=== PATIENT | female | born 1950 | race Caucasian/White ===

== ENCOUNTER → 2016-12-06 | Outpatient (CLI) | payer OTHER ==
[~2016-12-06] MED LIST: ACETAMINOPHEN; ASPI-86; CETI10TA17; CETI1TAB2; DIPH25TA82; DIPH50CA; FURO40TA4; GARL400T13; GLUC10002; IBUP-792; MNTL10T; OLME1TAB25; POTA20TA15 PO; RANI-10; RANI75TA57; SIMV40TA2; TYLENOL ARTHRITIS; VITAMIN B12; VNL75CCR; [UNRECOGNIZED DRUG - CODE]
--- OUTSIDE RECORDS SUMMARY | 2016-12-06 08:52 | XMS REPORT | Continuity of Care Document ---
Author Author [facility] Organization [facility] Address Unknown Phone Unavailable Allergies Active Description Code Type Severity Reaction Onset Reported/Identified Relationship to Patient Clinical Status Yes iodine [id number] Drug Allergy Mild N/A 08/25/2009 Yes TAPE TAPE Mild N/A 08/25/2009 Medications Problems Date Dx Coded Attending Type Code Diagnosis Diagnosed By 06/20/2013 EVIE LO, ARÚL Valles Ot 211.3 BENIGN NEOPLASM LG BOWEL 06/20/2013 RAÚL CASE MD Ot V16.0 FAMILY HX-GI MALIGNANCY 06/20/2013 RAÚL CASE MD Ot V76.51 SCREEN MAL NEOP-COLON 11/12/2014 BRET LO, KATIA Hernandes Ot 593.9 11/27/2014 KATIA QUEEN MD Ot 593.9 03/11/2015 RAÚL CASE MD Ot 327.23 03/11/2015 RAÚL CASE MD Ot 401.9 08/05/2015 RAÚL CASE MD Ot R92.0 08/05/2015 RAÚL CASE MD Ot Z12.31 08/13/2015 RAÚL CASE MD Ot R92.0 08/13/2015 RAÚL CASE MD Ot Z12.31 08/24/2015 RAÚL CASE MD Ot R92.8 03/02/2016 Ot 272.4 HYPERLIPIDEMIA NEC/NOS 03/02/2016 Ot 401.9 HYPERTENSION NOS 03/02/2016 Ot V76.12 OTH SCREEN MAMMO-MALIGN NEOPLASM OF EVELYN 03/02/2016 Ot 272.1 PURE HYPERGLYCERIDEMIA 03/02/2016 Ot 401.1 BENIGN HYPERTENSION 03/02/2016 RAÚL CASE MD Ot V72.84 EXAM PRE-OPERATIVE NOS 03/02/2016 BRET LO, KATIA Hernandes Ot 593.9 RENAL URETERAL DIS NOS 03/02/2016 RÚAL CASE MD Ot 327.23 OBSTRUCTIVE SLEEP APNEA (ADULT) (PEDIATR 03/02/2016 RAÚL CASE MD Ot 401.9 HYPERTENSION NOS 03/02/2016 RAÚL CASE MD Ot R92.0 MAMMOGRAPHIC MICROCALCIFICATION FOUND ON 03/02/2016 RAÚL CASE MD Ot Z12.31 ENCNTR SCREEN MAMMOGRAM FOR MALIGNANT NE 03/02/2016 RAÚL CASE MD Ot R92.8 OTH ABN AND INCONCLUSIVE FINDINGS ON DX 03/03/2016 RAÚL CASE MD Ot R92.8 OTH ABN AND INCONCLUSIVE FINDINGS ON DX 03/03/2016 RAÚL CASE MD Ot Z09 ENCNTR FOR F/U EXAM AFT TRTMT FOR COND O 03/30/2016 RAÚL CASE MD Ot R92.8 OTH ABN AND INCONCLUSIVE FINDINGS ON DX 03/30/2016 RAÚL CASE MD Ot Z09 ENCNTR FOR F/U EXAM AFT TRTMT FOR COND O Procedures Code Description Performed By Performed On 81.54 09/08/2009 Results Encounters ACCT No. Visit Date/Time Discharge Status Pt. Type Provider Facility Loc./Unit Complaint [id number] 08/06/2015 07:56:00 2014 23:59:59 CLS Outpatient RAÚL CASE MD [facility] RAD [id number] 07/30/2015 12:50:00 2014 23:59:59 CLS Outpatient RAÚL CASE MD [facility] RAD [id number] 02/12/2015 14:15:00 2014 23:59:59 CLS Outpatient RAÚL CASE MD [facility] SLEEP [id number] 11/09/2014 07:31:00 2014 23:59:59 CLS Outpatient KATIA QUEEN MD [facility] RAD [id number] 06/20/2013 06:52:00 2012 09:58:00 DIS Outpatient RAÚL CASE MD [facility] [id number] 06/18/2013 08:44:00 2012 23:59:59 CLS Outpatient RAÚL CASE MD [facility] PREOP [id number] 03/02/2016 07:29:00 ACT Outpatient RAÚL CASE MD [facility] [id number] 10/10/2012 06:58:00 Document Registration [id number] 10/09/2012 07:46:00 Document Registration [id number] 11/29/2010 06:43:00 Document Registration [id number] 09/08/2009 05:38:00 Document Registration
--- NOTE | 2016-12-07 21:45 | Diagnostic Imaging Report ---
EXAMINATION: Bilateral digital screening mammogram with CAD. The current study was also evaluated with a Computer Aided Detection (CAD) system. INDICATION: Screening At this time there are no current complaints. COMPARISON: This study was compared to the prior exam of 03/02/16, 07/30/15 and 10/10/12. FINDINGS: There are scattered fibroglandular densities in both breasts which could obscure a lesion. The previous exam of 03/02/16 noted dystrophic calcifications about the stereotactic clip in the midportion of the right breast. Those calcifications are again evident on this study and do not seem to have changed significantly. Most likely they are benign. There are other benign-appearing calcifications in both breasts as well. These too seem similar to the prior study. There is no primary or secondary sign of malignancy noted. IMPRESSION: 1. There is no evidence for malignancy. 2. The patient should have her annual bilateral screening mammogram on schedule in November of 2017. ACR BI-RADS Category 1: Negative. Result letter will be mailed to the patient. Note: At least 10% of breast cancer is not imaged by mammography. Dictated by: Dictated on workstation # [id number]
== END ==
LOC: RAD 08:48
PROVIDERS: ATTEND Internal Medicine
DX: Z12.31 Encounter for screening mammogram for malignant neoplasm of breast (principal)
CPT/HCPCS: 77067

== ENCOUNTER → 2018-03-15 | Outpatient (CLI) | payer MEDICARE, OTHER ==
--- NOTE | 2018-03-15 09:42 | Diagnostic Imaging Report ---
Indication: Routine screening. Comparison is made to prior study from 12/06/2016 and 03/02/2016. 2-D and 3-D bilateral screening mammography was performed with CAD. Scattered fibroglandular densities are identified bilaterally. Benign calcifications are scattered throughout both breasts. A biopsy clip in the upper central right breast is again noted. Previously noted calcifications adjacent to the clip appears stable. No new mass or malignant-appearing microcalcifications are seen. Axillae are unremarkable. Impression: BI-RADS category 2. No mammographic features suspicious for malignancy are identified. Dictated by: Dictated on workstation # [id number]
== END ==
LOC: RAD 07:35
PROVIDERS: ATTEND Internal Medicine
DX: Z12.31 Encounter for screening mammogram for malignant neoplasm of breast (principal)
CPT/HCPCS: 77067

== ENCOUNTER 2018-09-30 12:54 | Outpatient (CLI) | payer MEDICARE, OTHER ==
[~2018-09-30] VITALS: Ht 167.6 cm; Wt 127.0 kg
[2018-09-30] MEDS ORDERED: VITA100035 PO (13:56)
[2018-09-30] MEDS ORDERED: ALLO300T2 PO (13:56)
[2018-09-30] MEDS ORDERED: ASPI-999 PO (13:56)
[2018-09-30] MEDS ORDERED: RANI150T46 PO (13:56)
[2018-09-30] MEDS ORDERED: GLUC1CAP14 PO (13:56)
[2018-09-30] MEDS ORDERED: SIMV40TA4 PO (13:56)
[2018-09-30] MEDS ORDERED: VNL75T PO (13:56)
[2018-09-30] MEDS ORDERED: MULT-35 PO (13:56)
[2018-09-30] MEDS ORDERED: ACET-2650 PO (13:56)
[2018-09-30] MEDS ORDERED: CETI10TA17 PO (13:56)
[2018-09-30] MEDS ORDERED: POTA20TA15 PO (13:56)
[2018-09-30] MEDS ORDERED: CETI1TAB61 PO (13:56)
[2018-09-30] MEDS ORDERED: MONT10TA24 PO (13:56)
[2018-09-30] MEDS ORDERED: DIPH25CA6 PO (13:56)
[2018-09-30] MEDS ORDERED: VALS1TAB80 PO (13:56)
[2018-09-30] MEDS ORDERED: DIPH50CA PO (13:56)
== END 2018-09-30 13:58 | disposition home or self-care (01) ==
LOC: PREOP 12:54
PROVIDERS: ATTEND Internal Medicine
DX: Z01.818 Encounter for other preprocedural examination (principal)

== ENCOUNTER 2018-10-04 08:59 | Day surgery (SDC) | payer MEDICARE, OTHER ==
--- NOTE | 2018-09-27 13:28 | HISTORY AND PHYSICAL ---
DATE OF SERVICE: COLONOSCOPY HISTORY AND PHYSICAL HISTORY OF PRESENT ILLNESS: The patient is a 68-year-old white female seen in the office for followup of hypertension and intermittent gout on 09/26/2018. She is being set up for screening colonoscopy. She is deemed to be of higher than average risk as she has a brother who was diagnosed with adenocarcinoma of the rectum at the age of 55. Her last colonoscopy was a little over 5 years ago at which time one hyperplastic polyp was removed. No evidence for adenomatous colonic polyposis was noted. She reports that she has been feeling well, has noted no bowel habit change. Denies abdominal pain, has noted no melena or bright red blood per rectum. In March, she had one attack of acute podagra. As I recall, she was not in town, just had ibuprofen to take and to take about a week to resolve. She has had no subsequent recurrences of inflammatory arthritis. She has had no chest pain, shortness of breath, orthopnea, PND or pedal edema. PHYSICAL EXAMINATION: GENERAL: Reveals a well-appearing white female, in no acute distress. VITAL SIGNS: Weight was up 3 pounds to 285.8. Blood pressure initially 166/86 and at the end of the interview down to 140/80 with a heart rate of 72 and regular. HEENT: Unremarkable. She is a Mallampati class 3 oropharyngeal configuration. NECK: Revealed no JVD, adenopathy or bruits. Ear canals were clear with normal TMs. CHEST: Clear to auscultation. CARDIOVASCULAR: Reveals a regular rate and rhythm without murmur, S3 or S4. ABDOMEN: Soft, supple without mass, organomegaly or tenderness. EXTREMITIES: Reveal no cyanosis, clubbing or edema. ASSESSMENT AND PLAN: 1. Hypertension under reasonable control. 2. Acute intermittent podagra, discussed utilization of prednisone for future attacks. Thiazide diuretic is likely aggravating this, but her attacks were infrequent and she is likely diuretic dependent for hypertension control. 3. History of hyperlipidemia. Blood tests were reviewed with the patient and today basic metabolic panel was unremarkable except for fasting sugar of 101, which is improved from 110 last time. Her uric acid level was 5.3 and BUN was 23 with a creatinine of 1.2. She has prep instructions with Suprep kit were given and questions were answered. She is scheduled for hypertension follow up in 6 months and next year will be due for another lipid panel with repeat basic metabolic panel and uric acid. Job ID: [id number] DocumentID: [id number] Dictated Date: 09/27/2018 12:36:12 Support Manager Date: 09/27/2018 13:27:22 Dictated By: RAÚL CASE MD
[~2018-10-04] VITALS: Ht 167.6 cm; Wt 127.0 kg
[~2018-10-04 08:59] MED LIST changes: +ACET-2650 PO; +ALLO300T2 PO; +ASPI-999 PO; +CETI10TA17 PO; +CETI1TAB61 PO; +DIPH25CA6 PO; +DIPH50CA PO; +GLUC1CAP14 PO; +MONT10TA24 PO; +MULT-35 PO; +RANI150T46 PO; +SIMV40TA4 PO; +VALS1TAB80 PO; +VITA100035 PO; +VNL75T PO
[2018-10-04] MEDS ORDERED: D5 LR IV SOLUTION 1,000 ML IV STA (09:26)
[2018-10-04] MEDS ORDERED: LIDOCAINE JELLY 2% 6 ML SYRINGE MM PRN (09:30)
[2018-10-04] MEDS ORDERED: MIDAZOLAM 2 MG/2 ML (VERSED) VIAL IVP ONE (09:30)
[2018-10-04] MEDS ORDERED: fentaNYL INJECTION 100 MCG/2 ML AMP IVP ONE (09:30)
[2018-10-04] MEDS ORDERED: D5 LR IV SOLUTION 1,000 ML IV ONE (09:30)
[2018-10-04] MEDS ORDERED: LIDOCAINE JELLY 2% 6 ML SYRINGE ONE (09:46)
[2018-10-04] MEDS ORDERED: fentaNYL INJECTION 100 MCG/2 ML AMP ONE (09:46)
[2018-10-04] MEDS ORDERED: MIDAZOLAM 2 MG/2 ML (VERSED) VIAL ONE ×2 (09:46)
[2018-10-04 10:09] VITALS: BP 140/72
[2018-10-04 11:00] VITALS: BP 132/72
[2018-10-04 11:30] VITALS: BP 144/88
[2018-10-04 12:05] VITALS: BP 144/88
--- NOTE | 2018-10-04 22:39 | OPERATIVE REPORT ---
DATE OF SERVICE: COLONOSCOPY SUMMARY PRIMARY CARE PROVIDER: Raúl Case MD INDICATION FOR THE PROCEDURE: Screening colonoscopy, family history of colon cancer in her brother diagnosed in his 50s as well as grandmother and several uncles. DESCRIPTION OF PROCEDURE: The patient was placed in the left lateral decubitus position. Prior to undergoing colonoscopy, digital rectal evaluation was performed. Anal sphincter tone was normal and the perianal reflexes intact. Digital rectal evaluation was compatible with a small anterior rectocele. No other abnormalities are noted on additional inspection of the anal canal or distal rectal vault. The colonoscope was then inserted into the rectum under direct visualization and advanced to the cecum. Cecum was identified by identification of the cecal strap. Photographic documentation was obtained. Careful inspection was made as the colonoscope was withdrawn. The quality of prep was fair. FINDINGS: There is no evidence for internal or external hemorrhoids and the rectum was unremarkable. No evidence for sigmoid diverticular disease was appreciated. Present in the proximal sigmoid colon was a diminutive 1 mm sessile polyp. It was biopsied and ablated and submitted for histopathology. The descending colon, splenic flexure and transverse colon were unremarkable. A diminutive 2 mm sessile polyp was noted at the hepatic flexure. It was photographed and biopsied and ablated with minimal blood loss. The ascending colon was unremarkable except for a 5 mm beefy red nonulcerated sessile polyp noted on the opposite wall of the ileocecal valve from the ileocecal valve and one fold distal in the proximal ascending colon. It was biopsied and ablated in 2 locations and submitted for histopathology. The cecum and the colon was unremarkable. ASSESSMENT: Three polyps were removed via hot forceps as noted above. The most concerning was a 5 mm sessile polyp slightly firm to biopsy forceps resistance opposite the ileocecal valve in the distal ascending colon. Future surveillance colonoscopy likely not exceeding a year will be recommended pending histopathology report. A small anterior rectocele was noted on digital evaluation. No other colonic abnormalities were appreciated on today's study. Job ID: [id number] DocumentID: [id number] Dictated Date: 10/04/2018 10:58:47 Disc Sander Date: 10/04/2018 22:38:04 Dictated By: RAÚL CASE MD [facility]
== END 2018-10-04 12:05 | disposition home or self-care (01) ==
LOC: ENDO 08:59
PROVIDERS: ATTEND Internal Medicine
DX: Z12.11 Encounter for screening for malignant neoplasm of colon (principal); K63.5 Polyp of colon; N81.6 Rectocele; Z80.0 Family history of malignant neoplasm of digestive organs; I10 Essential (primary) hypertension; M10.9 Gout, unspecified; Z79.899 Other long term (current) drug therapy

== ENCOUNTER → 2019-05-14 | Outpatient (CLI) | payer MEDICARE, OTHER ==
[~2019-05-14] MED LIST changes: +RANI-613 PO; -RANI150T46 PO
--- NOTE | 2019-05-14 13:21 | Diagnostic Imaging Report ---
Indication: Routine screening. Comparison is made with prior mammogram 03/15/2018 and 12/06/2016. 2-D and 3-D bilateral screening mammography was performed with CAD. Scattered fibroglandular densities are identified bilaterally. Scattered benign calcifications again noted. Biopsy clip on the right remains in place. No discrete mass or malignant-appearing microcalcifications are seen. The axillae are unremarkable. Impression: BI-RADS category 2 No mammographic features suspicious for malignancy are identified. ACR BI-RADS Category 2: Benign findings. Result letter will be mailed to the patient. Note: At least 10% of breast cancer is not imaged by mammography. Dictated by: Dictated on workstation # [id number]
== END ==
LOC: RAD 11:29
PROVIDERS: ATTEND Internal Medicine
DX: Z12.31 Encounter for screening mammogram for malignant neoplasm of breast (principal)
CPT/HCPCS: 77067

== ENCOUNTER → 2020-05-25 | Outpatient (CLI) | payer MEDICARE, OTHER ==
[~2020-05-25] MED LIST changes: +DIPH25CA48 PO; -DIPH25CA6 PO; -MONT10TA24 PO; +MONT10TA26 PO; +SIMV40TA25 PO; -SIMV40TA4 PO
--- NOTE | 2020-05-25 12:39 | Diagnostic Imaging Report ---
INDICATION: Routine screening. COMPARISON: 05/14/2019 and 03/15/2018. TECHNIQUE: 2D and 3D bilateral screening mammography was performed with CAD. FINDINGS: Scattered fibroglandular densities are identified bilaterally. A biopsy marker clip in the outer right breast at mid depth is again noted. Numerous calcifications are scattered throughout both breasts, similar to prior exam. No dominant mass or malignant appearing microcalcifications are seen. The axillae are unremarkable. IMPRESSION: No mammographic features suspicious for malignancy are identified. ACR BI-RADS Category 2: Benign findings. Result letter will be mailed to the patient. Note: At least 10% of breast cancer is not imaged by mammography. Dictated by: Dictated on workstation # [id number]
== END ==
LOC: RAD 10:15
PROVIDERS: ATTEND Internal Medicine
DX: Z12.31 Encounter for screening mammogram for malignant neoplasm of breast (principal)
CPT/HCPCS: 77063; 77067

== ENCOUNTER → 2021-05-26 | Outpatient (CLI) | payer MEDICARE, OTHER ==
[~2021-05-26] MED LIST changes: -MONT10TA26 PO; +MONT10TA32 PO
--- NOTE | 2021-05-26 09:23 | Diagnostic Imaging Report ---
Indication: Routine screening. Comparison is made prior mammogram from 05/25/2020 and 05/14/2019. 2-D and 3-D bilateral screening mammography was performed with CAD. Scattered fibroglandular densities are identified bilaterally. A biopsy marker clip in the central right breast is again noted. A scattered benign appearing calcifications in both breast are noted. No mass or malignant-appearing microcalcifications are seen. Axillae are unremarkable. IMPRESSION: BI-RADS Category 2 No mammographic features suspicious for malignancy are identified. ACR BI-RADS Category 2: Benign findings. Result letter will be mailed to the patient. Note: At least 10% of breast cancer is not imaged by mammography. Dictated by: Dictated on workstation # [id number]
== END ==
PROVIDERS: ATTEND Internal Medicine
DX: Z12.31 Encounter for screening mammogram for malignant neoplasm of breast (principal)
CPT/HCPCS: 77063; 77067

== ENCOUNTER 2021-10-13 05:35 | Outpatient (CLI) | payer MEDICARE, OTHER ==
[~2021-10-13] VITALS: Ht 165 cm; Wt 58.0 kg
[~2021-10-13 05:35] MED LIST changes: -DIPH50CA PO; +DIPH50CA33 PO; +MONT-40 PO; -MONT10TA32 PO; +POTA-179 PO
[2021-10-14] MEDS ORDERED: CAND32TA21 PO (12:19)
[2021-10-14] MEDS ORDERED: ALLO100T PO (12:19)
== END 2021-10-14 13:47 ==
LOC: PREOP 05:35
PROVIDERS: ATTEND Internal Medicine
DX: Z01.818 Encounter for other preprocedural examination (principal)

== ENCOUNTER 2021-10-21 06:51 | Day surgery (SDC) | payer MEDICARE, OTHER ==
--- NOTE | 2021-10-13 08:39 | HISTORY AND PHYSICAL ---
DATE OF SERVICE: COLONOSCOPY HISTORY AND PHYSICAL HISTORY: The patient is a 71-year-old white female seen in the office for followup of hypertension, insulin resistance and obstructive sleep apnea. She has undergone colonoscopy 3 years ago, at which time she had 2 polyps removed and more concerning adjacent to the ileocecal valve was read out as hyperplastic. There is a strong family history for colon cancer in her brother, grandfather and several uncles. Brother was diagnosed at the age of 50. She denies any abdominal pain, change in bowel habit, melena or bright red blood per rectum. She brought in paperwork indicating compliance with her CPAP, which has been working well. Auto titrating. She has had no chest discomforts and had lost several pounds when compared to the summer months. She voices no complaints and is fully vaccinated for COVID as well as influenza. PHYSICAL EXAMINATION: GENERAL: Reveals a white female appeared to be in no acute distress. VITAL SIGNS: Initial blood pressure 172/90 when she first walked in, repeated at the end of the interview was 136/78. HEENT: Unremarkable. Sclerae nonicteric. CHEST: Clear to auscultation. CARDIOVASCULAR: Revealed a regular rate and rhythm without significant murmur, S3 or S4. ABDOMEN: Soft, supple without mass, organomegaly or tenderness. EXTREMITIES: Reveal no cyanosis, clubbing or edema. ASSESSMENT: 1. Hypertension, likely under reasonable control. Home blood pressures were reviewed. Only occasional blood pressures above 140 systolic, predominantly under 130 No levels above the mid 80 range on diastolic pressure. 2. The patient is set up for surveillance colonoscopy due to past history of colon polyps and strong family history for colon cancer. 3. Obstructive sleep apnea, good compliance with CPAP, reports reviewed. 4. Insulin resistance, stable blood sugars. Discussed the importance of continued weight loss considering BMI greater than 40. We will see her back in six months with a chemistry panel, lipid panel and A1c. Job ID: [id number] DocumentID: [id number] Dictated Date: 10/06/2021 16:03:36 Home Office Claims Examiner Date: 10/06/2021 16:19:05 Dictated By: RAÚL CASE MD
[~2021-10-21] VITALS: Ht 168 cm; Wt 128.0 kg
[~2021-10-21 06:51] MED LIST changes: +ALLO100T PO; +CAND32TA21 PO
[2021-10-21] MEDS ORDERED: LACTATED RINGERS 1,000 ML IV STA ×2 (06:59→08:44)
[2021-10-21 07:16] VITALS: BP 135/61
[2021-10-21] MEDS ORDERED: fentaNYL INJ 100 MCG/2 ML AMP ONE (07:52)
[2021-10-21] MEDS ORDERED: MIDAZOLAM 5 MG/5 ML (VERSED) VIAL ONE (07:52)
--- NOTE | 2021-10-21 08:01 | Pre-Op Note & Conscious Sedat ---
Pre-Operative Progress Note H&P Reviewed The H&P was reviewed, patient examined and no changes noted. Date H&P Reviewed: Oct 21, 2021 Time H&P Reviewed: 07:45 Conscious Sedation Pre-Proced ASA Score 2 For ASA 3 and 4: Consider anesthesia and medical clearance. Also, for patients with a history of failed moderate sedation consider anesthesia. Airway Lungs Heart ASA score ASA 1: a normal healthy patient ASA 2: a patient with a mild systemic disease (mid diabetes, controlled hypertension, obesity ASA 3: a patient with a severe systemic disease that limits activity (angina, COPD, prior Myocardial infarction) ASA 4: a patient with an incapacitating disease that is a constant threat to life (CHF, renal failure) ASA 5: a moribund patient not expected to survive 24 hrs. (ruptured aneurysm) ASA 6: a declared brain- patient whose organs are being harvested. For emergent operations, add the letter E after the classification Mallampati Classification Grade 3 Sedation Plan Analgesia, Amnesia, Plan communicated to team members, Discussed options with patient/fam, Discussed risks with patient/fam The patient is an appropriate candidate to undergo the planned procedure, sedation, and anesthesia. The patient immediately re-assessed prior to indication. RAÚL CASE MD Oct 21, 2021 08:01
[2021-10-21 08:15] VITALS: BP 133/60
[2021-10-21 08:20] VITALS: BP 135/63
[2021-10-21 08:25] VITALS: BP 143/67
[2021-10-21 08:30] VITALS: BP 129/60
[2021-10-21] MEDS ORDERED: LIDOCAINE JELLY 2% 6 ML SYRINGE MM PRN (08:45)
[2021-10-21] MEDS ORDERED: MIDAZOLAM 5 MG/5 ML (VERSED) VIAL IV ONE (08:45)
[2021-10-21] MEDS ORDERED: fentaNYL INJ 100 MCG/2 ML AMP IVP ONE (08:45)
[2021-10-21 09:00] VITALS: BP 152/80
--- NOTE | 2021-10-21 12:46 | OPERATIVE REPORT ---
DATE OF SERVICE: COLONOSCOPY SUMMARY INDICATION FOR THE PROCEDURE: Surveillance colonoscopy, history of colon polyps, family history of colon cancer. DESCRIPTION OF PROCEDURE: The patient was placed in the left lateral decubitus position. Prior to undergoing colonoscopy, digital rectal evaluation was performed. Anal sphincter tone was normal and the perianal reflexes intact. No evidence for internal or external hemorrhoids and no digital abnormalities noted on inspection of the anal canal or distal rectal vault. The colonoscope was then inserted into the rectum and under direct visualization advanced to the cecum. The cecum was identified by identification of the ileocecal valve and cecal strap. Photographic documentation was obtained. Careful inspection was made as the colonoscope was withdrawn. Quality of prep was good. FINDINGS: There was no evidence for internal or external hemorrhoids and the rectum and sigmoid colon were unremarkable. Present in the proximal descending colon was a questionable sessile 4 mm polyp. It was photographed and biopsied and ablated with no blood loss. The splenic flexure, transverse colon, hepatic flexure, and proximal mid ascending colon were unremarkable. Adjacent to the ileocecal valve and the proximal ascending colon was a 5 mm sessile polyp, likely remnant of previous polyp that was cauterized three years ago and read on histopathology as hyperplastic polyp. It was biopsied and ablated with no subsequent blood loss. The cecum of the colon was unremarkable. ASSESSMENT: Questionably two polyps were removed via hot forceps today. One adjacent to the ileocecal valve, likely remnant from a previous polyp, cauterized 3 years ago and read out as hyperplastic polyp. The other from the mid descending colon. This was otherwise normal colonoscopy to the cecum. We will need to await histopathology report, but if there is no evidence for adenomatous polyps on histopathology we will likely increase screening interval to 5 years considering family history of colon cancer. Job ID: [id number] DocumentID: [id number] Dictated Date: 10/21/2021 09:03:24 Meal Miller Date: 10/21/2021 12:44:59 Dictated By: RAÚL CASE MD
== END 2021-10-21 09:10 | disposition home or self-care (01) ==
LOC: ENDO 06:51
PROVIDERS: ATTEND Internal Medicine
DX: Z12.11 Encounter for screening for malignant neoplasm of colon (principal); D12.4 Benign neoplasm of descending colon; K51.40 Inflammatory polyps of colon without complications; I10 Essential (primary) hypertension; G47.33 Obstructive sleep apnea (adult) (pediatric); Z99.89 Dependence on other enabling machines and devices; Z80.0 Family history of malignant neoplasm of digestive organs
CPT/HCPCS: 88305

== ENCOUNTER 2022-05-22 16:20 | Inpatient (IN) | payer MEDICARE, OTHER ==
[~2022-05-22] VITALS: Ht 168 cm; Wt 129.8 kg
[~2022-05-22 16:20] MED LIST changes: -ATOR80TA76 PO; -CETI-511 PO; -GLUC100016 PO; -HYDR12.56 PO; -MULT-1136 PO; -VITA-244 PO
--- NOTE | 2022-05-22 18:02 | Diagnostic Imaging Report ---
EXAMINATION: Abdomen 1 view HISTORY: Kidney stones. COMPARISON: CT dated 05/22/2022. FINDINGS: Calcification projecting over the left lower pelvis may represent the ureteral stone seen on prior exam. No other calcifications are seen. No dilated bowel or free air. IMPRESSION: 1. Small calcification projecting over the left lower pelvis may represent the ureteral stone seen on prior CT. Dictated by: Dictated on workstation # [id number]
[2022-05-22] MEDS: LACTATED RINGERS 1,000 ML IV SCH ×2 (18:20→23:17)
[2022-05-22] MEDS: cefTRIAXone 1 GM PRE-MIX 50 ML IV SCH (18:20)
--- NOTE | 2022-05-22 19:36 | History & Physical-Hospitalist ---
History of Present Illness HPI/Chief Complaint The patient presented to my office reporting onset of seizure very left flank pain of last week. She has a past history of nephrolithiasis. She saw Karicallie ISSA on Sunday who set her up for a stat noncontrast CT scan of the abdomen and obtained blood work revealing a creatinine of 3.6 with known previous normal renal function. Patient did not proceed to get the CAT scan hoping that her symptoms would resolve. She denied chills or fever but felt very weak and noted low blood pressure at home in the 90-100 systolic range. She had resolution of flank pain but reported poor appetite and some mild nausea with increasing fatigue over the weekend. She has history of hypertension and continue to take Diovan HCT. She presented to the office on Sunday morning after she called in earlier and was instructed to get CT scan which she accomplished this morning. It did reveal a 3 mm left distal ureteral stone at the approximate level of the left UVJ junction with reported moderate left hydronephrosis. No other significant abnormalities were reported. Her blood pressure in the office was actually elevated at 170/80 but she was sent to the lab to obtain a CBC and a basic metabolic panel to see if there is any improvement in renal function and help guide urgency of treatment for left ureteral stone. Her BUN was up to 100 and her creatinine was 5.8 with an elevated white count of 15,000 raising concerns for possible stone infection. Her case was discussed with Dr. Tavarez as well as Dr. Alanis. Request for KUB were obtained. Date Seen 05/22/22 Time Seen by a Provider: 10:00 Attending Physician Raúl Barker MD PCP Admitting Physician: Elenita Brown MD Attending Physician: Elenita Brown MD Referring Physician Date of Admission May 22, 2022 at 17:25 Home Medications & Allergies Home Medications Reviewed patient Home Medication Reconciliation performed by pharmacy medication reconciliations mri technician and/or nursing. Patients Allergies have been reviewed. Allergies Allergies Coded Allergies iodine (Verified Allergy, Mild, 05/22/22) Uncoded Allergies TAPE ( Allergy, Mild, 08/25/09) Past Hrnsqbj-Pvllkh-Qbfhsf Hx Patient Social History Tobacco Use?: No Smoking Status: Never a Smoker Use of E-Cig and/or Vaping dev: No Substance use?: No Alcohol Use?: No Pt feels they are or have been: No Immunizations Up To Date Date of Influenza Vaccine: Aug 02, 2020 First/Initial COVID19 Vaccinat: 11/2020 Second COVID19 Vaccination Rick: 12/2020 Seasonal Allergies Seasonal Allergies: Yes Current Status status: No status: No Advance Directives: No Communicates: Verbally Primary Language: Colombian Preferred Spoken Language: Colombian Is interpretation needed?: No Implanted or Applied Medical D: None Past Medical History Surgeries: Hysterectomy, Tonsillectomy Asthma, Sleep Apnea Currently Using CPAP: Yes High Cholesterol, Hypertension Sexually Transmitted Disease: No HIV/AIDS: No Gastroesophageal Reflux, Chronic Diarrhea, Polyps Arthritis Blood Disorders: No Adverse Reaction/Blood Tranf: No (HAS HAD BLOOD WITH NO REACTION) Family Medical History Colon cancer requiring screening colonoscopy Review of Systems Constitutional: see HPI Physical Exam Physical Exam Vital Signs Vital Signs - First Documented 05/22/22 18:30 O2 Delivery Room Air Capillary Refill : Height, Weight, BMI Height: 5'6.00" Weight: 280lbs. 0.0oz. 127.376539wl; 44.67 BMI Method: General Appearance: Mild Distress, Obese HEENT: Pale Conjunctivae (L), Pale Conjunctivae (R) Respiratory: Chest Non Tender, Lungs Clear, Normal Breath Sounds, No Accessory Muscle Use, No Respiratory Distress Cardiovascular: Regular Rate, Rhythm, No Edema, No Gallop, No JVD, No Murmur, Normal Peripheral Pulses Gastrointestinal: Normal Bowel Sounds, No Organomegaly, No Pulsatile Mass, Soft, Other (Mild left lower quadrant tenderness to palpation. No flank pain to palpation.) Extremity: Normal Inspection, Normal Range of Motion, Non Tender, No Calf Tenderness, No Pedal Edema Neurologic/Psychiatric: Alert, Oriented x3 Skin: Pallor Results Results/Procedures Labs Patient resulted labs reviewed. Assessment/Plan Admission Diagnosis 1. Acute kidney injury likely due to a combination of left ureteral obstruction and hypotension from dehydration with continued antihypertensive therapy. We will initiate IV fluid resuscitation hold antihypertensive therapy. With repeat CBC and CMP in the morning. 2. Elevated white count cannot rule out the possibility of urinary tract infection and infected stone UA has been ordered will empirically initiate Rocephin until UA and culture results are available. 3. Urologic consultation see HPI. 4. History of hypertension holding antihypertensive medication as per above. Admission Status: Inpatient Order (span 2 midnights) Reason for Inpatient Admission: See admission diagnosis BARKER,RAÚL D MD May 22, 2022 19:36
[2022-05-22 20:22] LABS: CLARITY,URINE CLEAR; COLOR,URINE YELLOW; GLUCOSE, URINE (UA) NEGATIVE (NEGATIVE); KETONES,URINE TRACE (NEGATIVE); LEUKOCYTE ESTERASE ,URINE 1+ (NEGATIVE); NITRITE,URINE NEGATIVE (NEGATIVE); PROTEIN,URINE TRACE (NEGATIVE)
[2022-05-22] MEDS: PSEUDOEPHEDRINE PO SCH (20:23)
[2022-05-22] MEDS: CETIRIZINE PO SCH (20:23)
[2022-05-22 20:28] LABS: BACTERIA,URINE LARGE /HPF
[2022-05-22 20:30] LABS: BILIRUBIN,URINE 1+ (NEGATIVE)
[2022-05-22 20:45] VITALS: BP 119/55
[2022-05-22 23:19] VITALS: BP 122/60
[2022-05-23] VITALS (11 sets, daily range): BP systolic 79–150; BP diastolic 44–81
[2022-05-23] MEDS: LACTATED RINGERS 1,000 ML IV SCH ×4 (03:28→13:37)
[2022-05-23 05:57] LABS: BASOPHILS # (AUTO) 0.1 10^3/uL (0.0-0.1); BASOPHILS % (AUTO) 1 % (0-10); HEMOGLOBIN 10.3 g/dL (11.5-16.0)
[2022-05-23 05:59] LABS: EOSINOPHILS # (AUTO) 0.2 10^3/uL (0.0-0.3); EOSINOPHILS % (AUTO) 1 % (0-10); HEMATOCRIT 29 % (35-52); LYMPHOCYTES # (AUTO) 2.5 10^3/uL (1.0-4.0); LYMPHOCYTES % (AUTO) 21 % (12-44); MEAN CORPUSCULAR HEMOGLOBIN 30 pg (25-34); MEAN CORPUSCULAR HGB CONC 35 g/dL (32-36); MEAN CORPUSCULAR VOLUME 86 fL (80-99); MEAN PLATELET VOLUME 11.2 fL (9.0-12.2); MONOCYTES # (AUTO) 0.6 10^3/uL (0.0-1.0); MONOCYTES % (AUTO) 5 % (0-12); NEUTROPHILS # (AUTO) 8.1 10^3/uL (1.8-7.8); NEUTROPHILS % (AUTO) 70 % (42-75); PLATELET COUNT 79 10^3/uL (130-400); WHITE BLOOD COUNT 11.5 10^3/uL (4.3-11.0)
[2022-05-23 06:20] LABS: ALBUMIN 2.9 GM/DL (3.2-4.5); BILIRUBIN,TOTAL 0.4 MG/DL (0.1-1.0); CALCIUM 8.5 MG/DL (8.5-10.1); CREATININE SERUM 5.86 MG/DL (0.60-1.30); POTASSIUM 4.1 MMOL/L (3.6-5.0); TOTAL PROTEIN 5.4 GM/DL (6.4-8.2)
[2022-05-23 06:21] LABS: INR 1.1 (0.8-1.4); PROTHROMBIN TIME PATIENT 14.4 SEC (12.2-14.7)
--- NOTE | 2022-05-23 07:22 | Progress Note-Pre Operative ---
Pre-Operative Progress Note Date of Available H&P: May 23, 2022 Date H&P Reviewed: May 23, 2022 Time H&P Reviewed: 07:21 Changes from last HP NONE Pre-Operative Diagnosis: LT URETERAL STONE ALLEN SALAZAR MD May 23, 2022 07:22
[2022-05-23] MEDS: PSEUDOEPHEDRINE PO SCH ×2 (07:59→20:05)
[2022-05-23] MEDS: CETIRIZINE PO SCH ×2 (07:59→20:05)
--- NOTE | 2022-05-23 08:14 | CONSULTATION REPORT ---
DATE OF SERVICE: 05/23/2022 ATTENDING PHYSICIAN: Dr. Barker. SUMMARY: A 72-year-old white lady with history of urolithiasis has been battling a left distal ureteral stone with pain for a week or so. She was admitted by Dr. Barker with elevated BUN and creatinine. She denies any other complaints. ALLERGIES: SHE IS ALLERGIC TO IODINE AND TAPE. SOCIAL HISTORY: No smoking, no alcohol, no drugs. She had some seasonal allergies. PAST MEDICAL HISTORY: Surgery diaz hysterectomy, tonsillectomy. MEDICAL ILLNESSES: Asthma and obstructive sleep apnea. She is on CPAP. She also has high cholesterol, hypertension, GERD, and osteoarthritis. FAMILY HISTORY: Family history of cancer of colon. PHYSICAL EXAMINATION: GENERAL: Well-nourished, well-developed, in no acute distress at the time of my examination. HEAD: Normocephalic. ENT: Unremarkable. NECK: Supple. No bruits. CHEST: Clear, nontender. HEART: Regular rate and rhythm, no murmur. ABDOMEN: Soft. There is a mild left CVA tenderness. EXTREMITIES: Lower extremity, no edema or cyanosis. NEUROLOGIC: Grossly intact. Oriented x3. Labs were reviewed as well as her x-rays. She had a KUB this morning that showed no change in the stone. IMPRESSION: Left distal ureteral stone with hydronephrosis, acute renal injury, some dehydration. PLAN: Left ureteroscopy with stone lithotripsy, possible basket, stent, ESWL or lithotomy. Procedure was fully explained to the patient with expectation alternatives, risks and complications. She fully understands and want the procedure done. CC: Dr. Barker - requested, unable to deliver. Job ID: [id number] DocumentID: [id number] Dictated Date: 05/23/2022 07:21:24 Donor Relations Coordinator Date: 05/23/2022 08:14:23 Dictated By: ALLEN SALAZAR MD
[2022-05-23] MEDS ORDERED: DIPH25CA48 PO ×2 (09:24→09:49)
[2022-05-23] MEDS ORDERED: ALLO300T2 PO (09:24)
[2022-05-23] MEDS ORDERED: ATOR80TA76 PO (09:24)
[2022-05-23] MEDS ORDERED: CETI-511 PO (09:24)
[2022-05-23] MEDS ORDERED: HYDR12.56 PO (09:24)
[2022-05-23] MEDS ORDERED: MULT-1136 PO (09:24)
[2022-05-23] MEDS ORDERED: GLUC100016 PO (09:24)
[2022-05-23] MEDS ORDERED: VITA-244 PO (09:24)
[2022-05-23] MEDS ORDERED: CETI10TA17 PO (09:49)
--- NOTE | 2022-05-23 09:55 | Progress Note - Hospitalist ---
Subjective HPI/CC On Admission Date Seen by Provider: May 23, 2022 The patient presented to my office reporting onset of seizure very left flank pain of last week. She has a past history of nephrolithiasis. She saw Kari ISSA on Sunday who set her up for a stat noncontrast CT scan of the abdomen and obtained blood work revealing a creatinine of 3.6 with known previous normal renal function. Patient did not proceed to get the CAT scan hop ing that her symptoms would resolve. She denied chills or fever but felt very weak and noted low blood pressure at home in the 90-100 systolic range. She had resolution of flank pain but reported poor appetite and some mild nausea with increasing fatigue over the weekend. She has history of hypertension and continue to take Diovan HCT. She presented to the office on Sunday morning after she called in earlier and was instructed to get CT scan which she accomplished this morning. It did reveal a 3 mm left distal ureteral stone at the approximate level of the left UVJ junction with reported moderate left hydronephrosis. No other significant abnormalities were reported. Her blood pressure in the office was actually elevated at 170/80 but she was sent to the lab to obtain a CBC and a basic metabolic panel to see if there is any improvement in renal function and help guide urgency of treatment for left ureteral stone. Her BUN was up to 100 and her creatinine was 5.8 with an elevated white count of 15,000 raising concerns for possible stone infection. Her case was discussed with Dr. Tavarez as well as Dr. Alanis. Request for KUB were obtained. Subjective/Events-last exam Pt reports doing ok but waiting for surgery. Denies any pain. States Dr Tavarez was already in and planning for OR in the afternoon. Objective Exam Vital Signs Vital Signs Date Time Temp Pulse Resp B/P (MAP) Pulse Ox O2 Delivery O2 Flow Rate FiO2 05/23/22 07:44 36.1 89 20 122/74 (90) 99 Room Air Capillary Refill : General Appearance: No Apparent Distress, Obese Respiratory: Lungs Clear, No Respiratory Distress Cardiovascular: Regular Rate, Rhythm, No Murmur Neurologic/Psychiatric: Alert, Oriented x3 Results/Procedures Lab Laboratory Tests 05/23/22 05:49 Patient resulted labs reviewed. Assessment/Plan Assessment and Plan Assess & Plan/Chief Complaint 1. Acute kidney injury on CKD - POA, Creatinine still quite elevated, continue IVF plan for lithotripsy today with Urology, monitor UOP closely, bicarb is 12- may need bicarb gtt or potentially even transfer for Nephrology if no improvement 2. Leukocytosis- trended down 3. HTN- BP well controlled, trend- hold home meds 4. UTI-POA- Continue GOSIA Tinoco MD May 23, 2022 09:55
[2022-05-23] MEDS ORDERED: fentaNYL INJ 100 MCG/2 ML AMP ONE (10:12)
[2022-05-23] MEDS ORDERED: SEVOFLURANE (ULTANE) 15 ML INHAL SOLN ONE (10:12)
[2022-05-23] MEDS ORDERED: proPOfol 200 MG/20 ML (DIPRIVAN) VIAL IV ONE (10:12)
[2022-05-23] MEDS ORDERED: MIDAZOLAM 2 MG/2 ML (VERSED) VIAL ONE (10:12)
[2022-05-23] MEDS ORDERED: ONDANSETRON 4 MG/2 ML (SDV) Z0FRAN ONE (10:12)
[2022-05-23] MEDS ORDERED: LIDOCAINE PF 2% 5 ML (XYLOCAINE) VIAL ONE (10:12)
--- NOTE | 2022-05-23 10:19 | Progress Note-Post Operative ---
Post-Operative Progess Note Surgeon (s)/Sap Senior Developer (s) Surgeon ALLEN SALAZAR MD Sap Senior Developer: NONE Pre-Operative Diagnosis LT DISTAL URETERAL STONE Post-Operative Diagnosis SAME Procedure & Operative Findings Date of Procedure 05/23/22 Procedure Performed/Findings CYSTOSCOPY Anesthesia Type GENERAL Estimated Blood Loss Estimated blood loss (mL): NONE Specimens/Packing Specimens Removed NONE Packing: NONE ALLEN SALAZAR MD May 23, 2022 10:19
[2022-05-23] MEDS ORDERED: ROCURONIUM 50 MG/5 ML (ZEMURON) VIAL IV ONE (10:41)
[2022-05-23] MEDS ORDERED: PHENYLEPHRINE INJ 10 MG/ML (FOR PYXIS KITS ONLY) ONE (10:43)
--- NOTE | 2022-05-23 11:08 | Diagnostic Imaging Report ---
INDICATION: Lithotripsy, renal stones. COMPARISON: 05/22/[address] dated 05/22/2022 TECHNIQUE: 2 radiographs of the abdomen dated 05/23/2022. FINDINGS: A 3 mm calcification is identified overlying the left pelvis on image 1 of 2. This is felt to relate to previously noted left ureterovesicular junction calculus. Additional 3 mm calcification overlying the left mid pelvis is felt related to a vascular calcification. Nonobstructive bowel gas pattern. No free air. Scattered osseous degenerative changes without acute osseous abnormality. IMPRESSION: 3 mm calcification overlying the left pelvis is favored relate to a persistent left ureterovesicular junction calculus. Nonobstructive bowel gas pattern without free air. Dictated by: Dictated on workstation # [id number]
--- NOTE | 2022-05-23 11:09 | Progress Note-Post Operative ---
Post-Operative Progess Note Surgeon (s)/Grain Unloader (s) Surgeon ALLEN SALAZAR MD Grain Unloader: NONE Pre-Operative Diagnosis LT DISTAL URETERAL STONE Post-Operative Diagnosis SAME Procedure & Operative Findings Date of Procedure 05/23/22 Procedure Performed/Findings ATTEMPTED LT URETEROSCOPY AND LT ESWL Anesthesia Type GENERAL Estimated Blood Loss Estimated blood loss (mL): NONE Specimens/Packing Specimens Removed NONE Packing: NONE ALLEN SALAZAR MD May 23, 2022 11:09
[2022-05-23] MEDS ORDERED: HYDROmorphone 2 MG/ML VIAL (DILAUDID) IV ONE (11:45)
[2022-05-23] MEDS ORDERED: morphine INJ 10 MG/ML 1ML (SYR OR VIAL) IVP ONE (11:45)
[2022-05-23] MEDS ORDERED: MEPERIDINE (DEMEROL) INJ 50 MG/ML IVP ONE (11:45)
[2022-05-23] MEDS ORDERED: ONDANSETRON 4 MG/2 ML (SDV) Z0FRAN IVP PRN (11:45)
[2022-05-23] MEDS ORDERED: PROMETHAZINE INJ 25 MG/ML (PHENERGAN) AMP IVP ONE (11:45)
--- NOTE | 2022-05-23 11:47 | Anesthesia-General Post-Op ---
General Patient Condition Mental Status/LOC: Same as Preop Cardiovascular: Satisfactory Nausea/Vomiting: Absent Respiratory: Satisfactory Pain: Controlled Complications: Absent Post Op Complications Complications None Follow Up Care/Instructions Patient Instructions None needed. Anesthesia/Patient Condition Patient Condition Patient is doing well, no complaints, stable vital signs, no apparent adverse anesthesia problems. No complications reported per nursing. ИРИНА BELL CRNA May 23, 2022 11:47
--- NOTE | 2022-05-23 16:46 | OPERATIVE REPORT ---
DATE OF SERVICE: 05/23/2022 PREOPERATIVE DIAGNOSIS: Left distal ureteral stone. POSTOPERATIVE DIAGNOSIS: Left distal ureteral stone. OPERATION PERFORMED: Cystoscopy, attempted left ureteroscopy and left ESWL. SURGEON: Zaid Salazar MD. ANESTHESIA: General. COMPLICATIONS: None. DESCRIPTION OF PROCEDURE: Under satisfactory general anesthesia, the patient in lithotomy position on the cystoscopy table, genitalia were prepped and draped in the usual sterile fashion. Cystoscope was introduced under vision. The bladder was essentially normal except for very sluggish efflux on the left side. Using the foroblique lens, I attempted to dilate the left ureteral orifice, but it was kind of tight and did not want to force anything. I removed the cystoscope, inserted the ureteroscope and again could not go with the ureteroscope, 6.9 Divehi semi-rigid, again did not want to force it, so I discontinued any further attempt and moved the patient on the ESWL table. The stone was localized and shocks were delivered at kV of 6. Total of 2500 shocks completely fragmented the stone that was not visualized anymore. The patient did not receive any IV Lasix or Toradol at the end of the procedure because of her kidney function and dehydration. She tolerated the procedure and anesthesia well and was sent to recovery room in a stable condition. CC: Dr. Elenita Brown - requested, unable to deliver. Job ID: [id number] DocumentID: [id number] Dictated Date: 05/23/2022 11:27:37 Sport Psychologist Date: 05/23/2022 16:45:52 Dictated By: ZAID SALAZAR MD
[2022-05-23] MEDS: cefTRIAXone 1 GM PRE-MIX 50 ML IV SCH (18:02)
--- NOTE | 2022-05-23 18:47 | Diagnostic Imaging Report ---
INDICATION: Nephrolithiasis. EXAMINATION: KUB, 12:38 p.m. FINDINGS: There are two small calcifications in the left side of the pelvis, unchanged from earlier in the day. These could be phleboliths versus calculi. IMPRESSION: Two small calcifications in the left side of the pelvis, each measuring about 3 mm in diameter. Differential considerations would include calculus or phlebolith. Dictated by: Dictated on workstation # [id number]
[2022-05-24 03:51] VITALS: BP 153/80
[2022-05-24] MEDS: LACTATED RINGERS 1,000 ML IV SCH ×2 (05:01→16:59)
[2022-05-24 06:01] LABS: EOSINOPHILS % (AUTO) 0 % (0-10); HEMATOCRIT 31 % (35-52); MEAN CORPUSCULAR VOLUME 85 fL (80-99)
[2022-05-24 06:03] LABS: BASOPHILS % (AUTO) 0 % (0-10); LYMPHOCYTES % (AUTO) 15 % (12-44); MEAN CORPUSCULAR HEMOGLOBIN 30 pg (25-34); MEAN CORPUSCULAR HGB CONC 35 g/dL (32-36); MEAN PLATELET VOLUME 11.4 fL (9.0-12.2); MONOCYTES # (AUTO) 0.2 10^3/uL (0.0-1.0); MONOCYTES % (AUTO) 4 % (0-12); NEUTROPHILS # (AUTO) 5.3 10^3/uL (1.8-7.8); NEUTROPHILS % (AUTO) 80 % (42-75); PLATELET COUNT 57 10^3/uL (130-400); WHITE BLOOD COUNT 6.6 10^3/uL (4.3-11.0)
[2022-05-24 06:22] LABS: POTASSIUM 4.9 MMOL/L (3.6-5.0)
[2022-05-24 06:23] LABS: CALCIUM 8.7 MG/DL (8.5-10.1)
[2022-05-24 06:27] LABS: CREATININE SERUM 4.92 MG/DL (0.60-1.30)
[2022-05-24 07:27] VITALS: BP_SYST 146; BP_SYST 165; BP_DIAS 68; BP_DIAS 71
--- NOTE | 2022-05-24 08:03 | Diagnostic Imaging Report ---
Indication: Left ureteral calculus There is a 2 mm calculus in the distal left ureter in the mid pelvis. Bowel gas pattern is normal. IMPRESSION: Left ureteral lithiasis. This appears similar to previous day's exam. Dictated by: Dictated on workstation # [id number]
[2022-05-24] MEDS: PSEUDOEPHEDRINE PO SCH ×2 (08:22→20:24)
[2022-05-24] MEDS: CETIRIZINE PO SCH ×2 (08:22→20:24)
--- NOTE | 2022-05-24 09:58 | Progress Note - Hospitalist ---
Subjective HPI/CC On Admission Date Seen by Provider: May 24, 2022 The patient presented to my office reporting onset of seizure very left flank pain of last week. She has a past history of nephrolithiasis. She saw Kari ISSA on Sunday who set her up for a stat noncontrast CT scan of the abdomen and obtained blood work revealing a creatinine of 3.6 with known previous normal renal function. Patient did not proceed to get the CAT scan hop ing that her symptoms would resolve. She denied chills or fever but felt very weak and noted low blood pressure at home in the 90-100 systolic range. She had resolution of flank pain but reported poor appetite and some mild nausea with increasing fatigue over the weekend. She has history of hypertension and continue to take Diovan HCT. She presented to the office on Sunday morning after she called in earlier and was instructed to get CT scan which she accomplished this morning. It did reveal a 3 mm left distal ureteral stone at the approximate level of the left UVJ junction with reported moderate left hydronephrosis. No other significant abnormalities were reported. Her blood pressure in the office was actually elevated at 170/80 but she was sent to the lab to obtain a CBC and a basic metabolic panel to see if there is any improvement in renal function and help guide urgency of treatment for left ureteral stone. Her BUN was up to 100 and her creatinine was 5.8 with an elevated white count of 15,000 raising concerns for possible stone infection. Her case was discussed with Dr. Tavarez as well as Dr. Alanis. Request for KUB were obtained. Subjective/Events-last exam Pt reports feeling okay today and about to eat breakfast. She is hopeful for DC home. Discussed lab results and need for creatinine to continue to improve prior to DC home. Objective Exam Vital Signs Vital Signs Date Time Temp Pulse Resp B/P (MAP) Pulse Ox O2 Delivery O2 Flow Rate FiO2 05/24/22 07:32 99 Room Air 05/24/22 07:27 36.4 97 18 146/68 (94) 05/23/22 12:10 3.00 Capillary Refill : General Appearance: No Apparent Distress, Obese Respiratory: Lungs Clear, No Respiratory Distress Cardiovascular: Regular Rate, Rhythm, No Murmur Neurologic/Psychiatric: Alert, Oriented x3 Results/Procedures Lab Laboratory Tests 05/24/22 05:41 Patient resulted labs reviewed. Assessment/Plan Assessment and Plan Assess & Plan/Chief Complaint 1. Acute kidney injury on CKD - POA, Creatinine improving, down to 4.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 s/p lithotripsy today with Urology, monitor UOP, has improved since yesterday 2. Leukocytosis- resolved 3. HTN- BP relatively well controlled, trend- hold home meds 4. UTI-POA- Continue Rocephin, await cultures 5. Depression- Requests resumption of home Effexor,will start GOSIA EID MD May 24, 2022 09:58
[2022-05-24] MEDS ORDERED: PATIENT MAY USE OWN MEDS, ALL MC SCH (10:15)
[2022-05-24] MEDS: [UNRECOGNIZED DRUG - REMARK] PO SCH ×2 (10:57→20:24)
[2022-05-24 11:04] VITALS: BP 145/73
--- NOTE | 2022-05-24 13:26 | Progress Note - Urology ---
Progress Note-Urology Progress Notes/Assess & Plan Progress/Assessment & Plan LOOKING, FEELING AND DOING WELL. NO COMPLAINTS. PASSED FRAGMENTS. LABS IMPROVING. WE WILL RE EVALUATE TOMORROW Final Diagnosis LT DISTAL URETERAL STONE AND ACUTE RENAL FAILURE ALLEN SALAZAR MD May 24, 2022 13:26
[2022-05-24 15:56] VITALS: BP 134/59
[2022-05-24] MEDS: cefTRIAXone 1 GM PRE-MIX 50 ML IV SCH (16:59)
[2022-05-24 19:50] VITALS: BP 131/61
[2022-05-24] MEDS ORDERED: MONTELUKAST 10 MG (SINGULAIR) TAB PO SCH (21:00)
[2022-05-24] MEDS ORDERED: VENlafaxine 75 MG (EFFEXOR) TAB PO SCH (21:00)
[2022-05-24] MEDS ORDERED: diphenhydrAMINE 25 MG TAB (BENADRYL) PO SCH ×2 (21:00)
[2022-05-25 00:41] VITALS: BP 140/67
[2022-05-25] MEDS: LACTATED RINGERS 1,000 ML IV SCH (00:55)
[2022-05-25 04:03] VITALS: BP 136/65
[2022-05-25 06:09] LABS: HEMOGLOBIN 9.6 g/dL (11.5-16.0)
[2022-05-25 06:11] LABS: MEAN PLATELET VOLUME 11.4 fL (9.0-12.2); WHITE BLOOD COUNT 13.3 10^3/uL (4.3-11.0)
[2022-05-25 06:33] LABS: CALCIUM 8.7 MG/DL (8.5-10.1); CREATININE SERUM 3.89 MG/DL (0.60-1.30); POTASSIUM 4.7 MMOL/L (3.6-5.0)
--- NOTE | 2022-05-25 07:34 | Progress Note - Urology ---
Progress Note-Urology Progress Notes/Assess & Plan Progress/Assessment & Plan CONTINUES WELL. NO COMPLAINTS. CREATININE GOING DOWN. OK TO DISCHARGE [place] RECOMMEND CHECK BMP TOMORROW AT LAB OR DR CASE OFFICE AND SEE HIM NEXT WEEK. TO SEE ME PRN Final Diagnosis LT DISTAL URETERAL STONE ALLEN SALAZAR MD May 25, 2022 07:34
[2022-05-25 07:56] VITALS: BP 168/77
[2022-05-25] MEDS ORDERED: VENlafaxine 75 MG (EFFEXOR) TAB PO SCH (09:00)
--- NOTE | 2022-05-25 09:41 | Discharge Summary ---
Diagnosis/Chief Complaint Date of Admission May 22, 2022 at 17:25 Date of Discharge Admission Diagnosis 1. Acute kidney injury likely due to a combination of left ureteral obstruction and hypotension from dehydration with continued antihypertensive therapy. We will initiate IV fluid resuscitation hold antihypertensive therapy. With repeat CBC and CMP in the morning. 2. Elevated white count cannot rule out the possibility of urinary tract infection and infected stone UA has been ordered will empirically initiate Rocephin until UA and culture results are available. 3. Urologic consultation see HPI. 4. History of hypertension holding antihypertensive medication as per above. Primary Care Ian Barker MD Discharge Summary Discharge Physical Exam Allergies: Coded Allergies: iodine (Verified Allergy, Mild, 05/22/22) Uncoded Allergies: TAPE (Allergy, Mild, 08/25/09) Vitals & I&Os Vital Signs Date Time Temp Pulse Resp B/P (MAP) Pulse Ox O2 Delivery O2 Flow Rate FiO2 05/25/22 07:56 36.6 93 18 168/77 (107) 96 Room Air 05/24/22 11:01 0.00 General Appearance: No Apparent Distress, Obese Respiratory: Lungs Clear, No Respiratory Distress Cardiovascular: Regular Rate, Rhythm, No Murmur Neurologic/Psychiatric: Alert, Oriented x3 Hospital Course Patient was admitted to the hospital secondary to acute kidney injury due to ureteral obstruction and hypotension. She underwent lithotripsy with Dr. Tavarez and did well. Her creatinine improved from 5.9-3.8. She had adequate urine output and was not hyperkalemic. Her bicarb improved as well. She was discharged home in stable and improved condition with orders for labs tomorrow. I did discuss this with Dr. Tavarez and Dr. Barker who will follow up these labs as an outpatient. Labs (last 24 hrs) Laboratory Tests 05/25/22 05:40: White Blood Count 13.3H, Red Blood Count 3.22L, Hemoglobin 9.6L, Hematocrit 28L, Mean Corpuscular Volume 86, Mean Corpuscular Hemoglobin 30, Mean Corpuscular Hemoglobin Concent 35, Red Cell Distribution Width 14.4, Platelet Count 58L, Mean Platelet Volume 11.4, Percent Immature Platelet Fraction 4.1, Sodium Level 139, Potassium Level 4.7, Chloride Level 111H, Carbon Dioxide Level 15L, Anion Gap 13, Blood Urea Nitrogen 102*H, Creatinine 3.89#H, Estimat Glomerular Filtration Rate 12, BUN/Creatinine Ratio 26, Glucose Level 136H, Calcium Level 8.7 Microbiology 05/22/22 MRSA Screen - Final, Complete MRSA not isolated 05/22/22 Urine Culture - Final, Complete Growth Consistent Patient resulted labs reviewed. Pending Labs Laboratory Tests 05/25/22 05:40: White Blood Count 13.3, Red Blood Count 3.22, Hemoglobin 9.6, Hematocrit 28, Mean Corpuscular Volume 86, Mean Corpuscular Hemoglobin 30, Mean Corpuscular Hemoglobin Concent 35, Red Cell Distribution Width 14.4, Platelet Count 58, Mean Platelet Volume 11.4, Percent Immature Platelet Fraction 4.1, Sodium Level 139, Potassium Level 4.7, Chloride Level 111, Carbon Dioxide Level 15, Anion Gap 13, Blood Urea Nitrogen 102, Creatinine 3.89, Estimat Glomerular Filtration Rate 12, BUN/Creatinine Ratio 26, Glucose Level 136, Calcium Level 8.7 Discussion & Recommendations Discharge Planning: >30 minutes discharge planning Discharge Home Medications: Active Scripts Active Reported Cetirizine HCl 10 Mg Tablet 10 Mg PO HS Diphenhydramine HCl 25 Mg Capsule 25 Mg PO DAILY Multivitamin 1 Each Tablet 1 Each PO HS Vitamin E (Vitamin E (Dl,Tocopheryl Acet)) 450 Mg (1000 Unit) Capsule 450 Mg PO DAILY Allopurinol 300 Mg Tablet 300 Mg PO HS Atorvastatin Calcium 80 Mg Tablet 80 Mg PO HS Cetirizine-Pse ER 5-120 mg Tab (Cetirizine HCl/Pseudoephedrine) 5 Mg-120 Mg Tab.er.12h 1 Ea PO DAILY Glucosamine (Glucosamine Sulfate 2Kcl) 1,000 Mg Tablet 2,000 Mg PO BID Diphenhydramine HCl 25 Mg Capsule 50 Mg PO HS TAKES 2 (25MG) CAPS Tylenol Arthritis (Acetaminophen) 650 Mg Tablet.er 1,300 Mg PO BID TAKES 2 (650MG) TABS Venlafaxine HCl 75 Mg Tab 75 Mg PO DAILY Montelukast Sodium 10 Mg Tablet 10 Mg PO HS Instructions to patient/family Please see electronic discharge instructions given to patient. GOSIA EID MD May 25, 2022 09:41
--- NOTE | 2022-05-25 09:42 | Discharge Inst-Simple/Standard ---
Discharge Inst-Standard Discharge Medications New, Converted or Re-Newed RX: Transmitted to Pharmacy Patient Instructions/Follow Up Plan of Care/Instructions/FU: Please continue to take your medications as written. Please follow up with your primary care doctor to follow up this hospital stay. Activity as Tolerated: Yes Discharge Diet: No Restrictions Return to The Hospital For: Chest pain, decreased urine output, shortness of breath, fever, weakness, if you feel you are getting worse. GOSIA EID MD May 25, 2022 09:42
[2022-05-25 10:30] VITALS: BP 168/77
== END 2022-05-25 10:30 | disposition home or self-care (01) | DRG 690 ==
LOC: 4TH 17:25
PROVIDERS: ADMIT Family Medicine; ATTEND Family Medicine
PROC: 0TF7XZZ Fragmentation in Left Ureter, External Approach (ICD-10-PCS; principal; 2022-05-23 10:27)
PROC: 0TJB8ZZ Inspection of Bladder, Via Natural or Artificial Opening Endoscopic (ICD-10-PCS; 2022-05-23 10:27)
DX: N13.6 Pyonephrosis (principal); N17.9 Acute kidney failure, unspecified; E86.0 Dehydration; I95.9 Hypotension, unspecified; G47.33 Obstructive sleep apnea (adult) (pediatric); F32.A Depression, unspecified; I10 Essential (primary) hypertension; J45.909 Unspecified asthma, uncomplicated; E78.00 Pure hypercholesterolemia, unspecified; K21.9 Gastro-esophageal reflux disease without esophagitis; M19.91 Primary osteoarthritis, unspecified site
CPT/HCPCS: 36415; 74018; 76000; 80048; 80053; 81000; 85025; 85027; 85610; 87081; 87088

== ENCOUNTER → 2022-05-22 | Outpatient (CLI) | payer MEDICARE, OTHER ==
[~2022-05-22] MED LIST changes: +ATOR80TA76 PO; +CETI-511 PO; +GLUC100016 PO; +HYDR12.56 PO; +MULT-1136 PO; +VITA-244 PO
--- NOTE | 2022-05-22 13:22 | Diagnostic Imaging Report ---
PROCEDURE: CT urinary tract, rule out kidney stone. TECHNIQUE: Multiple contiguous axial images were obtained through the abdomen and pelvis without the use of intravenous contrast. Auto Exposure Controls were utilized during the CT exam to meet ALARA standards for radiation dose reduction. INDICATION: Left flank pain. No prior studies are available for comparison. The lung bases are clear. Liver and gallbladder are unremarkable. There is no biliary ductal dilatation. Pancreas and spleen are unremarkable. No adrenal mass is detected. The right kidney is unremarkable. There is left-sided hydroureteronephrosis. The dilated left ureter is traced into the pelvis where there is an approximately 3 mm calculus in the distal left ureter just above the UVJ. The bladder is decompressed and without calculi. Aorta is nonaneurysmal. The small and large bowel loops appear to be normal caliber. There is no ascites. No inflammatory changes are seen. IMPRESSION: 3 mm distal left ureteric calculus producing moderate hydroureteronephrosis. No other significant abnormality is detected. Dictated by: Dictated on workstation # [id number]
== END ==
LOC: RAD 12:58
PROVIDERS: ATTEND Nurse Practitioner Family
DX: N13.2 Hydronephrosis with renal and ureteral calculous obstruction (principal)
CPT/HCPCS: 74176

== ENCOUNTER → 2022-05-22 | Outpatient (CLI) | payer MEDICARE, OTHER ==
[2022-05-22 14:31] LABS: BASOPHILS # (AUTO) 0.1 10^3/uL (0.0-0.1); BASOPHILS % (AUTO) 1 % (0-10); EOSINOPHILS % (AUTO) 0 % (0-10); HEMATOCRIT 31 % (35-52); HEMOGLOBIN 10.9 g/dL (11.5-16.0); LYMPHOCYTES % (AUTO) 6 % (12-44); MEAN CORPUSCULAR HEMOGLOBIN 30 pg (25-34); MEAN CORPUSCULAR HGB CONC 35 g/dL (32-36); MEAN CORPUSCULAR VOLUME 86 fL (80-99); MONOCYTES # (AUTO) 0.5 10^3/uL (0.0-1.0); MONOCYTES % (AUTO) 3 % (0-12); NEUTROPHILS # (AUTO) 13.9 10^3/uL (1.8-7.8); NEUTROPHILS % (AUTO) 89 % (42-75); PLATELET COUNT 81 10^3/uL (130-400); WHITE BLOOD COUNT 15.7 10^3/uL (4.3-11.0)
[2022-05-22 14:49] LABS: ALBUMIN 3.3 GM/DL (3.2-4.5); CALCIUM 8.8 MG/DL (8.5-10.1); CREATININE SERUM 5.98 MG/DL (0.60-1.30); POTASSIUM 4.8 MMOL/L (3.6-5.0); TOTAL PROTEIN 6.1 GM/DL (6.4-8.2)
[2022-05-22 14:53] LABS: BAND NEUTROPHILS 4 %; BURR CELLS MODERATE; EOSINOPHILS % (MANUAL) 1 %; LYMPHOCYTES % (MANUAL) 10 %; MONOCYTES % (MANUAL) 7 %; NEUTROPHILS % (MANUAL) 78 %; TOXIC GRANULATION/VACUOLAZATIO 1+
== END ==
LOC: LAB 14:06
PROVIDERS: ATTEND Internal Medicine
DX: N17.9 Acute kidney failure, unspecified (principal); I10 Essential (primary) hypertension
CPT/HCPCS: 36415; 80053; 85007; 85027

== ENCOUNTER → 2022-07-27 | Outpatient (CLI) | payer MEDICARE, OTHER ==
[~2022-07-27] MED LIST changes: +ATOR80TA76 PO; +CETI-511 PO; +GLUC100016 PO; +HYDR12.56 PO; +MULT-1136 PO; +VITA-244 PO
--- NOTE | 2022-07-27 12:58 | Diagnostic Imaging Report ---
INDICATION: Routine screening. COMPARISON: 05/26/2021 and 05/25/2020. TECHNIQUE: 2D and 3D bilateral screening mammography was performed with CAD. FINDINGS: Scattered fibroglandular densities are identified bilaterally. A marker clip in the right breast is noted. There are scattered benign calcifications throughout both breasts. No mass or malignant-appearing microcalcifications are seen. The axillae are unremarkable. IMPRESSION: No mammographic features suspicious for malignancy are identified. ACR BI-RADS Category 2: Benign findings. Result letter will be mailed to the patient. Note: At least 10% of breast cancer is not imaged by mammography. Dictated by: Dictated on workstation # [id number]
== END ==
LOC: RAD 11:15
PROVIDERS: ATTEND Internal Medicine
DX: Z12.31 Encounter for screening mammogram for malignant neoplasm of breast (principal)
CPT/HCPCS: 77063; 77067

== ENCOUNTER 2022-12-22 19:41 | Emergency (ER) | payer MEDICARE, OTHER ==
[~2022-12-22] VITALS: Ht 167.7 cm; Wt 118.0 kg
[~2022-12-22 19:41] MED LIST changes: +DIPH-1122 PO; -DIPH25CA48 PO
--- NOTE | 2022-12-22 20:06 | ED Respiratory ---
General Chief Complaint: COVID19 Suspect/Confirmed Stated Complaint: SOA Nursing Triage Note: PT TO RM 9 BY CC WITH C/O COVID + SUNDAY, SOB AND L LEG PAIN FROM ANKLE TO KNEE. PT IS WORRIED SHE MIGHT HAVE A BLOOD CLOT. PT DENIES HX OF BLOOD CLOTS Source: patient Exam Limitations: no limitations (SMITHA NELSON APRN) History of Present Illness Date Seen by Provider: Dec 22, 2022 Time Seen by Provider: 19:55 Initial Comments 72-year-old female presents to the ED via EMS for reports of shortness of air and left lower leg pain. States she took a home COVID test on Sunday that was positive. Reports she started having COVID symptoms on 12/11. States that she started having pain in posterior left leg from ankle to knee on Sunday. Complains of pain with palpation to left calf. She started having shortness of air yesterday. She is tachypneic. She reports a low-grade temperature of 99.4 on Sunday. Reports cough, nausea, diarrhea. Denies chest pain and abdominal pain. (SMITHA NELSON APRN) Allergies and Home Medications Allergies Coded Allergies: iodine (Verified Allergy, Mild, 05/22/22) Uncoded Allergies: TAPE (Allergy, Mild, 08/25/09) Patient Home Medication List Home Medication List Reviewed: Yes (SMITHA NELSON APRN) Acetaminophen (Tylenol Arthritis) 650 Mg Tablet.er, 1,300 MG PO BID, (Reported) Entered as Reported by: EYAL MITCHELL on 09/30/18 1356 Allopurinol (Allopurinol) 300 Mg Tablet, 300 MG PO HS, (Reported) Entered as Reported by: KAILEY MCKENZIE on 05/23/22923 Atorvastatin Calcium (Atorvastatin Calcium) 80 Mg Tablet, 80 MG PO HS, (Repo rted) Entered as Reported by: KAILEY MCKENZIE on 05/23/22923 Cetirizine HCl (Cetirizine HCl) 10 Mg Tablet, 10 MG PO HS, (Reported) Entered as Reported by: KAILEY MCKENZIE on 05/23/22 09 Cetirizine HCl/Pseudoephedrine (Cetirizine-Pse ER 5-120 mg Tab) 5 Mg-120 Mg Tab.er.12h, 1 EA PO DAILY, (Reported) Entered as Reported by: KAILEY MCKENZIE on 05/23/22923 Diphenhydramine HCl (Diphenhydramine HCl) 25 Mg Capsule, 50 MG PO HS, (Reported) Entered as Reported by: KAILEY MCKENZIE on 05/23/22923 Diphenhydramine HCl (Diphenhydramine HCl) 25 Mg Capsule, 25 MG PO DAILY, (Reported) Entered as Reported by: KAILEY MCKENZIE on 05/23/22948 Glucosamine Sulfate 2Kcl (Glucosamine) 1,000 Mg Tablet, 2,000 MG PO BID, (Reported) Entered as Reported by: KAILEY MCKENZIE on 05/23/22923 Montelukast Sodium (Montelukast Sodium) 10 Mg Tablet, 10 MG PO HS, (Reported) Entered as Reported by: EYAL MITCHELL on 09/30/18 135 Multivitamin (Multivitamin) 1 Each Tablet, 1 EACH PO HS, (Reported) Entered as Reported by: KAILEY MCKENZIE on 05/23/22923 Venlafaxine HCl (Venlafaxine HCl) 75 Mg Tab, 75 MG PO DAILY, (Reported) Entered as Reported by: EYAL MITCHELL on 09/30/18 1356 Vitamin E (Dl,Tocopheryl Acet) (Vitamin E) 450 Mg (1000 Unit) Capsule, 450 MG PO DAILY, (Reported) Entered as Reported by: KAILEY MCKENZIE on 05/23/22923 Review of Systems Review of Systems Constitutional: see HPI (SMITHA NELSON APRN) Past Irgiwrc-Fsgzzb-Waztnr Hx Patient Social History Tobacco Use?: No Use of E-Cig and/or Vaping dev: No Substance use?: No Alcohol Use?: No Pt feels they are or have been: No (SMITHA NELSON APRN) Immunizations Up To Date Influenza Vaccine Up-to-Date: Yes; Up-to-Date First/Initial COVID19 Vaccinat: 11/2020 Second COVID19 Vaccination Rick: 12/2020 (SMITHA NELSON APRN) Seasonal Allergies Seasonal Allergies: Yes (SMITHA NELSON APRN) Past Medical History Surgery/Hospitalization HX: HYSTERECTOMY, RAHEL TKR GOUT, HLD, ASTHMA, HTN, GERD Surgeries: Yes (COLONOSCOPY X2, BILAT KNEES SCOPES, CS X2, BILAT TKR) Hysterectomy, Tonsillectomy Respiratory: Yes Asthma, Sleep Apnea Currently Using CPAP: Yes Currently Using BIPAP: No Cardiac: Yes High Cholesterol, Hypertension Neurological: No Reproductive Disorders: No Sexually Transmitted Disease: No HIV/AIDS: No Kidney Stones, Renal Failure Gastrointestinal: Yes Gastroesophageal Reflux, Chronic Diarrhea, Polyps Musculoskeletal: Yes Arthritis Endocrine: No HEENT: Yes (GLASSES) Cancer: No Psychosocial: No Integumentary: No Blood Disorders: No Adverse Reaction/Blood Tranf: No (HAS HAD BLOOD WITH NO REACTION) (SMITHA NELSON APRN) Family Medical History Colon cancer requiring screening colonoscopy Physical Exam Vital Signs - First Documented 12/22/22 19:43 Temp 36.2 Pulse 102 Resp 24 B/P (MAP) 121/58 (79) Pulse Ox 99 O2 Delivery Room Air (FRANKLIN BARNES MD) Capillary Refill : (SMITHA NELSON APRN) Height: 5'6.00" Weight: 280lbs. 0.0oz. 127.359082yw; 41.00 BMI Method: General Appearance: mild distress Neck: supple, normal inspection Respiratory: lungs clear, respiratory distress, decreased breath sounds, other (Tachypneic) Cardiovascular: no edema, no gallop, no JVD, no murmur, tachycardia Extremities: normal range of motion, normal inspection, no pedal edema, calf tenderness; No pedal edema, No swelling Neurologic/Psychiatric: alert Skin: normal color, cool, other (Clammy) (SMITHA NELSON APRN) Focused Exam Lactate Level 12/22/22 20:01: Lactic Acid Level 3.87*H (FRANKLIN BARNES MD) Lactic Acid Level Laboratory Tests Test 12/22/22 20:01 Lactic Acid Level 3.87 MMOL/L (0.50-2.00) *H (FRANKLIN BARNES MD) Progress/Results/Core Measures Suspected Sepsis SIRS Temperature: Pulse: 102 Respiratory Rate: 24 Laboratory Tests 12/22/22 20:01: White Blood Count 14.1H Blood Pressure 121 /58 Mean: 79 12/22/22 20:01: Lactic Acid Level 3.87*H Laboratory Tests 12/22/22 20:01: Creatinine 5.83H, INR Comment 1.2, Platelet Count 329, Total Bilirubin 0.4 (SMITHA NELSON APRN) Results/Orders Lab Results Laboratory Tests Test 12/22/22 20:01 12/22/22 21:18 Range/Units White Blood Count 14.1 H 4.3-11.0 10^3/uL Red Blood Count 3.53 L 3.80-5.11 10^6/uL Hemoglobin 10.6 L 11.5-16.0 g/dL Hematocrit 32 L 35-52 % Mean Corpuscular Volume 91 80-99 fL Mean Corpuscular Hemoglobin 30 25-34 pg Mean Corpuscular Hemoglobin Concent 33 32-36 g/dL Red Cell Distribution Width 14.6 H 10.0-14.5 % Platelet Count 329 130-400 10^3/uL Mean Platelet Volume 10.6 9.0-12.2 fL Immature Granulocyte % (Auto) 0 % Neutrophils (%) (Auto) 89 H 42-75 % Lymphocytes (%) (Auto) 7 L 12-44 % Monocytes (%) (Auto) 3 0-12 % Eosinophils (%) (Auto) 0 0-10 % Basophils (%) (Auto) 1 0-10 % Neutrophils # (Auto) 12.5 H 1.8-7.8 10^3/uL Lymphocytes # (Auto) 1.0 1.0-4.0 10^3/uL Monocytes # (Auto) 0.5 0.0-1.0 10^3/uL Eosinophils # (Auto) 0.1 0.0-0.3 10^3/uL Basophils # (Auto) 0.1 0.0-0.1 10^3/uL Immature Granulocyte # (Auto) 0.0 0.0-0.1 10^3/uL Neutrophils % (Manual) 55 % Lymphocytes % (Manual) 10 % Monocytes % (Manual) 3 % Band Neutrophils 32 % Toxic Granulation 2+ Platelet Estimate NORMAL Clumped Platelets OCCASIONAL Poikilocytosis MODERATE [place] Cells MARKED Prothrombin Time 16.1 H 12.2-14.7 SEC INR Comment 1.2 0.8-1.4 Activated Partial Thromboplast Time 41 H 24-35 SEC D-Dimer 2.89 H 0.00-0.49 UG/ML Sodium Level 132 L 135-145 MMOL/L Potassium Level 4.9 3.6-5.0 MMOL/L Chloride Level 105 98-107 MMOL/L Carbon Dioxide Level 6 *L 21-32 MMOL/L Anion Gap 21 H 5-14 MMOL/L Blood Urea Nitrogen 83 H 7-18 MG/DL Creatinine 5.83 H 0.60-1.30 MG/DL Estimat Glomerular Filtration Rate 7 BUN/Creatinine Ratio 14 Glucose Level 64 L 70-105 MG/DL Lactic Acid Level 3.87 *H 0.50-2.00 MMOL/L Calcium Level 9.7 8.5-10.1 MG/DL Corrected Calcium 10.5 H 8.5-10.1 MG/DL Total Bilirubin 0.4 0.1-1.0 MG/DL Aspartate Amino Transf (AST/SGOT) 67 H 5-34 U/L Alanine Aminotransferase (ALT/SGPT) 63 H 0-55 U/L Alkaline Phosphatase 101 40-136 U/L Total Protein 5.9 L 6.4-8.2 GM/DL Albumin 3.0 L 3.2-4.5 GM/DL Blood Gas Puncture Site R RAD Blood Gas Patient Temperature UNK Arterial Blood pH 7.18 *L 7.37-7.43 Arterial Blood Partial Pressure CO2 22 L 35-45 MMHG Arterial Blood Partial Pressure O2 82 79-93 MMHG Arterial Blood HCO3 8 *L 23-27 MMOL/L Arterial Blood Total CO2 8.6 *L 21.0-31.0 MMOL/L Arterial Blood Oxygen Saturation 97 94-100 % Arterial Blood Base Excess -19.0 L -2.5-2.5 MMOL/L Marcin Test YES-POS Blood Gas Ventilator Setting NO Blood Gas Inspired Oxygen UNK (FRANKLIN BARNES MD) Micro Results Microbiology 12/22/22 Blood Culture - Preliminary, Resulted No growth 12/22/22 Blood Culture - Preliminary, Resulted No growth (FRANKLIN BARNES MD) My Orders Orders - FRANKLIN BARNES MD Arterial Blood Draw - Obtain (12/22/22 ) (FRANKLIN BARNES MD) Vital Signs/I&O 12/22/22 12/23/22 19:43 00:35 Temp 36.2 Pulse 102 99 Resp 24 27 B/P (MAP) 121/58 (79) 125/59 Pulse Ox 99 97 O2 Delivery Room Air (FRANKLIN BARNES MD) Vital Signs/I&O Capillary Refill : (SMITHA NELSON APRN) Blood Pressure Mean: 79 Progress Note : Time: 20:07 Progress Note Patient seen and evaluated, resting in bed, mild distress, tachypneic. Based on symptoms and exam, work-up initiated including CBC, CMP, D-dimer, coags, chest x-ray, sputum culture, lactic acid, blood cultures x2. IV fluids ordered. 2100 labs reviewed. CBC shows elevated WBC 14.1, decreased hemoglobin 10.6, decreased hematocrit 32. CMP shows decreased sodium 132, critically low CO2 6, elevated anion gap 21, BUN elevated 83, creatinine elevated 5.83, GFR 7. Previous kidney function from May 2022 showed creatinine 3.89. Patient denies any decreased urinary output. Glucose 64, lactic acid critical 3.87. Coags show elevated PT 16.1, elevated APTT 41, elevated D-dimer 2.89. Unable to perform CT angio due to creatinine and GFR. Unable to perform venous ultrasound of leg because ultrasound is not available. I called and spoke with Dr. Brown, hospitalist, regarding patient. She will not admit patient with her creatinine greater than 5 due to not having nephrology here. ABG ordered. 2114 chest x-ray shows mild interstitial opacities, which could be atelectasis, edema, or infection. Rocephin and Zithromax ordered. 2139 ABG resulted. ABG shows critically low pH 7.18, low PCO2 22, normal PO2 82, critically low HCO3 8, total CO2 critically low 8.6. O2 saturation 97%. Base excess -19. 2149 I called and spoke with [facility] for potential transfer. Spoke with intensiv ist Dr. Donohue, he states patient can be admitted to hospitalist and not ICU. He recommends placing patient on a bicarb drip. [address] Guevara, hospitalist, at [facility]. He would like patient to go to ICU. He will speak with Dr. Donohue and get that arranged. They will call me back when they have accepting. Second liter IV fluids started due to low blood pressure. 2338 patient had several low blood pressures in a row. Dr. Donohue, neurology teacher accepts patient for transfer due to hypotension. 2357 blood pressure has improved. [facility] provided a bed at this time. Will transfer patient via EMS. (SMITHA NELSON APRN) Diagnostic Imaging Diagonstic Imaging: Xray Plain Films/CT/US/NM/MRI: chest Comments [facility]. [place], [place] NAME: JOEY VERDIN [facility] REC#: [id number] PT STATUS: REG ER : 1950 PHYSICIAN: SMITHA NELSON APRN ADMIT DATE: 12/22/22/ER Signed Date of Exam:12/22/22 CHEST 1 VIEW, AP/PA ONLY EXAMINATION: Chest 1 view. HISTORY: SOA. COMPARISON: None available. FINDINGS: Heart size and pulmonary vasculature are normal. There are mild interstitial opacities within the lung bases. No pleural effusion or pneumothorax. The osseous structures are intact. IMPRESSION: Mild interstitial opacities in the lung bases which could be seen with atelectasis, edema or infection. Dictated by: Dictated on workstation # [id number] Dict: 12/22/222030 Trans: 12/22/222056 [facility] [id number] Interpreted by: REBECA NGUYEN DO Electronically signed by: REBECA NGUYEN DO 12/22/222056 (SMITHA NELSON APRN) Critical Care Note Critical Care Start Time: 19:55 Stop Time: 23:57 Total Time (minutes) Total critical care time, excluding separately billed procedures = 45 minutes. (SMITHA NELSON APRN) Departure Impression Primary Impression: Pneumonia due to COVID-19 virus Additional Impressions: Sepsis Metabolic acidosis Acute on chronic renal failure Elevated d-dimer Disposition: XF SHT-TRM HOSP Condition: Critical Transfer Transfer Reason: Exceeds level of care Time Spoke to Accepting Phy: 23:[address] Donohue, neurology teacher at [facility], accepted patient for transfer. Transfer Time: 00:13 Transfer Facility: [facility] Method of Transfer: EMS (SMITHA NELSON APRN) Departure-Patient Inst. Referrals: RAÚL CASE MD (PCP/Family) Primary Care Physician ATTENDING PHYSICIAN NOTE: I was physically present as attending physician in the emergency department during the care of this patient. I provided consultation to Smitha Nelson NP, regarding review of labs, approach to care, managing bicarb drip, and arranging transfer. I did not personally interview or examine this patient. I was not otherwise directly involved in the decision making or delivery of care for this patient. (FRANKLIN BARNES MD) Copy Copies To 1: RAÚL CASE MD, BRITTANY R APRN Dec 22, 2022 20:05 FRANKLIN BARNES MD Dec 24, 2022 15:43
[2022-12-22] MEDS: NS IV 1000 ML 1,000 ML IV SCH ×2 (20:08→22:39)
[2022-12-22 20:09] LABS: BASOPHILS # (AUTO) 0.1 10^3/uL (0.0-0.1); BASOPHILS % (AUTO) 1 % (0-10); EOSINOPHILS # (AUTO) 0.1 10^3/uL (0.0-0.3); EOSINOPHILS % (AUTO) 0 % (0-10); HEMATOCRIT 32 % (35-52); HEMOGLOBIN 10.6 g/dL (11.5-16.0); LYMPHOCYTES % (AUTO) 7 % (12-44); MEAN CORPUSCULAR HEMOGLOBIN 30 pg (25-34); MEAN CORPUSCULAR HGB CONC 33 g/dL (32-36); MEAN CORPUSCULAR VOLUME 91 fL (80-99); MEAN PLATELET VOLUME 10.6 fL (9.0-12.2); MONOCYTES # (AUTO) 0.5 10^3/uL (0.0-1.0); MONOCYTES % (AUTO) 3 % (0-12); NEUTROPHILS # (AUTO) 12.5 10^3/uL (1.8-7.8); NEUTROPHILS % (AUTO) 89 % (42-75); PLATELET COUNT 329 10^3/uL (130-400); WHITE BLOOD COUNT 14.1 10^3/uL (4.3-11.0)
[2022-12-22 20:25] LABS: FIBRIN DEGRADATION PRODUCTS 2.89 UG/ML (0.00-0.49); INR 1.2 (0.8-1.4); PROTHROMBIN TIME PATIENT 16.1 SEC (12.2-14.7)
[2022-12-22 20:29] LABS: BILIRUBIN,TOTAL 0.4 MG/DL (0.1-1.0); CALCIUM 9.7 MG/DL (8.5-10.1); CREATININE SERUM 5.83 MG/DL (0.60-1.30); POTASSIUM 4.9 MMOL/L (3.6-5.0); TOTAL PROTEIN 5.9 GM/DL (6.4-8.2)
[2022-12-22 20:30] LABS: BAND NEUTROPHILS 32 %; LYMPHOCYTES % (MANUAL) 10 %; MONOCYTES % (MANUAL) 3 %; NEUTROPHILS % (MANUAL) 55 %
[2022-12-22] MEDS ORDERED: RT-ALBUTEROL HFA 8.5 GM INHALER IH ONE (20:30)
[2022-12-22 20:31] LABS: BURR CELLS MARKED; PLATELET CLUMPS OCCASIONAL; PLATELET ESTIMATE NORMAL; POIKILOCYTOSIS MODERATE; TOXIC GRANULATION/VACUOLAZATIO 2+
--- NOTE | 2022-12-22 20:51 | Diagnostic Imaging Report ---
EXAMINATION: Chest 1 view. HISTORY: SOA. COMPARISON: None available. FINDINGS: Heart size and pulmonary vasculature are normal. There are mild interstitial opacities within the lung bases. No pleural effusion or pneumothorax. The osseous structures are intact. IMPRESSION: Mild interstitial opacities in the lung bases which could be seen with atelectasis, edema or infection. Dictated by: Dictated on workstation # [id number]
[2022-12-22] MEDS ORDERED: cefTRIAXone 1 GM PRE-MIX 50 ML IV ONE (21:15)
[2022-12-22] MEDS ORDERED: AZITHROMYCIN INJECTION 500 MG in NS (IVPB) 250 ML IV ONE (21:15)
[2022-12-22 21:24] LABS: ABG OXYGEN SATURATION 97 % (94-100); ABG PCO2 22 MMHG (35-45); ABG PO2 82 MMHG (79-93); ALLENS TEST YES-POS
[2022-12-22 21:25] LABS: VENTILATOR NO
[2022-12-22 21:26] LABS: ABG PH 7.18 (7.37-7.43); ABG TCO2 8.6 MMOL/L (21.0-31.0)
[2022-12-22] MEDS ORDERED: fentaNYL INJ 100 MCG/2 ML AMP IVP ONE (21:45)
[2022-12-22] MEDS ORDERED: SODIUM BICARBONATE 8.4% SYR 150 MEQ in D5W 1000 ML IV SOLUTION 1,000 ML IV SCH (22:15)
[2022-12-22] MEDS ORDERED: NS IV 1000 ML 1,000 ML IV SCH (23:45)
[2022-12-23 00:35] VITALS: BP 125/59
== END 2022-12-23 00:39 | disposition short-term general hospital (02) ==
LOC: EDUNIT# 19:41 → ER 19:42
DX: A41.89 Other specified sepsis (principal); U07.1 COVID-19; J12.82 Pneumonia due to coronavirus disease 2019; E87.20 Acidosis, unspecified; I12.9 Hypertensive chronic kidney disease with stage 1 through stage 4 chronic kidney disease, or unspecified chronic kidney disease; N18.9 Chronic kidney disease, unspecified; E87.6 Hypokalemia; R79.1 Abnormal coagulation profile; R71.0 Precipitous drop in hematocrit; R79.81 Abnormal blood-gas level; Z73.0 Burn-out
CPT/HCPCS: 36415; 36600; 71045; 80053; 82805; 83605; 85007; 85027; 85379; 85610; 85730; 87040

== ENCOUNTER 2022-12-29 11:13 | Inpatient (IN) | payer MEDICARE, OTHER ==
[~2022-12-29] VITALS: Ht 165.1 cm; Wt 121.6 kg
[2022-12-29] MEDS ORDERED: AMLO-250 PO (11:40)
[2022-12-29] MEDS ORDERED: METO-333 PO (11:40)
[2022-12-29] MEDS ORDERED: GLUC1CAP37 PO (11:40)
[2022-12-29] MEDS ORDERED: ESOM20CA37 PO (11:40)
[2022-12-29] MEDS ORDERED: ASPI-1238 PO (11:40)
--- NOTE | 2022-12-29 12:05 | PM&R Post Admission Assessment ---
PM&R HP Date of Visit: Dec 29, 2022 Time of Visit: 13:00 History of Present Illness CC: Debility post Covid Pneumonia & SURAJ on CKD stage 3 HPI: Patient is a 72 year old female with a history of HTN, Hyperlipidemia, CKD stage 3, GERD, arthritis, Depression, and obesity who was recently at [facility] from 12/23-12/29 for covid pneumonia & SURAJ. During her stay there her initial Cr was as high as 6.91 on 12/25. It was 1.4 today prior to transfering here. She was also hypokalemic a K+ of 3.1 today prior to transfer. Uncertain whether this was replaced. She also developed what is believed to be unilateral edema blisters on her left leg due to fluid overload. Patient was seen shortly after arrival and she reports feeling much improved. She does still have fatigue, minor SOB, and cough. She denies LH, CP, palpitations, or unilateral weakness/numbness at this time. Home Meds Active Reported Metoprolol Tartrate 25 Mg Tablet 25 Mg PO Q12H Glucosamine & Chondroitin Cap (Glucosa Hammer 2Kcl/Chondroitin Hammer) 500 Mg-400 Mg Capsule 1 Each PO BID Esomeprazole Magnesium 20 Mg Capsule.dr 20 Mg PO DAILY BEFORE BREAKFAST Aspirin EC (Aspirin) 81 Mg Tablet.dr 81 Mg PO DAILY Amlodipine Besylate 5 Mg Tablet 5 Mg PO DAILY Diphenhydramine HCl 25 Mg Capsule 25 Mg PO Q12H Allopurinol 300 Mg Tablet 300 Mg PO DAILY Atorvastatin Calcium 80 Mg Tablet 80 Mg PO DAILY Tylenol Arthritis (Acetaminophen) 650 Mg Tablet.er 650 Mg PO Q6H PRN Venlafaxine HCl 75 Mg Tab 75 Mg PO DAILY Montelukast Sodium 10 Mg Tablet 10 Mg PO HS All: Tape adhesive, Iodine PMH: HTN, Hyperlipidemia, CKD Stage 3, GERD, arthritis, depression, obesity PSH: 2 C-sections, hysterectomy w/ bilateral salpingoopherectomy, bilateral total knee rx, Tonsillectomy & adenoidectomy. FH: CHF, Renal Failure, DM (Mother & Father), Melanoma (Father) SH: Denies tobacco, alcohol, or illicit drug use ROS: (+) Fatigue, SOB, Cough (-) LH, CP, palpitations, abd pain, N/V/D, weakness/numbness of arms or legs O Temp: 36.3 HR: 98 RR: 16 BP: 128/86 Pulse Ox: 97% RA General: A/O x 3, No acute distress, obese HEENT: PERRLA, EOMI Neck: Supple, no thyromegally Lungs: Slightly diminished breath sounds, no wheezes, rhales, or rhonchi Heart: RRR, No murmurs Abd: Soft, nontender, nondistended. Normoactive bowel sounds. Extremeties: 5+ strength UE, 4+ strength LE Skin: Patients left leg was bandaged in a fresh gauze dressing. Per nursing exam, the patient has extensive edema blistering with clear drainage on majority of left inner thigh. No warmth or spreading erythema present. 1+ pitting edema bilaterally. No blistering or wounds visualized on right leg. Neuro: Normal speech, no confusion Psych/Mental Status: Normal mood A S/P Covid Pneumonia w/ (+) home test 12/19 SURAJ on CKD Stage 3 Obesity Hypokalemia Deconditioning HTN Hyperlipidemia GERD Depression P PT/OT for rehabilitation Continue home medications Monitor labs and replace K+ as appropriate Cr improving per [facility] records review. Will continue to monitor. Per [facility] reports, pt. was fluid overloaded during stay. Will keep left leg clean and wrapped and consider adding compression wrapping. Patient had venous ultrasound while at [facility] with no evidence of Occlusion bilaterally. Diet: as tolerated [facility] DC: Stage 4 chronic kidney disease Morbid obesity with body mass index of 40.0-49.9 Pneumonia due to COVID-19 virus Acute renal failure with acute tubular necrosis superimposed on stage 3 chronic kidney disease Resolved Hospital Problems Diagnosis Date Resolved Severe sepsis with septic shock 12/29/2022 Hospital Course: Liz Yuolivia a 72 y.o.femalewho was admitted to [facility] on 12/23/2022for evaluation and management of shortness of breath, dyspnea on exertion and worsening renal function. She also tested positive for COVID-19 infection incidentally. Initially due to concern for possible pneumonia, she was covered with broad-spectrum IV antibiotics. Due to fluid retention, forced diuresis was achieved with large doses of Lasix.Patient progressed well after being transferred to hospitalist service. She completed IV antibiotic course in the hospital. She was then subsequently discharged to rehab facility on 12/29. Patient is recommended to follow-up with PCP, nephrology and wound care. R epeat CBC and CMP at that time. Past Luimyrd-Tynxat-Bqqttl Hx Past Med/Social Hx: Reviewed Nursing Past Med/Soc Hx, Reviewed and Corrections made Patient Social History Marrital Status: single Employed/Student: retired Alcohol Use: Denies Use Smoking Status: Never a Smoker Recent Hopitalizations: No Immunizations Up To Date Date of Influenza Vaccine: Aug 02, 2020 Seasonal Allergies Seasonal Allergies: Yes Past Medical History Surgeries: Hysterectomy, Tonsillectomy Currently Using CPAP: Yes Currently Using BIPAP: No Cardiac: High Cholesterol, Hypertension Reproductive: No Sexually Transmitted Disease: No HIV/AIDS: No Genitourinary: Kidney Stones, Renal Failure Gastrointestinal: Gastroesophageal Reflux, Chronic Diarrhea, Polyps Musculoskeletal: Arthritis History of Blood Disorders: No Adverse Reaction to Blood [place]shaw: No (HAS HAD BLOOD WITH NO REACTION) Family History Colon cancer requiring screening colonoscopy PM&R Allergy/Meds/Data Review Allergies Coded Allergies: iodine (Verified Allergy, Mild, 05/22/22) Uncoded Allergies: TAPE (Allergy, Mild, 08/25/09) Home Medications Scheduled Allopurinol (Allopurinol), 300 MG PO DAILY, (Reported) Amlodipine Besylate (Amlodipine Besylate), 5 MG PO DAILY, (Reported) Aspirin (Aspirin EC), 81 MG PO DAILY, (Reported) Atorvastatin Calcium (Atorvastatin Calcium), 80 MG PO DAILY, (Reported) Diphenhydramine HCl (Diphenhydramine HCl), 25 MG PO Q12H, (Reported) Esomeprazole Magnesium (Esomeprazole Magnesium), 20 MG PO DAILY BEFORE BREAKFAST, (Reported) Glucosa Hammer 2Kcl/Chondroitin Hammer (Glucosamine & Chondroitin Cap), 1 EACH PO BID, (Reported) Metoprolol Tartrate (Metoprolol Tartrate), 25 MG PO Q12H, (Reported) Montelukast Sodium (Montelukast Sodium), 10 MG PO HS, (Reported) Venlafaxine HCl (Venlafaxine HCl), 75 MG PO DAILY, (Reported) Scheduled PRN Acetaminophen (Tylenol Arthritis), 650 MG PO Q6H PRN for PAIN-MILD (1-4), (Reported) Discontinued Medications Cetirizine HCl (Cetirizine HCl), 10 MG PO HS, (Reported) Discontinued Reason: No Longer Taking Cetirizine HCl/Pseudoephedrine (Cetirizine-Pse ER 5-120 mg Tab), 1 EA PO DAILY, (Reported) Discontinued Reason: No Longer Taking Diphenhydramine HCl (Diphenhydramine HCl), 50 MG PO HS, (Reported) Discontinued Reason: No Longer Taking Glucosamine Sulfate 2Kcl (Glucosamine), 2,000 MG PO BID, (Reported) Discontinued Reason: No Longer Taking Multivitamin (Multivitamin), 1 EACH PO HS, (Reported) Discontinued Reason: No Longer Taking Vitamin E (Dl,Tocopheryl Acet) (Vitamin E), 450 MG PO DAILY, (Reported) Discontinued Reason: No Longer Taking Current Medications Current Medications Reviewed Review of Systems Constitutional: see HPI, malaise, weakness EENTM: no symptoms reported Respiratory: no symptoms reported Cardiovascular: no symptoms reported Gastrointestinal: no symptoms reported Genitourinary: no symptoms reported Musculoskeletal: back pain, joint pain Skin: no symptoms reported Psychiatric/Neurological: Anxiety, Depressed All Other Systems Reviewed Negative Unless Noted: Yes Physical Exam Physical Exam Vital Signs Capillary Refill : Height, Weight, BMI Height: 5'6.00" Weight: 280lbs. 0.0oz. [id number]; 41.00 BMI Method: General Appearance: No Apparent Distress, WD/WN, Chronically ill, Obese Eyes: Bilateral Eye Normal Inspection, Bilateral Eye PERRL HEENT: PERRL/EOMI, Normal ENT Inspection, Pharynx Normal Neck: Full Range of Motion, Normal Inspection, Non Tender, Supple, Carotid Bruit Respiratory: Chest Non Tender, Lungs Clear, No Accessory Muscle Use, No Respiratory Distress, Decreased Breath Sounds Cardiovascular: Regular Rate, Rhythm, No Edema, No Gallop, No JVD, No Murmur, Normal Peripheral Pulses Gastrointestinal: Normal Bowel Sounds, No Organomegaly, No Pulsatile Mass, Non Tender, Soft Back: Normal Inspection, No CVA Tenderness, No Vertebral Tenderness Extremity: Normal Capillary Refill, Normal Inspection, Normal Range of Motion, Non Tender, No Calf Tenderness, No Pedal Edema Neurologic/Psychiatric: Alert, Oriented x3, No Motor/Sensory Deficits, home care chaplain II- XII Norm as Tested, Abnormal Gait, Disoriented (subtle), Motor Weakness (generalized) Skin: Normal Color, Warm/Dry Lymphatic: No Adenopathy PM&R Medical Assessment & Plan REHAB/MEDICAL ASSESSMENT AND PLAN: REHAB IMPAIRMENT GROUP: COVID with hypoxic respiratory failure with encephalopathy with acute on CKD ETIOLOGIC DIAGNOSIS: COVID with hypoxic respiratory failure with encephalopathy with acute on CKD The comorbidities that impact the patients function and/or functional outcome by: severe renal disease, obesity, baseline debility, fall risk, confusion, hypoxia from COVID REHAB PLAN: The patient is being admitted to our comprehensive inpatient rehabilitation facility and can tolerate the intensity of service consisting of at least: 180 minutes of therapy a day, 5 out of 7 days a week Rehab treatment will consist of: PT OT will focus on regaining function with use of AD and close monitoring of oxygen saturation in order to gain stamina The patient/family has a good understanding of our discharge process and will benefit from an interdisciplinary inpatient rehabilitation program. The patient has potential to make improvement and is in need of at least two of the following multidisciplinary therapies including but not limited to physical, occupational, speech, and prosthetics and orthotics. Additionally the patient will need services from respiratory, nutritional services, wound care, psychology, etc. (Customize this to each patient). Given the patients complex condition and risk of further medical complications, rehabilitation services cannot be safely or effectively provided at a lower level of care such as a shelter facility. BARRIERS TO DISCHARGE: Confusion with hypoxia ESTIMATED LOS: 7 days DISPOSITION: Home RELEVANT CHANGES SINCE PREADMISSION SCREENING: I have compared the patients medical and functional status at the time of the preadmission screening and there are: no changes PROGNOSIS: Fair REHABILITATION GOALS: 1. PT OT will focus on regaining function with use of AD and close monitoring of oxygen saturation in order to gain stamina All the above goals were reviewed with the patient and he/she is in agreement. By signing this document, I acknowledge that I have personally performed a full physical examination on this patient within 24 hours of admission to this inpatient rehabilitation facility and have determined the patient to be able to tolerate the above course of treatment at an intensive level for a reasonable pe riod of time. I will be completing a detailed individualized Plan of Care for this patient by day #4 of the patients stay based upon the Preadmission Screen, the Post-Admission Evaluation, and the therapy evaluations. Admission Dx/Comorbidities: (1) Acute on chronic renal failure Status: Acute ICD Codes: N17.9 - Acute kidney failure, unspecified; N18.9 - Chronic kidney disease, unspecified (2) Pneumonia due to COVID-19 virus Status: Acute ICD Codes: U07.1 - COVID-19; J12.82 - Pneumonia due to coronavirus disease 2018 (3) Metabolic acidosis Status: Acute ICD Codes: E87.20 - Acidosis, unspecified; N18.9 - Chronic kidney disease, unspecified (4) SURAJ (acute kidney injury) ICD Codes: N17.9 - Acute kidney failure, unspecified Assessment/Plan Assessment and Plan Assess & Plan/Chief Complaint Assessment: Severe debility from COVID PNA Acute hypoxic respiratory failure Acute on chronic kidney failure initially 6.9 now back to baseline 2.0 Obesity s/p septic shock Anemia Protein malnutrition Hypokalemia HTN GERD Depression Plan: PT OT Monitor O2 [facility] Joseph DO Dec 29, 2022 12:05
[2022-12-29] MEDS ORDERED: MELATONIN 3 MG TABLET PO PRN (12:15)
[2022-12-29] MEDS ORDERED: CALCIUM CARBONATE 500 MG (TUMS) TAB.CHEW PO PRN (12:15)
[2022-12-29] MEDS ORDERED: BISACODYL 10 MG SUPP (DULCOLAX) PR PRN (12:15)
[2022-12-29] MEDS ORDERED: diphenhydrAMINE 25 MG TAB (BENADRYL) PO PRN (12:15)
[2022-12-29] MEDS ORDERED: LOPERAMIDE 2 MG (IMODIUM) TABLET PO PRN (12:15)
[2022-12-29] MEDS ORDERED: ONDANSETRON 4 MG (ZOFRAN) ORAL DISSOLVE TAB PO PRN (12:15)
[2022-12-29] MEDS ORDERED: LACTULOSE SYRUP 10GM/15ML (ENULOSE) 30ML UDC PO PRN (12:15)
[2022-12-29] MEDS ORDERED: ACETAMINOPHEN 325 MG TABLET PO PRN (12:15)
[2022-12-29] MEDS ORDERED: ALPRAZolam 0.25 MG (XANAX) TAB PO PRN (12:15)
[2022-12-29] MEDS ORDERED: FLEET ENEMA ADULT 1 EA BTL PR PRN (12:15)
[2022-12-29] MEDS ORDERED: guaiFENesin/CODEINE (ROBITUSSIN AC) 10ML UDC PO PRN (12:15)
[2022-12-29] MEDS ORDERED: DOCUSATE SODIUM 100 MG (COLACE) CAP PO PRN (12:15)
[2022-12-29 12:30] VITALS: BP 126/86
--- NOTE | 2022-12-29 14:05 | Occupational Therapy Eval ---
OT Evaluation-General/PLF Medical Diagnosis Admission Date Dec 29, 2022 at 12:30 Medical Diagnosis: debility Onset Date: Dec 29, 2022 Therapy Diagnosis Therapy Diagnosis: decr act raymundo. decr self care, weakness, decr funct mob Height/Weight Height (Feet): 5 Height (Inches): 6.00 Weight (Pounds): 280 Weight (Ounces): 0.0 Precautions Precautions/Isolations: Fall Prevention, Standard Precautions Referral Physician: Karly Referral Reason: Strengthening/ROM Medical History Pertinent Medical History: Arthritis, GERD, HTN, Renal Insufficiency Additional Medical History Chronic diarrhea. Hyperlipidemia. Morbid obesity. Bilateral total knees in 2008. Bilat cataract surgery per pt report Current History Admitted to [facility] in [place] on 12/23/22 with acute renal failure on top of chronic kidney disease. State 4 CKD. Pneumonia secondary to covid. Sepsis with shock. L LE pain. Reviewed History: Yes Social History Home: Single Level Current Living Status: Alone Entry Into Home: Stairs With Railing Steps Into Home: 2 (in garage) ADL-Prior Level of Function SCALE: Activities may be completed with or without assistive devices. 9-Jthaxjptod-bpzuszy completes the activity by him/herself with no assistance from a helper. 5-Set-up or Clean-up Assistance-helper sets up or cleans up; patient completes activity. [place] assists only prior to or following the activity. 4-Supervision or Touching Assistance-helper provides verbal cues and/or touching/steadying and/or contact guard assistance as patient completes activity. Assistance may be provided throughout the activity or intermittently. 3-Partial/Moderate Assistance-helper does LESS THAN HALF the effort. [place] lifts, holds or supports trunk or limbs, but provides less than half the effort. 2-Substantial/Maximal Assistance-helper does MORE THAN HALF the effort. [place] lifts or holds trunk or limbs and provides more than half the effort. 1-Zvhkroamp-mbtizu does ALL the effort. Patient does none of the effort to complete the activity. Or, the assistance of 2 or more helpers is required for the patient to complete the activity. If activity was not attempted, code reason: 7-Patient Refused. 9-Not Applicable-not attempted and the patient did not perform the activity before the current illness, exacerbation or injury. 10-Not Attempted due to Environmental Limitations-(lack of equipment, weather restraints, etc.). 88-Not Attempted due to Medical Conditions or Safety Concerns. ADL PLOF Comments Pt was previosly independent with all ADLs and IADLs. 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 Self Care: Independent Functional Cognition: Independent DME/Equipment: Grab Bars, Shower, Tall Toilet OT Current Status Subjective Pt seen in room, up in bed, agreeable to OT. No pain mentioned or rated. Appearance Alert and cooperative. Flat affect, soft and slightly slurred speech. Mental Status/Objective Patient Orientation: Person, Place, Time, Situation Current Glasses/Contacts: Yes (readers) Hearing Aids: No Dentures/Partials: No Hand Dominance: Right Upper Extremity ROM Grossly WFL bilat Upper Extremity Coordination A little impaired due to decreased activity tolerance Upper Extremity Sensation Pt reported that she sometimes has tingling in L UE but also in both UEs (inco nsistent reporting) Upper Extremity Strength Grossly 4/5 bilat ADL-Treatment ADL-Current OT evaluation from 1243 to 1255. PT evaluation from 1255 to 1305, then co-treat until 1344. Co-treat with PT and OT due to requiring skilled needs of two different professionals, significant pt weakness, activity tolerance, and patient safety. Defer to PT eval for bed mobility. O2 sats 92 while supine. After moving to sit EOB, sats decreased to 82% on room air. Pt reported that she was able to feed herself with supervision but did have difficulty getting suction on straw to get a drink. Grooming reported as min assist. Pt required mod assist to take off upper extremity clothing. Attempted to put it back on with it inside out. Mod assist to don and pull down. Pt wanted to put on underwear and pad but became too fatigued to stand to manage clothing. Dependent with slipper socks. Sit to stand min-CGA x one rep but too fatigued to stand again for felton care. Completed sponge bath with help to wash LEs, under arms, abdomen, felton bottom (done in bed). Able to wash felton area in front while supine but not fully clean. Pt was too fatigued to further participate in therapy. Pt left up in bed, rails up, nursing there to help dress woulds on L LE, all needs met. Eating (QC): 4 (supervision) Oral Hygiene (QC): 3 (min assist) Shower/Bathe Self (QC): 2 (max assist) Upper Body Dressing (QC): 3 (mod assist) Lower Body Dressing (QC): 1 (dependent) On/Off Footwear (QC): 1 (dependent) Toileting Hygiene (QC): 1 (dependent) Education OT Patient Education: Modified ADL techniques, Purpose of tx/functional activities, Rehab process, Safety issues, Transfer techniques Teaching Recipient: Patient Teaching Methods: Demonstration, Discussion Response to Teaching: Verbalize Understanding, Return Demonstration, Reinforcement Needed BIMS CAM BIMS Expression of Ideas and Wants: Difficulty Understanding Verbal Content: Understands Brief Interview/Mental Status: Yes IRF MARIANA BIMS: IRF MARIANA BIMS Response (Comments) Value Repitition of Three Words Three 3 Recalls Socks Yes, No Cue Required 2 Recalls Blue Yes, No Cue Required 2 Recalls Bed No, Could Not Recall 0 Year Correct 3 Month Accurate Within 5 Days 2 Day Correct 1 Total 13 Patient Normally Able to Recal: Current Session, Staff Names and faces (recalled therapist from 7 years ago) Should Staff Asses. Mental St.: No Memory/Recall Ability: Current Season, Staff Names and Faces CAM Mental Status Change/Baseline: 1 Inattention: 0 Disorganized thinkin Altered level of consciousness: 0 OT Short Term Goals Short Term Goals Time Frame: Jan 05, 2023 Eatin Oral hygiene: 5 Toileting hygiene: 3 Shower/bathe self: 4 Upper body dressin Lower body dressin Putting on/taking off footwear: 3 OT Tile Machine Operator Goals Snf Goals Time Frame: Jan 19, 2023 Acute change in mental status: 1 Inattention: 0 Disorganized thinkin Altered level of consciousness: 0 Eating (QC): 6 Oral Hygiene (QC): 6 Toileting Hygiene (QC): 6 Shower/Bathe Self (QC): 6 Upper Body Dressing (QC): 6 Lower Body Dressing (QC): 6 On/Off Footwear (QC): 6 Additional Goals: 1-Demonstrate ADL Tasks, 2-Verbalize Understanding, 3- ImproveStrength/Catalina 1=Demonstrate adherence to instructed precautions during ADL tasks. 2=Patient will verbalize/demonstrate understanding of assistive devices/modifications for ADL. 3=Patient will improve strength/tolerance for activity to enable patient to perform ADL's. OT Education/Plan Problem List/Assessment Assessment: Decreased Activ Tolerance, Decreased UE Strength, Dependent Transfers, Impaired Cognition, Impaired Self-Care Skills Pt would benefit from skilled OT to increase her independence in basic self care to allow her to safely return home Discharge Recommendations Plan/Recommendations: Continue POC Treatment Plan/Plan of Care Treatment,Training & Education: Yes Patient would benefit from OT for education, treatment and training to promote independence in ADL's, mobility, safety and/or upper extremity function for A DL's. Plan of Care: ADL Retraining, Functional Mobility, Group Exercise/Act as Ind, UE Funct Exercise/Act, UE Neuromus Re-Ed/Coord, OTHER (energy conservation education) Treatment Duration: Jan 19, 2023 Frequency: Modified Program (IRF) (14/04) Estimated Hrs Per Day: 1.5 hours per day Agreement: Yes Rehab Potential: Fair Time Start Time: 12:43 Stop Time: 13:44 DATE: Dec 29, 2022 Total Time Billed (hr/min): 46 Billed Treatment Time visit, OT evaluation high complexity 12 minutes, ADL 39 minutes co-treat ANGELINE WAGNER OT Dec 29, 2022 14:05
--- NOTE | 2022-12-29 14:38 | Progress Note ---
BRENDA QUILES 12/29/22 1438: Progress Note S CC: Debility post Covid Pneumonia & SURAJ on CKD stage 3 HPI: Patient is a 72 year old female with a history of HTN, Hyperlipidemia, CKD stage 3, GERD, arthritis, Depression, and obesity who was recently at [facility] from 12/23-12/29 for covid pneumonia & SURAJ. During her stay there her initial Cr was as high as 6.91 on 12/25. It was 1.4 today prior to transfering here. She was also hypokalemic a K+ of 3.1 today prior to transfer. Uncertain whether this was replaced. She also developed what is believed to be unilateral edema blisters on her left leg due to fluid overload. Patient was seen shortly after arrival and she reports feeling much improved. She does still have fatigue, minor SOB, and cough. She denies LH, CP, palpitations, or unilateral weakness/numbness at this time. Home Meds Active Reported Metoprolol Tartrate 25 Mg Tablet 25 Mg PO Q12H Glucosamine & Chondroitin Cap (Glucosa Hammer 2Kcl/Chondroitin Hammer) 500 Mg-400 Mg Capsule 1 Each PO BID Esomeprazole Magnesium 20 Mg Capsule.dr 20 Mg PO DAILY BEFORE BREAKFAST Aspirin EC (Aspirin) 81 Mg Tablet.dr 81 Mg PO DAILY Amlodipine Besylate 5 Mg Tablet 5 Mg PO DAILY Diphenhydramine HCl 25 Mg Capsule 25 Mg PO Q12H Allopurinol 300 Mg Tablet 300 Mg PO DAILY Atorvastatin Calcium 80 Mg Tablet 80 Mg PO DAILY Tylenol Arthritis (Acetaminophen) 650 Mg Tablet.er 650 Mg PO Q6H PRN Venlafaxine HCl 75 Mg Tab 75 Mg PO DAILY Montelukast Sodium 10 Mg Tablet 10 Mg PO HS All: Tape adhesive, Iodine PMH: HTN, Hyperlipidemia, CKD Stage 3, GERD, arthritis, depression, obesity PSH: 2 C-sections, hysterectomy w/ bilateral salpingoopherectomy, bilateral total knee rx, Tonsillectomy & adenoidectomy. FH: CHF, Renal Failure, DM (Mother & Father), Melanoma (Father) SH: Denies tobacco, alcohol, or illicit drug use ROS: (+) Fatigue, SOB, Cough (-) LH, CP, palpitations, abd pain, N/V/D, weakness/numbness of arms or legs O Temp: 36.3 HR: 98 RR: 16 BP: 128/86 Pulse Ox: 97% RA General: A/O x 3, No acute distress, obese HEENT: PERRLA, EOMI Neck: Supple, no thyromegally Lungs: Slightly diminished breath sounds, no wheezes, rhales, or rhonchi Heart: RRR, No murmurs Abd: Soft, nontender, nondistended. Normoactive bowel sounds. Extremeties: 5+ strength UE, 4+ strength LE Skin: Patients left leg was bandaged in a fresh gauze dressing. Per nursing exam, the patient has extensive edema blistering with clear drainage on majority of left inner thigh. No warmth or spreading erythema present. 1+ pitting edema bilaterally. No blistering or wounds visualized on right leg. Neuro: Normal speech, no confusion Psych/Mental Status: Normal mood A S/P Covid Pneumonia w/ (+) home test 12/19 SURAJ on CKD Stage 3 Obesity Hypokalemia Deconditioning HTN Hyperlipidemia GERD Depression P PT/OT for rehabilitation Continue home medications Monitor labs and replace K+ as appropriate Cr improving per [facility] records review. Will continue to monitor. Per [facility] reports, pt. was fluid overloaded during stay. Will keep left leg clean and wrapped and consider adding compression wrapping. Patient had venous ultrasound while at [facility] with no evidence of Occlusion bilaterally. Diet: as tolerated ALISIA MARTE DO 12/30/22 0629: Supervisory-Addendum Brief Verification & Attestation Participated in pt care: history, MDM, physical Personally performed: exam, history, MDM, supervision of care Care discussed with: Medical Student Procedures: n/a Results interpretation: Verified all documentation Verification and Attestation of Medical Student E/M Service A medical student performed and documented this service in my presence. I reviewed and verified all information documented by the medical student and made modifications to such information, when appropriate. I personally performed the physical exam and medical decision making. Alisia Marte Dec 30, 2022,06:29 BRENDA QUILES Dec 29, 2022 14:38 ALISIA MARTE DO Dec 30, 2022 06:29
--- NOTE | 2022-12-29 15:00 | Physical Therapy Evaluation ---
PT Evaluation-General Medical Diagnosis Admission Date Dec 29, 2022 at 12:30 Medical Diagnosis: debility Onset Date: Dec 29, 2022 Therapy Diagnosis Therapy Diagnosis: debility, impaired functional mobility, LE weakness Height/Weight Height (Feet): 5 Height (Inches): 6.00 Weight (Pounds): 280 Weight (Ounces): 0.0 Precautions Precautions/Isolations: Fall Prevention, Standard Precautions O2 precautions. Desaturated to 82% in sitting on RA. Weight Bear Status Right Lower Extremity: Right Weight Bearing/Tolerated Left Lower Extremity: Left Weight Bearing/Tolerated Referral Physician: Karly Reason for Referral: Evaluation/Treatment Medical History Pertinent Medical History: Arthritis, GERD, HTN, Renal Insufficiency Additional Medical History SURAJ/CKD stage 3, DMII, morbid obesity, s/p COVID, PNA, acute metabolic encephalopathy, (L) LE blisters/wounds, uses CPAP Current History Admitted to [facility] 12/22/22 - SURAJ. Blisters appeared on (L) LE 12/23/22 Reviewed History: Yes Social History Home: Single Level Current Living Status: Alone Entry Into Home: Stairs With Railing PT Steps Into Home: 2 (in garage) PT Steps Inside Home: 0 Sleeps in bed with 4" risers under head of bed to elevate. Was a FWW available at home (was not using). Has a walk-in shower. Prior Prior Level of Function SCALE: Activities may be completed with or without assistive devices. 7-Svuuaegukc-hcrxmlx completes the activity by him/herself with no assistance from a helper. 5-Set-up or Clean-up Assistance-helper sets up or cleans up; patient completes activity. [place] assists only prior to or following the activity. 4-Supervision or Touching Assistance-helper provides verbal cues and/or touching/steadying and/or contact guard assistance as patient completes activity. Assistance may be provided throughout the activity or intermittently. 3-Partial/Moderate Assistance-helper does LESS THAN HALF the effort. [place] lifts, holds or supports trunk or limbs, but provides less than half the effort. 2-Substantial/Maximal Assistance-helper does MORE THAN HALF the effort. [place] lifts or holds trunk or limbs and provides more than half the effort. 8-Budjcmhjr-hhwxty does ALL the effort. Patient does none of the effort to complete the activity. Or, the assistance of 2 or more helpers is required for the patient to complete the activity. If activity was not attempted, code reason: 7-Patient Refused. 9-Not Applicable-not attempted and the patient did not perform the activity before the current illness, exacerbation or injury. 10-Not Attempted due to Environmental Limitations-(lack of equipment, weather restraints, etc.). 88-Not Attempted due to Medical Conditions or Safety Concerns. 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 PT Evaluation-Current Subjective Patient rates her current pain as 5/10 in the (L) LE (blisters) and GI upset. Pain Section J - Health Conditions 1. Rarely or not at all 2. Occasionally 3. Frequently 4. Almost constantly 8. Unable to answer Pain Effect on Sleep: 1 Pain Interference with Therapy: 2 Pain Interference w/Day-to-Day: 2 Pt/Family Goals to return to her home. Objective Patient Orientation: Person, Place, Situation, Listless Flat affect ROM/Strength ROM Upper Extremities deferred to OT ROM Lower Extremities ~ 10 degree extension lags (B) knees. Decreased hip flexion (B) due to body habitus. Strength Upper Extremities deferred to OT Strength Lower Extremities Tested sitting EOB with MMT: hip flexion 3-/5 (B), hip abd/add 3-/5 (B) knee extension 4-/5, knee flexion 3+/5 (B) ankle DF 4-/5 (B), PF 3+/5 (B) Functional core strength sitting EOB for LE MMT and maintaining upright sitting balance (I) Integumentary/Posture Integumentary extensive blisters/wounds (L) LE Posture Morbid obesity Sensory Vision: Functional Hearing: Functional Hand Dominance: Right Sensation Right Lower Extremit: Intact Sensation Left Lower Extremity: Intact Transfers Roll Left & Right (QC): 5 (cues to use bed rail) Sit to Lying (QC): 1 (max (A) of 1-2) Lying to Sitting/Side of Bed(Q: 3 (mod (A) of 1 with LE assist and truncal assist) Sit to Stand (QC): 3 (min (A) to FWW) Chair/Cnn-dg-Yyube Xfer(QC): 3 (min (A) with FWW w/c>bed upon arrival to unit) Toilet Transfer (QC): 88 Car Transfer (QC): 88 Gait Does the Patient Walk?: Yes Mode of Locomotion: Both Anticipated Mode of Locomotion: Both Walk 10 feet (QC): 88 (too debilitated to attempt safely and desaturation to 82% sitting EOB) Walk 50 ft with 2 Turns(QC): 88 (too debilitated to attempt safely and desaturation to 82% sitting EOB) Walk 150 ft (QC): 88 (too debilitated to attempt safely and desaturation to 82% sitting EOB) Walking 10ft/uneven surface-QC: 88 (too debilitated to attempt safely and desaturation to 82% sitting EOB) Wheelchair Training Does the Pt Use a Wheelchair?: Yes Wheel 50 ft with 2 turns (QC): 88 (too debilitated to attempt safely and desaturation to 82% sitting EOB) Wheel 150 ft (QC): 88 (too debilitated to attempt safely and desaturation to 82% sitting EOB) Type of Wheelchair: Manual Stairs 1 Step (curb) (QC): 88 (too debilitated to attempt safely and desaturation to 82% sitting EOB) 4 Steps (QC): 88 (too debilitated to attempt safely and desaturation to 82% sitting EOB) 12 Steps (QC): 88 (too debilitated to attempt safely and desaturation to 82% sitting EOB) Balance Sitting Static: Good Sitting Dynamic: Poor Standing Static: Fair Picking up an Object (QC): 88 (too debilitated to attempt safely and desaturation to 82% sitting EOB) Assessment/Needs 72 year old female with significant debility s/p SURAJ, Covid, PNA. Very low activity tolerance this date. Patient's O2 sats were 92-93% on room air in supine. Sitting EOB, patient desaturated to 82%. Will require 15/7 modified rehab program at this time due endurance deficits and desaturation with upright activity. Patient would also benefit from co-treatments with her acuity and requiring the assist of 2 skilled therapy disciplines to address multiple mobility/ADL deficits while gradually progressing therapy as activity tolerance allows.. Rehab Potential: Fair Equipment Needs FWW and w/c at time of moiz. PT Grocery Stock Clerk Goals Fpc Goals PT Fpc Goals Time Frame: Jan 26, 2023 Roll Left to Right (QC): 6 Sit to Lying (QC): 5 (possible use of left leg press loader) Lying-Sitting on Side/Bed(QC): 5 (possible use of left leg press loader) Sit to Stand (QC): 6 (with FWW) Chair/Dth-zb-Gbswj Xfer(QC): 6 (with FWW) Toilet/Commode Transfer (QC): 6 (with FWW) Car Transfer (QC): 5 (with FWW) Walk 10 feet (QC): 6 (with FWW and prn O2 assist with sats 90% or greater) Walk 10ft-Uneven Surface(QC): 5 (with FWW and O2 assist prn) Walk 50ft with 2 Turns (QC): 6 (with FWW and prn O2 assist with sats 90% or better) Walk 150 ft (QC): 5 (with FWW and prn O2 assist with sats 90% or greater) Does the Pt use WC or Scooter?: No Wheel 50 feet with 2 turns (QC: 6 Type: Manual Wheel 150 feet: 6 Type: Manual 1 Step (curb) (QC): 5 4 Steps (QC): 4 (with (B) rails) 12 Steps (QC): 88 Picking up an Object (QC): 6 (with floor runner) PT Plan Problem List Problem List: Activity Tolerance, Functional Strength, Safety, Balance, Gait, Transfer, Bed Mobility Treatment/Plan Treatment Plan: Continue Plan of Care Treatment Plan: Bed Mobility, Education, Functional Activity Catalina, Functional Strength, Group Therapy, Gait, Safety, Therapeutic Exercise, Transfers Treatment Duration: Jan 26, 2023 Frequency: At least 5 of 7 days/Wk (IRF) Estimated Hrs Per Day: Other (Graduate) Patient and/or Family Agrees t: Yes 15/7 modified program progressing to full roll inspector as activity tolerance allows. Safety Risks/Education Safety Risk Comments: Desaturation in sitting this p.m. Patient Education: Safety Issues Teaching Recipient: Patient Teaching Methods: Discussion Response to Teaching: Reinforcement Needed Time Time In: 1255 Time Out: 1344 DATE: Dec 29, 2022 Total Billed Treatment Time: 49 Total Billed Treatment 12:55-13:05 - PT evaluation 13:05-13:44 - 39' co -treatment with OT due to patient acuity, endurance deficits and requiring 2 skilled therapists for patient safety Nena Alvarez PT Dec 29, 2022 15:00
[2022-12-29] MEDS: meTOprolol TARTRATE 25 MG (LOPRESSOR) TABLET PO SCH (18:24)
[2022-12-29] MEDS: HYPOCHLOROUS ACID/NaCl (VASHE) 250 ML IR SCH (18:24)
[2022-12-29 20:04] VITALS: BP 133/63
[2022-12-29] MEDS: polyethylene glycoL POWDER 17 GM (MIRALAX) PACK PO SCH (21:17)
[2022-12-29] MEDS: SENNA W/DOCUSATE (SENOKOT S) TABLET PO SCH (21:17)
[2022-12-29] MEDS: DOCUSATE SODIUM 100 MG (COLACE) CAP PO SCH (21:17)
[2022-12-29] MEDS: MONTELUKAST 10 MG (SINGULAIR) TAB PO SCH (21:24)
[2022-12-29] MEDS: diphenhydrAMINE 25 MG TAB (BENADRYL) PO SCH (21:24)
[2022-12-30] MEDS: meTOprolol TARTRATE 25 MG (LOPRESSOR) TABLET PO SCH ×2 (06:06→17:20)
[2022-12-30 06:12] LABS: EOSINOPHILS # (AUTO) 0.2 10^3/uL (0.0-0.3)
[2022-12-30 06:14] LABS: BASOPHILS % (AUTO) 0 % (0-10); EOSINOPHILS % (AUTO) 3 % (0-10); HEMATOCRIT 28 % (35-52); HEMOGLOBIN 9.1 g/dL (11.5-16.0); LYMPHOCYTES # (AUTO) 2.2 10^3/uL (1.0-4.0); LYMPHOCYTES % (AUTO) 32 % (12-44); MEAN CORPUSCULAR HEMOGLOBIN 30 pg (25-34); MEAN CORPUSCULAR HGB CONC 33 g/dL (32-36); MEAN CORPUSCULAR VOLUME 92 fL (80-99); MEAN PLATELET VOLUME 12.4 fL (9.0-12.2); MONOCYTES # (AUTO) 0.4 10^3/uL (0.0-1.0); MONOCYTES % (AUTO) 6 % (0-12); NEUTROPHILS # (AUTO) 3.7 10^3/uL (1.8-7.8); NEUTROPHILS % (AUTO) 54 % (42-75); PLATELET COUNT 131 10^3/uL (130-400); WHITE BLOOD COUNT 6.9 10^3/uL (4.3-11.0)
[2022-12-30 06:24] LABS: SMEAR SCAN COMMENT YES
[2022-12-30 06:32] LABS: ALBUMIN 2.8 GM/DL (3.2-4.5); BILIRUBIN,TOTAL 0.7 MG/DL (0.1-1.0); CALCIUM 8.7 MG/DL (8.5-10.1); CREATININE SERUM 2.03 MG/DL (0.60-1.30); POTASSIUM 2.8 MMOL/L (3.6-5.0); TOTAL PROTEIN 5.8 GM/DL (6.4-8.2)
[2022-12-30] MEDS: KCL 10 MEQ TAB (MICRO K) PO SCH (06:40)
[2022-12-30 07:30] VITALS: BP 128/57
--- NOTE | 2022-12-30 07:31 | Individualized Plan of Care ---
Individualized Plan of Care Rehab Nursing IPOC Order Admission Date Dec 29, 2022 at 12:30 Current Orders Orders Admission Order(Inpt,Obs,Sdc) (12/29/22 12:01) Vital Signs: Per Unit Policy ( 08,16,00 (12/29/22 12:01) [place] 09,21 (12/29/22 12:01) Sequential Compression Device (12/29/22 12:01) Government Guard-Inpt Rehab Con (12/29/22 12:01) Rehab Nursing Orders-Ipoc (12/29/22 12:01) Physical Therapy Rehab Orders (12/29/22 12:01) Occupational Therapy Rehab Ord (12/29/22 12:01) Speech Therapy Rehab Orders (12/29/22 12:01) Cbc With Automated Diff (12/30/22 06:00) Comprehensive Metabolic Panel (12/30/22 06:00) Precautions (Aru) (12/29/22 12:01) Weekly Weight WEEK (12/29/22 12:01) Rehab-Intensity Of Therapy (12/29/22 12:01) Initiate Admission Nursing Pro .admission (12/29/22 12:01) Alprazolam Tablet (Xanax Tablet) (12/29/22 12:15) Calcium Carbonate Chew Tablet (Antacid C (12/29/22 12:15) Diphenhydramine Tablet (Benadryl Tablet) (12/29/22 12:15) Docusate Sodium Capsule (Colace Capsule) (12/29/22 21:00) Docusate Sodium Capsule (Colace Capsule) (12/29/22 12:15) Bisacodyl Suppository (Dulcolax Supposit (12/29/22 12:15) Lactulose Oral Solution (Enulose Oral So (12/29/22 12:15) Na Phos/Na Biphos Enema (Fleet Enema Dar (12/29/22 12:15) Guaifenesin/Codeine Syrup (Robitussin Ac (12/29/22 12:15) Loperamide Tablet (Imodium Tablet) (12/29/22 12:15) Melatonin Tablet (Melatonin Tablet) (12/29/22 12:15) Polyethylene Glycol Powder Pkt (Miralax (3/31/23 21:00) Ondansetron Oral Dissolve Tab (Zofran (12/29/22 12:15) Senna S Tablet (Senokot S Tablet) (12/29/22 21:00) Acetaminophen Tablet/Caplet (Tylenol T (12/29/22 12:15) Venous Access Request Order (12/29/22 12:38) Admission Arrival Bed Request (12/29/22 12:44) General/Regular (12/29/22 Lunch) Hypochlorous Acid/Sod Chloride (Vashe Wo (12/29/22 16:00) Consult Wound Care Physician (12/29/22 16:02) Dressing Order (Intervention) DAILY PRN (12/29/22 16:04) Acetaminophen Arthritis (Tylenol Arthrit (12/29/22 17:45) Amlodipine Tablet (Norvasc Tablet) (12/30/22 09:00) Aspirin Enteric Coated Tablet (Ecotrin T (12/30/22 09:00) Atorvastatin Tablet (Lipitor Tablet) (12/30/22 09:00) Metoprolol Tartrate (Ir) Tab (Lopressor (12/29/22 17:45) Montelukast Tablet (Singulair Tablet) (12/29/22 21:00) Venlafaxine Immediate Release (Effexor T (12/30/22 09:00) Diphenhydramine Tablet (Benadryl Tablet) (12/29/22 21:00) (Nf) Glucosa Hammer 2kcl/Chondroitin Hammer (Glu (12/29/22 21:00) Allopurinol Tablet (Zyloprim Tablet) (12/30/22 09:00) Pantoprazole Tablet (Protonix Tablet) (12/30/22 09:00) Enoxaparin Injection (Lovenox Injection) (12/30/22 09:00) Potassium Chloride (Tablet) (Klor Con Ta (12/30/22 07:00) Iron Test (Fe) (12/30/22 06:35) Vitamin B 12 (12/30/22 06:35) Patient Visit (12/29/22 ) Pt Eval High Complexity (12/29/22 ) Functional Activities, Ea 15 (12/29/22 ) Patient Visit (12/30/22 ) Gait Training, Ea 15 Min (12/30/22 ) Exercise Therap, Ea 15 Min (12/30/22 ) Rehab Nursing Orders: Ongoing Assess. of Function Status, Bladder Management, Bladder Scan, Bladder Training, Bowel Management, Bowel Training, Disease Management & Educaiton, DVT Prophylaxis, Fall Prevention, Fluid/Electrolyte/Nutrition Mgmt, Infection Prevention, Medication Management & Education, Management of Risks & Complications, Management of Skin Intergrity, Nutrition Management, Pain Management, Patient/Family Support, Safety Management, Wound Management Intensity of Therapy to be met Patient to be seen: Min.3h per day/5 of 7d PT IPOC Problem List: Activity Tolerance, Functional Strength, Safety, Balance, Gait, Transfer, Bed Mobility Treatment Plan: Continue Plan of Care Bed Mobility, Education, Functional Activity Catalina, Functional Strength, Group Therapy, Gait, Safety, Therapeutic Exercise, Transfers Treatment Duration: Jan 26, 2023 Frequency: At least 5 of 7 days/Wk (IRF) Estimated Hrs Per Day: Other (Graduate) OT IPOC Problems: Decreased Activ Tolerance, Decreased UE Strength, Dependent Transfers, Impaired Cognition, Impaired Self-Care Skills OT Treatment, Training and Edu: Yes OT Problems Pt would benefit from skilled OT to increase her independence in basic self care to allow her to safely return home Plan of Care: ADL Retraining, Functional Mobility, Group Exercise/Act as Ind, UE Funct Exercise/Act, UE Neuromus Re-Ed/Coord, OTHER (energy conservation education) Treatment Duration: Jan 19, 2023 Frequency: Modified Program (IRF) (14/04) Estimated Hrs Per Day: 1.[address] IPOC Speech Therapy Treatment Plan: Discontinue ST Treatment Duration: Dec 29, 2022 Frequency: Modified Program (IRF) Estimated Hrs Per Day: Other Government Guard/Case Mgmt Government Guard/Case Managemen: Discharge Planning Dietitian/Electric System Operator Dietitian/Electric System Operator to monitor nutritional status and make changes and/or recommendations as needed and work with speech pathology on dietary upgrades as the occur. Physician IPOC Medical Issues being managed closely and that require the 24 hour availability of a physician: Recent COVID with acute hypoxic resp failure and SURAJ on CKD will require close monitoring of labs and oxygen levels due to high risk for decompensation Medical Issues: Bowel/Bladder Function, DVT Prophylaxis, Falls Precautions, Fluid/Electrolyte/Nutrition Balance, Infection Protection, Pain Management, Wound Care Brief Synthesis of Preadmission Screen, Post-Admission Evaluation, and Therapy Evaluations: PT OT will focus on regaining function with use of AD in order to increase ambulation and improve stamina along with encephalopathy clearance in order to return home Medical Prognosis: Good Anticipated Length of Stay: 10 days SKY MARTE DO Dec 30, 2022 07:31
--- NOTE | 2022-12-30 07:31 | PM&R Progress Note ---
Subjective HPI/CC On Admission Date Seen by Provider: Dec 30, 2022 Time Seen by Provider: 12:00 Subjective/Events-last exam 12/30/2022: Much improved Labs reviewed Creat 2.0 and that is her baseline BUN still elevated Monitor closely Review of Systems General: Fatigue, Malaise Objective Exam Vital Signs Vital Signs Date Time Temp Pulse Resp B/P (MAP) Pulse Ox O2 Delivery O2 Flow Rate FiO2 12/30/22 17:21 97 18 143/78 (99) 12/30/22 07:30 36.2 99 Room Air Capillary Refill : General Appearance: No Apparent Distress, WD/WN, Chronically ill, Obese HEENT: PERRL/EOMI, Normal ENT Inspection, Pharynx Normal Neck: Full Range of Motion, Normal Inspection, Non Tender, Supple, Carotid Bruit Respiratory: Chest Non Tender, Lungs Clear, No Accessory Muscle Use, No Respiratory Distress, Decreased Breath Sounds Cardiovascular: Regular Rate, Rhythm, No Edema, No Gallop, No JVD, No Murmur, Normal Peripheral Pulses Gastrointestinal: Normal Bowel Sounds, No Organomegaly, No Pulsatile Mass, Non Tender, Soft Back: Normal Inspection, No CVA Tenderness, No Vertebral Tenderness Extremity: Normal Capillary Refill, Normal Inspection, Normal Range of Motion, Non Tender, No Calf Tenderness, No Pedal Edema Neurologic/Psychiatric: Alert, Oriented x3, No Motor/Sensory Deficits, live truck operator II- XII Norm as Tested, Abnormal Gait, Disoriented (subtle), Motor Weakness (generalized) Skin: Normal Color, Warm/Dry Lymphatic: No Adenopathy Results/Procedures Lab Laboratory Tests 12/30/22 06:04 Patient resulted labs reviewed. FIM Transfers Therapy Code Descriptions/Definitions Functional [place] Measure: 0=Not Assessed/NA 4=Minimal Assistance 1=Total Assistance 5=Supervision or Setup 2=Maximal Assistance 6=Modified [place] 3=Moderate Assistance 7=Complete IndependenceSCALE: Activities may be completed with or without assistive devices. 8-Ctqkxarhxd-jtixelf completes the activity by him/herself with no assistance from a helper. 5-Set-up or Clean-up Assistance-helper sets up or cleans up; patient completes activity. [place] assists only prior to or following the activity. 4-Supervision or Touching Assistance-helper provides verbal cues and/or touching/steadying and/or contact guard assistance as patient completes activity. Assistance may be provided throughout the activity or intermittently. 3-Partial/Moderate Assistance-helper does LESS THAN HALF the effort. [place] lifts, holds or supports trunk or limbs, but provides less than half the effort. 2-Substantial/Maximal Assistance-helper does MORE THAN HALF the effort. [place] lifts or holds trunk or limbs and provides more than half the effort. 7-Hzivdrdlv-mgowsb does ALL the effort. Patient does none of the effort to complete the activity. Or, the assistance of 2 or more helpers is required for the patient to complete the activity. If activity was not attempted, code reason: 7-Patient Refused. 9-Not Applicable-not attempted and the patient did not perform the activity before the current illness, exacerbation or injury. 10-Not Attempted due to Environmental Limitations-(lack of equipment, weather restraints, etc.). 88-Not Attempted due to Medical Conditions or Safety Concerns. Roll Left to Right (QC): 5 (cues to use bed rail) Sit to Lying (QC): 1 (max (A) of 1-2) Sit to Stand (QC): 3 (min (A) to FWW) Chair/Eza-on-Jiqcd Xfer(QC): 3 (min (A) with FWW w/c>bed upon arrival to unit) Car Transfer (QC): 88 Gait Training Does the Patient Walk?: Yes Walk 10 feet (QC): 88 (too debilitated to attempt safely and desaturation to 82% sitting EOB) Walk 50 ft with 2 Turns(QC): 88 (too debilitated to attempt safely and desaturation to 82% sitting EOB) Walk 150 ft (QC): 88 (too debilitated to attempt safely and desaturation to 82% sitting EOB) Walking 10ft/uneven surface-QC: 88 (too debilitated to attempt safely and desaturation to 82% sitting EOB) Wheelchair Training Does the Pt Use a Wheelchair?: Yes Wheel 50 ft with 2 turns (QC): 88 (too debilitated to attempt safely and desaturation to 82% sitting EOB) Wheel 150 ft (QC): 88 (too debilitated to attempt safely and desaturation to 82% sitting EOB) Type of Wheelchair: Manual Stair Training 1 Step (curb) (QC): 88 (too debilitated to attempt safely and desaturation to 82% sitting EOB) 4 Steps (QC): 88 (too debilitated to attempt safely and desaturation to 82% sitting EOB) 12 Steps (QC): 88 (too debilitated to attempt safely and desaturation to 82% sitting EOB) Balance Picking up an Object (QC): 88 (too debilitated to attempt safely and desaturation to 82% sitting EOB) ADL-Treatment Eating (QC): 4 (supervision) Oral Hygiene (QC): 3 (min assist) Shower/Bathe Self (QC): 2 (max assist) Upper Body Dressing (QC): 3 (mod assist) Lower Body Dressing (QC): 1 (dependent) On/Off Footwear (QC): 1 (dependent) Toileting Hygiene (QC): 1 (dependent) Assessment/Plan Assessment and Plan Assess & Plan/Chief Complaint Assessment: Severe debility from COVID PNA Acute hypoxic respiratory failure Acute on chronic kidney failure initially 6.9 now back to baseline 2.0 Obesity s/p septic shock Anemia Protein malnutrition Hypokalemia HTN GERD Depression Plan: PT OT Monitor O2 [facility] creat 12/30/2022: Iron and B12 check Monitor closely (1) Acute on chronic renal failure Status: Acute (2) Pneumonia due to COVID-19 virus Status: Acute (3) Metabolic acidosis Status: Acute (4) SURAJ (acute kidney injury) SKY MARTE DO Dec 30, 2022 07:31
--- NOTE | 2022-12-30 08:51 | Occupational Ther Daily Note ---
OT Current Status-Daily Note Subjective Pt in bed, agreeable to OT Tx. Pt's O2 saturation at 96% supine, then 99% throughout tx with activity (EOB, BSC, dressing, after standing, etc.) Mental Status/Objective Patient Orientation: Normal For Age ADL-Treatment Therapy Code Descriptions/Definitions Functional [place] Measure: 0=Not Assessed/NA 4=Minimal Assistance 1=Total Assistance 5=Supervision or Setup 2=Maximal Assistance 6=Modified [place] 3=Moderate Assistance 7=Complete IndependenceSCALE: Activities may be completed with or without assistive devices. 9-Ebyftuxcgt-kxhipoq completes the activity by him/herself with no assistance from a helper. 5-Set-up or Clean-up Assistance-helper sets up or cleans up; patient completes activity. [place] assists only prior to or following the activity. 4-Supervision or Touching Assistance-helper provides verbal cues and/or touching/steadying and/or contact guard assistance as patient completes activity. Assistance may be provided throughout the activity or intermittently. 3-Partial/Moderate Assistance-helper does LESS THAN HALF the effort. [place] lifts, holds or supports trunk or limbs, but provides less than half the effort. 2-Substantial/Maximal Assistance-helper does MORE THAN HALF the effort. [place] lifts or holds trunk or limbs and provides more than half the effort. 8-Klwfjcjsc-fssxil does ALL the effort. Patient does none of the effort to complete the activity. Or, the assistance of 2 or more helpers is required for the patient to complete the activity. If activity was not attempted, code reason: 7-Patient Refused. 9-Not Applicable-not attempted and the patient did not perform the activity before the current illness, exacerbation or injury. 10-Not Attempted due to Environmental Limitations-(lack of equipment, weather restraints, etc.). 88-Not Attempted due to Medical Conditions or Safety Concerns. Shower/Bathe Self (QC): 3 (Assistance washing buttocks and feet) Upper Body Dressing (QC): 5 Lower Body Dressing (QC): 2 (Pt required assistance with pant hike and threading RLE due to fatigue) Toileting Hygiene (QC): 2 (Pt required moderate assistance with posterior hygiene and max A with pant hike.) Toilet Transfer (QC): 4 (CGA on/off BSC. ) Other Treatment Pt in bed, O2 saturation at 96% supine. Pt transferred supine to sit EOB, min A (LLE). Pt stood from EOB, CGA, transferring to [facility] using FWW, CGA. Pt completed toileting, sponge bath and dressing. Pt reports she fatigued quickly requiring multiple rest breaks. Pt stood from [facility], CGA, then transferred to EOB. Pt required 1 seated rest break in order to completely pull up her pants. Pt transferred supine, Min A (LLE). Throughout sponge bath/dressing, O2 saturation at 99%. OT educated pt on scooting herself up in bed. Post tx, pt in bed, call light in reach and all needs met. O2 saturation 99% Education OT Patient Education: Correct positioning, Energy conservation, Modified ADL techniques, Progress toward Goal/Update tx plan, Purpose of tx/functional activities, Rehab process Teaching Recipient: Patient Teaching Methods: Discussion Response to Teaching: Verbalize Understanding OT Short Term Goals Short Term Goals Time Frame: Jan 05, 2023 Eatin Oral hygiene: 5 Toileting hygiene: 3 Shower/bathe self: 4 Upper body dressin Lower body dressin Putting on/taking off footwear: 3 OT Detention Goals Detention Goals Time Frame: Jan 19, 2023 Acute change in mental status: 1 Inattention: 0 Disorganized thinkin Altered level of consciousness: 0 Eating (QC): 6 Oral Hygiene (QC): 6 Toileting Hygiene (QC): 6 Shower/Bathe Self (QC): 6 Upper Body Dressing (QC): 6 Lower Body Dressing (QC): 6 On/Off Footwear (QC): 6 Additional Goals: 1-Demonstrate ADL Tasks, 2-Verbalize Understanding, 3- ImproveStrength/[place] 1=Demonstrate adherence to instructed precautions during ADL tasks. 2=Patient will verbalize/demonstrate understanding of assistive devices/modifications for ADL. 3=Patient will improve strength/tolerance for activity to enable patient to perform ADL's. OT Education/Plan Problem List/Assessment Assessment: Decreased Activ Tolerance, Decreased UE Strength, Impaired Funct Balance, Impaired I ADL's, Impaired Self-Care Skills Pt would benefit from skilled OT to increase her independence in basic self care to allow her to safely return home Discharge Recommendations Plan/Recommendations: Continue POC Treatment Plan/Plan of Care Patient would benefit from OT for education, treatment and training to promote independence in ADL's, mobility, safety and/or upper extremity function for ADL's. Plan of Care: ADL Retraining, Functional Mobility, Group Exercise/Act as Ind, UE Funct Exercise/Act, UE Neuromus Re-Ed/Coord, OTHER (energy conservation education) Treatment Duration: Jan 19, 2023 Frequency: Modified Program (IRF) (14/04) Estimated Hrs Per Day: 1.5 hours per day Agreement: Yes Rehab Potential: Fair Time Start Time: 07:45 Stop Time: 08:30 DATE: Dec 30, 2022 Total Time Billed (hr/min): 45 Billed Treatment Time 1, ADL 3 KITA DOBSON OT Dec 30, 2022 08:50
[2022-12-30] MEDS: HYPOCHLOROUS ACID/NaCl (VASHE) 250 ML IR SCH (09:35)
[2022-12-30] MEDS: diphenhydrAMINE 25 MG TAB (BENADRYL) PO SCH ×2 (09:35→20:45)
[2022-12-30] MEDS: DOCUSATE SODIUM 100 MG (COLACE) CAP PO SCH ×2 (09:36→19:48)
[2022-12-30] MEDS: amLODIPine 5 MG (NORVASC) TAB PO SCH (09:38)
[2022-12-30] MEDS: ALLOPURINOL 300 MG (ZYLOPRIM) TAB PO SCH (09:38)
[2022-12-30] MEDS: PANTOPRAZOLE 20 MG TABLET (PROTONIX) PO SCH (09:39)
[2022-12-30] MEDS: polyethylene glycoL POWDER 17 GM (MIRALAX) PACK PO SCH ×2 (09:39→19:48)
[2022-12-30] MEDS: ASPIRIN E.C. 81 MG (ECOTRIN) TAB PO SCH (09:39)
[2022-12-30] MEDS: VENlafaxine 75 MG (EFFEXOR) TAB PO SCH (09:39)
[2022-12-30] MEDS: SENNA W/DOCUSATE (SENOKOT S) TABLET PO SCH ×2 (09:40→19:48)
[2022-12-30] MEDS: ENOXAPARIN INJECTION 30 MG/0.3 ML SYR SC SCH (09:41)
--- NOTE | 2022-12-30 11:26 | Physical Therapy Daily Note ---
PT Daily Note-Current Subjective Pt found lying in bed upon entry. States that she is little tired this morning after bathing. Reports that she is not having any pain. O2 saturation monitored throughout visit. Pain Section J - Health Conditions 1. Rarely or not at all 2. Occasionally 3. Frequently 4. Almost constantly 8. Unable to answer Pain Effect on Sleep: 1 Pain Interference with Therapy: 2 Pain Interference w/Day-to-Day: 2 Mental Status Patient Orientation: Person Transfers SCALE: Activities may be completed with or without assistive devices. 6-Zprzrjmckw-dcemjlm completes the activity by him/herself with no assistance from a helper. 5-Set-up or Clean-up Assistance-helper sets up or cleans up; patient completes activity. [place] assists only prior to or following the activity. 4-Supervision or Touching Assistance-helper provides verbal cues and/or touching/steadying and/or contact guard assistance as patient completes activity. Assistance may be provided throughout the activity or intermittently. 3-Partial/Moderate Assistance-helper does LESS THAN HALF the effort. [place] lifts, holds or supports trunk or limbs, but provides less than half the effort. 2-Substantial/Maximal Assistance-helper does MORE THAN HALF the effort. [place] lifts or holds trunk or limbs and provides more than half the effort. 9-Qebmslfsv-fdhlaj does ALL the effort. Patient does none of the effort to complete the activity. Or, the assistance of 2 or more helpers is required for the patient to complete the activity. If activity was not attempted, code reason: 7-Patient Refused. 9-Not Applicable-not attempted and the patient did not perform the activity before the current illness, exacerbation or injury. 10-Not Attempted due to Environmental Limitations-(lack of equipment, weather restraints, etc.). 88-Not Attempted due to Medical Conditions or Safety Concerns. Sit to Lying (QC): 3 Lying to Sitting/Side of Bed(Q: 3 Sit to Stand (QC): 3 Pt MIN assist with all completed transfers. Required lifting assist during sit to stand transfers. LE assist with bed mobility. Weight Bearing Right Lower Extremity: Right Weight Bearing/Tolerated Left Lower Extremity: Left Weight Bearing/Tolerated Gait Training Does the Patient Walk?: Yes Distance: 5, 10, 10 Walk 10 feet (QC): 4 Gait Persons Needed: 1 Gait Assistive Device: FWW Pt displays limited endurance with gait training. Ambulated 25 feet total with use of FWW. Demonstrated slow gait pattern with no loss of balance. O2 sats remained normal with ambulation. Treatments O2 saturation monitoring Pre-treatment lying in bed: 98% Seated on edge of bed: 98% Seated exercise: 98% 5 feet of ambulation: 99% 10 feet of ambulation: 99% Post-treatment lying in bed: 99% Seated exercises: LAQs x 10 Marching x 10 Supine exercises: SLRs x 10 Quad sets x 10 Glute sets x 10 Heel slides x 10 Hip abd/add x 10 Assessment Current Status: Fair Progress Pt demonstrates limited tolerance to exercise and ambulation. Required rest breaks throughout visit. Pt O2 saturations remained normal throughout visit. MIN assist with bed mobility and sit to stand transfers. Displays slow gait pattern with no loss of balance. Continue to progress pt as tolerated per POC to improve endurance, strength, and functional ability. PT [employer] Facer Goals [place] Facer Goals PT [employer] Facer Goals Time Frame: Jan 26, 2023 Roll Left & Right (QC): 6 Sit to Lying (QC): 5 (possible use of left leg tensioning machine operator) Lying-Sitting on Side/Bed(QC): 5 (possible use of left leg tensioning machine operator) Sit to Stand (QC): 6 (with FWW) Chair/Ngb-iw-Dxzxc Xfer(QC): 6 (with FWW) Toilet Transfer (QC): 6 (with FWW) Car Transfer (QC): 5 (with FWW) Does the Patient Walk: Yes Walk 10 feet (QC): 6 (with FWW and prn O2 assist with sats 90% or greater) Walk 50ft with 2 Turns (QC): 6 (with FWW and prn O2 assist with sats 90% or better) Walk 150 ft (QC): 5 (with FWW and prn O2 assist with sats 90% or greater) Walking 10ft on Uneven Surface: 5 (with FWW and O2 assist prn) 1 Step (curb) (QC): 5 4 Steps (QC): 4 (with (B) rails) 12 Steps (QC): 88 Picking up an Object (QC): 6 (with diet technician registered) Does the Pt use WC or Scooter?: No Wheel 50 feet with 2 turns (QC: 6 Type: Manual Wheel 150 feet: 6 Type: Manual PT Plan Treatment/Plan Treatment Plan: Continue Plan of Care Treatment Plan: Bed Mobility, Education, Functional Activity [place], Functional Strength, Group Therapy, Gait, Safety, Therapeutic Exercise, Transfers Treatment Duration: Jan 26, 2023 Frequency: At least 5 of 7 days/Wk (IRF) Estimated Hrs Per Day: Other (Graduate) Patient and/or Family Agrees t: Yes Time Time In: 923 Time Out: 100 DATE: Dec 30, 2022 Total Billed Treatment Time: 40 Total Billed Treatment 1 visit GT x 2 EX x 1 EARLINE ARTHUR MIXER OPERATOR Dec 30, 2022 11:25
[2022-12-30 17:21] VITALS: BP 143/78
[2022-12-30 20:00] VITALS: BP 134/62
[2022-12-30] MEDS: MONTELUKAST 10 MG (SINGULAIR) TAB PO SCH (20:45)
[2022-12-30] MEDS: ACETAMINOPHEN ER 650 MG (TYLENOL ARTHRITIS) PO PRN (20:48)
[2022-12-31] MEDS: KCL 10 MEQ TAB (MICRO K) PO SCH (06:26)
[2022-12-31] MEDS: meTOprolol TARTRATE 25 MG (LOPRESSOR) TABLET PO SCH ×2 (06:26→20:37)
--- NOTE | 2022-12-31 06:34 | PM&R Progress Note ---
Subjective HPI/CC On Admission Date Seen by Provider: Dec 31, 2022 Time Seen by Provider: 12:00 Subjective/Events-last exam 12/31/2022: Much improved Walked a bit Showered today No pain 12/30/2022: Much improved Labs reviewed Creat 2.0 and that is her baseline BUN still elevated Monitor closely Review of Systems General: Fatigue, Malaise Objective Exam Vital Signs Vital Signs Date Time Temp Pulse Resp B/P (MAP) Pulse Ox O2 Delivery O2 Flow Rate FiO2 12/31/22 20:52 36.3 97 20 124/73 (90) 97 Room Air Capillary Refill : General Appearance: No Apparent Distress, WD/WN, Chronically ill, Obese HEENT: PERRL/EOMI, Normal ENT Inspection, Pharynx Normal Neck: Full Range of Motion, Normal Inspection, Non Tender, Supple, Carotid Bruit Respiratory: Chest Non Tender, Lungs Clear, No Accessory Muscle Use, No Respiratory Distress, Decreased Breath Sounds Cardiovascular: Regular Rate, Rhythm, No Edema, No Gallop, No JVD, No Murmur, Normal Peripheral Pulses Gastrointestinal: Normal Bowel Sounds, No Organomegaly, No Pulsatile Mass, Non Tender, Soft Back: Normal Inspection, No CVA Tenderness, No Vertebral Tenderness Extremity: Normal Capillary Refill, Normal Inspection, Normal Range of Motion, Non Tender, No Calf Tenderness, No Pedal Edema Neurologic/Psychiatric: Alert, Oriented x3, No Motor/Sensory Deficits, explosive ordnance disposal specialist II- XII Norm as Tested, Abnormal Gait, Disoriented (subtle), Motor Weakness (generalized) Skin: Normal Color, Warm/Dry Lymphatic: No Adenopathy Results/Procedures Lab Patient resulted labs reviewed. FIM Transfers Therapy Code Descriptions/Definitions Functional [place] Measure: 0=Not Assessed/NA 4=Minimal Assistance 1=Total Assistance 5=Supervision or Setup 2=Maximal Assistance 6=Modified [place] 3=Moderate Assistance 7=Complete IndependenceSCALE: Activities may be completed with or without assistive devices. 7-Neeokballk-wiufins completes the activity by him/herself with no assistance from a helper. 5-Set-up or Clean-up Assistance-helper sets up or cleans up; patient completes activity. [place] assists only prior to or following the activity. 4-Supervision or Touching Assistance-helper provides verbal cues and/or touching/steadying and/or contact guard assistance as patient completes act ivity. Assistance may be provided throughout the activity or intermittently. 3-Partial/Moderate Assistance-helper does LESS THAN HALF the effort. [place] lifts, holds or supports trunk or limbs, but provides less than half the effort. 2-Substantial/Maximal Assistance-helper does MORE THAN HALF the effort. [place] lifts or holds trunk or limbs and provides more than half the effort. 9-Myubcykpt-nyjcvj does ALL the effort. Patient does none of the effort to complete the activity. Or, the assistance of 2 or more helpers is required for the patient to complete the activity. If activity was not attempted, code reason: 7-Patient Refused. 9-Not Applicable-not attempted and the patient did not perform the activity before the current illness, exacerbation or injury. 10-Not Attempted due to Environmental Limitations-(lack of equipment, weather restraints, etc.). 88-Not Attempted due to Medical Conditions or Safety Concerns. Roll Left to Right (QC): 5 (cues to use bed rail) Sit to Lying (QC): 3 Sit to Stand (QC): 3 Chair/Djs-px-Stfve Xfer(QC): 3 (min (A) with FWW w/c>bed upon arrival to unit) Car Transfer (QC): 88 Gait Training Does the Patient Walk?: Yes Distance: 5, 10, 10 Walk 10 feet (QC): 4 Walk 50 ft with 2 Turns(QC): 88 (too debilitated to attempt safely and desaturation to 82% sitting EOB) Walk 150 ft (QC): 88 (too debilitated to attempt safely and desaturation to 82% sitting EOB) Walking 10ft/uneven surface-QC: 88 (too debilitated to attempt safely and desaturation to 82% sitting EOB) Gait Persons Needed: 1 Gait Assistive Device: FWW Wheelchair Training Does the Pt Use a Wheelchair?: Yes Wheel 50 ft with 2 turns (QC): 88 (too debilitated to attempt safely and desaturation to 82% sitting EOB) Wheel 150 ft (QC): 88 (too debilitated to attempt safely and desaturation to 82% sitting EOB) Type of Wheelchair: Manual Stair Training 1 Step (curb) (QC): 88 (too debilitated to attempt safely and desaturation to 82% sitting EOB) 4 Steps (QC): 88 (too debilitated to attempt safely and desaturation to 82% sitting EOB) 12 Steps (QC): 88 (too debilitated to attempt safely and desaturation to 82% sitting EOB) Balance Picking up an Object (QC): 88 (too debilitated to attempt safely and desaturation to 82% sitting EOB) ADL-Treatment Eating (QC): 4 (supervision) Oral Hygiene (QC): 3 (min assist) Shower/Bathe Self (QC): 3 (Assistance washing buttocks and feet) Upper Body Dressing (QC): 5 Lower Body Dressing (QC): 2 (Pt required assistance with pant hike and threading RLE due to fatigue) On/Off Footwear (QC): 1 (dependent) Toileting Hygiene (QC): 2 (Pt required moderate assistance with posterior hygiene and max A with pant hike.) Toilet Transfer (QC): 4 (CGA on/off BSC. ) Assessment/Plan Assessment and Plan Assess & Plan/Chief Complaint Assessment: Severe debility from COVID PNA Acute hypoxic respiratory failure Acute on chronic kidney failure initially 6.9 now back to baseline 2.0 Obesity s/p septic shock Anemia Protein malnutrition Hypokalemia HTN GERD Depression Iron def Plan: PT OT Monitor O2 Montior creat 12/30/2022: Iron and B12 check Monitor closely 12/31/2022: Monitor closely Midline tomorrow Venofer (1) Acute on chronic renal failure Status: Acute (2) Pneumonia due to COVID-19 virus Status: Acute (3) Metabolic acidosis Status: Acute (4) SURAJ (acute kidney injury) SKY MARTE DO Dec 31, 2022 06:34
[2022-12-31 07:36] VITALS: BP 89/55
[2022-12-31] MEDS: PANTOPRAZOLE 20 MG TABLET (PROTONIX) PO SCH (09:45)
[2022-12-31] MEDS: diphenhydrAMINE 25 MG TAB (BENADRYL) PO SCH ×2 (09:45→20:37)
[2022-12-31] MEDS: amLODIPine 5 MG (NORVASC) TAB PO SCH (09:45)
[2022-12-31] MEDS: VENlafaxine 75 MG (EFFEXOR) TAB PO SCH (09:45)
[2022-12-31] MEDS: ASPIRIN E.C. 81 MG (ECOTRIN) TAB PO SCH (09:45)
[2022-12-31] MEDS: ALLOPURINOL 300 MG (ZYLOPRIM) TAB PO SCH (09:45)
[2022-12-31] MEDS: ENOXAPARIN INJECTION 30 MG/0.3 ML SYR SC SCH (09:46)
[2022-12-31] MEDS: polyethylene glycoL POWDER 17 GM (MIRALAX) PACK PO SCH ×2 (09:46→19:53)
[2022-12-31] MEDS: SENNA W/DOCUSATE (SENOKOT S) TABLET PO SCH ×2 (09:46→19:53)
[2022-12-31] MEDS: HYPOCHLOROUS ACID/NaCl (VASHE) 250 ML IR SCH (09:47)
[2022-12-31] MEDS: DOCUSATE SODIUM 100 MG (COLACE) CAP PO SCH ×2 (09:47→19:53)
[2022-12-31 09:49] VITALS: BP 110/55
[2022-12-31] MEDS: LACTOBACILLUS ACIDOPHILUS (PROBIOTIC) CAPSULE PO SCH ×2 (13:36→17:24)
[2022-12-31] MEDS: MONTELUKAST 10 MG (SINGULAIR) TAB PO SCH (20:37)
[2022-12-31 20:52] VITALS: BP 124/73
[2022-12-31] MEDS: ACETAMINOPHEN ER 650 MG (TYLENOL ARTHRITIS) PO PRN (22:34)
[2023-01-01 05:55] LABS: ALBUMIN 2.6 GM/DL (3.2-4.5); POTASSIUM 2.9 MMOL/L (3.6-5.0)
[2023-01-01 05:58] LABS: TOTAL PROTEIN 5.2 GM/DL (6.4-8.2)
[2023-01-01 05:59] LABS: BILIRUBIN,TOTAL 0.6 MG/DL (0.1-1.0)
[2023-01-01 06:01] LABS: CREATININE SERUM 2.36 MG/DL (0.60-1.30)
[2023-01-01 06:04] LABS: MAGNESIUM 1.5 MG/DL (1.6-2.4)
[2023-01-01 06:15] LABS: BASOPHILS % (AUTO) 0 % (0-10); EOSINOPHILS # (AUTO) 0.2 10^3/uL (0.0-0.3); EOSINOPHILS % (AUTO) 2 % (0-10); HEMATOCRIT 25 % (35-52); HEMOGLOBIN 8.2 g/dL (11.5-16.0); LYMPHOCYTES # (AUTO) 1.7 10^3/uL (1.0-4.0); LYMPHOCYTES % (AUTO) 22 % (12-44); MEAN CORPUSCULAR HEMOGLOBIN 30 pg (25-34); MEAN CORPUSCULAR HGB CONC 33 g/dL (32-36); MEAN CORPUSCULAR VOLUME 91 fL (80-99); MEAN PLATELET VOLUME 12.5 fL (9.0-12.2); MONOCYTES # (AUTO) 0.7 10^3/uL (0.0-1.0); MONOCYTES % (AUTO) 10 % (0-12); NEUTROPHILS % (AUTO) 64 % (42-75); PLATELET COUNT 186 10^3/uL (130-400); WHITE BLOOD COUNT 7.7 10^3/uL (4.3-11.0)
--- NOTE | 2023-01-01 06:16 | PM&R Progress Note ---
Subjective HPI/CC On Admission Date Seen by Provider: Jan 01, 2023 Time Seen by Provider: 09:00 Subjective/Events-last exam 01/01/2023: Improved overall Midline will be placed and IV iron infusion ordered Creat stable Monitoring closely Increase potassium 12/31/2022: Much improved Walked a bit Showered today No pain 12/30/2022: Much improved Labs reviewed Creat 2.0 and that is her baseline BUN still elevated Monitor closely Review of Systems General: Fatigue, Malaise Objective Exam Vital Signs Vital Signs Date Time Temp Pulse Resp B/P (MAP) Pulse Ox O2 Delivery O2 Flow Rate FiO2 01/01/23 20:20 36.2 87 20 127/58 (81) 99 Room Air Capillary Refill : General Appearance: No Apparent Distress, WD/WN, Chronically ill, Obese HEENT: PERRL/EOMI, Normal ENT Inspection, Pharynx Normal Neck: Full Range of Motion, Normal Inspection, Non Tender, Supple, Carotid Bruit Respiratory: Chest Non Tender, Lungs Clear, No Accessory Muscle Use, No Respiratory Distress, Decreased Breath Sounds Cardiovascular: Regular Rate, Rhythm, No Edema, No Gallop, No JVD, No Murmur, Normal Peripheral Pulses Gastrointestinal: Normal Bowel Sounds, No Organomegaly, No Pulsatile Mass, Non Tender, Soft Back: Normal Inspection, No CVA Tenderness, No Vertebral Tenderness Extremity: Normal Capillary Refill, Normal Inspection, Normal Range of Motion, Non Tender, No Calf Tenderness, No Pedal Edema Neurologic/Psychiatric: Alert, Oriented x3, No Motor/Sensory Deficits, fiberglasser II- XII Norm as Tested, Abnormal Gait, Disoriented (subtle), Motor Weakness (generalized) Skin: Normal Color, Warm/Dry Lymphatic: No Adenopathy Results/Procedures Lab Laboratory Tests 01/01/23 05:36 01/01/23 06:05 Patient resulted labs reviewed. FIM Transfers Therapy Code Descriptions/Definitions Functional [place] Measure: 0=Not Assessed/NA 4=Minimal Assistance 1=Total Assistance 5=Supervision or Setup 2=Maximal Assistance 6=Modified [place] 3=Moderate Assistance 7=Complete IndependenceSCALE: Activities may be completed with or without assistive devices. 5-Njdqliwiew-xrjkmhy completes the activity by him/herself with no assistance from a helper. 5-Set-up or Clean-up Assistance-helper sets up or cleans up; patient completes activity. [place] assists only prior to or following the activity. 4-Supervision or Touching Assistance-helper provides verbal cues and/or touching/steadying and/or contact guard assistance as patient completes activity. Assistance may be provided throughout the activity or intermittently. 3-Partial/Moderate Assistance-helper does LESS THAN HALF the effort. [place] lifts, holds or supports trunk or limbs, but provides less than half the effort. 2-Substantial/Maximal Assistance-helper does MORE THAN HALF the effort. [place] lifts or holds trunk or limbs and provides more than half the effort. 0-Dajiogjbr-tmtdbm does ALL the effort. Patient does none of the effort to complete the activity. Or, the assistance of 2 or more helpers is required for the patient to complete the activity. If activity was not attempted, code reason: 7-Patient Refused. 9-Not Applicable-not attempted and the patient did not perform the activity before the current illness, exacerbation or injury. 10-Not Attempted due to Environmental Limitations-(lack of equipment, weather restraints, etc.). 88-Not Attempted due to Medical Conditions or Safety Concerns. Roll Left to Right (QC): 5 (cues to use bed rail) Sit to Lying (QC): 3 Sit to Stand (QC): 3 Chair/Wmx-jv-Mugxg Xfer(QC): 3 (min (A) with FWW w/c>bed upon arrival to unit) Car Transfer (QC): 88 Gait Training Does the Patient Walk?: Yes Distance: 5, 10, 10 Walk 10 feet (QC): 4 Walk 50 ft with 2 Turns(QC): 88 (too debilitated to attempt safely and desaturation to 82% sitting EOB) Walk 150 ft (QC): 88 (too debilitated to attempt safely and desaturation to 82% sitting EOB) Walking 10ft/uneven surface-QC: 88 (too debilitated to attempt safely and desaturation to 82% sitting EOB) Gait Persons Needed: 1 Gait Assistive Device: FWW Wheelchair Training Does the Pt Use a Wheelchair?: Yes Wheel 50 ft with 2 turns (QC): 88 (too debilitated to attempt safely and desaturation to 82% sitting EOB) Wheel 150 ft (QC): 88 (too debilitated to attempt safely and desaturation to 82% sitting EOB) Type of Wheelchair: Manual Stair Training 1 Step (curb) (QC): 88 (too debilitated to attempt safely and desaturation to 82% sitting EOB) 4 Steps (QC): 88 (too debilitated to attempt safely and desaturation to 82% sitting EOB) 12 Steps (QC): 88 (too debilitated to attempt safely and desaturation to 82% sitting EOB) Balance Picking up an Object (QC): 88 (too debilitated to attempt safely and desaturation to 82% sitting EOB) ADL-Treatment Eating (QC): 4 (supervision) Oral Hygiene (QC): 3 (min assist) Shower/Bathe Self (QC): 3 (Assistance washing buttocks and feet) Upper Body Dressing (QC): 5 Lower Body Dressing (QC): 2 (Pt required assistance with pant hike and threading RLE due to fatigue) On/Off Footwear (QC): 1 (dependent) Toileting Hygiene (QC): 2 (Pt required moderate assistance with posterior hygiene and max A with pant hike.) Toilet Transfer (QC): 4 (CGA on/off BSC. ) Assessment/Plan Assessment and Plan Assess & Plan/Chief Complaint Assessment: Severe debility from COVID PNA Acute hypoxic respiratory failure Acute on chronic kidney failure initially 6.9 now back to baseline 2.0 Obesity s/p septic shock Anemia Protein malnutrition Hypokalemia HTN GERD Depression Iron def Plan: PT OT Monitor O2 Montior creat 12/30/2022: Iron and B12 check Monitor closely 12/31/2022: Monitor closely Midline tomorrow Venofer 01/01/2023: Midline Iron (1) Acute on chronic renal failure Status: Acute (2) Pneumonia due to COVID-19 virus Status: Acute (3) Metabolic acidosis Status: Acute (4) SURAJ (acute kidney injury) SKY MARTE DO Jan 01, 2023 06:16
[2023-01-01] MEDS: VENlafaxine 75 MG (EFFEXOR) TAB PO SCH (08:43)
[2023-01-01] MEDS: ASPIRIN E.C. 81 MG (ECOTRIN) TAB PO SCH (08:43)
[2023-01-01] MEDS: ALLOPURINOL 300 MG (ZYLOPRIM) TAB PO SCH (08:43)
[2023-01-01] MEDS: PANTOPRAZOLE 20 MG TABLET (PROTONIX) PO SCH (08:43)
[2023-01-01] MEDS: LACTOBACILLUS ACIDOPHILUS (PROBIOTIC) CAPSULE PO SCH ×3 (08:43→17:56)
[2023-01-01] MEDS: KCL 10 MEQ TAB (MICRO K) PO SCH ×2 (08:44→17:56)
[2023-01-01] MEDS: ENOXAPARIN INJECTION 30 MG/0.3 ML SYR SC SCH (08:45)
[2023-01-01] MEDS: diphenhydrAMINE 25 MG TAB (BENADRYL) PO SCH ×2 (08:50→21:44)
[2023-01-01 08:52] VITALS: BP 105/67
--- NOTE | 2023-01-01 09:28 | Wound Care Assessment ---
Wound Care Assessment Date Seen by Provider: Jan 01, 2023 Time Seen by Provider: 08:40 Chief Complaint Left inner thigh wound HPI Liz Henriquez is a pleasant 72 yo female with a past medical hx of HTN, HLD, CKD stage 3, GERD, arthritis, depression, obesity and recent hospitalization fr om 12/23-12/29 at [facility] for COVID and SURAJ. Pt reports she was in the hospital for COVID, but was in a "coma" and does not remember anything. History is limited d/t to this. According to PM&R note, pt was hospitalized for SOA and found to have COVID. Pt had fluid overload with elevated Cr and hypokalemia during hospital stay. She has a wound from groin to medial ankle along the medial side of her left leg. This occured during her hospitalization in response to fluid overload and pressure. Her medical condition improved and she was discharged to rehab unit. Pt denies hx of diabetes, neuropathy or weakness prior to this injury. She had venous studies at [facility] which showed no occlusion bilaterally. Labs show Hgb of 8.2, Iron 31, albumin 2.6. WBC, Vit B12 were WNL and blood culture showed no growth. She has been started on venofer for iron supplementation. Smoking Status: Never a Smoker Alcohol Use: Denies Use Review of Systems General: No Chills, No Fatigue HEENT: No Head Aches, No Visual Changes Cardiovascular: Edema (bilateral lower extremities); No: Chest Pain Gastrointestinal: No: Nausea, Vomiting Genitourinary: No Dysuria, No Frequency Neurological: Weakness (left leg); No: Numbness Exam Vital Signs Date Time Temp Pulse Resp B/P (MAP) Pulse Ox O2 Delivery O2 Flow Rate FiO2 01/01/23 08:52 95 20 105/67 (80) 99 Room Air 12/31/22 20:52 36.3 Capillary Refill : General Appearance: WD/WN, no apparent distress, obese HEENT: PERRL/EOMI Respiratory: no respiratory distress, no accessory muscle use Gastrointestinal: non tender, soft Extremities: swelling (bilateral LE) Neurologic/Psychiatric: alert, normal mood/affect, oriented x 3 Skin: other (62cm stage 2 open wound of left inner thigh, no tunneling or undermining, large amount of serosanguinous drainage without odor, flat margins, small granulation, medium necrotic tissue along medial knee, epitheliazation is small) Skin Problem Location: lower extremities (left) Skin Character: drainage (serosanguinous), erythema (surrounding left LE wound), rash (inguinal fold ) Results Laboratory Tests 01/01/23 05:36: Sodium Level 137, Potassium Level 2.9L, Chloride Level 104, Carbon Dioxide Level 17L, Anion Gap 16H, Blood Urea Nitrogen 93H, Creatinine 2.36H, Estimat Glomerula r Filtration Rate 22, BUN/Creatinine Ratio 39, Glucose Level 96, Calcium Level 8.0L, Corrected Calcium 9.1, Magnesium Level 1.5L, Total Bilirubin 0.6, Aspartate Amino Transf (AST/SGOT) 19, Alanine Aminotransferase (ALT/SGPT) 27, Alkaline Phosphatase 65, Total Protein 5.2L, Albumin 2.6L 01/01/23 06:05: White Blood Count 7.7, Red Blood Count 2.73L, Hemoglobin 8.2L, Hematocrit 25L, Mean Corpuscular Volume 91, Mean Corpuscular Hemoglobin 30, Mean Corpuscular Hemoglobin Concent 33, Red Cell Distribution Width 15.2H, Platelet Count 186, Mean Platelet Volume 12.5H, Immature Granulocyte % (Auto) 2, Neutrophils (%) (Auto) 64, Lymphocytes (%) (Auto) 22, Monocytes (%) (Auto) 10, Eosinophils (%) (Auto) 2, Basophils (%) (Auto) 0, Neutrophils # (Auto) 5.0, Lymphocytes # (Auto) 1.7, Monocytes # (Auto) 0.7, Eosinophils # (Auto) 0.2, Basophils # (Auto) 0.0, Immature Granulocyte # (Auto) 0.1 Assessment/Plan/Dx Assessment: 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 Thick layer barrier ointment to periwound secured with roller gauze and tape. Change daily and prn for saturation. Heel boots when in bed to offload pressure. Elevate legs [facility] venous studies showed no evidence of occlusion Apply Miconazole powder to folds daily. Diflucan 100mg daily for 7 days. Protein shakes with meals, focus on protein rich foods- Albumin 2.6 Venofer started, Hgb 8.2 and Iron 31 Management per primary Supervisory-Addendum Brief Verification & Attestation Participated in pt care: history, MDM, physical Personally performed: exam, history, MDM, supervision of care Care discussed with: Medical Student Procedures: n/a Results interpretation: Verified all documentation TERESO Medeiros MD MED STUDENT Jan 01, 2023 09:28 BUDDY PACHECO MD Jan 01, 2023 14:24
--- NOTE | 2023-01-01 09:33 | Occupational Ther Daily Note ---
OT Current Status-Daily Note Subjective Pt laying in bed, agreeable to therapy tx. Pt reports wound care nurse is supposed to come in and address her legs. Mental Status/Objective Patient Orientation: Person, Place, Time, Situation ADL-Treatment Therapy Code Descriptions/Definitions Functional [place] Measure: 0=Not Assessed/NA 4=Minimal Assistance 1=Total Assistance 5=Supervision or Setup 2=Maximal Assistance 6=Modified [place] 3=Moderate Assistance 7=Complete IndependenceSCALE: Activities may be completed with or without assistive devices. 1-Dzcyhyfuqj-qkgswca completes the activity by him/herself with no assistance from a helper. 5-Set-up or Clean-up Assistance-helper sets up or cleans up; patient completes activity. [place] assists only prior to or following the activity. 4-Supervision or Touching Assistance-helper provides verbal cues and/or touching/steadying and/or contact guard assistance as patient completes activity. Assistance may be provided throughout the activity or intermittently. 3-Partial/Moderate Assistance-helper does LESS THAN HALF the effort. [place] lifts, holds or supports trunk or limbs, but provides less than half the effort. 2-Substantial/Maximal Assistance-helper does MORE THAN HALF the effort. [place] lifts or holds trunk or limbs and provides more than half the effort. 8-Oxirlfmbc-jtfdnk does ALL the effort. Patient does none of the effort to complete the activity. Or, the assistance of 2 or more helpers is required for the patient to complete the activity. If activity was not attempted, code reason: 7-Patient Refused. 9-Not Applicable-not attempted and the patient did not perform the activity before the current illness, exacerbation or injury. 10-Not Attempted due to Environmental Limitations-(lack of equipment, weather restraints, etc.). 88-Not Attempted due to Medical Conditions or Safety Concerns. Eating (QC): 6 (per pt report) Other Treatment OT tx [id number]. In order to increase BUE strength and activity tolerance, pt completed x15 reps each of the following BUE exercises: shoulder flexion, elbow flexion/extension, and front punch. O2 saturation 98-99% supine. cotreat with PT [id number] due to skill of 2 clinicians required which a rehabilitation program coordinator could not perform in order to coordinate UEs/LEs, decrease fall risk, and due to pt's limitations in strength, activity tolerance and mobility. OT focused on ADLs, UE placement, cues for sequencing and safety, PT focused on LE placement, gross overall movement, transfers/mobility. Pt performed bed mobility/functional mobility (rolling, scooting up in bed, etc), in order for wound care to address wounds on LEs, pt able to perform leg lifts throughout tx, rest breaks as needed . Pt had difficulty maintaining positions due to decreased strength and stamina, requiring assistance from OT/PT. Pt utilized UEs in order to scoot up in bed and rolling as needed. Throughout tx, pt completed various UE exercises, requiring frequent rest breaks. Pt also educated on importance of wound care upon discharge and various home safety aspects. After wound care, pt positioned to comfort. Post tx, pt in bed, call light in reach and all needs met. Education OT Patient Education: Correct positioning, Energy conservation, Modified ADL techniques, Progress toward Goal/Update tx plan, Purpose of tx/functional activities, Rehab process Teaching Recipient: Patient Teaching Methods: Discussion Response to Teaching: Verbalize Understanding OT Short Term Goals Short Term Goals Time Frame: Jan 05, 2023 Eatin Oral hygiene: 5 Toileting hygiene: 3 Shower/bathe self: 4 Upper body dressin Lower body dressin Putting on/taking off footwear: 3 OT Insulator Apprentice Goals Insulator Apprentice Goals Time Frame: Jan 19, 2023 Acute change in mental status: 1 Inattention: 0 Disorganized thinkin Altered level of consciousness: 0 Eating (QC): 6 Oral Hygiene (QC): 6 Toileting Hygiene (QC): 6 Shower/Bathe Self (QC): 6 Upper Body Dressing (QC): 6 Lower Body Dressing (QC): 6 On/Off Footwear (QC): 6 Additional Goals: 1-Demonstrate ADL Tasks, 2-Verbalize Understanding, 3- ImproveStrength/[place] 1=Demonstrate adherence to instructed precautions during ADL tasks. 2=Patient will verbalize/demonstrate understanding of assistive devices/modifications for ADL. 3=Patient will improve strength/tolerance for activity to enable patient to perform ADL's. OT Education/Plan Problem List/Assessment Assessment: Decreased Activ Tolerance, Decreased UE Strength, Impaired Funct Balance, Impaired I ADL's, Impaired Self-Care Skills Pt would benefit from skilled OT to increase her independence in basic self care to allow her to safely return home Discharge Recommendations Plan/Recommendations: Continue POC Treatment Plan/Plan of Care Patient would benefit from OT for education, treatment and training to promote independence in ADL's, mobility, safety and/or upper extremity function for ADL's. Plan of Care: ADL Retraining, Functional Mobility, Group Exercise/Act as Ind, UE Funct Exercise/Act, UE Neuromus Re-Ed/Coord, OTHER (energy conservation educa tion) Treatment Duration: Jan 19, 2023 Frequency: Modified Program (IRF) (14/04) Estimated Hrs Per Day: 1.5 hours per day Agreement: Yes Rehab Potential: Fair Time Start Time: 09:15 Stop Time: 10:30 DATE: Jan 01, 2023 Total Time Billed (hr/min): 75 Billed Treatment Time OT tx x15', [place] x60' 1, EX (15'), FA 4 (60') KITA DOBSON OT Jan 01, 2023 09:33
--- NOTE | 2023-01-01 09:47 | ST Dysphagia Evaluation ---
Speech Evaluation-General Medical Diagnosis debility Onset Date: Dec 29, 2022 Medical History Pertinent Medical History: Arthritis, GERD, HTN, Renal Insufficiency Reviewed History: Yes Social History Current Living Status: Alone Speech-Plan Treatment Plan Treatment Duration: Dec 29, 2022 Frequency: Modified Program (IRF) Estimated Hrs Per Day: Other Rehab Potential: EYAL Mead Jan 01, 2023 09:47
--- NOTE | 2023-01-01 09:47 | ST Dysphagia Evaluation ---
Speech Evaluation-General Medical Diagnosis Debility Onset Date: Dec 29, 2022 Therapy Diagnosis Therapy Diagnosis: Intact Oropharyngeal Dysphagia Precautions Precautions: Fall, Pressure Ulcer Precautions/Isolations: Fall Prevention, Standard Precautions, Pressure Ulcer Referral Referring Physician: Dr. Alisia Brandt Reason for Referral: Evaluation/Treatment Medical History Pertinent Medical History: Arthritis, GERD, HTN, Renal Insufficiency Reviewed History: Yes Social History Current Living Status: Alone Speech PLF/Current-Dysphagia Prior Level of Function The patient reported no concerns or difficulties with her oropharyngeal swallowing function. The patient denied s/s of suspected aspiration with P.O. intake and reports consumption of a regular consistency diet with thin liquids. Subjective The patient was seated upright in her bed, awake and alert, upon entrance to her room by the clinician. The patient greeted the clinician appropriately and was agreeable to participation in the clinical bedside swallowing evaluation. The patient is known to the clinician from treating the patient's mother during a prior admission. The patient remained pleasant and participatory throughout the assessment. The rationale for the assessment was shared with the patient: "230...had a tough time drinking with a straw during her PT evaluation (oral motor difficulties- "losing" straw in her mouth and creating a seal for suction)." Per patient, she experienced difficulty with straw intake throughout the PT evaluation due to overall fatigue and exhaustion. "They said it seemed like I had some facial weakness but I didn't feel it." The patient denied current difficulty with labial seal (strength, range of motion, coordination). The patient denied the presence of dysarthria. Cognitive Status Patient Orientation: Person, Place, Time, Situation Oral Motor Skills Dentition: Natural Denture Type: Full- Upper & Lower Current Food Consistancy: Regular Ability to Follow Directions: Excellent Oral Expression Ability: No Impairment Voice Voice Phonatory-Based Quality: Normal Voice Pitch: Normal Voice Loudness: Normal Face Facial Symmetry: Symmetrical Oral-Facial Assessment Oral-Facial Dentition: Normal Labial Seal Description: Normal Smile: Normal Puff Cheeks: Normal Lingual Protrusion: Normal Lingual ROM: Normal Lingual Strength: Normal Volitional Dry Swallow: Yes Dysphagia Evaluation Consistencies Presented: Regular, Thin Liquid, Pureed The patient does not display oral impairments to the swallowing function. The patient does not display pharyngeal impairments to the swallowing function. The patient consumed multiple thin liquid straw drinks, puree, and solid P.O. trials. Overt s/s of suspected aspiration were not displayed. The patient's vocal quality remained clear following each trial. Dietary Recommendations: Regular Liquid Recommendations: Thin Recommendations: - Regular consistency diet with thin liquids, as tolerated. - Fully upright and alert for P.O. intake. - Small bites and sips, only. - Monitor for s/s of suspected aspiration with P.O. intake. If demonstrated, contact speech pathology. The results and recommendations were provided to the patient immediately following completion. Dysphagia Evaluation Summary The patient displayed intact bilateral labial strength, range of motion, and coordination. The patient denied difficulty with labial seal. The patient demonstrated an intact oropharyngeal swallow function and denied the presence of dysarthria. Skilled speech pathology services are not warranted. Speech-Plan Treatment Plan Speech Therapy Treatment Plan: Discontinue ST Treatment Duration: Jan 01, 2023 Frequency: 1 time per week Estimated Hrs Per Day: .5 hour per day Rehab Potential: Fair Pt/Family Agrees to Plan: Yes Safety Risks/Education Teaching Recipient: Patient Teaching Methods: Discussion Response to Teaching: Verbalize Understanding Education Topics Provided: Safe Swallowing Precautions, Results, Recommendations Time Speech Therapy Time In: 10:30 Speech Therapy Time Out: 11:00 DATE: Jan 01, 2023 Total Billed Time: 30 Billed Treatment Time 1, YOKO OSEGUERA ELIZABETH ST Jan 01, 2023 09:47
[2023-01-01] MEDS: HYPOCHLOROUS ACID/NaCl (VASHE) 250 ML IR SCH (10:00)
[2023-01-01] MEDS: DOCUSATE SODIUM 100 MG (COLACE) CAP PO SCH ×2 (10:54→21:44)
[2023-01-01] MEDS: polyethylene glycoL POWDER 17 GM (MIRALAX) PACK PO SCH ×2 (10:54→21:44)
[2023-01-01] MEDS: SENNA W/DOCUSATE (SENOKOT S) TABLET PO SCH ×2 (10:54→21:44)
[2023-01-01] MEDS: meTOprolol TARTRATE 25 MG (LOPRESSOR) TABLET PO SCH ×2 (11:01→21:44)
[2023-01-01] MEDS: amLODIPine 5 MG (NORVASC) TAB PO SCH (11:02)
--- NOTE | 2023-01-01 11:12 | Physical Therapy Daily Note ---
PT Daily Note-Current Subjective Pt laying Supine in bed upon arrival. Pt agrees to PT/OT co-treat. Pt reports wound care nurse is supposed to come in and address her legs. Pain Section J - Health Conditions 1. Rarely or not at all 2. Occasionally 3. Frequently 4. Almost constantly 8. Unable to answer Pain Effect on Sleep: 1 Pain Interference with Therapy: 2 Pain Interference w/Day-to-Day: 2 Mental Status Patient Orientation: Person, Place, Time, Situation Transfers SCALE: Activities may be completed with or without assistive devices. 0-Ebikwbtjxu-mwpwevm completes the activity by him/herself with no assistance from a helper. 5-Set-up or Clean-up Assistance-helper sets up or cleans up; patient completes activity. [place] assists only prior to or following the activity. 4-Supervision or Touching Assistance-helper provides verbal cues and/or touching/steadying and/or contact guard assistance as patient completes activity. Assistance may be provided throughout the activity or intermittently. 3-Partial/Moderate Assistance-helper does LESS THAN HALF the effort. [place] lifts, holds or supports trunk or limbs, but provides less than half the effort. 2-Substantial/Maximal Assistance-helper does MORE THAN HALF the effort. [place] lifts or holds trunk or limbs and provides more than half the effort. 1-Clrwbaqeh-zfesfy does ALL the effort. Patient does none of the effort to complete the activity. Or, the assistance of 2 or more helpers is required for the patient to complete the activity. If activity was not attempted, code reason: 7-Patient Refused. 9-Not Applicable-not attempted and the patient did not perform the activity before the current illness, exacerbation or injury. 10-Not Attempted due to Environmental Limitations-(lack of equipment, weather restraints, etc.). 88-Not Attempted due to Medical Conditions or Safety Concerns. Weight Bearing Right Lower Extremity: Right Weight Bearing/Tolerated Left Lower Extremity: Left Weight Bearing/Tolerated Exercises Supine Ex: Bridging, Rolling, Scooting, Straight leg raise Treatments Co-treat with OT [id number] due to skill of 2 clinicians required which a rehab technician could not perform in order to coordinate UEs/LEs, decrease fall risk, and due to pt's limitations in strength, activity tolerance and mobility. OT focused on ADLs, UE placement, cues for sequencing and safety, PT focused on LE pl acement, gross overall movement, transfers/mobility. BLINDSTITCH MACHINE OPERATOR assisted Wound Care Nurse with bed mobility and leg positioning during dressing change. Pt unable to maintain position and requires assistance due to decrease strength and stamina. Pt is improving with overall strength while completing bed mobility. Assessment Current Status: Fair Progress O2 saturation 98-99% supine throughout tx. PT Guide Visitor Goals Guide Visitor Goals PT Long-Term Goals Time Frame: Jan 26, 2023 Roll Left & Right (QC): 6 Sit to Lying (QC): 5 (possible use of left leg quality process auditor) Lying-Sitting on Side/Bed(QC): 5 (possible use of left leg quality process auditor) Sit to Stand (QC): 6 (with FWW) Chair/Xya-ch-Rxgop Xfer(QC): 6 (with FWW) Toilet Transfer (QC): 6 (with FWW) Car Transfer (QC): 5 (with FWW) Does the Patient Walk: Yes Walk 10 feet (QC): 6 (with FWW and prn O2 assist with sats 90% or greater) Walk 50ft with 2 Turns (QC): 6 (with FWW and prn O2 assist with sats 90% or better) Walk 150 ft (QC): 5 (with FWW and prn O2 assist with sats 90% or greater) Walking 10ft on Uneven Surface: 5 (with FWW and O2 assist prn) 1 Step (curb) (QC): 5 4 Steps (QC): 4 (with (B) rails) 12 Steps (QC): 88 Picking up an Object (QC): 6 (with jewel bearing polisher) Does the Pt use WC or Scooter?: No Wheel 50 feet with 2 turns (QC: 6 Type: Manual Wheel 150 feet: 6 Type: Manual PT Plan Problem List Problem List: Activity Tolerance Treatment/Plan Treatment Plan: Continue Plan of Care Treatment Plan: Bed Mobility, Education, Functional Activity [place], Functional Strength, Group Therapy, Gait, Safety, Therapeutic Exercise, Transfers Treatment Duration: Jan 26, 2023 Frequency: At least 5 of 7 days/Wk (IRF) Estimated Hrs Per Day: Other (Graduate) Patient and/or Family Agrees t: Yes Time Time In: 930 Time Out: 1030 DATE: Jan 01, 2023 Total Billed Treatment Time: 60 Total Billed Treatment 1, FA x4 (60m) Co-treat w/OT for 60m ([id number]) DACIA RAPHAEL BLINDSTITCH MACHINE OPERATOR Jan 01, 2023 11:12
[2023-01-01] MEDS: IRON SUCROSE 200 MG/10 ML (VENOFER) VIAL IV SCH (12:33)
[2023-01-01] MEDS ORDERED: CETI1TAB61 PO (13:08)
[2023-01-01] MEDS ORDERED: MULT-974 PO (13:12)
[2023-01-01] MEDS ORDERED: CYAN-23 PO (13:13)
[2023-01-01] MEDS ORDERED: CHOL-34 PO (13:13)
[2023-01-01] MEDS ORDERED: CETI10TA17 PO (13:14)
[2023-01-01] MEDS ORDERED: CAND32TA21 PO (13:17)
--- NOTE | 2023-01-01 14:44 | Physical Therapy Daily Note ---
PT Daily Note-Current Subjective Pt agrees to PT and asks to use to BR. Pain Location: Medial, Left Location Body Site: Thigh Pain Description: Ache, Burning Comment: Pt reports pain from wounds along inner L thigh. Section J - Health Conditions 1. Rarely or not at all 2. Occasionally 3. Frequently 4. Almost constantly 8. Unable to answer Pain Effect on Sleep: 1 Pain Interference with Therapy: 2 Pain Interference w/Day-to-Day: 2 Mental Status Patient Orientation: Person, Place, Time, Situation Transfers SCALE: Activities may be completed with or without assistive devices. 5-Dhfagsvrsh-darhmsu completes the activity by him/herself with no assistance from a helper. 5-Set-up or Clean-up Assistance-helper sets up or cleans up; patient completes activity. [place] assists only prior to or following the activity. 4-Supervision or Touching Assistance-helper provides verbal cues and/or touching/steadying and/or contact guard assistance as patient completes activity. Assistance may be provided throughout the activity or intermittently. 3-Partial/Moderate Assistance-helper does LESS THAN HALF the effort. [place] lifts, holds or supports trunk or limbs, but provides less than half the effort. 2-Substantial/Maximal Assistance-helper does MORE THAN HALF the effort. [place] lifts or holds trunk or limbs and provides more than half the effort. 2-Cbardqgus-shblxo does ALL the effort. Patient does none of the effort to complete the activity. Or, the assistance of 2 or more helpers is required for the patient to complete the activity. If activity was not attempted, code reason: 7-Patient Refused. 9-Not Applicable-not attempted and the patient did not perform the activity before the current illness, exacerbation or injury. 10-Not Attempted due to Environmental Limitations-(lack of equipment, weather restraints, etc.). 88-Not Attempted due to Medical Conditions or Safety Concerns. Sit to Lying (QC): 4 Lying to Sitting/Side of Bed(Q: 4 Sit to Stand (QC): 4 Toilet Transfer (QC): 4 Weight Bearing Right Lower Extremity: Right Weight Bearing/Tolerated Left Lower Extremity: Left Weight Bearing/Tolerated Gait Training Does the Patient Walk?: Yes Distance: 15' x2 Walk 10 feet (QC): 4 Gait Assistive Device: FWW Treatments TF from Supine in bed to standing. Pt amb to BR then returns to reposition in bed for lunch. All needs met, call light in hand. Assessment Current Status: Good Progress Pt pushes through pain of wound and doesn't let them limit movement. PT Residential Goals Tester Operator Helper Goals PT Tester Operator Helper Goals Time Frame: Jan 26, 2023 Roll Left & Right (QC): 6 Sit to Lying (QC): 5 (possible use of left leg biodiesel engineering manager) Lying-Sitting on Side/Bed(QC): 5 (possible use of left leg biodiesel engineering manager) Sit to Stand (QC): 6 (with FWW) Chair/Rqp-ua-Kpwgm Xfer(QC): 6 (with FWW) Toilet Transfer (QC): 6 (with FWW) Car Transfer (QC): 5 (with FWW) Does the Patient Walk: Yes Walk 10 feet (QC): 6 (with FWW and prn O2 assist with sats 90% or greater) Walk 50ft with 2 Turns (QC): 6 (with FWW and prn O2 assist with sats 90% or better) Walk 150 ft (QC): 5 (with FWW and prn O2 assist with sats 90% or greater) Walking 10ft on Uneven Surface: 5 (with FWW and O2 assist prn) 1 Step (curb) (QC): 5 4 Steps (QC): 4 (with (B) rails) 12 Steps (QC): 88 Picking up an Object (QC): 6 (with char conveyor tender) Does the Pt use WC or Scooter?: No Wheel 50 feet with 2 turns (QC: 6 Type: Manual Wheel 150 feet: 6 Type: Manual PT Plan Problem List Problem List: Activity Tolerance Treatment/Plan Treatment Plan: Continue Plan of Care Treatment Plan: Bed Mobility, Education, Functional Activity [place], Functional Strength, Group Therapy, Gait, Safety, Therapeutic Exercise, Transfers Treatment Duration: Jan 26, 2023 Frequency: At least 5 of 7 days/Wk (IRF) Estimated Hrs Per Day: Other (Graduate) Patient and/or Family Agrees t: Yes Safety Risks/Education Patient Education: Correct Positioning, Disease Process, Safety Issues Teaching Recipient: Patient Teaching Methods: Discussion Response to Teaching: Verbalize Understanding Time Time In: 1145 Time Out: 1200 DATE: Jan 01, 2023 Total Billed Treatment Time: 15 Total Billed Treatment 1, FA (15m) DACIA RAPHAEL SCHOOL JANITOR Jan 01, 2023 14:44
[2023-01-01] MEDS: ACETAMINOPHEN ER 650 MG (TYLENOL ARTHRITIS) PO PRN (14:54)
[2023-01-01 20:20] VITALS: BP 127/58
[2023-01-01] MEDS: MONTELUKAST 10 MG (SINGULAIR) TAB PO SCH (21:44)
[2023-01-01] MEDS: MICONAZOLE 2% POWDER (DESENEX AF) 90 GM TOP SCH (21:44)
--- NOTE | 2023-01-02 06:15 | PM&R Progress Note ---
Subjective HPI/CC On Admission Date Seen by Provider: Jan 02, 2023 Time Seen by Provider: 08:30 Subjective/Events-last exam 01/02/2023: Much improved Overall doing well No pain reported Left leg wound improved 01/01/2023: Improved overall Midline will be placed and IV iron infusion ordered Creat stable Monitoring closely Increase potassium 12/31/2022: Much improved Walked a bit Showered today No pain 12/30/2022: Much improved Labs reviewed Creat 2.0 and that is her baseline BUN still elevated Monitor closely Review of Systems General: Fatigue, Malaise Objective Exam Vital Signs Vital Signs Date Time Temp Pulse Resp B/P (MAP) Pulse Ox O2 Delivery O2 Flow Rate FiO2 01/02/23 09:30 Room Air 01/02/23 07:48 36.0 88 16 122/57 (78) 97 Capillary Refill : General Appearance: No Apparent Distress, WD/WN, Chronically ill, Obese HEENT: PERRL/EOMI, Normal ENT Inspection, Pharynx Normal Neck: Full Range of Motion, Normal Inspection, Non Tender, Supple, Carotid Bruit Respiratory: Chest Non Tender, Lungs Clear, No Accessory Muscle Use, No Respiratory Distress, Decreased Breath Sounds Cardiovascular: Regular Rate, Rhythm, No Edema, No Gallop, No JVD, No Murmur, Normal Peripheral Pulses Gastrointestinal: Normal Bowel Sounds, No Organomegaly, No Pulsatile Mass, Non Tender, Soft Back: Normal Inspection, No CVA Tenderness, No Vertebral Tenderness Extremity: Normal Capillary Refill, Normal Inspection, Normal Range of Motion, Non Tender, No Calf Tenderness, No Pedal Edema Neurologic/Psychiatric: Alert, Oriented x3, No Motor/Sensory Deficits, dental service chief II- XII Norm as Tested, Abnormal Gait, Disoriented (subtle), Motor Weakness (generalized) Skin: Normal Color, Warm/Dry Lymphatic: No Adenopathy Results/Procedures Lab Patient resulted labs reviewed. FIM Transfers Therapy Code Descriptions/Definitions Functional [place] Measure: 0=Not Assessed/NA 4=Minimal Assistance 1=Total Assistance 5=Supervision or Setup 2=Maximal Assistance 6=Modified [place] 3=Moderate Assistance 7=Complete IndependenceSCALE: Activities may be completed with or without assistive devices. 8-Snqmsafiyo-hegaywk completes the activity by him/herself with no assistance from a helper. 5-Set-up or Clean-up Assistance-helper sets up or cleans up; patient completes activity. [place] assists only prior to or following the activity. 4-Supervision or Touching Assistance-helper provides verbal cues and/or touching/steadying and/or contact guard assistance as patient completes activity. Assistance may be provided throughout the activity or intermittently. 3-Partial/Moderate Assistance-helper does LESS THAN HALF the effort. [place] lifts, holds or supports trunk or limbs, but provides less than half the effort. 2-Substantial/Maximal Assistance-helper does MORE THAN HALF the effort. [place] lifts or holds trunk or limbs and provides more than half the effort. 3-Uuvvpfwxw-twwcgx does ALL the effort. Patient does none of the effort to complete the activity. Or, the assistance of 2 or more helpers is required for the patient to complete the activity. If activity was not attempted, code reason: 7-Patient Refused. 9-Not Applicable-not attempted and the patient did not perform the activity before the current illness, exacerbation or injury. 10-Not Attempted due to Environmental Limitations-(lack of equipment, weather restraints, etc.). 88-Not Attempted due to Medical Conditions or Safety Concerns. Roll Left to Right (QC): 5 (cues to use bed rail) Sit to Lying (QC): 4 Sit to Stand (QC): 4 Chair/Hcq-hi-[place] Xfer(QC): 3 (min (A) with FWW w/c>bed upon arrival to unit) Car Transfer (QC): 88 Gait Training Does the Patient Walk?: Yes Distance: 15' x2 Walk 10 feet (QC): 4 Walk 50 ft with 2 Turns(QC): 88 (too debilitated to attempt safely and desaturation to 82% sitting EOB) Walk 150 ft (QC): 88 (too debilitated to attempt safely and desaturation to 82% sitting EOB) Walking 10ft/uneven surface-QC: 88 (too debilitated to attempt safely and desaturation to 82% sitting EOB) Gait Persons Needed: 1 Gait Assistive Device: FWW Wheelchair Training Does the Pt Use a Wheelchair?: Yes Wheel 50 ft with 2 turns (QC): 88 (too debilitated to attempt safely and desaturation to 82% sitting EOB) Wheel 150 ft (QC): 88 (too debilitated to attempt safely and desaturation to 82% sitting EOB) Type of Wheelchair: Manual Stair Training 1 Step (curb) (QC): 88 (too debilitated to attempt safely and desaturation to 82% sitting EOB) 4 Steps (QC): 88 (too debilitated to attempt safely and desaturation to 82% sitting EOB) 12 Steps (QC): 88 (too debilitated to attempt safely and desaturation to 82% sitting EOB) Balance Picking up an Object (QC): 88 (too debilitated to attempt safely and desaturation to 82% sitting EOB) ADL-Treatment Eating (QC): 6 (per pt report) Oral Hygiene (QC): 3 (min assist) Shower/Bathe Self (QC): 3 (Assistance washing buttocks and feet) Upper Body Dressing (QC): 5 Lower Body Dressing (QC): 2 (Pt required assistance with pant hike and threading RLE due to fatigue) On/Off Footwear (QC): 1 (dependent) Toileting Hygiene (QC): 2 (Pt required moderate assistance with posterior hygiene and max A with pant hike.) Toilet Transfer (QC): 4 (CGA on/off BSC. ) Assessment/Plan Assessment and Plan Assess & Plan/Chief Complaint Assessment: Severe debility from COVID PNA Acute hypoxic respiratory failure Acute on chronic kidney failure initially 6.9 now back to baseline 2.0 IVÁN on CPAP Obesity s/p septic shock Anemia Protein malnutrition Hypokalemia HTN GERD Depression Iron def Left leg wound present before admit Plan: PT OT Monitor O2 [place] creat 12/30/2022: Iron and B12 check Monitor closely 12/31/2022: Monitor closely Midline tomorrow Venofer 01/01/2023: Midline Iron 01/02/2023: Monitor closely Potassium (1) Acute on chronic renal failure Status: Acute (2) Pneumonia due to COVID-19 virus Status: Acute (3) Metabolic acidosis Status: Acute (4) SURAJ (acute kidney injury) SKY MARTE DO Jan 02, 2023 06:15
[2023-01-02 07:48] VITALS: BP 122/57
[2023-01-02] MEDS: ALLOPURINOL 300 MG (ZYLOPRIM) TAB PO SCH (08:29)
[2023-01-02] MEDS: ASPIRIN E.C. 81 MG (ECOTRIN) TAB PO SCH (08:29)
[2023-01-02] MEDS: KCL 10 MEQ TAB (MICRO K) PO SCH ×2 (08:29→17:57)
[2023-01-02] MEDS: PANTOPRAZOLE 20 MG TABLET (PROTONIX) PO SCH (08:29)
[2023-01-02] MEDS: LACTOBACILLUS ACIDOPHILUS (PROBIOTIC) CAPSULE PO SCH ×3 (08:29→17:57)
[2023-01-02] MEDS: VENlafaxine 75 MG (EFFEXOR) TAB PO SCH (08:29)
[2023-01-02] MEDS: fluCOnazole (DIFLUCAN) 100 MG TAB PO SCH (08:30)
[2023-01-02] MEDS: meTOprolol TARTRATE 25 MG (LOPRESSOR) TABLET PO SCH ×2 (08:30→21:56)
[2023-01-02] MEDS: diphenhydrAMINE 25 MG TAB (BENADRYL) PO SCH ×2 (08:30→21:56)
[2023-01-02] MEDS: MICONAZOLE 2% POWDER (DESENEX AF) 90 GM TOP SCH ×2 (08:31→21:58)
[2023-01-02] MEDS: polyethylene glycoL POWDER 17 GM (MIRALAX) PACK PO SCH ×2 (08:31→21:57)
[2023-01-02] MEDS: ENOXAPARIN INJECTION 30 MG/0.3 ML SYR SC SCH (08:32)
[2023-01-02] MEDS: amLODIPine 5 MG (NORVASC) TAB PO SCH (08:33)
[2023-01-02] MEDS: SENNA W/DOCUSATE (SENOKOT S) TABLET PO SCH ×2 (08:37→21:58)
[2023-01-02] MEDS: DOCUSATE SODIUM 100 MG (COLACE) CAP PO SCH ×2 (08:37→21:57)
--- NOTE | 2023-01-02 10:27 | Physical Therapy Daily Note ---
PT Daily Note-Current Subjective Pt laying Supine in bed upon arrival. Pt agrees to PT/OT co-treat. Co-treat with OT [id number] due to skill of 2 clinicians required which a rn rehab could not perform in order to coordinate UEs/LEs, decrease fall risk, and due to pt's limitations in strength, activity tolerance and mobility. OT focused on ADLs, UE placement, cues for sequencing and safety, PT focused on LE placement, gross overall movement, transfers/mobility. Pain Location: Medial, Left Location Body Site: Thigh Pain Description: Ache Comment: Reports but doesn't rate, winces in pain at times from wound pain. Section J - Health Conditions 1. Rarely or not at all 2. Occasionally 3. Frequently 4. Almost constantly 8. Unable to answer Pain Effect on Sleep: 1 Pain Interference with Therapy: 2 Pain Interference w/Day-to-Day: 2 Mental Status Patient Orientation: Person, Place, Time, Situation Transfers SCALE: Activities may be completed with or without assistive devices. 2-Pmjymcxvdq-vpwymxs completes the activity by him/herself with no assistance from a helper. 5-Set-up or Clean-up Assistance-helper sets up or cleans up; patient completes activity. [place] assists only prior to or following the activity. 4-Supervision or Touching Assistance-helper provides verbal cues and/or touching/steadying and/or contact guard assistance as patient completes ac tivity. Assistance may be provided throughout the activity or intermittently. 3-Partial/Moderate Assistance-helper does LESS THAN HALF the effort. [place] lifts, holds or supports trunk or limbs, but provides less than half the effort. 2-Substantial/Maximal Assistance-helper does MORE THAN HALF the effort. [place] lifts or holds trunk or limbs and provides more than half the effort. 1-Hfyiwpvek-bkynsm does ALL the effort. Patient does none of the effort to complete the activity. Or, the assistance of 2 or more helpers is required for the patient to complete the activity. If activity was not attempted, code reason: 7-Patient Refused. 9-Not Applicable-not attempted and the patient did not perform the activity before the current illness, exacerbation or injury. 10-Not Attempted due to Environmental Limitations-(lack of equipment, weather restraints, etc.). 88-Not Attempted due to Medical Conditions or Safety Concerns. Sit to Lying (QC): 4 Lying to Sitting/Side of Bed(Q: 4 Sit to Stand (QC): 4 Toilet Transfer (QC): 4 Weight Bearing Right Lower Extremity: Right Weight Bearing/Tolerated Left Lower Extremity: Left Weight Bearing/Tolerated Gait Training Does the Patient Walk?: Yes Distance: 15' Walk 10 feet (QC): 5 Gait Assistive Device: FWW Wheelchair Training Does the Pt Use a Wheelchair?: Yes Type of Wheelchair: Manual Treatments Pt transferred supine to sit EOB, then used FWW to perform functional mobility into bathroom and onto toilet. Pt completed toileting and doffed clothes, then transferred to SC. Pt completed showering and oral care seated. LH sponge provided for washing LEs. Pt stated she is too fatigued to walk back to bed, requesting to go via w/c. Pt transferred to w/c, then taken to side of bed, then transferred to EOB and supine. Pt encouraged to complete LE dressing prior but completed supine instead, requiring max A at bed level. Post tx, pt supine in bed, call light in reach and all needs met. RN aware that pt is ready for LLE wound dressings. Assessment Current Status: Good Progress Pt demonstrates less fatigue than previous tx but showering still drains pt and pt has no energy left to attempt amb. back to bed. PT Teacher Of The Emotionally Disturbed Goals Retirement Goals PT Teacher Of The Emotionally Disturbed Goals Time Frame: Jan 26, 2023 Roll Left & Right (QC): 6 Sit to Lying (QC): 5 (possible use of left leg craft manager) Lying-Sitting on Side/Bed(QC): 5 (possible use of left leg craft manager) Sit to Stand (QC): 6 (with FWW) Chair/Uxo-ok-Rjsxh Xfer(QC): 6 (with FWW) Toilet Transfer (QC): 6 (with FWW) Car Transfer (QC): 5 (with FWW) Does the Patient Walk: Yes Walk 10 feet (QC): 6 (with FWW and prn O2 assist with sats 90% or greater) Walk 50ft with 2 Turns (QC): 6 (with FWW and prn O2 assist with sats 90% or better) Walk 150 ft (QC): 5 (with FWW and prn O2 assist with sats 90% or greater) Walking 10ft on Uneven Surface: 5 (with FWW and O2 assist prn) 1 Step (curb) (QC): 5 4 Steps (QC): 4 (with (B) rails) 12 Steps (QC): 88 Picking up an Object (QC): 6 (with fixed assets accountant) Does the Pt use WC or Scooter?: No Wheel 50 feet with 2 turns (QC: 6 Type: Manual Wheel 150 feet: 6 Type: Manual PT Plan Problem List Problem List: Activity Tolerance, Functional Strength Treatment/Plan Treatment Plan: Continue Plan of Care Treatment Plan: Bed Mobility, Education, Functional Activity [place], Functional Strength, Group Therapy, Gait, Safety, Therapeutic Exercise, Transfers Treatment Duration: Jan 26, 2023 Frequency: At least 5 of 7 days/Wk (IRF) Estimated Hrs Per Day: Other (Graduate) Patient and/or Family Agrees t: Yes Safety Risks/Education Patient Education: Gait Training, Transfer Techniques, Correct Positioning, Safety Issues Teaching Recipient: Patient Teaching Methods: Discussion Response to Teaching: Verbalize Understanding Time Time In: 930 Time Out: 1030 DATE: Jan 02, 2023 Total Billed Treatment Time: 60 Total Billed Treatment 1, GT (10m) & FA x3 (50m) Co-treat w/OT for 60m ARNOLTARAH SHANEAH PLUMBING INSTRUCTOR Jan 02, 2023 10:27
--- NOTE | 2023-01-02 10:32 | Occupational Ther Daily Note ---
OT Current Status-Daily Note Subjective Pt in bed, agreeable to therapy tx with focus on showering. ADL-Treatment Therapy Code Descriptions/Definitions Functional [place] Measure: 0=Not Assessed/NA 4=Minimal Assistance 1=Total Assistance 5=Supervision or Setup 2=Maximal Assistance 6=Modified [place] 3=Moderate Assistance 7=Complete IndependenceSCALE: Activities may be completed with or without assistive devices. 5-Ptytkdpywy-iewnlgl completes the activity by him/herself with no assistance from a helper. 5-Set-up or Clean-up Assistance-helper sets up or cleans up; patient completes activity. [place] assists only prior to or following the activity. 4-Supervision or Touching Assistance-helper provides verbal cues and/or touching/steadying and/or contact guard assistance as patient completes activity. Assistance may be provided throughout the activity or intermittently. 3-Partial/Moderate Assistance-helper does LESS THAN HALF the effort. [place] lifts, holds or supports trunk or limbs, but provides less than half the effort. 2-Substantial/Maximal Assistance-helper does MORE THAN HALF the effort. [place] lifts or holds trunk or limbs and provides more than half the effort. 0-Rgezianqm-aryvfm does ALL the effort. Patient does none of the effort to complete the activity. Or, the assistance of 2 or more helpers is required for the patient to complete the activity. If activity was not attempted, code reason: 7-Patient Refused. 9-Not Applicable-not attempted and the patient did not perform the activity before the current illness, exacerbation or injury. 10-Not Attempted due to Environmental Limitations-(lack of equipment, weather restraints, etc.). 88-Not Attempted due to Medical Conditions or Safety Concerns. Eating (QC): 6 Oral Hygiene (QC): 6 Shower/Bathe Self (QC): 5 (set up, LH sponge provided) Upper Body Dressing (QC): 3 (Min A with managing shirt down back after shower.) Lower Body Dressing (QC): 2 (max A bed level) On/Off Footwear: 2 (Max A donning/doffing gripper socks.) Toileting Hygiene (QC): 3 (Taryn overall.) Other Treatment [place] with PT [id number] due to skill of 2 clinicians required which a rehab manager could not perform in order to coordinate UEs/LEs, decrease fall risk, and due to pt's limitations in strength, activity tolerance and mobility. OT focused on ADLs, UE placement, cues for sequencing and safety, PT focused on LE placement, gross overall movement, transfers/mobility. Pt transferred supine to sit EOB, then used FWW to perform functional mobility into bathroom and onto toilet. Pt completed toileting and doffed clothes, then transferred to SC. Pt completed showering and oral care seated. LH sponge provided for washing LEs. Pt stated she is too fatigued to walk back to bed, requesting to go via w/c. Pt transferred to w/c, then taken to side of bed, then transferred to EOB and supine. Pt encouraged to complete LE dressing prior but completed supine instead, requiring max A at bed level. Post tx, pt supine in bed, call light in reach and all needs met. RN aware that pt is ready for LLE wound dressings. Education OT Patient Education: Correct positioning, Energy conservation, Modified ADL techniques, Progress toward Goal/Update tx plan, Purpose of tx/functional activities, Rehab process Teaching Recipient: Patient Teaching Methods: Discussion Response to Teaching: Verbalize Understanding OT Short Term Goals Short Term Goals Time Frame: Jan 05, 2023 Eatin Oral hygiene: 5 Toileting hygiene: 3 Shower/bathe self: 4 Upper body dressin Lower body dressin Putting on/taking off footwear: 3 OT Halfway Goals Halfway Goals Time Frame: Jan 19, 2023 Acute change in mental status: 1 Inattention: 0 Disorganized thinkin Altered level of consciousness: 0 Eating (QC): 6 Oral Hygiene (QC): 6 Toileting Hygiene (QC): 6 Shower/Bathe Self (QC): 6 Upper Body Dressing (QC): 6 Lower Body Dressing (QC): 6 On/Off Footwear (QC): 6 Additional Goals: 1-Demonstrate ADL Tasks, 2-Verbalize Understanding, 3- ImproveStrength/[place] 1=Demonstrate adherence to instructed precautions during ADL tasks. 2=Patient will verbalize/demonstrate understanding of assistive devices/modifications for ADL. 3=Patient will improve strength/tolerance for activity to enable patient to perform ADL's. OT Education/Plan Problem List/Assessment Assessment: Decreased Activ Tolerance, Decreased UE Strength, Impaired Funct Ba gretchen, Impaired I ADL's, Impaired Self-Care Skills Pt would benefit from skilled OT to increase her independence in basic self care to allow her to safely return home Discharge Recommendations Plan/Recommendations: Continue POC Treatment Plan/Plan of Care Patient would benefit from OT for education, treatment and training to promote independence in ADL's, mobility, safety and/or upper extremity function for ADL's. Plan of Care: ADL Retraining, Functional Mobility, Group Exercise/Act as Ind, UE Funct Exercise/Act, UE Neuromus Re-Ed/Coord, OTHER (energy conservation education) Treatment Duration: Jan 19, 2023 Frequency: Modified Program (IRF) (14/04) Estimated Hrs Per Day: 1.5 hours per day Agreement: Yes Rehab Potential: Fair Time Start Time: 09:30 Stop Time: 10:30 DATE: Jan 02, 2023 Total Time Billed (hr/min): 60 Billed Treatment Time [place] x60' 1, ADL 4 KITA DOBSON OT Jan 02, 2023 10:32
[2023-01-02] MEDS: HYPOCHLOROUS ACID/NaCl (VASHE) 250 ML IR SCH (10:55)
--- NOTE | 2023-01-02 13:39 | Occupational Ther Daily Note ---
OT Current Status-Daily Note Subjective Pt alert, lying in bed. Pt agrees to therapy. No c/o pain at this time. Mental Status/Objective Patient Orientation: Person, Place, Time, Situation ADL-Treatment Therapy Code Descriptions/Definitions Functional [place] Measure: 0=Not Assessed/NA 4=Minimal Assistance 1=Total Assistance 5=Supervision or Setup 2=Maximal Assistance 6=Modified [place] 3=Moderate Assistance 7=Complete IndependenceSCALE: Activities may be completed with or without assistive devices. 1-Bllmlutsfb-zlztyqx completes the activity by him/herself with no assistance from a helper. 5-Set-up or Clean-up Assistance-helper sets up or cleans up; patient completes activity. [place] assists only prior to or following the activity. 4-Supervision or Touching Assistance-helper provides verbal cues and/or touching/steadying and/or contact guard assistance as patient completes activity. Assistance may be provided throughout the activity or intermittently. 3-Partial/Moderate Assistance-helper does LESS THAN HALF the effort. [place] lifts, holds or supports trunk or limbs, but provides less than half the effort. 2-Substantial/Maximal Assistance-helper does MORE THAN HALF the effort. [place] lifts or holds trunk or limbs and provides more than half the effort. 6-Keluwlhls-ihdiaz does ALL the effort. Patient does none of the effort to complete the activity. Or, the assistance of 2 or more helpers is required for the patient to complete the activity. If activity was not attempted, code reason: 7-Patient Refused. 9-Not Applicable-not attempted and the patient did not perform the activity before the current illness, exacerbation or injury. 10-Not Attempted due to Environmental Limitations-(lack of equipment, weather restraints, etc.). 88-Not Attempted due to Medical Conditions or Safety Concerns. Other Treatment Pt ambulated using FWW from room to therapy gym with 2 recovery breaks then used w/c back to room. Pt completed dowel anusha exercises to increase B UE strength and stamina for daily functional tasks. Skilled instruction required for correct technique and modifications when needed. Pt completed 3 exercises 20 reps reach, 1 shldr exercise 10 reps. Pt tolerated well though stated that she did feel it in her shldrs. Pt required assist with B LE to lift into bed after therapy. Call light/phone in reach. All needs met in room. Nrsg in room. OT Short Term Goals Short Term Goals Time Frame: Jan 05, 2023 Eatin Oral hygiene: 5 Toileting hygiene: 3 Shower/bathe self: 4 Upper body dressin Lower body dressin Putting on/taking off footwear: 3 OT Shelter Goals Shelter Goals Time Frame: Jan 19, 2023 Acute change in mental status: 1 Inattention: 0 Disorganized thinkin Altered level of consciousness: 0 Eating (QC): 6 Oral Hygiene (QC): 6 Toileting Hygiene (QC): 6 Shower/Bathe Self (QC): 6 Upper Body Dressing (QC): 6 Lower Body Dressing (QC): 6 On/Off Footwear (QC): 6 Additional Goals: 1-Demonstrate ADL Tasks, 2-Verbalize Understanding, 3- ImproveStrength/[place] 1=Demonstrate adherence to instructed precautions during ADL tasks. 2=Patient will verbalize/demonstrate understanding of assistive devices/modifications for ADL. 3=Patient will improve strength/tolerance for activity to enable patient to perform ADL's. OT Education/Plan Problem List/Assessment Assessment: Decreased Activ Tolerance, Decreased UE Strength, Impaired Bed Mobility Pt would benefit from skilled OT to increase her independence in basic self care to allow her to safely return home Discharge Recommendations Plan/Recommendations: Continue POC Treatment Plan/Plan of Care Patient would benefit from OT for education, treatment and training to promote independence in ADL's, mobility, safety and/or upper extremity function for ADL's. Plan of Care: ADL Retraining, Functional Mobility, Group Exercise/Act as Ind, UE Funct Exercise/Act, UE Neuromus Re-Ed/Coord, OTHER (energy conservation education) Treatment Duration: Jan 19, 2023 Frequency: Modified Program (IRF) (14/04) Estimated Hrs Per Day: 1.5 hours per day Agreement: Yes Rehab Potential: Fair Time Start Time: 13:00 Stop Time: 13:30 DATE: Jan 02, 2023 Total Time Billed (hr/min): 30 Billed Treatment Time 1 visit-FA 1 (15 min) EX 1 (15 min) SARAH MAX Jan 02, 2023 13:39
--- NOTE | 2023-01-02 14:28 | Physical Therapy Daily Note ---
PT Daily Note-Current Subjective Pt laying Supine in bed working w/Nursing to finishing dressing wound on L leg upon arrival. Pain Location: Medial, Left Location Body Site: Thigh Pain Description: Ache Comment: Grimaces but doesn't rate Section J - Health Conditions 1. Rarely or not at all 2. Occasionally 3. Frequently 4. Almost constantly 8. Unable to answer Pain Effect on Sleep: 1 Pain Interference with Therapy: 2 Pain Interference w/Day-to-Day: 2 Mental Status Patient Orientation: Person, Place, Time, Situation Transfers SCALE: Activities may be completed with or without assistive devices. 6-Venkjliess-fjnjlhn completes the activity by him/herself with no assistance from a helper. 5-Set-up or Clean-up Assistance-helper sets up or cleans up; patient completes activity. [place] assists only prior to or following the activity. 4-Supervision or Touching Assistance-helper provides verbal cues and/or touching/steadying and/or contact guard assistance as patient completes a ctivity. Assistance may be provided throughout the activity or intermittently. 3-Partial/Moderate Assistance-helper does LESS THAN HALF the effort. [place] lifts, holds or supports trunk or limbs, but provides less than half the effort. 2-Substantial/Maximal Assistance-helper does MORE THAN HALF the effort. [place] lifts or holds trunk or limbs and provides more than half the effort. 8-Ikyklqooi-qabfpd does ALL the effort. Patient does none of the effort to complete the activity. Or, the assistance of 2 or more helpers is required for the patient to complete the activity. If activity was not attempted, code reason: 7-Patient Refused. 9-Not Applicable-not attempted and the patient did not perform the activity before the current illness, exacerbation or injury. 10-Not Attempted due to Environmental Limitations-(lack of equipment, weather restraints, etc.). 88-Not Attempted due to Medical Conditions or Safety Concerns. Weight Bearing Right Lower Extremity: Right Weight Bearing/Tolerated Left Lower Extremity: Left Weight Bearing/Tolerated Exercises Supine Ex: Ankle pumps, Quad Set, Glut sets, Straight leg raise, Hip abd/add Supine Reps: 10 Treatments Pt completes Supine EX w/RB as needed. Pt & AIRCRAFT COMMUNICATOR discuss pt edu. items including improvement of wound, progress w/TF & mobility. Assessment Current Status: Good Progress Pt is motivated and doesn't let wound limit movement. Pt still fatigues easily amber. after shower. PT Custodial Goals Custodial Goals PT Custodial Goals Time Frame: Jan 26, 2023 Roll Left & Right (QC): 6 Sit to Lying (QC): 5 (possible use of left leg apparel cutter) Lying-Sitting on Side/Bed(QC): 5 (possible use of left leg apparel cutter) Sit to Stand (QC): 6 (with FWW) Chair/Tgt-zq-Lkccd Xfer(QC): 6 (with FWW) Toilet Transfer (QC): 6 (with FWW) Car Transfer (QC): 5 (with FWW) Does the Patient Walk: Yes Walk 10 feet (QC): 6 (with FWW and prn O2 assist with sats 90% or greater) Walk 50ft with 2 Turns (QC): 6 (with FWW and prn O2 assist with sats 90% or better) Walk 150 ft (QC): 5 (with FWW and prn O2 assist with sats 90% or greater) Walking 10ft on Uneven Surface: 5 (with FWW and O2 assist prn) 1 Step (curb) (QC): 5 4 Steps (QC): 4 (with (B) rails) 12 Steps (QC): 88 Picking up an Object (QC): 6 (with environmental systems coordinator) Does the Pt use WC or Scooter?: No Wheel 50 feet with 2 turns (QC: 6 Type: Manual Wheel 150 feet: 6 Type: Manual PT Plan Problem List Problem List: Activity Tolerance Treatment/Plan Treatment Plan: Continue Plan of Care Treatment Plan: Bed Mobility, Education, Functional Activity [place], Functional Strength, Group Therapy, Gait, Safety, Therapeutic Exercise, Transfers Treatment Duration: Jan 26, 2023 Frequency: At least 5 of 7 days/Wk (IRF) Estimated Hrs Per Day: Other (Graduate) Patient and/or Family Agrees t: Yes Safety Risks/Education Patient Education: Correct Positioning, Disease Process, Safety Issues Teaching Recipient: Patient Teaching Methods: Discussion Response to Teaching: Verbalize Understanding Time Time In: 1130 Time Out: 1200 DATE: Jan 02, 2023 Total Billed Treatment Time: 30 Total Billed Treatment 1, EX (20m) & FA (10m) DACIA RAPHAEL AIRCRAFT COMMUNICATOR Jan 02, 2023 14:28
[2023-01-02 21:11] VITALS: BP 116/71
[2023-01-02] MEDS: MONTELUKAST 10 MG (SINGULAIR) TAB PO SCH (21:56)
--- NOTE | 2023-01-03 05:04 | PM&R Progress Note ---
Subjective HPI/CC On Admission Date Seen by Provider: Jan 03, 2023 Time Seen by Provider: 11:30 Subjective/Events-last exam 01/03/2023: Improved status Increasing strength No falls Labs improved No falls 01/02/2023: Much improved Overall doing well No pain reported Left leg wound improved 01/01/2023: Improved overall Midline will be placed and IV iron infusion ordered Creat stable Monitoring closely Increase potassium 12/31/2022: Much improved Walked a bit Showered today No pain 12/30/2022: Much improved Labs reviewed Creat 2.0 and that is her baseline BUN still elevated Monitor closely Review of Systems General: Fatigue, Malaise Objective Exam Vital Signs Vital Signs Date Time Temp Pulse Resp B/P (MAP) Pulse Ox O2 Delivery O2 Flow Rate FiO2 01/03/23 21:20 Room Air 01/03/23 19:41 36.4 89 22 125/62 (83) 100 Capillary Refill : General Appearance: No Apparent Distress, WD/WN, Chronically ill, Obese HEENT: PERRL/EOMI, Normal ENT Inspection, Pharynx Normal Neck: Full Range of Motion, Normal Inspection, Non Tender, Supple, Carotid Bruit Respiratory: Chest Non Tender, Lungs Clear, No Accessory Muscle Use, No Respiratory Distress, Decreased Breath Sounds Cardiovascular: Regular Rate, Rhythm, No Edema, No Gallop, No JVD, No Murmur, Normal Peripheral Pulses Gastrointestinal: Normal Bowel Sounds, No Organomegaly, No Pulsatile Mass, Non Tender, Soft Back: Normal Inspection, No CVA Tenderness, No Vertebral Tenderness Extremity: Normal Capillary Refill, Normal Inspection, Normal Range of Motion, Non Tender, No Calf Tenderness, No Pedal Edema Neurologic/Psychiatric: Alert, Oriented x3, No Motor/Sensory Deficits, field case manager II- XII Norm as Tested, Abnormal Gait, Disoriented (subtle), Motor Weakness (gene ralized) Skin: Normal Color, Warm/Dry Lymphatic: No Adenopathy Results/Procedures Lab Laboratory Tests 01/03/23 09:40 01/03/23 11:08 Patient resulted labs reviewed. FIM Transfers Therapy Code Descriptions/Definitions Functional [place] Measure: 0=Not Assessed/NA 4=Minimal Assistance 1=Total Assistance 5=Supervision or Setup 2=Maximal Assistance 6=Modified [place] 3=Moderate Assistance 7=Complete IndependenceSCALE: Activities may be completed with or without assistive devices. 7-Uyzefaqhyb-zbxpmho completes the activity by him/herself with no assistance from a helper. 5-Set-up or Clean-up Assistance-helper sets up or cleans up; patient completes activity. [place] assists only prior to or following the activity. 4-Supervision or Touching Assistance-helper provides verbal cues and/or touching/steadying and/or contact guard assistance as patient completes activity. Assistance may be provided throughout the activity or intermittently. 3-Partial/Moderate Assistance-helper does LESS THAN HALF the effort. [place] lifts, holds or supports trunk or limbs, but provides less than half the effort. 2-Substantial/Maximal Assistance-helper does MORE THAN HALF the effort. [place] lifts or holds trunk or limbs and provides more than half the effort. 1-Uynvzcepv-dsoamv does ALL the effort. Patient does none of the effort to complete the activity. Or, the assistance of 2 or more helpers is required for the patient to complete the activity. If activity was not attempted, code reason: 7-Patient Refused. 9-Not Applicable-not attempted and the patient did not perform the activity before the current illness, exacerbation or injury. 10-Not Attempted due to Environmental Limitations-(lack of equipment, weather restraints, etc.). 88-Not Attempted due to Medical Conditions or Safety Concerns. Roll Left to Right (QC): 5 (cues to use bed rail) Sit to Lying (QC): 4 Sit to Stand (QC): 4 Chair/Ldm-jd-Kgqzi Xfer(QC): 3 (min (A) with FWW w/c>bed upon arrival to unit) Car Transfer (QC): 88 Gait Training Does the Patient Walk?: Yes Distance: 15' Walk 10 feet (QC): 5 Walk 50 ft with 2 Turns(QC): 88 (too debilitated to attempt safely and desaturation to 82% sitting EOB) Walk 150 ft (QC): 88 (too debilitated to attempt safely and desaturation to 82% sitting EOB) Walking 10ft/uneven surface-QC: 88 (too debilitated to attempt safely and desaturation to 82% sitting EOB) Gait Persons Needed: 1 Gait Assistive Device: FWW Wheelchair Training Does the Pt Use a Wheelchair?: Yes Wheel 50 ft with 2 turns (QC): 88 (too debilitated to attempt safely and desaturation to 82% sitting EOB) Wheel 150 ft (QC): 88 (too debilitated to attempt safely and desaturation to 82% sitting EOB) Type of Wheelchair: Manual Stair Training 1 Step (curb) (QC): 88 (too debilitated to attempt safely and desaturation to 82% sitting EOB) 4 Steps (QC): 88 (too debilitated to attempt safely and desaturation to 82% sitting EOB) 12 Steps (QC): 88 (too debilitated to attempt safely and desaturation to 82% sitting EOB) Balance Picking up an Object (QC): 88 (too debilitated to attempt safely and desaturation to 82% sitting EOB) ADL-Treatment Eating (QC): 6 Oral Hygiene (QC): 6 Shower/Bathe Self (QC): 5 (set up, LH sponge provided) Upper Body Dressing (QC): 3 (Min A with managing shirt down back after shower.) Lower Body Dressing (QC): 2 (max A bed level) On/Off Footwear (QC): 2 (Max A donning/doffing gripper socks.) Toileting Hygiene (QC): 3 (Taryn overall.) Toilet Transfer (QC): 4 (CGA on/off BSC. ) Assessment/Plan Assessment and Plan Assess & Plan/Chief Complaint Assessment: Severe debility from COVID PNA Acute hypoxic respiratory failure Acute on chronic kidney failure initially 6.9 now back to baseline 2.0 IVÁN on CPAP Obesity s/p septic shock Anemia Protein malnutrition Hypokalemia HTN GERD Depression Iron def Left leg wound present before admit Plan: PT OT Monitor O2 Montior creat 12/30/2022: Iron and B12 check Monitor closely 12/31/2022: Monitor closely Midline tomorrow Venofer 01/01/2023: Midline Iron 01/02/2023: Monitor closely Potassium 01/03/2023: Improved kidney function Potassium to increase to TID from BID (1) Acute on chronic renal failure Status: Acute (2) Pneumonia due to COVID-19 virus Status: Acute (3) Metabolic acidosis Status: Acute (4) SURAJ (acute kidney injury) SKY MARTE DO Jan 03, 2023 05:04
[2023-01-03 07:54] VITALS: BP 127/58
--- NOTE | 2023-01-03 07:54 | Occupational Ther Daily Note ---
OT Current Status-Daily Note Subjective Pt agreeable to OT Tx, denies having pain. Mental Status/Objective Patient Orientation: Normal For Age ADL-Treatment Therapy Code Descriptions/Definitions Functional [place] Measure: 0=Not Assessed/NA 4=Minimal Assistance 1=Total Assistance 5=Supervision or Setup 2=Maximal Assistance 6=Modified [place] 3=Moderate Assistance 7=Complete IndependenceSCALE: Activities may be completed with or without assistive devices. 8-Hzkmnvtxcj-uiolhtv completes the activity by him/herself with no assistance from a helper. 5-Set-up or Clean-up Assistance-helper sets up or cleans up; patient completes activity. [place] assists only prior to or following the activity. 4-Supervision or Touching Assistance-helper provides verbal cues and/or touching/steadying and/or contact guard assistance as patient completes activity. Assistance may be provided throughout the activity or intermittently. 3-Partial/Moderate Assistance-helper does LESS THAN HALF the effort. [place] lifts, holds or supports trunk or limbs, but provides less than half the effort. 2-Substantial/Maximal Assistance-helper does MORE THAN HALF the effort. [place] lifts or holds trunk or limbs and provides more than half the effort. 6-Yngvduhpi-egxowr does ALL the effort. Patient does none of the effort to complete the activity. Or, the assistance of 2 or more helpers is required for the patient to complete the activity. If activity was not attempted, code reason: 7-Patient Refused. 9-Not Applicable-not attempted and the patient did not perform the activity before the current illness, exacerbation or injury. 10-Not Attempted due to Environmental Limitations-(lack of equipment, weather restraints, etc.). 88-Not Attempted due to Medical Conditions or Safety Concerns. Eating (QC): 6 Oral Hygiene (QC): 6 Other Treatment Pt in bed, transferred supine to sit EOB, SBA, then SBA sit to stand transfer to w/c. Pt taken into bathroom completing grooming tasks at sink independently. Pt propelled w/c to therapy gym, min A through doorways. OT Tx focused on increasing BUE Strength and activity tolerance. Pt completed UE reaching task, placing/removing x100, 1" pegs from foam pegboard, alternating hands, 1 rest break. Pt then attempted arm bike, able to tolerate x2 mins, minimal resistance, 1 rest break. Pt terminated task due to aching "Arthritis" in hands, and aching in her shoulders. OT educated pt on goal of being able to do more activity as she progresses in therapy, she verbalized understanding. Pt then completed UE reaching task, completing 100 piece jigsaw puzzle. Pt required moderate assistance overall with task due to fatigue. Pt returned to room via w/c, min A with w/c mobility due to fatigue. Pt used FWW to transfer to EOB, CGA, then supine, min A with LLE. Post tx, pt in bed, call light in reach and all needs met. Throughout tx, pt's O2 saturation 98-99% with activities, pt reports fatigue, but not SOB. Education OT Patient Education: Correct positioning, Energy conservation, Modified ADL techniques, Progress toward Goal/Update tx plan, Purpose of tx/functional activities, Rehab process Teaching Recipient: Patient Teaching Methods: Discussion Response to Teaching: Verbalize Understanding OT Short Term Goals Short Term Goals Time Frame: Jan 05, 2023 Eatin Oral hygiene: 5 Toileting hygiene: 3 Shower/bathe self: 4 Upper body dressin Lower body dressin Putting on/taking off footwear: 3 OT Catalog Librarian Goals Catalog Librarian Goals Time Frame: Jan 19, 2023 Acute change in mental status: 1 Inattention: 0 Disorganized thinkin Altered level of consciousness: 0 Eating (QC): 6 Oral Hygiene (QC): 6 Toileting Hygiene (QC): 6 Shower/Bathe Self (QC): 6 Upper Body Dressing (QC): 6 Lower Body Dressing (QC): 6 On/Off Footwear (QC): 6 Additional Goals: 1-Demonstrate ADL Tasks, 2-Verbalize Understanding, 3-ImproveStrength/[place] 1=Demonstrate adherence to instructed precautions during ADL tasks. 2=Patient will verbalize/demonstrate understanding of assistive devices/modifications for ADL. 3=Patient will improve strength/tolerance for activity to enable patient to perform ADL's. OT Education/Plan Problem List/Assessment Assessment: Decreased Activ Tolerance, Decreased UE Strength, Impaired Funct Balance, Impaired I ADL's, Impaired Self-Care Skills Pt would benefit from skilled OT to increase her independence in basic self care to allow her to safely return home Discharge Recommendations Plan/Recommendations: Continue POC Treatment Plan/Plan of Care Patient would benefit from OT for education, treatment and training to promote independence in ADL's, mobility, safety and/or upper extremity function for ADL 's. Plan of Care: ADL Retraining, Functional Mobility, Group Exercise/Act as Ind, UE Funct Exercise/Act, UE Neuromus Re-Ed/Coord, OTHER (energy conservation education) Treatment Duration: Jan 19, 2023 Frequency: Modified Program (IRF) (14/04) Estimated Hrs Per Day: 1.5 hours per day Agreement: Yes Rehab Potential: Fair Time Start Time: 07:30 Stop Time: 09:00 DATE: Jan 03, 2023 Total Time Billed (hr/min): 90 Billed Treatment Time 1, ADL (15'), FA 5 (75') KITA DOBSNO OT Jan 03, 2023 07:54
[2023-01-03] MEDS: DOCUSATE SODIUM 100 MG (COLACE) CAP PO SCH ×2 (08:20→21:00)
[2023-01-03] MEDS: SENNA W/DOCUSATE (SENOKOT S) TABLET PO SCH ×2 (08:21→21:00)
[2023-01-03] MEDS: polyethylene glycoL POWDER 17 GM (MIRALAX) PACK PO SCH ×2 (08:21→21:00)
[2023-01-03] MEDS: ENOXAPARIN INJECTION 30 MG/0.3 ML SYR SC SCH (08:47)
[2023-01-03] MEDS: MICONAZOLE 2% POWDER (DESENEX AF) 90 GM TOP SCH ×2 (08:48→21:52)
[2023-01-03] MEDS: KCL 10 MEQ TAB (MICRO K) PO SCH ×2 (08:49→17:49)
[2023-01-03] MEDS: fluCOnazole (DIFLUCAN) 100 MG TAB PO SCH (08:49)
[2023-01-03] MEDS: IRON SUCROSE 200 MG/10 ML (VENOFER) VIAL IV SCH (08:49)
[2023-01-03] MEDS: amLODIPine 5 MG (NORVASC) TAB PO SCH (08:49)
[2023-01-03] MEDS: diphenhydrAMINE 25 MG TAB (BENADRYL) PO SCH ×2 (08:49→21:52)
[2023-01-03] MEDS: ASPIRIN E.C. 81 MG (ECOTRIN) TAB PO SCH (08:49)
[2023-01-03] MEDS: LACTOBACILLUS ACIDOPHILUS (PROBIOTIC) CAPSULE PO SCH ×3 (08:49→17:49)
[2023-01-03] MEDS: VENlafaxine 75 MG (EFFEXOR) TAB PO SCH (08:49)
[2023-01-03] MEDS: PANTOPRAZOLE 20 MG TABLET (PROTONIX) PO SCH (08:49)
[2023-01-03] MEDS: meTOprolol TARTRATE 25 MG (LOPRESSOR) TABLET PO SCH ×2 (08:51→21:51)
[2023-01-03] MEDS: ALLOPURINOL 300 MG (ZYLOPRIM) TAB PO SCH (08:55)
[2023-01-03 10:02] LABS: ALBUMIN 2.7 GM/DL (3.2-4.5)
[2023-01-03 10:03] LABS: POTASSIUM 3.4 MMOL/L (3.6-5.0)
[2023-01-03 10:04] LABS: CALCIUM 8.3 MG/DL (8.5-10.1)
[2023-01-03 10:05] LABS: TOTAL PROTEIN 5.2 GM/DL (6.4-8.2)
[2023-01-03 10:07] LABS: BILIRUBIN,TOTAL 0.5 MG/DL (0.1-1.0)
[2023-01-03 10:09] LABS: CREATININE SERUM 2.04 MG/DL (0.60-1.30)
--- NOTE | 2023-01-03 10:24 | Physical Therapy Daily Note ---
PT Daily Note-Current Subjective pt in bed laying supine upon entering room this day. pt willing to preform therapy. pt stated she was fatigued from this morning OT visit. Pain Section J - Health Conditions 1. Rarely or not at all 2. Occasionally 3. Frequently 4. Almost constantly 8. Unable to answer Pain Effect on Sleep: 1 Pain Interference with Therapy: 2 Pain Interference w/Day-to-Day: 2 Transfers SCALE: Activities may be completed with or without assistive devices. 3-Qptghghgzi-hltaqcv completes the activity by him/herself with no assistance from a helper. 5-Set-up or Clean-up Assistance-helper sets up or cleans up; patient completes activity. [place] assists only prior to or following the activity. 4-Supervision or Touching Assistance-helper provides verbal cues and/or touching/steadying and/or contact guard assistance as patient completes activit y. Assistance may be provided throughout the activity or intermittently. 3-Partial/Moderate Assistance-helper does LESS THAN HALF the effort. [place] lifts, holds or supports trunk or limbs, but provides less than half the effort. 2-Substantial/Maximal Assistance-helper does MORE THAN HALF the effort. [place] lifts or holds trunk or limbs and provides more than half the effort. 7-Rehmfnwdz-sytvbi does ALL the effort. Patient does none of the effort to complete the activity. Or, the assistance of 2 or more helpers is required for the patient to complete the activity. If activity was not attempted, code reason: 7-Patient Refused. 9-Not Applicable-not attempted and the patient did not perform the activity before the current illness, exacerbation or injury. 10-Not Attempted due to Environmental Limitations-(lack of equipment, weather restraints, etc.). 88-Not Attempted due to Medical Conditions or Safety Concerns. Weight Bearing Right Lower Extremity: Right Weight Bearing/Tolerated Left Lower Extremity: Left Weight Bearing/Tolerated Exercises Supine Ex: Bridging, Quad Set, Glut sets, Heel Slides, Short Arc Quads, Hip abd/add Seated Therapy Exercises: Ankle pumps, Sit to stand, Kicking activity, Hamstring Curls, Glut set Assessment Current Status: Fair Progress pt very fatigued this day and required multiple rest breaks in between each ther-activity to be able to move on to the next task. PT Short Term Goals Short Term Goals Time Frame: Jan 03, 2023 PT Mcc Goals Java Spring Developer Goals PT Java Spring Developer Goals Time Frame: Jan 26, 2023 Roll Left & Right (QC): 6 Sit to Lying (QC): 5 (possible use of left leg information security risk analyst) Lying-Sitting on Side/Bed(QC): 5 (possible use of left leg information security risk analyst) Sit to Stand (QC): 6 (with FWW) Chair/Lgd-nq-Mqabz Xfer(QC): 6 (with FWW) Toilet Transfer (QC): 6 (with FWW) Car Transfer (QC): 5 (with FWW) Does the Patient Walk: Yes Walk 10 feet (QC): 6 (with FWW and prn O2 assist with sats 90% or greater) Walk 50ft with 2 Turns (QC): 6 (with FWW and prn O2 assist with sats 90% or better) Walk 150 ft (QC): 5 (with FWW and prn O2 assist with sats 90% or greater) Walking 10ft on Uneven Surface: 5 (with FWW and O2 assist prn) 1 Step (curb) (QC): 5 4 Steps (QC): 4 (with (B) rails) 12 Steps (QC): 88 Picking up an Object (QC): 6 (with patient safety attendant) Does the Pt use WC or Scooter?: No Wheel 50 feet with 2 turns (QC: 6 Type: Manual Wheel 150 feet: 6 Type: Manual PT Plan Treatment/Plan Treatment Plan: Continue Plan of Care Treatment Plan: Bed Mobility, Education, Functional Activity [place], Functional Strength, Group Therapy, Gait, Safety, Therapeutic Exercise, Transfers Treatment Duration: Jan 26, 2023 Frequency: At least 5 of 7 days/Wk (IRF) Estimated Hrs Per Day: Other (Graduate) Patient and/or Family Agrees t: Yes Time Time In: 929 Time Out: 1030 DATE: Jan 03, 2023 Total Billed Treatment Time: 60 Total Billed Treatment 1, fa x 2, ex x 2 Mackenzie Denson PTA Jan 03, 2023 10:24
[2023-01-03 11:16] LABS: BASOPHILS # (AUTO) 0.1 10^3/uL (0.0-0.1); BASOPHILS % (AUTO) 1 % (0-10); EOSINOPHILS # (AUTO) 0.1 10^3/uL (0.0-0.3); EOSINOPHILS % (AUTO) 1 % (0-10); HEMATOCRIT 25 % (35-52); LYMPHOCYTES # (AUTO) 1.1 10^3/uL (1.0-4.0); LYMPHOCYTES % (AUTO) 15 % (12-44); MEAN CORPUSCULAR HEMOGLOBIN 30 pg (25-34); MEAN CORPUSCULAR HGB CONC 32 g/dL (32-36); MEAN CORPUSCULAR VOLUME 94 fL (80-99); MEAN PLATELET VOLUME 10.9 fL (9.0-12.2); MONOCYTES # (AUTO) 0.7 10^3/uL (0.0-1.0); MONOCYTES % (AUTO) 10 % (0-12); NEUTROPHILS # (AUTO) 5.2 10^3/uL (1.8-7.8); NEUTROPHILS % (AUTO) 72 % (42-75); PLATELET COUNT 355 10^3/uL (130-400); WHITE BLOOD COUNT 7.2 10^3/uL (4.3-11.0)
--- NOTE | 2023-01-03 13:29 | Physical Therapy Daily Note ---
PT Daily Note-Current Subjective pt laying in bed upon arrival. pt willing for therapy. bellman captain noticed weeping left leg bandages and reported to nursing. bellman captain aided in bandage change with nursing as pt could not hold her left leg up for long period of time. Pain Section J - Health Conditions 1. Rarely or not at all 2. Occasionally 3. Frequently 4. Almost constantly 8. Unable to answer Pain Effect on Sleep: 1 Pain Interference with Therapy: 2 Pain Interference w/Day-to-Day: 2 Mental Status Patient Orientation: Person, Place, Time, Situation Transfers SCALE: Activities may be completed with or without assistive devices. 8-Icwnyvlvvj-xlcviol completes the activity by him/herself with no assistance from a helper. 5-Set-up or Clean-up Assistance-helper sets up or cleans up; patient completes activity. [place] assists only prior to or following the activity. 4-Supervision or Touching Assistance-helper provides verbal cues and/or touching/steadying and/or contact guard assistance as patient completes activity. Assistance may be provided throughout the activity or intermittently. 3-Partial/Moderate Assistance-helper does LESS THAN HALF the effort. [place] lifts, holds or supports trunk or limbs, but provides less than half the effort. 2-Substantial/Maximal Assistance-helper does MORE THAN HALF the effort. [place] lifts or holds trunk or limbs and provides more than half the effort. 2-Ydqjykdqv-wtzvta does ALL the effort. Patient does none of the effort to complete the activity. Or, the assistance of 2 or more helpers is required for the patient to complete the activity. If activity was not attempted, code reason: 7-Patient Refused. 9-Not Applicable-not attempted and the patient did not perform the activity before the current illness, exacerbation or injury. 10-Not Attempted due to Environmental Limitations-(lack of equipment, weather restraints, etc.). 88-Not Attempted due to Medical Conditions or Safety Concerns. Weight Bearing Right Lower Extremity: Right Weight Bearing/Tolerated Left Lower Extremity: Left Weight Bearing/Tolerated Exercises Supine Ex: Quad Set, Glut sets, Straight leg raise Treatments bellman captain assisted nursing in left leg bandage change as pt could not hold her leg up independently due to mm weakness. pt was able to preform supine ther-ex 2 sets x 10 reps each with vc of 20% for correct mm movement. Assessment Current Status: Good Progress PT Short Term Goals Short Term Goals Time Frame: Jan 03, 2023 PT Disaster Director Goals Disaster Director Goals PT Disaster Director Goals Time Frame: Jan 26, 2023 Roll Left & Right (QC): 6 Sit to Lying (QC): 5 (possible use of left leg commercial loan coordinator) Lying-Sitting on Side/Bed(QC): 5 (possible use of left leg commercial loan coordinator) Sit to Stand (QC): 6 (with FWW) Chair/Jdk-bz-Qmtjp Xfer(QC): 6 (with FWW) Toilet Transfer (QC): 6 (with FWW) Car Transfer (QC): 5 (with FWW) Does the Patient Walk: Yes Walk 10 feet (QC): 6 (with FWW and prn O2 assist with sats 90% or greater) Walk 50ft with 2 Turns (QC): 6 (with FWW and prn O2 assist with sats 90% or better) Walk 150 ft (QC): 5 (with FWW and prn O2 assist with sats 90% or greater) Walking 10ft on Uneven Surface: 5 (with FWW and O2 assist prn) 1 Step (curb) (QC): 5 4 Steps (QC): 4 (with (B) rails) 12 Steps (QC): 88 Picking up an Object (QC): 6 (with research affiliate) Does the Pt use WC or Scooter?: No Wheel 50 feet with 2 turns (QC: 6 Type: Manual Wheel 150 feet: 6 Type: Manual PT Plan Treatment/Plan Treatment Plan: Continue Plan of Care Treatment Plan: Bed Mobility, Education, Functional Activity [place], Functional Strength, Group Therapy, Gait, Safety, Therapeutic Exercise, Transfers Treatment Duration: Jan 26, 2023 Frequency: At least 5 of 7 days/Wk (IRF) Estimated Hrs Per Day: Other (Graduate) Patient and/or Family Agrees t: Yes Time Time In: 100 Time Out: 130 DATE: Jan 03, 2023 Total Billed Treatment Time: 30 Total Billed Treatment 1 ex x 2 Mackenzie Denson CLINIC CHARGE NURSE Jan 03, 2023 13:29
[2023-01-03] MEDS: HYPOCHLOROUS ACID/NaCl (VASHE) 250 ML IR SCH (14:04)
[2023-01-03 19:41] VITALS: BP 125/62
[2023-01-03] MEDS: MONTELUKAST 10 MG (SINGULAIR) TAB PO SCH (21:52)
--- NOTE | 2023-01-04 06:22 | PM&R Progress Note ---
Subjective HPI/CC On Admission Date Seen by Provider: Jan 04, 2023 Time Seen by Provider: 12:00 Subjective/Events-last exam 01/04/2023: Feels really good Improved dramatically No pain reported Left leg wound improved 01/03/2023: Improved status Increasing strength No falls Labs improved No falls 01/02/2023: Much improved Overall doing well No pain reported Left leg wound improved 01/01/2023: Improved overall Midline will be placed and IV iron infusion ordered Creat stable Monitoring closely Increase potassium 12/31/2022: Much improved Walked a bit Showered today No pain 12/30/2022: Much improved Labs reviewed Creat 2.0 and that is her baseline BUN still elevated Monitor closely Review of Systems General: Fatigue, Malaise Objective Exam Vital Signs Vital Signs Date Time Temp Pulse Resp B/P (MAP) Pulse Ox O2 Delivery O2 Flow Rate FiO2 01/04/23 21:15 Room Air 01/04/23 19:40 36.7 96 18 120/65 (83) 99 Capillary Refill : General Appearance: No Apparent Distress, WD/WN, Chronically ill, Obese HEENT: PERRL/EOMI, Normal ENT Inspection, Pharynx Normal Neck: Full Range of Motion, Normal Inspection, Non Tender, Supple, Carotid Bruit Respiratory: Chest Non Tender, Lungs Clear, No Accessory Muscle Use, No Respiratory Distress, Decreased Breath Sounds Cardiovascular: Regular Rate, Rhythm, No Edema, No Gallop, No JVD, No Murmur, Normal Peripheral Pulses Gastrointestinal: Normal Bowel Sounds, No Organomegaly, No Pulsatile Mass, Non Tender, Soft Back: Normal Inspection, No CVA Tenderness, No Vertebral Tenderness Extremity: Normal Capillary Refill, Normal Inspection, Normal Range of Motion, Non Tender, No Calf Tenderness, No Pedal Edema Neurologic/Psychiatric: Alert, Oriented x3, No Motor/Sensory Deficits, black top roller II- XII Norm as Tested, Abnormal Gait, Disoriented (subtle), Motor Weakness (generalized) Skin: Normal Color, Warm/Dry Lymphatic: No Adenopathy Results/Procedures Lab Patient resulted labs reviewed. FIM Transfers Therapy Code Descriptions/Definitions Functional [place] Measure: 0=Not Assessed/NA 4=Minimal Assistance 1=Total Assistance 5=Supervision or Setup 2=Maximal Assistance 6=Modified [place] 3=Moderate Assistance 7=Complete IndependenceSCALE: Activities may be completed with or without assistive devices. 2-Rzoxkjttnc-gotvtqz completes the activity by him/herself with no assistance from a helper. 5-Set-up or Clean-up Assistance-helper sets up or cleans up; patient completes activity. [place] assists only prior to or following the activity. 4-Supervision or Touching Assistance-helper provides verbal cues and/or touching/steadying and/or contact guard assistance as patient completes activity. Assistance may be provided throughout the activity or intermittently. 3-Partial/Moderate Assistance-helper does LESS THAN HALF the effort. [place] lifts, holds or supports trunk or limbs, but provides less than half the effort. 2-Substantial/Maximal Assistance-helper does MORE THAN HALF the effort. [place] lifts or holds trunk or limbs and provides more than half the effort. 8-Gmbtalcbf-qlyvna does ALL the effort. Patient does none of the effort to complete the activity. Or, the assistance of 2 or more helpers is required for the patient to complete the activity. If activity was not attempted, code reason: 7-Patient Refused. 9-Not Applicable-not attempted and the patient did not perform the activity before the current illness, exacerbation or injury. 10-Not Attempted due to Environmental Limitations-(lack of equipment, weather restraints, etc.). 88-Not Attempted due to Medical Conditions or Safety Concerns. Roll Left to Right (QC): 5 (cues to use bed rail) Sit to Lying (QC): 4 Sit to Stand (QC): 4 Chair/Lil-vt-Edfad Xfer(QC): 3 (min (A) with FWW w/c>bed upon arrival to unit) Car Transfer (QC): 88 Gait Training Does the Patient Walk?: Yes Distance: 15' Walk 10 feet (QC): 5 Walk 50 ft with 2 Turns(QC): 88 (too debilitated to attempt safely and desaturation to 82% sitting EOB) Walk 150 ft (QC): 88 (too debilitated to attempt safely and desaturation to 82% sitting EOB) Walking 10ft/uneven surface-QC: 88 (too debilitated to attempt safely and desaturation to 82% sitting EOB) Gait Persons Needed: 1 Gait Assistive Device: FWW Wheelchair Training Does the Pt Use a Wheelchair?: Yes Wheel 50 ft with 2 turns (QC): 88 (too debilitated to attempt safely and desaturation to 82% sitting EOB) Wheel 150 ft (QC): 88 (too debilitated to attempt safely and desaturation to 82% sitting EOB) Type of Wheelchair: Manual Stair Training 1 Step (curb) (QC): 88 (too debilitated to attempt safely and desaturation to 82% sitting EOB) 4 Steps (QC): 88 (too debilitated to attempt safely and desaturation to 82% sitting EOB) 12 Steps (QC): 88 (too debilitated to attempt safely and desaturation to 82% sitting EOB) Balance Picking up an Object (QC): 88 (too debilitated to attempt safely and desaturation to 82% sitting EOB) ADL-Treatment Eating (QC): 6 Oral Hygiene (QC): 6 Shower/Bathe Self (QC): 5 (set up, LH sponge provided) Upper Body Dressing (QC): 3 (Min A with managing shirt down back after shower.) Lower Body Dressing (QC): 2 (max A bed level) On/Off Footwear (QC): 2 (Max A donning/doffing gripper socks.) Toileting Hygiene (QC): 3 (Taryn overall.) Toilet Transfer (QC): 4 (CGA on/off BSC. ) Assessment/Plan Assessment and Plan Assess & Plan/Chief Complaint Assessment: Severe debility from COVID PNA Acute hypoxic respiratory failure Acute on chronic kidney failure initially 6.9 now back to baseline 2.0 IVÁN on CPAP Obesity s/p septic shock Anemia Protein malnutrition Hypokalemia HTN GERD Depression Iron def Left leg wound present before admit Plan: PT OT Monitor O2 [place] creat 12/30/2022: Iron and B12 check Monitor closely 12/31/2022: Monitor closely Midline tomorrow Venofer 01/01/2023: Midline Iron 01/02/2023: Monitor closely Potassium 01/03/2023: Improved kidney function Potassium to increase to TID from BID 01/04/2023: Improved overall (1) Acute on chronic renal failure Status: Acute (2) Pneumonia due to COVID-19 virus Status: Acute (3) Metabolic acidosis Status: Acute (4) SURAJ (acute kidney injury) SKY MARTE DO Jan 04, 2023 06:22
[2023-01-04 07:26] VITALS: BP 113/55
--- NOTE | 2023-01-04 08:35 | Occupational Ther Daily Note ---
OT Current Status-Daily Note Subjective Pt agreeable to OT Tx and cotreatment with PT. Pt reports she didn't feel as fatigued after her shower today compared to her last shower. Mental Status/Objective Patient Orientation: Person, Place, Time, Situation ADL-Treatment Therapy Code Descriptions/Definitions Functional [place] Measure: 0=Not Assessed/NA 4=Minimal Assistance 1=Total Assistance 5=Supervision or Setup 2=Maximal Assistance 6=Modified [place] 3=Moderate Assistance 7=Complete IndependenceSCALE: Activities may be completed with or without assistive devices. 7-Ewjwseaepd-wfynrsb completes the activity by him/herself with no assistance from a helper. 5-Set-up or Clean-up Assistance-helper sets up or cleans up; patient completes activity. [place] assists only prior to or following the activity. 4-Supervision or Touching Assistance-helper provides verbal cues and/or touching/steadying and/or contact guard assistance as patient completes activ ity. Assistance may be provided throughout the activity or intermittently. 3-Partial/Moderate Assistance-helper does LESS THAN HALF the effort. [place] lifts, holds or supports trunk or limbs, but provides less than half the effort. 2-Substantial/Maximal Assistance-helper does MORE THAN HALF the effort. [place] lifts or holds trunk or limbs and provides more than half the effort. 2-Lrubaymqe-jmwzlo does ALL the effort. Patient does none of the effort to complete the activity. Or, the assistance of 2 or more helpers is required for the patient to complete the activity. If activity was not attempted, code reason: 7-Patient Refused. 9-Not Applicable-not attempted and the patient did not perform the activity before the current illness, exacerbation or injury. 10-Not Attempted due to Environmental Limitations-(lack of equipment, weather restraints, etc.). 88-Not Attempted due to Medical Conditions or Safety Concerns. Shower/Bathe Self (QC): 5 Lower Body Dressing (QC): 2 On/Off Footwear: 3 (Mod A overall. Pt able to doff, total assist to don.) Toileting Hygiene (QC): 3 (min A with pant hike.) Other Treatment Pt in bed, transferred supine to sit EOB, SBA, then used FWW to transfer into bathroom and onto toilet, SBA. Pt completed toileting, transferred to SC. Pt completed shower, then underwear, gripper socks, and hospital gown donned. Normal clothes not donned due to RN planning on changing pt's dressing. [id number] OT/PT cotreat due to skill of 2 clinicians required which a rehab office coordinator could not perform in order to coordinate UE/LEs, decrease fall risk, and due to pt's limitations in strength and activity tolerance. Pt used FWW to transfer to EOB, then supine. Pt completed LE exercsies in preparation for standing tasks, OT cleaned up from ADL session and attempted to wash more barrier cream off of pt's LLE prior to dressing change. Post tx, pt in bed, all needs met, PT present for continued tx. Education OT Patient Education: Correct positioning, Energy conservation, Modified ADL techniques, Progress toward Goal/Update tx plan, Purpose of tx/functional activities, Rehab process Teaching Recipient: Patient Teaching Methods: Discussion Response to Teaching: Verbalize Understanding OT Short Term Goals Short Term Goals Time Frame: Jan 05, 2023 Eatin Oral hygiene: 5 Toileting hygiene: 3 Shower/bathe self: 4 Upper body dressin Lower body dressin Putting on/taking off footwear: 3 OT Senior Care Goals Senior Care Goals Time Frame: Jan 19, 2023 Acute change in mental status: 1 Inattention: 0 Disorganized thinkin Altered level of consciousness: 0 Eating (QC): 6 Oral Hygiene (QC): 6 Toileting Hygiene (QC): 6 Shower/Bathe Self (QC): 6 Upper Body Dressing (QC): 6 Lower Body Dressing (QC): 6 On/Off Footwear (QC): 6 Additional Goals: 1-Demonstrate ADL Tasks, 2-Verbalize Understanding, 3- ImproveStrength/[place] 1=Demonstrate adherence to instructed precautions during ADL tasks. 2=Patient will verbalize/demonstrate understanding of assistive devices/modifications for ADL. 3=Patient will improve strength/tolerance for activity to enable patient to perform ADL's. OT Education/Plan Problem List/Assessment Assessment: Decreased Activ Tolerance, Decreased UE Strength, Impaired Funct Balance, Impaired I ADL's, Impaired Self-Care Skills Pt would benefit from skilled OT to increase her independence in basic self care to allow her to safely return home Discharge Recommendations Plan/Recommendations: Continue POC Treatment Plan/Plan of Care Patient would benefit from OT for education, treatment and training to promote independence in ADL's, mobility, safety and/or upper extremity function for ADL's. Plan of Care: ADL Retraining, Functional Mobility, Group Exercise/Act as Ind, UE Funct Exercise/Act, UE Neuromus Re-Ed/Coord, OTHER (energy conservation education) Treatment Duration: Jan 19, 2023 Frequency: Modified Program (IRF) (14/04) Estimated Hrs Per Day: 1.5 hours per day Agreement: Yes Rehab Potential: Fair Time Start Time: 07:30 Stop Time: 08:30 DATE: Jan 04, 2023 Total Time Billed (hr/min): 60 Billed Treatment Time 1, ADL 4 KITA DOBSON OT Jan 04, 2023 08:35
[2023-01-04] MEDS: VENlafaxine 75 MG (EFFEXOR) TAB PO SCH (08:57)
[2023-01-04] MEDS: amLODIPine 5 MG (NORVASC) TAB PO SCH (08:57)
[2023-01-04] MEDS: LACTOBACILLUS ACIDOPHILUS (PROBIOTIC) CAPSULE PO SCH ×3 (08:57→17:06)
[2023-01-04] MEDS: ASPIRIN E.C. 81 MG (ECOTRIN) TAB PO SCH (08:57)
[2023-01-04] MEDS: PANTOPRAZOLE 20 MG TABLET (PROTONIX) PO SCH (08:57)
[2023-01-04] MEDS: ALLOPURINOL 300 MG (ZYLOPRIM) TAB PO SCH (08:57)
[2023-01-04] MEDS: meTOprolol TARTRATE 25 MG (LOPRESSOR) TABLET PO SCH ×2 (08:57→20:57)
[2023-01-04] MEDS: KCL 10 MEQ TAB (MICRO K) PO SCH ×3 (08:57→17:07)
[2023-01-04] MEDS: diphenhydrAMINE 25 MG TAB (BENADRYL) PO SCH ×2 (08:57→20:57)
[2023-01-04] MEDS: fluCOnazole (DIFLUCAN) 100 MG TAB PO SCH (08:57)
[2023-01-04] MEDS: ENOXAPARIN 40 MG/0.4 ML (LOVENOX) SYR SC SCH ×2 (08:57→20:56)
[2023-01-04] MEDS: MICONAZOLE 2% POWDER (DESENEX AF) 90 GM TOP SCH ×2 (08:58→20:56)
[2023-01-04] MEDS: SENNA W/DOCUSATE (SENOKOT S) TABLET PO SCH ×2 (08:59→21:00)
[2023-01-04] MEDS: polyethylene glycoL POWDER 17 GM (MIRALAX) PACK PO SCH ×2 (09:00→21:00)
[2023-01-04] MEDS: HYPOCHLOROUS ACID/NaCl (VASHE) 250 ML IR SCH (09:00)
[2023-01-04] MEDS: DOCUSATE SODIUM 100 MG (COLACE) CAP PO SCH ×2 (09:00→21:00)
--- NOTE | 2023-01-04 10:04 | Physical Therapy Daily Note ---
PT Daily Note-Current Subjective Pt reports she is moving better today. She feels like she is getting stronger. Pain Section J - Health Conditions 1. Rarely or not at all 2. Occasionally 3. Frequently 4. Almost constantly 8. Unable to answer Pain Effect on Sleep: 1 Pain Interference with Therapy: 2 Pain Interference w/Day-to-Day: 2 Transfers SCALE: Activities may be completed with or without assistive devices. 1-Tqggrkqlge-pxtybyv completes the activity by him/herself with no assistance from a helper. 5-Set-up or Clean-up Assistance-helper sets up or cleans up; patient completes activity. [place] assists only prior to or following the activity. 4-Supervision or Touching Assistance-helper provides verbal cues and/or touching /steadying and/or contact guard assistance as patient completes activity. Assistance may be provided throughout the activity or intermittently. 3-Partial/Moderate Assistance-helper does LESS THAN HALF the effort. [place] lifts, holds or supports trunk or limbs, but provides less than half the effort. 2-Substantial/Maximal Assistance-helper does MORE THAN HALF the effort. [place] lifts or holds trunk or limbs and provides more than half the effort. 6-Xmpeznubj-bqqtxw does ALL the effort. Patient does none of the effort to complete the activity. Or, the assistance of 2 or more helpers is required for the patient to complete the activity. If activity was not attempted, code reason: 7-Patient Refused. 9-Not Applicable-not attempted and the patient did not perform the activity before the current illness, exacerbation or injury. 10-Not Attempted due to Environmental Limitations-(lack of equipment, weather restraints, etc.). 88-Not Attempted due to Medical Conditions or Safety Concerns. Roll Left & Right (QC): 4 Sit to Lying (QC): 4 Lying to Sitting/Side of Bed(Q: 4 Sit to Stand (QC): 6 Chair/Frn-xr-Kfpsu Xfer(QC): 6 Needs Min A for the right leg during transfers in and out of bed and bed mobility.Worked with OT co treat for bed mobility training and transfer ed ucation. Weight Bearing Right Lower Extremity: Right Weight Bearing/Tolerated Left Lower Extremity: Left Weight Bearing/Tolerated Gait Training Walk 50 ft with 2 Turns(QC): 4 Gait Persons Needed: 1 Gait Assistive Device: FWW Ambulate distances of: 25ft, 40ft, 20ft, 30ft, 15ft All ambulation was with a FWW and CGA. Pt required seated rest due to generalized fatigue after walking the above distances. Exercises Supine Ex: Knee to chest, Resisted flex/ext, Straight leg raise, Hip abd/add Supine Reps: 10 Seated Therapy Exercises: Ankle pumps, Long arc quads Seated Reps: 10 Standing: Hip Abduction, 3 way Ex=Flex, Abd, Ext, Marching, Weight shifts Standing Reps: 10 All standing exercises repeated 3 sets. Oxygen sats dropped 98 to 92% during active exercise. Performed standing gastroc stretch in parallel bars x 30 seconds Assessment Current Status: Good Progress Progressed ambulation tolerance, distance, and stability. Utilized co treatment with OT to allow for simultaneous education while performin physical assist for motor planning and performance. Pt will benefit from continued therapy to restore function. PT Short Term Goals Short Term Goals Time Frame: Jan 03, 2023 PT Senior Living Goals Senior Living Goals PT Senior Living Goals Time Frame: Jan 26, 2023 Roll Left & Right (QC): 6 Sit to Lying (QC): 5 (possible use of left leg grader green meat) Lying-Sitting on Side/Bed(QC): 5 (possible use of left leg grader green meat) Sit to Stand (QC): 6 (with FWW) Chair/Jgy-ib-Eevcy Xfer(QC): 6 (with FWW) Toilet Transfer (QC): 6 (with FWW) Car Transfer (QC): 5 (with FWW) Does the Patient Walk: Yes Walk 10 feet (QC): 6 (with FWW and prn O2 assist with sats 90% or greater) Walk 50ft with 2 Turns (QC): 6 (with FWW and prn O2 assist with sats 90% or better) Walk 150 ft (QC): 5 (with FWW and prn O2 assist with sats 90% or greater) Walking 10ft on Uneven Surface: 5 (with FWW and O2 assist prn) 1 Step (curb) (QC): 5 4 Steps (QC): 4 (with (B) rails) 12 Steps (QC): 88 Picking up an Object (QC): 6 (with video game repair technician) Does the Pt use WC or Scooter?: No Wheel 50 feet with 2 turns (QC: 6 Type: Manual Wheel 150 feet: 6 Type: Manual PT Plan Treatment/Plan Treatment Plan: Continue Plan of Care Treatment Plan: Bed Mobility, Education, Functional Activity [place], Functional Strength, Group Therapy, Gait, Safety, Therapeutic Exercise, Transfers Treatment Duration: Jan 26, 2023 Frequency: At least 5 of 7 days/Wk (IRF) Estimated Hrs Per Day: Other (Graduate) Patient and/or Family Agrees t: Yes Time Time In: 0800 Time Out: 0900 DATE: Jan 04, 2023 Total Billed Treatment Time: 60 Total Billed Treatment visit, Exercise 30 minutes, Gait 15 min, FA 15 min ROMY TROY PT Jan 04, 2023 10:04
--- NOTE | 2023-01-04 14:27 | Occupational Ther Daily Note ---
OT Current Status-Daily Note Subjective Pt alert, finishing up with PT. Pt agrees to therapy. No c/o pain. Mental Status/Objective Patient Orientation: Person, Place, Time, Situation ADL-Treatment Therapy Code Descriptions/Definitions Functional [place] Measure: 0=Not Assessed/NA 4=Minimal Assistance 1=Total Assistance 5=Supervision or Setup 2=Maximal Assistance 6=Modified [place] 3=Moderate Assistance 7=Complete IndependenceSCALE: Activities may be completed with or without assistive devices. 6-Ymrhoblzkj-qiygchj completes the activity by him/herself with no assistance from a helper. 5-Set-up or Clean-up Assistance-helper sets up or cleans up; patient completes activity. [place] assists only prior to or following the activity. 4-Supervision or Touching Assistance-helper provides verbal cues and/or touching/steadying and/or contact guard assistance as patient completes activity. Assistance may be provided throughout the activity or intermittently. 3-Partial/Moderate Assistance-helper does LESS THAN HALF the effort. [place] lifts, holds or supports trunk or limbs, but provides less than half the effort. 2-Substantial/Maximal Assistance-helper does MORE THAN HALF the effort. [place] lifts or holds trunk or limbs and provides more than half the effort. 6-Eavdwgfay-coumeo does ALL the effort. Patient does none of the effort to complete the activity. Or, the assistance of 2 or more helpers is required for the patient to complete the activity. If activity was not attempted, code reason: 7-Patient Refused. 9-Not Applicable-not attempted and the patient did not perform the activity before the current illness, exacerbation or injury. 10-Not Attempted due to Environmental Limitations-(lack of equipment, weather restraints, etc.). 88-Not Attempted due to Medical Conditions or Safety Concerns. Other Treatment Pt completes arm bike for 10 min at 20 ambrosio resistance with multiple recovery breaks, trivia game completed during arm bike for cognitive component. Pt then given HEP using light resistance theraband for home and room use when not in therapy. Pt demonstrated understanding of HEP, will need continued skilled therapy for independence of exercises. Skilled instructions required for correct technique and modifications when needed. After therapy, pt lying in bed with call light/phone in reach. All needs met in room. OT Short Term Goals Short Term Goals Time Frame: Jan 05, 2023 Eatin Oral hygiene: 5 Toileting hygiene: 3 Shower/bathe self: 4 Upper body dressin Lower body dressin Putting on/taking off footwear: 3 OT Ncr Operator Goals [place] Goals Time Frame: Jan 19, 2023 Acute change in mental status: 1 Inattention: 0 Disorganized thinkin Altered level of consciousness: 0 Eating (QC): 6 Oral Hygiene (QC): 6 Toileting Hygiene (QC): 6 Shower/Bathe Self (QC): 6 Upper Body Dressing (QC): 6 Lower Body Dressing (QC): 6 On/Off Footwear (QC): 6 Additional Goals: 1-Demonstrate ADL Tasks, 2-Verbalize Understanding, 3-Impro veStrength/[place] 1=Demonstrate adherence to instructed precautions during ADL tasks. 2=Patient will verbalize/demonstrate understanding of assistive devices/modifications for ADL. 3=Patient will improve strength/tolerance for activity to enable patient to perform ADL's. OT Education/Plan Problem List/Assessment Assessment: Decreased Activ Tolerance, Decreased UE Strength Pt would benefit from skilled OT to increase her independence in basic self care to allow her to safely return home Discharge Recommendations Plan/Recommendations: Continue POC Treatment Plan/Plan of Care Patient would benefit from OT for education, treatment and training to promote independence in ADL's, mobility, safety and/or upper extremity function for ADL's. Plan of Care: ADL Retraining, Functional Mobility, Group Exercise/Act as Ind, UE Funct Exercise/Act, UE Neuromus Re-Ed/Coord, OTHER (energy conservation education) Treatment Duration: Jan 19, 2023 Frequency: Modified Program (IRF) (14/04) Estimated Hrs Per Day: 1.5 hours per day Agreement: Yes Rehab Potential: Fair Time Start Time: 13:30 Stop Time: 14:00 DATE: Jan 04, 2023 Total Time Billed (hr/min): 30 Billed Treatment Time 1 visit-EX 2 (30 min) SARAH MAX Jan 04, 2023 14:27
--- NOTE | 2023-01-04 14:31 | Physical Therapy Daily Note ---
PT Daily Note-Current Subjective Patient lying supine in bed upon PT arrival, agreeable to treatment. Patient rates pain at 0/10 currently. Pain Section J - Health Conditions 1. Rarely or not at all 2. Occasionally 3. Frequently 4. Almost constantly 8. Unable to answer Pain Effect on Sleep: 1 Pain Interference with Therapy: 2 Pain Interference w/Day-to-Day: 2 Mental Status Patient Orientation: Person, Place, Time, Situation Transfers SCALE: Activities may be completed with or without assistive devices. 8-Ogappsplxo-uxppcrm completes the activity by him/herself with no assistance from a helper. 5-Set-up or Clean-up Assistance-helper sets up or cleans up; patient completes activity. [place] assists only prior to or following the activity. 4-Supervision or Touching Assistance-helper provides verbal cues and/or touching/steadying and/or contact guard assistance as patient completes activity. Assistance may be provided throughout the activity or intermittently. 3-Partial/Moderate Assistance-helper does LESS THAN HALF the effort. [place] lifts, holds or supports trunk or limbs, but provides less than half the effort. 2-Substantial/Maximal Assistance-helper does MORE THAN HALF the effort. [place] lifts or holds trunk or limbs and provides more than half the effort. 0-Edtemindi-bsycse does ALL the effort. Patient does none of the effort to complete the activity. Or, the assistance of 2 or more helpers is required for the patient to complete the activity. If activity was not attempted, code reason: 7-Patient Refused. 9-Not Applicable-not attempted and the patient did not perform the activity before the current illness, exacerbation or injury. 10-Not Attempted due to Environmental Limitations-(lack of equipment, weather restraints, etc.). 88-Not Attempted due to Medical Conditions or Safety Concerns. Roll Left & Right (QC): 4 Sit to Lying (QC): 4 Lying to Sitting/Side of Bed(Q: 4 Sit to Stand (QC): 4 Chair/Pex-oc-Jefrl Xfer(QC): 4 Weight Bearing Right Lower Extremity: Right Weight Bearing/Tolerated Left Lower Extremity: Left Weight Bearing/Tolerated Gait Training Does the Patient Walk?: Yes Distance: 60, 80 feet Walk 10 feet (QC): 4 Walk 50 ft with 2 Turns(QC): 4 Gait Assistive Device: FWW Exercises Supine Ex: Ankle pumps, Quad Set, Glut sets, Heel Slides, Short Arc Quads, Straight leg raise, Hip abd/add Supine Reps: 20 Assessment Current Status: Fair Progress Patient tolerated treatment well. Patient performs LE therapeutic exercise as listed above. Demonstrates improved overall increase in gait distance. Patient performs all bed mobility and transfers with SBA. Patient ambulates 60 feet, 80 feet with FWW with SBA and verbal cues for safety, progression, posture and conservation or energy. Patient in w/c post treatment with all needs met, nursing notified, daughter in the room and CONSERVATION TECHNICIAN on her way to the room for treatment. PT Short Term Goals Short Term Goals Time Frame: Jan 03, 2023 PT Group Home Goals Group Home Goals PT Circus Laborer Goals Time Frame: Jan 26, 2023 Roll Left & Right (QC): 6 Sit to Lying (QC): 5 (possible use of left leg charge master analyst) Lying-Sitting on Side/Bed(QC): 5 (possible use of left leg charge master analyst) Sit to Stand (QC): 6 (with FWW) Chair/Aqa-hy-Nrxqe Xfer(QC): 6 (with FWW) Toilet Transfer (QC): 6 (with FWW) Car Transfer (QC): 5 (with FWW) Does the Patient Walk: Yes Walk 10 feet (QC): 6 (with FWW and prn O2 assist with sats 90% or greater) Walk 50ft with 2 Turns (QC): 6 (with FWW and prn O2 assist with sats 90% or better) Walk 150 ft (QC): 5 (with FWW and prn O2 assist with sats 90% or greater) Walking 10ft on Uneven Surface: 5 (with FWW and O2 assist prn) 1 Step (curb) (QC): 5 4 Steps (QC): 4 (with (B) rails) 12 Steps (QC): 88 Picking up an Object (QC): 6 (with minor league baseball player) Does the Pt use WC or Scooter?: No Wheel 50 feet with 2 turns (QC: 6 Type: Manual Wheel 150 feet: 6 Type: Manual PT Plan Treatment/Plan Treatment Plan: Continue Plan of Care Treatment Plan: Bed Mobility, Education, Functional Activity [place], Functional Strength, Group Therapy, Gait, Safety, Therapeutic Exercise, Transfers Treatment Duration: Jan 26, 2023 Frequency: At least 5 of 7 days/Wk (IRF) Estimated Hrs Per Day: Other (Graduate) Patient and/or Family Agrees t: Yes Safety Risks/Education Patient Education: Gait Training, Transfer Techniques Teaching Recipient: Patient Teaching Methods: Demonstration, Discussion Response to Teaching: Verbalize Understanding, Return Demonstration Time Time In: 1300 Time Out: 1330 DATE: Jan 04, 2023 Total Billed Treatment Time: 30 Total Billed Treatment Visit, JOSÉ Hodgson JOHN A PT Jan 04, 2023 14:31
[2023-01-04] MEDS ORDERED: CATHETER FLUSH 10 ML SYR IVP PRN (17:15)
[2023-01-04 19:40] VITALS: BP 120/65
[2023-01-04] MEDS: MONTELUKAST 10 MG (SINGULAIR) TAB PO SCH (20:57)
--- NOTE | 2023-01-05 05:43 | PM&R Progress Note ---
Subjective HPI/CC On Admission Date Seen by Provider: Jan 05, 2023 Time Seen by Provider: 12:00 Subjective/Events-last exam 01/05/2023: Patient doing well Doing well Monitor closely Dr Orr consult for left leg biopsy 01/04/2023: Feels really good Improved dramatically No pain reported Left leg wound improved 01/03/2023: Improved status Increasing strength No falls Labs improved No falls 01/02/2023: Much improved Overall doing well No pain reported Left leg wound improved 01/01/2023: Improved overall Midline will be placed and IV iron infusion ordered Creat stable Monitoring closely Increase potassium 12/31/2022: Much improved Walked a bit Showered today No pain 12/30/2022: Much improved Labs reviewed Creat 2.0 and that is her baseline BUN still elevated Monitor closely Review of Systems General: Fatigue, Malaise Objective Exam Vital Signs Vital Signs Date Time Temp Pulse Resp B/P (MAP) Pulse Ox O2 Delivery O2 Flow Rate FiO2 01/05/23 21:15 96 Room Air 01/05/23 20:50 36.8 98 16 132/60 (84) Capillary Refill : General Appearance: No Apparent Distress, WD/WN, Chronically ill, Obese HEENT: PERRL/EOMI, Normal ENT Inspection, Pharynx Normal Neck: Full Range of Motion, Normal Inspection, Non Tender, Supple, Carotid Bruit Respiratory: Chest Non Tender, Lungs Clear, No Accessory Muscle Use, No Respiratory Distress, Decreased Breath Sounds Cardiovascular: Regular Rate, Rhythm, No Edema, No Gallop, No JVD, No Murmur, Normal Peripheral Pulses Gastrointestinal: Normal Bowel Sounds, No Organomegaly, No Pulsatile Mass, Non Tender, Soft Back: Normal Inspection, No CVA Tenderness, No Vertebral Tenderness Extremity: Normal Capillary Refill, Normal Inspection, Normal Range of Motion, Non Tender, No Calf Tenderness, No Pedal Edema Neurologic/Psychiatric: Alert, Oriented x3, No Motor/Sensory Deficits, mineral wool insulation supervisor II- XII Norm as Tested, Abnormal Gait, Disoriented (subtle), Motor Weakness (generalized) Skin: Normal Color, Warm/Dry Lymphatic: No Adenopathy Results/Procedures Lab Patient resulted labs reviewed. FIM Transfers Therapy Code Descriptions/Definitions Functional [place] Measure: 0=Not Assessed/NA 4=Minimal Assistance 1=Total Assistance 5=Supervision or Setup 2=Maximal Assistance 6=Modified [place] 3=Moderate Assistance 7=Complete IndependenceSCALE: Activities may be completed with or without assistive devices. 4-Birvmljarg-fmbmhlg completes the activity by him/herself with no assistance from a helper. 5-Set-up or Clean-up Assistance-helper sets up or cleans up; patient completes activity. [place] assists only prior to or following the activity. 4-Supervision or Touching Assistance-helper provides verbal cues and/or touching/steadying and/or contact guard assistance as patient completes acti vity. Assistance may be provided throughout the activity or intermittently. 3-Partial/Moderate Assistance-helper does LESS THAN HALF the effort. [place] lifts, holds or supports trunk or limbs, but provides less than half the effort. 2-Substantial/Maximal Assistance-helper does MORE THAN HALF the effort. [place] lifts or holds trunk or limbs and provides more than half the effort. 5-Psfhaqbyn-qsgert does ALL the effort. Patient does none of the effort to complete the activity. Or, the assistance of 2 or more helpers is required for the patient to complete the activity. If activity was not attempted, code reason: 7-Patient Refused. 9-Not Applicable-not attempted and the patient did not perform the activity before the current illness, exacerbation or injury. 10-Not Attempted due to Environmental Limitations-(lack of equipment, weather restraints, etc.). 88-Not Attempted due to Medical Conditions or Safety Concerns. Roll Left to Right (QC): 4 Sit to Lying (QC): 4 Sit to Stand (QC): 4 Chair/Zaa-at-Mfjcl Xfer(QC): 4 Car Transfer (QC): 88 Gait Training Does the Patient Walk?: Yes Distance: 60, 80 feet Walk 10 feet (QC): 4 Walk 50 ft with 2 Turns(QC): 4 Walk 150 ft (QC): 88 (too debilitated to attempt safely and desaturation to 82% sitting EOB) Walking 10ft/uneven surface-QC: 88 (too debilitated to attempt safely and desaturation to 82% sitting EOB) Gait Persons Needed: 1 Gait Assistive Device: FWW Wheelchair Training Does the Pt Use a Wheelchair?: Yes Wheel 50 ft with 2 turns (QC): 88 (too debilitated to attempt safely and desaturation to 82% sitting EOB) Wheel 150 ft (QC): 88 (too debilitated to attempt safely and desaturation to 82% sitting EOB) Type of Wheelchair: Manual Stair Training 1 Step (curb) (QC): 88 (too debilitated to attempt safely and desaturation to 82% sitting EOB) 4 Steps (QC): 88 (too debilitated to attempt safely and desaturation to 82% sitting EOB) 12 Steps (QC): 88 (too debilitated to attempt safely and desaturation to 82% sitting EOB) Balance Picking up an Object (QC): 88 (too debilitated to attempt safely and desaturation to 82% sitting EOB) ADL-Treatment Eating (QC): 6 Oral Hygiene (QC): 6 Shower/Bathe Self (QC): 5 Upper Body Dressing (QC): 3 (Min A with managing shirt down back after shower.) Lower Body Dressing (QC): 2 On/Off Footwear (QC): 3 (Mod A overall. Pt able to doff, total assist to don.) Toileting Hygiene (QC): 3 (min A with pant hike.) Toilet Transfer (QC): 4 (CGA on/off BSC. ) Assessment/Plan Assessment and Plan Assess & Plan/Chief Complaint Assessment: Severe debility from COVID PNA Acute hypoxic respiratory failure Acute on chronic kidney failure initially 6.9 now back to baseline 2.0 IVÁN on CPAP Obesity s/p septic shock Anemia Protein malnutrition Hypokalemia HTN GERD Depression Iron def Left leg wound present before admit Plan: PT OT Monitor O2 [place] creat 12/30/2022: Iron and B12 check Monitor closely 12/31/2022: Monitor closely Midline tomorrow Venofer 01/01/2023: Midline Iron 01/02/2023: Monitor closely Potassium 01/03/2023: Improved kidney function Potassium to increase to TID from BID 01/04/2023: Improved overall 01/05/2023: Monitor closely (1) Acute on chronic renal failure Status: Acute (2) Pneumonia due to COVID-19 virus Status: Acute (3) Metabolic acidosis Status: Acute (4) SURAJ (acute kidney injury) SKY MARTE DO Jan 05, 2023 05:43
[2023-01-05 08:00] VITALS: BP 120/58
--- NOTE | 2023-01-05 08:15 | Occupational Ther Daily Note ---
OT Current Status-Daily Note Subjective Pt agreeable to OT Tx. Mental Status/Objective Patient Orientation: Normal For Age ADL-Treatment Therapy Code Descriptions/Definitions Functional [place] Measure: 0=Not Assessed/NA 4=Minimal Assistance 1=Total Assistance 5=Supervision or Setup 2=Maximal Assistance 6=Modified [place] 3=Moderate Assistance 7=Complete IndependenceSCALE: Activities may be completed with or without assistive devices. 8-Awawswqrra-zqorfpg completes the activity by him/herself with no assistance from a helper. 5-Set-up or Clean-up Assistance-helper sets up or cleans up; patient completes activity. [place] assists only prior to or following the activity. 4-Supervision or Touching Assistance-helper provides verbal cues and/or touching/steadying and/or contact guard assistance as patient completes activity . Assistance may be provided throughout the activity or intermittently. 3-Partial/Moderate Assistance-helper does LESS THAN HALF the effort. [place] lifts, holds or supports trunk or limbs, but provides less than half the effort. 2-Substantial/Maximal Assistance-helper does MORE THAN HALF the effort. [place] lifts or holds trunk or limbs and provides more than half the effort. 5-Wvtarxmwn-vargdi does ALL the effort. Patient does none of the effort to complete the activity. Or, the assistance of 2 or more helpers is required for the patient to complete the activity. If activity was not attempted, code reason: 7-Patient Refused. 9-Not Applicable-not attempted and the patient did not perform the activity before the current illness, exacerbation or injury. 10-Not Attempted due to Environmental Limitations-(lack of equipment, weather restraints, etc.). 88-Not Attempted due to Medical Conditions or Safety Concerns. Eating (QC): 6 Oral Hygiene (QC): 6 Toileting Hygiene (QC): 4 (SBA) Toilet Transfer (QC): 4 (SBA) Other Treatment Pt in bed, transferred supine to sit EOB, min A (LLE). Pt used FWW to transfer into bathroom and onto toilet, SBA. Pt completed toileting, then sat at sink for grooming tasks. Noted dressing on LLE starting to come undone, RN notified and dressing secured. Pt propelled w/c to therapy gym, SBA. OT tx focused on increasing BUE Strength and activity tolerance. Pt completed x3:15mins on arm bike, minimal resistance, 2 rest breaks. Pt then completed UE reaching task, placing/removing 1" pegs from foam pegboard, alternating hands. Pt propelled w/c back to her room, min A due to fatigue. SBA transfer from w/c to EOB using FWW, then min A sit to supine (assist LLE). Post tx, pt in bed, call light in reach and all need met. Education OT Patient Education: Correct positioning, Energy conservation, Modified ADL techniques, Progress toward Goal/Update tx plan, Purpose of tx/functional activities, Rehab process Teaching Recipient: Patient Teaching Methods: Discussion Response to Teaching: Verbalize Understanding OT Short Term Goals Short Term Goals Time Frame: Jan 05, 2023 Eatin Oral hygiene: 5 Toileting hygiene: 3 Shower/bathe self: 4 Upper body dressin Lower body dressin Putting on/taking off footwear: 3 OT [facility] Goals Telecasting Technician Goals Time Frame: Jan 19, 2023 Acute change in mental status: 1 Inattention: 0 Disorganized thinkin Altered level of consciousness: 0 Eating (QC): 6 Oral Hygiene (QC): 6 Toileting Hygiene (QC): 6 Shower/Bathe Self (QC): 6 Upper Body Dressing (QC): 6 Lower Body Dressing (QC): 6 On/Off Footwear (QC): 6 Additional Goals: 1-Demonstrate ADL Tasks, 2-Verbalize Understanding, 3- ImproveStrength/[place] 1=Demonstrate adherence to instructed precautions during ADL tasks. 2=Patient will verbalize/demonstrate understanding of assistive devices/modifications for ADL. 3=Patient will improve strength/tolerance for activity to enable patient to perform ADL's. OT Education/Plan Problem List/Assessment Assessment: Decreased Activ Tolerance, Decreased UE Strength, Impaired Funct Balance, Impaired I ADL's, Impaired Self-Care Skills Pt would benefit from skilled OT to increase her independence in basic self care to allow her to safely return home Discharge Recommendations Plan/Recommendations: Continue POC Treatment Plan/Plan of Care Patient would benefit from OT for education, treatment and training to promote independence in ADL's, mobility, safety and/or upper extremity function for ADL's. Plan of Care: ADL Retraining, Functional Mobility, Group Exercise/Act as Ind, UE Funct Exercise/Act, UE Neuromus Re-Ed/Coord, OTHER (energy conservation education) Treatment Duration: Jan 19, 2023 Frequency: Modified Program (IRF) (14/04) Estimated Hrs Per Day: 1.5 hours per day Agreement: Yes Rehab Potential: Fair Time Start Time: 07:30 Stop Time: 08:30 DATE: Jan 05, 2023 Total Time Billed (hr/min): 60 Billed Treatment Time 1, ADL 2 (30'), FA 2 (30') KITA DOBSON OT Jan 05, 2023 08:15
[2023-01-05] MEDS: IRON SUCROSE 200 MG/10 ML (VENOFER) VIAL IV SCH (08:50)
[2023-01-05] MEDS: ENOXAPARIN 40 MG/0.4 ML (LOVENOX) SYR SC SCH ×2 (08:54→21:13)
[2023-01-05] MEDS: meTOprolol TARTRATE 25 MG (LOPRESSOR) TABLET PO SCH ×2 (08:54→21:12)
[2023-01-05] MEDS: LACTOBACILLUS ACIDOPHILUS (PROBIOTIC) CAPSULE PO SCH ×3 (08:54→18:15)
[2023-01-05] MEDS: ALLOPURINOL 300 MG (ZYLOPRIM) TAB PO SCH (08:54)
[2023-01-05] MEDS: PANTOPRAZOLE 20 MG TABLET (PROTONIX) PO SCH (08:55)
[2023-01-05] MEDS: ASPIRIN E.C. 81 MG (ECOTRIN) TAB PO SCH (08:55)
[2023-01-05] MEDS: diphenhydrAMINE 25 MG TAB (BENADRYL) PO SCH ×2 (08:55→21:12)
[2023-01-05] MEDS: MICONAZOLE 2% POWDER (DESENEX AF) 90 GM TOP SCH ×2 (08:55→21:15)
[2023-01-05] MEDS: fluCOnazole (DIFLUCAN) 100 MG TAB PO SCH (08:55)
[2023-01-05] MEDS: VENlafaxine 75 MG (EFFEXOR) TAB PO SCH (08:55)
[2023-01-05] MEDS: KCL 10 MEQ TAB (MICRO K) PO SCH ×3 (08:55→18:15)
[2023-01-05] MEDS: amLODIPine 5 MG (NORVASC) TAB PO SCH (08:55)
[2023-01-05] MEDS: DOCUSATE SODIUM 100 MG (COLACE) CAP PO SCH ×2 (09:50→21:47)
[2023-01-05] MEDS: SENNA W/DOCUSATE (SENOKOT S) TABLET PO SCH ×2 (09:50→21:48)
[2023-01-05] MEDS: polyethylene glycoL POWDER 17 GM (MIRALAX) PACK PO SCH ×2 (09:50→21:48)
--- NOTE | 2023-01-05 10:51 | Physical Therapy Daily Note ---
PT Daily Note-Current Subjective Pt willing to participate in exercise. Notes that her leg is draining heavily this morning. Pain Section J - Health Conditions 1. Rarely or not at all 2. Occasionally 3. Frequently 4. Almost constantly 8. Unable to answer Pain Effect on Sleep: 1 Pain Interference with Therapy: 2 Pain Interference w/Day-to-Day: 2 Transfers SCALE: Activities may be completed with or without assistive devices. 2-Exjldkaljx-ekmezzw completes the activity by him/herself with no assistance from a helper. 5-Set-up or Clean-up Assistance-helper sets up or cleans up; patient completes activity. [place] assists only prior to or following the activity. 4-Supervision or Touching Assistance-helper provides verbal cues and/or touching/steadying and/or contact guard assistance as patient completes activity. Assistance may be provided throughout the activity or intermittently. 3-Partial/Moderate Assistance-helper does LESS THAN HALF the effort. [place] lifts, holds or supports trunk or limbs, but provides less than half the effort. 2-Substantial/Maximal Assistance-helper does MORE THAN HALF the effort. [place] lifts or holds trunk or limbs and provides more than half the effort. 9-Nnqjnpmai-esdzwi does ALL the effort. Patient does none of the effort to complete the activity. Or, the assistance of 2 or more helpers is required for the patient to complete the activity. If activity was not attempted, code reason: 7-Patient Refused. 9-Not Applicable-not attempted and the patient did not perform the activity before the current illness, exacerbation or injury. 10-Not Attempted due to Environmental Limitations-(lack of equipment, weather restraints, etc.). 88-Not Attempted due to Medical Conditions or Safety Concerns. Roll Left & Right (QC): 6 Sit to Lying (QC): 4 Lying to Sitting/Side of Bed(Q: 4 Sit to Stand (QC): 6 Chair/Pgq-hn-Camri Xfer(QC): 4 Pt able to come to standing without assist. She was able to transfer bed to w/c and back without assistive device but did have CGA for safety. Weight Bearing Right Lower Extremity: Right Weight Bearing/Tolerated Left Lower Extremity: Left Weight Bearing/Tolerated Gait Training Walk 50 ft with 2 Turns(QC): 4 Gait Assistive Device: FWW Ambulated 50ft x 5 trials all with seated rests between. Utilized FWW and CGA. Pt has pain in the left calf during wt bearing due to muscle contracture. Exercises Seated Therapy Exercises: Ankle pumps, Sit to stand, Long arc quads, Hip abd/add Seated Reps: 10 Standing: Heel/toe raises, 3 way Ex=Flex, Abd, Ext Standing Reps: 10 Seated rests between exercise due to fatigue and nausea. Assessment Current Status: Fair Progress Ambulation distance and stability is improving. Pt limited this session due to nausea. After each bout of walking and standing exercise, patient became nautious to the point of needing to vomit. PT Short Term Goals Short Term Goals Time Frame: Jan 03, 2023 PT [facility] Goals Hand Bender Goals PT Hand Bender Goals Time Frame: Jan 26, 2023 Roll Left & Right (QC): 6 Sit to Lying (QC): 5 (possible use of left leg dehairer) Lying-Sitting on Side/Bed(QC): 5 (possible use of left leg dehairer) Sit to Stand (QC): 6 (with FWW) Chair/Vxx-nu-Wminw Xfer(QC): 6 (with FWW) Toilet Transfer (QC): 6 (with FWW) Car Transfer (QC): 5 (with FWW) Does the Patient Walk: Yes Walk 10 feet (QC): 6 (with FWW and prn O2 assist with sats 90% or greater) Walk 50ft with 2 Turns (QC): 6 (with FWW and prn O2 assist with sats 90% or better) Walk 150 ft (QC): 5 (with FWW and prn O2 assist with sats 90% or greater) Walking 10ft on Uneven Surface: 5 (with FWW and O2 assist prn) 1 Step (curb) (QC): 5 4 Steps (QC): 4 (with (B) rails) 12 Steps (QC): 88 Picking up an Object (QC): 6 (with field marketing representative) Does the Pt use WC or Scooter?: No Wheel 50 feet with 2 turns (QC: 6 Type: Manual Wheel 150 feet: 6 Type: Manual PT Plan Treatment/Plan Treatment Plan: Continue Plan of Care, Discontinue PT, goals met, Discontinue PT, Modify Plan, see comments Treatment Plan: Bed Mobility, Education, Functional Activity [place], Functional Strength, Group Therapy, Gait, Safety, Therapeutic Exercise, Transfers Treatment Duration: Jan 26, 2023 Frequency: At least 5 of 7 days/Wk (IRF) Estimated Hrs Per Day: Other (Graduate) Patient and/or Family Agrees t: Yes Time Time In: 1000 Time Out: 1045 DATE: Jan 05, 2023 Total Billed Treatment Time: 45 Total Billed Treatment visit, gait 15 min, exercise 30 min ROMY TROY PT Jan 05, 2023 10:51
--- NOTE | 2023-01-05 15:02 | Therapy Group Daily Note ---
Therapy Daily Group Note Patient Education Topic Home Safety Exercises LE Seated Exercise, UE Exercise Session Ratio (pt:therapist): 3:1 Goal of Session: Home Safety Strategies, UE/LE Strengthing Goal Met for this Session: Yes Pt Benefit of Group: Contributions to Others, F/U Use of Strategies @Home, Increased Functional Safety, Increased Functional Strength, Improved Cognition, Recognition of Peers, Socialization Other/Notes Pt transported to w/c in therapy gym for OT/PT group. Group consisted on introductions (name, place living, home fall history), socialization, B UE/LE seated exercises and education on home safety. Pt introduced self appropriately and actively listened to peers. Pt able to complete B UE/LE seated exercises, tolerated well. Pt acknowledged understanding of educational topic by answering questions on subject through [employer] game. After session, pt lying in bed with call light/phone in reach. All needs met in room. Start Time: 13:00 Stop Time: 14:15 Total Billed Treatment Time: 75 Total Billed Treatment 1-SARAH CARNEY Jan 05, 2023 15:02
[2023-01-05] MEDS: HYPOCHLOROUS ACID/NaCl (VASHE) 250 ML IR SCH (15:32)
[2023-01-05 20:50] VITALS: BP 132/60
[2023-01-05] MEDS: MONTELUKAST 10 MG (SINGULAIR) TAB PO SCH (21:12)
[2023-01-05] MEDS: COLLAGENASE 30 GM (SANTYL) TUBE TP SCH (21:15)
--- NOTE | 2023-01-06 07:27 | PM&R Progress Note ---
Subjective HPI/CC On Admission Date Seen by Provider: Jan 06, 2023 Time Seen by Provider: 12:00 Subjective/Events-last exam 01/06/2023: Much improved status Prednisone tolerated No pain reported 01/05/2023: Patient doing well Doing well Monitor closely Dr Orr consult for left leg biopsy 01/04/2023: Feels really good Improved dramatically No pain reported Left leg wound improved 01/03/2023: Improved status Increasing strength No falls Labs improved No falls 01/02/2023: Much improved Overall doing well No pain reported Left leg wound improved 01/01/2023: Improved overall Midline will be placed and IV iron infusion ordered Creat stable Monitoring closely Increase potassium 12/31/2022: Much improved Walked a bit Showered today No pain 12/30/2022: Much improved Labs reviewed Creat 2.0 and that is her baseline BUN still elevated Monitor closely Review of Systems General: Fatigue, Malaise Objective Exam Vital Signs Vital Signs Date Time Temp Pulse Resp B/P (MAP) Pulse Ox O2 Delivery O2 Flow Rate FiO2 01/06/23 20:03 36.1 85 16 110/63 (79) 99 Room Air Capillary Refill : General Appearance: No Apparent Distress, WD/WN, Chronically ill, Obese HEENT: PERRL/EOMI, Normal ENT Inspection, Pharynx Normal Neck: Full Range of Motion, Normal Inspection, Non Tender, Supple, Carotid Bruit Respiratory: Chest Non Tender, Lungs Clear, No Accessory Muscle Use, No Respiratory Distress, Decreased Breath Sounds Cardiovascular: Regular Rate, Rhythm, No Edema, No Gallop, No JVD, No Murmur, Normal Peripheral Pulses Gastrointestinal: Normal Bowel Sounds, No Organomegaly, No Pulsatile Mass, Non Tender, Soft Back: Normal Inspection, No CVA Tenderness, No Vertebral Tenderness Extremity: Normal Capillary Refill, Normal Inspection, Normal Range of Motion, Non Tender, No Calf Tenderness, No Pedal Edema Neurologic/Psychiatric: Alert, Oriented x3, No Motor/Sensory Deficits, cleat feeder II- XII Norm as Tested, Abnormal Gait, Disoriented (subtle), Motor Weakness (generalized) Skin: Normal Color, Warm/Dry Lymphatic: No Adenopathy Results/Procedures Lab Patient resulted labs reviewed. FIM Transfers Therapy Code Descriptions/Definitions Functional [place] Measure: 0=Not Assessed/NA 4=Minimal Assistance 1=Total Assistance 5=Supervision or Setup 2=Maximal Assistance 6=Modified [place] 3=Moderate Assistance 7=Complete IndependenceSCALE: Activities may be completed with or without assistive devices. 2-Jfrupaxbwf-fklvjby completes the activity by him/herself with no assistance from a helper. 5-Set-up or Clean-up Assistance-helper sets up or cleans up; patient completes activity. [place] assists only prior to or following the activity. 4-Supervision or Touching Assistance-helper provides verbal cues and/or touching/steadying and/or contact guard assistance as patient completes activity. Assistance may be provided throughout the activity or intermittently. 3-Partial/Moderate Assistance-helper does LESS THAN HALF the effort. [place] lifts, holds or supports trunk or limbs, but provides less than half the effort. 2-Substantial/Maximal Assistance-helper does MORE THAN HALF the effort. [place] lifts or holds trunk or limbs and provides more than half the effort. 2-Rjxgzpwls-olyqnc does ALL the effort. Patient does none of the effort to complete the activity. Or, the assistance of 2 or more helpers is required for the patient to complete the activity. If activity was not attempted, code reason: 7-Patient Refused. 9-Not Applicable-not attempted and the patient did not perform the activity before the current illness, exacerbation or injury. 10-Not Attempted due to Environmental Limitations-(lack of equipment, weather restraints, etc.). 88-Not Attempted due to Medical Conditions or Safety Concerns. Roll Left to Right (QC): 6 Sit to Lying (QC): 4 Sit to Stand (QC): 6 Chair/Uda-px-Stlfg Xfer(QC): 4 Car Transfer (QC): 88 Gait Training Does the Patient Walk?: Yes Distance: 60, 80 feet Walk 10 feet (QC): 4 Walk 50 ft with 2 Turns(QC): 4 Walk 150 ft (QC): 88 (too debilitated to attempt safely and desaturation to 82% sitting EOB) Walking 10ft/uneven surface-QC: 88 (too debilitated to attempt safely and desaturation to 82% sitting EOB) Gait Persons Needed: 1 Gait Assistive Device: FWW Wheelchair Training Does the Pt Use a Wheelchair?: Yes Wheel 50 ft with 2 turns (QC): 88 (too debilitated to attempt safely and desaturation to 82% sitting EOB) Wheel 150 ft (QC): 88 (too debilitated to attempt safely and desaturation to 82% sitting EOB) Type of Wheelchair: Manual Stair Training 1 Step (curb) (QC): 88 (too debilitated to attempt safely and desaturation to 82% sitting EOB) 4 Steps (QC): 88 (too debilitated to attempt safely and desaturation to 82% sitting EOB) 12 Steps (QC): 88 (too debilitated to attempt safely and desaturation to 82% sitting EOB) Balance Picking up an Object (QC): 88 (too debilitated to attempt safely and desaturation to 82% sitting EOB) ADL-Treatment Eating (QC): 6 Oral Hygiene (QC): 6 Shower/Bathe Self (QC): 5 Upper Body Dressing (QC): 3 (Min A with managing shirt down back after shower.) Lower Body Dressing (QC): 2 On/Off Footwear (QC): 3 (Mod A overall. Pt able to doff, total assist to don.) Toileting Hygiene (QC): 4 (SBA) Toilet Transfer (QC): 4 (SBA) Assessment/Plan Assessment and Plan Assess & Plan/Chief Complaint Assessment: Severe debility from COVID PNA Acute hypoxic respiratory failure Acute on chronic kidney failure initially 6.9 now back to baseline 2.0 IVÁN on CPAP Obesity s/p septic shock Anemia Protein malnutrition Hypokalemia HTN GERD Depression Iron def Left leg wound present before admit Plan: PT OT Monitor O2 Montior creat 12/30/2022: Iron and B12 check Monitor closely 12/31/2022: Monitor closely Midline tomorrow Venofer 01/01/2023: Midline Iron 01/02/2023: Monitor closely Potassium 01/03/2023: Improved kidney function Potassium to increase to TID from BID 01/04/2023: Improved overall 01/05/2023: Monitor closely 01/06/2023: Monitor closely Prednisone (1) Acute on chronic renal failure Status: Acute (2) Pneumonia due to COVID-19 virus Status: Acute (3) Metabolic acidosis Status: Acute (4) SURAJ (acute kidney injury) SKY MARTE DO Jan 06, 2023 07:27
[2023-01-06 07:45] VITALS: BP 109/66
[2023-01-06] MEDS: fluCOnazole (DIFLUCAN) 100 MG TAB PO SCH (08:57)
[2023-01-06] MEDS: meTOprolol TARTRATE 25 MG (LOPRESSOR) TABLET PO SCH ×2 (08:57→20:45)
[2023-01-06] MEDS: amLODIPine 5 MG (NORVASC) TAB PO SCH (08:58)
[2023-01-06] MEDS: diphenhydrAMINE 25 MG TAB (BENADRYL) PO SCH ×2 (08:58→20:45)
[2023-01-06] MEDS: ALLOPURINOL 300 MG (ZYLOPRIM) TAB PO SCH (08:58)
[2023-01-06] MEDS: KCL 10 MEQ TAB (MICRO K) PO SCH ×3 (08:58→18:42)
[2023-01-06] MEDS: PANTOPRAZOLE 20 MG TABLET (PROTONIX) PO SCH (08:58)
[2023-01-06] MEDS: predniSONE 20 MG TAB PO SCH ×2 (08:58→20:45)
[2023-01-06] MEDS: ASPIRIN E.C. 81 MG (ECOTRIN) TAB PO SCH (08:58)
[2023-01-06] MEDS: LACTOBACILLUS ACIDOPHILUS (PROBIOTIC) CAPSULE PO SCH ×3 (08:58→18:42)
[2023-01-06] MEDS: VENlafaxine 75 MG (EFFEXOR) TAB PO SCH (08:58)
[2023-01-06] MEDS: DOCUSATE SODIUM 100 MG (COLACE) CAP PO SCH ×2 (09:02→20:48)
[2023-01-06] MEDS: polyethylene glycoL POWDER 17 GM (MIRALAX) PACK PO SCH ×2 (09:02→20:48)
[2023-01-06] MEDS: SENNA W/DOCUSATE (SENOKOT S) TABLET PO SCH ×2 (09:02→20:48)
[2023-01-06] MEDS: ENOXAPARIN 40 MG/0.4 ML (LOVENOX) SYR SC SCH ×2 (09:02→20:45)
[2023-01-06] MEDS: COLLAGENASE 30 GM (SANTYL) TUBE TP SCH ×2 (09:02→20:49)
[2023-01-06] MEDS: MICONAZOLE 2% POWDER (DESENEX AF) 90 GM TOP SCH ×2 (09:03→20:49)
[2023-01-06] MEDS: HYPOCHLOROUS ACID/NaCl (VASHE) 250 ML IR SCH (09:04)
[2023-01-06] MEDS: TRIAMCINOLONE 0.5% CR (KENALOG) 15 GM TUBE TOP SCH ×2 (11:29→20:50)
[2023-01-06 20:03] VITALS: BP 110/63
[2023-01-06] MEDS: MONTELUKAST 10 MG (SINGULAIR) TAB PO SCH (20:45)
--- NOTE | 2023-01-07 06:10 | PM&R Progress Note ---
Subjective HPI/CC On Admission Date Seen by Provider: Jan 07, 2023 Time Seen by Provider: 09:00 Subjective/Events-last exam 01/07/2023: Much improved left leg movement Prednisone is really helping her Skin biopsy pending 01/06/2023: Much improved status Prednisone tolerated No pain reported 01/05/2023: Patient doing well Doing well Monitor closely Dr Orr consult for left leg biopsy 01/04/2023: Feels really good Improved dramatically No pain reported Left leg wound improved 01/03/2023: Improved status Increasing strength No falls Labs improved No falls 01/02/2023: Much improved Overall doing well No pain reported Left leg wound improved 01/01/2023: Improved overall Midline will be placed and IV iron infusion ordered Creat stable Monitoring closely Increase potassium 12/31/2022: Much improved Walked a bit Showered today No pain 12/30/2022: Much improved Labs reviewed Creat 2.0 and that is her baseline BUN still elevated Monitor closely Review of Systems General: Fatigue, Malaise Objective Exam Vital Signs Vital Signs Date Time Temp Pulse Resp B/P (MAP) Pulse Ox O2 Delivery O2 Flow Rate FiO2 01/07/23 09:00 Room Air 01/07/23 08:00 36.2 85 18 118/58 (78) 99 Capillary Refill : General Appearance: No Apparent Distress, WD/WN, Chronically ill, Obese HEENT: PERRL/EOMI, Normal ENT Inspection, Pharynx Normal Neck: Full Range of Motion, Normal Inspection, Non Tender, Supple, Carotid Bruit Respiratory: Chest Non Tender, Lungs Clear, No Accessory Muscle Use, No Respiratory Distress, Decreased Breath Sounds Cardiovascular: Regular Rate, Rhythm, No Edema, No Gallop, No JVD, No Murmur, Normal Peripheral Pulses Gastrointestinal: Normal Bowel Sounds, No Organomegaly, No Pulsatile Mass, Non Tender, Soft Back: Normal Inspection, No CVA Tenderness, No Vertebral Tenderness Extremity: Normal Capillary Refill, Normal Inspection, Normal Range of Motion, Non Tender, No Calf Tenderness, No Pedal Edema Neurologic/Psychiatric: Alert, Oriented x3, No Motor/Sensory Deficits, accredited pharmacy technician II- XII Norm as Tested, Abnormal Gait, Disoriented (subtle), Motor Weakness (generalized) Skin: Normal Color, Warm/Dry Lymphatic: No Adenopathy Results/Procedures Lab Patient resulted labs reviewed. FIM Transfers Therapy Code Descriptions/Definitions Functional [place] Measure: 0=Not Assessed/NA 4=Minimal Assistance 1=Total Assistance 5=Supervision or Setup 2=Maximal Assistance 6=Modified [place] 3=Moderate Assistance 7=Complete IndependenceSCALE: Activities may be completed with or without assistive devices. 8-Enseqmrtln-rubxcuf completes the activity by him/herself with no assistance from a helper. 5-Set-up or Clean-up Assistance-helper sets up or cleans up; patient completes activity. [place] assists only prior to or following the activity. 4-Supervision or Touching Assistance-helper provides verbal cues and/or touching/steadying and/or contact guard assistance as patient completes activity. Assistance may be provided throughout the activity or intermittently. 3-Partial/Moderate Assistance-helper does LESS THAN HALF the effort. [place] lifts, holds or supports trunk or limbs, but provides less than half the effort. 2-Substantial/Maximal Assistance-helper does MORE THAN HALF the effort. [place] lifts or holds trunk or limbs and provides more than half the effort. 6-Ljbdkmrge-dihfrd does ALL the effort. Patient does none of the effort to complete the activity. Or, the assistance of 2 or more helpers is required for the patient to complete the activity. If activity was not attempted, code reason: 7-Patient Refused. 9-Not Applicable-not attempted and the patient did not perform the activity be fore the current illness, exacerbation or injury. 10-Not Attempted due to Environmental Limitations-(lack of equipment, weather restraints, etc.). 88-Not Attempted due to Medical Conditions or Safety Concerns. Roll Left to Right (QC): 6 Sit to Lying (QC): 4 Sit to Stand (QC): 6 Chair/Xdn-xg-Nfrzo Xfer(QC): 4 Car Transfer (QC): 88 Gait Training Does the Patient Walk?: Yes Distance: 60, 80 feet Walk 10 feet (QC): 4 Walk 50 ft with 2 Turns(QC): 4 Walk 150 ft (QC): 88 (too debilitated to attempt safely and desaturation to 82% sitting EOB) Walking 10ft/uneven surface-QC: 88 (too debilitated to attempt safely and desaturation to 82% sitting EOB) Gait Persons Needed: 1 Gait Assistive Device: FWW Wheelchair Training Does the Pt Use a Wheelchair?: Yes Wheel 50 ft with 2 turns (QC): 88 (too debilitated to attempt safely and desaturation to 82% sitting EOB) Wheel 150 ft (QC): 88 (too debilitated to attempt safely and desaturation to 82% sitting EOB) Type of Wheelchair: Manual Stair Training 1 Step (curb) (QC): 88 (too debilitated to attempt safely and desaturation to 82% sitting EOB) 4 Steps (QC): 88 (too debilitated to attempt safely and desaturation to 82% sitting EOB) 12 Steps (QC): 88 (too debilitated to attempt safely and desaturation to 82% sitting EOB) Balance Picking up an Object (QC): 88 (too debilitated to attempt safely and desaturation to 82% sitting EOB) ADL-Treatment Eating (QC): 6 Oral Hygiene (QC): 6 Shower/Bathe Self (QC): 5 Upper Body Dressing (QC): 3 (Min A with managing shirt down back after shower.) Lower Body Dressing (QC): 2 On/Off Footwear (QC): 3 (Mod A overall. 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 Plan: PT OT Monitor O2 Montior creat 12/30/2022: Iron and B12 check Monitor closely 12/31/2022: Monitor closely Midline tomorrow Venofer 01/01/2023: Midline Iron 01/02/2023: Monitor closely Potassium 01/03/2023: Improved kidney function Potassium to increase to TID from BID 01/04/2023: Improved overall 01/05/2023: Monitor closely 01/06/2023: Monitor closely Prednisone 01/07/2023: Improved status Continue steroids and steroid cream (1) Acute on chronic renal failure Status: Acute (2) Pneumonia due to COVID-19 virus Status: Acute (3) Metabolic acidosis Status: Acute (4) SURAJ (acute kidney injury) SKY MARTE DO Jan 07, 2023 06:10
[2023-01-07 08:00] VITALS: BP 118/58
[2023-01-07] MEDS: ENOXAPARIN 40 MG/0.4 ML (LOVENOX) SYR SC SCH ×2 (08:33→21:42)
[2023-01-07] MEDS: IRON SUCROSE 200 MG/10 ML (VENOFER) VIAL IV SCH (08:35)
[2023-01-07] MEDS: fluCOnazole (DIFLUCAN) 100 MG TAB PO SCH (08:39)
[2023-01-07] MEDS: LACTOBACILLUS ACIDOPHILUS (PROBIOTIC) CAPSULE PO SCH ×3 (08:39→17:04)
[2023-01-07] MEDS: PANTOPRAZOLE 20 MG TABLET (PROTONIX) PO SCH (08:39)
[2023-01-07] MEDS: meTOprolol TARTRATE 25 MG (LOPRESSOR) TABLET PO SCH ×2 (08:39→21:42)
[2023-01-07] MEDS: VENlafaxine 75 MG (EFFEXOR) TAB PO SCH (08:39)
[2023-01-07] MEDS: amLODIPine 5 MG (NORVASC) TAB PO SCH (08:39)
[2023-01-07] MEDS: KCL 10 MEQ TAB (MICRO K) PO SCH ×3 (08:40→17:04)
[2023-01-07] MEDS: ALLOPURINOL 300 MG (ZYLOPRIM) TAB PO SCH (08:40)
[2023-01-07] MEDS: ASPIRIN E.C. 81 MG (ECOTRIN) TAB PO SCH (08:40)
[2023-01-07] MEDS: diphenhydrAMINE 25 MG TAB (BENADRYL) PO SCH ×2 (08:40→21:42)
[2023-01-07] MEDS: polyethylene glycoL POWDER 17 GM (MIRALAX) PACK PO SCH ×2 (08:42→21:30)
[2023-01-07] MEDS: DOCUSATE SODIUM 100 MG (COLACE) CAP PO SCH ×2 (08:42→21:30)
[2023-01-07] MEDS: SENNA W/DOCUSATE (SENOKOT S) TABLET PO SCH ×2 (08:42→21:30)
[2023-01-07] MEDS: predniSONE 20 MG TAB PO SCH ×2 (08:45→21:42)
[2023-01-07] MEDS: MICONAZOLE 2% POWDER (DESENEX AF) 90 GM TOP SCH ×2 (09:00→21:45)
[2023-01-07] MEDS: COLLAGENASE 30 GM (SANTYL) TUBE TP SCH ×2 (09:52→21:45)
[2023-01-07] MEDS: TRIAMCINOLONE 0.5% CR (KENALOG) 15 GM TUBE TOP SCH ×2 (11:47→21:45)
[2023-01-07] MEDS: HYPOCHLOROUS ACID/NaCl (VASHE) 250 ML IR SCH (11:47)
[2023-01-07 20:15] VITALS: BP 114/55
[2023-01-07] MEDS: MONTELUKAST 10 MG (SINGULAIR) TAB PO SCH (21:42)
--- NOTE | 2023-01-08 05:24 | PM&R Progress Note ---
Subjective HPI/CC On Admission Date Seen by Provider: Jan 08, 2023 Time Seen by Provider: 09:00 Subjective/Events-last exam 01/08/2023: Improved overall Hgb 7.2 so will give 1 unit of blood Left leg improved 01/07/2023: Much improved left leg movement Prednisone is really helping her Skin biopsy pending 01/06/2023: Much improved status Prednisone tolerated No pain reported 01/05/2023: Patient doing well Doing well Monitor closely Dr Orr consult for left leg biopsy 01/04/2023: Feels really good Improved dramatically No pain reported Left leg wound improved 01/03/2023: Improved status Increasing strength No falls Labs improved No falls 01/02/2023: Much improved Overall doing well No pain reported Left leg wound improved 01/01/2023: Improved overall Midline will be placed and IV iron infusion ordered Creat stable Monitoring closely Increase potassium 12/31/2022: Much improved Walked a bit Showered today No pain 12/30/2022: Much improved Labs reviewed Creat 2.0 and that is her baseline BUN still elevated Monitor closely Review of Systems General: Fatigue, Malaise Musculoskeletal: leg pain Objective Exam Vital Signs Vital Signs Date Time Temp Pulse Resp B/P (MAP) Pulse Ox O2 Delivery O2 Flow Rate FiO2 01/08/23 21:34 Room Air 01/08/23 20:30 36.1 81 20 134/61 (85) 99 Capillary Refill : General Appearance: No Apparent Distress, WD/WN, Chronically ill, Obese HEENT: PERRL/EOMI, Normal ENT Inspection, Pharynx Normal Neck: Full Range of Motion, Normal Inspection, Non Tender, Supple, Carotid Bruit Respiratory: Chest Non Tender, Lungs Clear, No Accessory Muscle Use, No Respira tory Distress, Decreased Breath Sounds Cardiovascular: Regular Rate, Rhythm, No Edema, No Gallop, No JVD, No Murmur, Normal Peripheral Pulses Gastrointestinal: Normal Bowel Sounds, No Organomegaly, No Pulsatile Mass, Non Tender, Soft Back: Normal Inspection, No CVA Tenderness, No Vertebral Tenderness Extremity: Normal Capillary Refill, Normal Inspection, Normal Range of Motion, Non Tender, No Calf Tenderness, No Pedal Edema Neurologic/Psychiatric: Alert, Oriented x3, No Motor/Sensory Deficits, motion picture narrator II- XII Norm as Tested, Abnormal Gait, Disoriented (subtle), Motor Weakness (generalized) Skin: Normal Color, Warm/Dry Lymphatic: No Adenopathy Results/Procedures Lab Laboratory Tests 01/08/23 06:05 Patient resulted labs reviewed. FIM Transfers Therapy Code Descriptions/Definitions Functional [place] Measure: 0=Not Assessed/NA 4=Minimal Assistance 1=Total Assistance 5=Supervision or Setup 2=Maximal Assistance 6=Modified [place] 3=Moderate Assistance 7=Complete IndependenceSCALE: Activities may be completed with or without assistive devices. 7-Vukqttitnv-mkdohyq completes the activity by him/herself with no assistance from a helper. 5-Set-up or Clean-up Assistance-helper sets up or cleans up; patient completes activity. [place] assists only prior to or following the activity. 4-Supervision or Touching Assistance-helper provides verbal cues and/or t ouching/steadying and/or contact guard assistance as patient completes activity. Assistance may be provided throughout the activity or intermittently. 3-Partial/Moderate Assistance-helper does LESS THAN HALF the effort. [place] lifts, holds or supports trunk or limbs, but provides less than half the effort. 2-Substantial/Maximal Assistance-helper does MORE THAN HALF the effort. [place] lifts or holds trunk or limbs and provides more than half the effort. 4-Uwtitsfnm-wfbogc does ALL the effort. Patient does none of the effort to complete the activity. Or, the assistance of 2 or more helpers is required for the patient to complete the activity. If activity was not attempted, code reason: 7-Patient Refused. 9-Not Applicable-not attempted and the patient did not perform the activity before the current illness, exacerbation or injury. 10-Not Attempted due to Environmental Limitations-(lack of equipment, weather restraints, etc.). 88-Not Attempted due to Medical Conditions or Safety Concerns. Roll Left to Right (QC): 6 Sit to Lying (QC): 4 Sit to Stand (QC): 6 Chair/Wto-ha-Tpfur Xfer(QC): 4 Car Transfer (QC): 88 Gait Training Does the Patient Walk?: Yes Distance: 60, 80 feet Walk 10 feet (QC): 4 Walk 50 ft with 2 Turns(QC): 4 Walk 150 ft (QC): 88 (too debilitated to attempt safely and desaturation to 82% sitting EOB) Walking 10ft/uneven surface-QC: 88 (too debilitated to attempt safely and desaturation to 82% sitting EOB) Gait Persons Needed: 1 Gait Assistive Device: FWW Wheelchair Training Does the Pt Use a Wheelchair?: Yes Wheel 50 ft with 2 turns (QC): 88 (too debilitated to attempt safely and desaturation to 82% sitting EOB) Wheel 150 ft (QC): 88 (too debilitated to attempt safely and desaturation to 82% sitting EOB) Type of Wheelchair: Manual Stair Training 1 Step (curb) (QC): 88 (too debilitated to attempt safely and desaturation to 82% sitting EOB) 4 Steps (QC): 88 (too debilitated to attempt safely and desaturation to 82% sitting EOB) 12 Steps (QC): 88 (too debilitated to attempt safely and desaturation to 82% sitting EOB) Balance Picking up an Object (QC): 88 (too debilitated to attempt safely and desaturation to 82% sitting EOB) ADL-Treatment Eating (QC): 6 Oral Hygiene (QC): 6 Shower/Bathe Self (QC): 5 Upper Body Dressing (QC): 3 (Min A with managing shirt down back after shower.) Lower Body Dressing (QC): 2 On/Off Footwear (QC): 3 (Mod A overall. 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 Plan: PT OT Monitor O2 Mont[place] creat 12/30/2022: Iron and B12 check Monitor closely 12/31/2022: Monitor closely Midline tomorrow Venofer 01/01/2023: Midline Iron 01/02/2023: Monitor closely Potassium 01/03/2023: Improved kidney function Potassium to increase to TID from BID 01/04/2023: Improved overall 01/05/2023: Monitor closely 01/06/2023: Monitor closely Prednisone 01/07/2023: Improved status Continue steroids and steroid cream 01/08/2023: Transfuse 1 unit (1) Acute on chronic renal failure Status: Acute (2) Pneumonia due to COVID-19 virus Status: Acute (3) Metabolic acidosis Status: Acute (4) SURAJ (acute kidney injury) SKY MARTE DO Jan 08, 2023 05:24
[2023-01-08 06:40] LABS: BASOPHILS % (AUTO) 0 % (0-10); EOSINOPHILS % (AUTO) 0 % (0-10); HEMATOCRIT 23 % (35-52); HEMOGLOBIN 7.2 g/dL (11.5-16.0); LYMPHOCYTES # (AUTO) 1.6 10^3/uL (1.0-4.0); LYMPHOCYTES % (AUTO) 21 % (12-44); MEAN CORPUSCULAR HEMOGLOBIN 30 pg (25-34); MEAN CORPUSCULAR HGB CONC 32 g/dL (32-36); MEAN CORPUSCULAR VOLUME 93 fL (80-99); MEAN PLATELET VOLUME 10.3 fL (9.0-12.2); MONOCYTES # (AUTO) 0.5 10^3/uL (0.0-1.0); MONOCYTES % (AUTO) 7 % (0-12); NEUTROPHILS # (AUTO) 5.2 10^3/uL (1.8-7.8); NEUTROPHILS % (AUTO) 68 % (42-75); PLATELET COUNT 449 10^3/uL (130-400); WHITE BLOOD COUNT 7.6 10^3/uL (4.3-11.0)
[2023-01-08 06:47] LABS: ALBUMIN 2.5 GM/DL (3.2-4.5)
[2023-01-08 06:48] LABS: POTASSIUM 3.9 MMOL/L (3.6-5.0)
[2023-01-08 06:49] LABS: CALCIUM 8.5 MG/DL (8.5-10.1)
[2023-01-08 06:50] LABS: TOTAL PROTEIN 5.2 GM/DL (6.4-8.2)
[2023-01-08 06:52] LABS: BILIRUBIN,TOTAL 0.2 MG/DL (0.1-1.0)
[2023-01-08 06:54] LABS: CREATININE SERUM 2.29 MG/DL (0.60-1.30)
[2023-01-08 07:53] VITALS: BP 100/50
--- NOTE | 2023-01-08 08:34 | Occupational Ther Daily Note ---
OT Current Status-Daily Note Subjective Pt in bed, agreeable to OT Tx Mental Status/Objective Patient Orientation: Normal For Age ADL-Treatment Therapy Code Descriptions/Definitions Functional [place] Measure: 0=Not Assessed/NA 4=Minimal Assistance 1=Total Assistance 5=Supervision or Setup 2=Maximal Assistance 6=Modified [place] 3=Moderate Assistance 7=Complete IndependenceSCALE: Activities may be completed with or without assistive devices. 7-Iwbgjnvhwe-rfronvb completes the activity by him/herself with no assistance from a helper. 5-Set-up or Clean-up Assistance-helper sets up or cleans up; patient completes activity. [place] assists only prior to or following the activity. 4-Supervision or Touching Assistance-helper provides verbal cues and/or touching/steadying and/or contact guard assistance as patient completes a ctivity. Assistance may be provided throughout the activity or intermittently. 3-Partial/Moderate Assistance-helper does LESS THAN HALF the effort. [place] lifts, holds or supports trunk or limbs, but provides less than half the effort. 2-Substantial/Maximal Assistance-helper does MORE THAN HALF the effort. [place] lifts or holds trunk or limbs and provides more than half the effort. 1-Ayadpxrey-awtjps does ALL the effort. Patient does none of the effort to complete the activity. Or, the assistance of 2 or more helpers is required for the patient to complete the activity. If activity was not attempted, code reason: 7-Patient Refused. 9-Not Applicable-not attempted and the patient did not perform the activity before the current illness, exacerbation or injury. 10-Not Attempted due to Environmental Limitations-(lack of equipment, weather restraints, etc.). 88-Not Attempted due to Medical Conditions or Safety Concerns. Shower/Bathe Self (QC): 5 Lower Body Dressing (QC): 5 Toileting Hygiene (QC): 6 Toilet Transfer (QC): 6 Other Treatment Pt in bed, transferred supine to sit EOB, min A. Pt used FWW to transfer into bathroom, completing toileting, showering and dressing as outlined above. After shower, pt transferred to EOB, then supine (min A with LLE). Pt's RN present to change LLE dressing, OT assisted with pt positioning as needed and cleaned up bathroom from ADL session. Pt able to doff b/l gripper socks without assistance prior to shower, but pt was not given opportunity to don due to time constraint at end of tx, thus no QC score given at this time. Pt states she feels ready to discharge on , states no concerns with her ability to complete ADLs at this time. Pt plans to wear slip on shoes and night gowns/dresses when she returns home, in order to keep pants off of LLE wounds. Post tx, pt in bed, call light in reach and all needs met. Education OT Patient Education: Correct positioning, Energy conservation, Modified ADL techniques, Progress toward Goal/Update tx plan, Purpose of tx/functional activities, Rehab process Teaching Recipient: Patient Teaching Methods: Discussion Response to Teaching: Verbalize Understanding OT Short Term Goals Short Term Goals Time Frame: Jan 05, 2023 Eatin Oral hygiene: 5 Toileting hygiene: 3 Shower/bathe self: 4 Upper body dressin Lower body dressin Putting on/taking off footwear: 3 OT Halfway Goals Halfway Goals Time Frame: Jan 19, 2023 Acute change in mental status: 1 Inattention: 0 Disorganized thinkin Altered level of consciousness: 0 Eating (QC): 6 Oral Hygiene (QC): 6 Toileting Hygiene (QC): 6 Shower/Bathe Self (QC): 6 Upper Body Dressing (QC): 6 Lower Body Dressing (QC): 6 On/Off Footwear (QC): 6 Additional Goals: 1-Demonstrate ADL Tasks, 2-Verbalize Understanding, 3- ImproveStrength/[place] 1=Demonstrate adherence to instructed precautions during ADL tasks. 2=Patient will verbalize/demonstrate understanding of assistive devices/modifications for ADL. 3=Patient will improve strength/tolerance for activity to enable patient to perform ADL's. OT Education/Plan Problem List/Assessment Assessment: Decreased Activ Tolerance, Decreased UE Strength, Impaired Funct Balance, Impaired I ADL's, Impaired Self-Care Skills Pt would benefit from skilled OT to increase her independence in basic self care to allow her to safely return home Discharge Recommendations Plan/Recommendations: Continue POC Treatment Plan/Plan of Care Patient would benefit from OT for education, treatment and training to promote independence in ADL's, mobility, safety and/or upper extremity function for ADL's. Plan of Care: ADL Retraining, Functional Mobility, Group Exercise/Act as Ind, UE Funct Exercise/Act, UE Neuromus Re-Ed/Coord, OTHER (energy conservation educ ation) Treatment Duration: Jan 19, 2023 Frequency: Modified Program (IRF) (14/04) Estimated Hrs Per Day: 1.5 hours per day Agreement: Yes Rehab Potential: Fair Time Start Time: 07:45 Stop Time: 09:00 DATE: Jan 08, 2023 Total Time Billed (hr/min): 75 Billed Treatment Time 1, ADL 5 KITA DOBSON OT Jan 08, 2023 08:34
[2023-01-08] MEDS: LACTOBACILLUS ACIDOPHILUS (PROBIOTIC) CAPSULE PO SCH ×3 (09:00→18:06)
[2023-01-08] MEDS: fluCOnazole (DIFLUCAN) 100 MG TAB PO SCH (09:00)
[2023-01-08] MEDS: amLODIPine 5 MG (NORVASC) TAB PO SCH (09:00)
[2023-01-08] MEDS: diphenhydrAMINE 25 MG TAB (BENADRYL) PO SCH ×2 (09:00→21:00)
[2023-01-08] MEDS: ALLOPURINOL 300 MG (ZYLOPRIM) TAB PO SCH (09:00)
[2023-01-08] MEDS: predniSONE 20 MG TAB PO SCH ×2 (09:00→21:00)
[2023-01-08] MEDS: PANTOPRAZOLE 20 MG TABLET (PROTONIX) PO SCH (09:00)
[2023-01-08] MEDS: VENlafaxine 75 MG (EFFEXOR) TAB PO SCH (09:00)
[2023-01-08] MEDS: ASPIRIN E.C. 81 MG (ECOTRIN) TAB PO SCH (09:00)
[2023-01-08] MEDS: polyethylene glycoL POWDER 17 GM (MIRALAX) PACK PO SCH ×2 (09:01→19:30)
[2023-01-08] MEDS: DOCUSATE SODIUM 100 MG (COLACE) CAP PO SCH ×2 (09:01→19:30)
[2023-01-08] MEDS: meTOprolol TARTRATE 25 MG (LOPRESSOR) TABLET PO SCH ×2 (09:01→21:00)
[2023-01-08] MEDS: KCL 10 MEQ TAB (MICRO K) PO SCH ×3 (09:01→18:06)
[2023-01-08] MEDS: TRIAMCINOLONE 0.5% CR (KENALOG) 15 GM TUBE TOP SCH ×2 (09:03→21:02)
[2023-01-08] MEDS: HYPOCHLOROUS ACID/NaCl (VASHE) 250 ML IR SCH (09:03)
[2023-01-08] MEDS: COLLAGENASE 30 GM (SANTYL) TUBE TP SCH ×2 (09:04→21:02)
[2023-01-08] MEDS: SENNA W/DOCUSATE (SENOKOT S) TABLET PO SCH ×2 (09:04→19:31)
[2023-01-08] MEDS: MICONAZOLE 2% POWDER (DESENEX AF) 90 GM TOP SCH ×2 (09:04→21:02)
[2023-01-08] MEDS ORDERED: FUROSEMIDE 40 MG/4 ML INJ (LASIX) IVP NR (09:45)
[2023-01-08] MEDS ORDERED: FUROSEMIDE 40 MG/4 ML INJ (LASIX) IVP ONE (09:45)
[2023-01-08] MEDS ORDERED: NS IV 500 ML 500 ML IV SCH (09:45)
--- NOTE | 2023-01-08 10:28 | Physical Therapy Daily Note ---
PT Daily Note-Current Subjective Patient states she had a good weekend and was able to walk more with her walker. zIs not having any c/o pain this a.m. Pain Section J - Health Conditions 1. Rarely or not at all 2. Occasionally 3. Frequently 4. Almost constantly 8. Unable to answer Pain Effect on Sleep: 1 Pain Interference with Therapy: 1 Pain Interference w/Day-to-Day: 1 Appearance Laying in bed with bandage retainer over (L) LE dressings. Transfers SCALE: Activities may be completed with or without assistive devices. 2-Xeygoawnfi-tycxsde completes the activity by him/herself with no assistance from a helper. 5-Set-up or Clean-up Assistance-helper sets up or cleans up; patient completes activity. [place] assists only prior to or following the activity. 4-Supervision or Touching Assistance-helper provides verbal cues and/or touchin g/steadying and/or contact guard assistance as patient completes activity. Assistance may be provided throughout the activity or intermittently. 3-Partial/Moderate Assistance-helper does LESS THAN HALF the effort. [place] lifts, holds or supports trunk or limbs, but provides less than half the effort. 2-Substantial/Maximal Assistance-helper does MORE THAN HALF the effort. [place] lifts or holds trunk or limbs and provides more than half the effort. 0-Sakvsnowc-mocpiw does ALL the effort. Patient does none of the effort to complete the activity. Or, the assistance of 2 or more helpers is required for the patient to complete the activity. If activity was not attempted, code reason: 7-Patient Refused. 9-Not Applicable-not attempted and the patient did not perform the activity before the current illness, exacerbation or injury. 10-Not Attempted due to Environmental Limitations-(lack of equipment, weather restraints, etc.). 88-Not Attempted due to Medical Conditions or Safety Concerns. Sit to Lying (QC): 4 Lying to Sitting/Side of Bed(Q: 6 (with use of bedrail) Sit to Stand (QC): 6 (from w/c to FWW, multiple times throughout treatment session) Chair/Ydq-sv-Vccgk Xfer(QC): 6 (with FWW bed<>w/c) Weight Bearing Right Lower Extremity: Right Weight Bearing/Tolerated Left Lower Extremity: Left Weight Bearing/Tolerated Gait Training Distance: 200', 150' with FWW SBA-(I). w/c f/u Walk 150 ft (QC): 5 Gait Assistive Device: FWW O2 saturations 99-100% with gait activity. Stair Training 1 Step (curb) (QC): 4 ((B) rails x 3 in // bars CGA) 4 Steps (QC): 3 (CGA-min (A) with (B) rails up two 6" steps, 180* turn then down two 6" steps (using curb off last step). Seated rest.Min (A) using both hands on (R) rail stepping up 2 steps min (A). Min (A) using both hands on (L) rail to step down 1 step, then walker to descend to floor. Discussed using FWW as "railing" on (L) since her steps are too far apart to use (B) rails at home. ) Exercises Supine ex: -ankle pumps x 15 -ankle circles x 10 CW/CCW with foot elevated by PT -quad sets x 10 x :05 -SAQ (R)/(L) over PT's knee x 10 (B) -SLR (L) with min (A) x 10 (L) hip abd/add with PT elevating foot only x 10 -bridges x 6 with PT bracing (L) foot on bed Standing ex in // bars: -Standing tap ups to 4" curb step x 10 (B) with (B) CLOTHING TRADES WORKERS -Seated rest break x 1 minute -step up forward/down backward off 4" curb x 2 --seated rest break x 1 minutes -curb step up/over, turn 180 and up/over 2nd time CGA with (B) CLOTHING TRADES WORKERS -Heel/toe raises x 15 (B) -Hi-knee march in place x 10 (B) --sitting rest break x 1 minute -Alternating hip abduction x 10 (B) --sitting rest break with water x 1 minute -Ham curls x 5 (L) x 5 (R) x 2 sets. Treatments Gait/stair ambulation, therapeutic ex in supine and standing. Assessment Current Status: Good Progress Patient has progressed steadily since admission and is essentially SBA-mod (I) for basic sit<>stand, transfers and gait with a FWW. Requires occasional assist to lift (L) leg into bed, but this can also be accomplished with a leg clinical review nurse/gait belt. Performed curbs/steps with (B) railing well with CGA, no LOB. Has only 1 railing at home, so will benefit from training on using FWW as 2nd "railing". PT Short Term Goals Short Term Goals Time Frame: Jan 03, 2023 PT Clinical Professor Goals Clinical Professor Goals PT Clinical Professor Goals Time Frame: Jan 26, 2023 Roll Left & Right (QC): 6 Sit to Lying (QC): 5 (possible use of left leg clinical review nurse) Lying-Sitting on Side/Bed(QC): 5 (possible use of left leg clinical review nurse) Sit to Stand (QC): 6 (with FWW) Chair/Jyl-jp-Otggz Xfer(QC): 6 (with FWW) Toilet Transfer (QC): 6 (with FWW) Car Transfer (QC): 5 (with FWW) Does the Patient Walk: Yes Walk 10 feet (QC): 6 (with FWW and prn O2 assist with sats 90% or greater) Walk 50ft with 2 Turns (QC): 6 (with FWW and prn O2 assist with sats 90% or better) Walk 150 ft (QC): 5 (with FWW and prn O2 assist with sats 90% or greater) Walking 10ft on Uneven Surface: 5 (with FWW and O2 assist prn) 1 Step (curb) (QC): 5 4 Steps (QC): 4 (with (B) rails) 12 Steps (QC): 88 Picking up an Object (QC): 6 (with primary teaching assistant) Does the Pt use WC or Scooter?: No Wheel 50 feet with 2 turns (QC: 6 Type: Manual Wheel 150 feet: 6 Type: Manual PT Plan Problem List Problem List: Activity Tolerance, Functional Strength, Balance, Gait, Transfer, Bed Mobility, ROM, Other (Stair ambulation) Treatment/Plan Treatment Plan: Continue Plan of Care Treatment Plan: Bed Mobility, Education, Functional Activity [place], Functional Strength, Group Therapy, Gait, Safety, Therapeutic Exercise, Transfers, Other (Stair training) Treatment Duration: Jan 26, 2023 Frequency: At least 5 of 7 days/Wk (IRF) Estimated Hrs Per Day: Other (Graduate) Patient and/or Family Agrees t: Yes Safety Risks/Education Teaching Recipient: Patient Teaching Methods: Demonstration, Discussion Response to Teaching: Verbalize Understanding, Reinforcement Needed Needs continued stair ambulation for home, using walker as second railing, as stairs are too wide at home to use both railings. Patient will also have assist of a family member to enter home. Discharge Recommendations Plan Patient will continue to required FWW for gait in the home at D/C as an energy conservation tool until her activity tolerance improves to point of using a cane. Recommend Home Health PT after D/C, as well as Home Health nursing for wounds. Time Time In: 900 Time Out: 1000 DATE: Jan 08, 2023 Total Billed Treatment Time: 60 Total Billed Treatment 60' = 25' GT, 35' EX Nena Alvarez PT Jan 08, 2023 10:28
--- NOTE | 2023-01-08 11:10 | Occupational Ther Daily Note ---
OT Current Status-Daily Note Subjective Pt agreeable to OT Tx, requests to wrap birthday gift for granddaughter ADL-Treatment Therapy Code Descriptions/Definitions Functional [place] Measure: 0=Not Assessed/NA 4=Minimal Assistance 1=Total Assistance 5=Supervision or Setup 2=Maximal Assistance 6=Modified [place] 3=Moderate Assistance 7=Complete IndependenceSCALE: Activities may be completed with or without assistive devices. 5-Ektucesbmw-owvvrds completes the activity by him/herself with no assistance from a helper. 5-Set-up or Clean-up Assistance-helper sets up or cleans up; patient completes activity. [place] assists only prior to or following the activity. 4-Supervision or Touching Assistance-helper provides verbal cues and/or touching/steadying and/or contact guard assistance as patient completes activity. Assistance may be provided throughout the activity or intermittently. 3-Partial/Moderate Assistance-helper does LESS THAN HALF the effort. [place] lifts, holds or supports trunk or limbs, but provides less than half the effort. 2-Substantial/Maximal Assistance-helper does MORE THAN HALF the effort. [place] lifts or holds trunk or limbs and provides more than half the effort. 2-Tujfsdvpp-wbzefp does ALL the effort. Patient does none of the effort to complete the activity. Or, the assistance of 2 or more helpers is required for the patient to complete the activity. If activity was not attempted, code reason: 7-Patient Refused. 9-Not Applicable-not attempted and the patient did not perform the activity before the current illness, exacerbation or injury. 10-Not Attempted due to Environmental Limitations-(lack of equipment, weather restraints, etc.). 88-Not Attempted due to Medical Conditions or Safety Concerns. Other Treatment Pt transferred supine to sit EOB, IND, then used FWW to perform functional mobility to table in ARU common area, transferring to chair without arms. Pt wrapped birthday gift, manipulating scissors and taping package as needed. Pt returned to her room, transferring to EOB, then supine (min A LLE). OT educated pt on using gait belt as leg event attendant, pt reports she has a rope at home that is fashioned up to be a leg event attendant. Pt states she has no concerns with her ability to transfer into bed upon returning home. Post tx, pt supine in bed, call light in reach and all needs met. OT Short Term Goals Short Term Goals Time Frame: Jan 05, 2023 Eatin Oral hygiene: 5 Toileting hygiene: 3 Shower/bathe self: 4 Upper body dressin Lower body dressin Putting on/taking off footwear: 3 OT Writing Tutor Goals Correction Goals Time Frame: Jan 19, 2023 Acute change in mental status: 1 Inattention: 0 Disorganized thinkin Altered level of consciousness: 0 Eating (QC): 6 Oral Hygiene (QC): 6 Toileting Hygiene (QC): 6 Shower/Bathe Self (QC): 6 Upper Body Dressing (QC): 6 Lower Body Dressing (QC): 6 On/Off Footwear (QC): 6 Additional Goals: 1-Demonstrate ADL Tasks, 2-Verbalize Understanding, 3- ImproveStrength/[place] 1=Demonstrate adherence to instructed precautions during ADL tasks. 2=Patient will verbalize/demonstrate understanding of assistive devices/modifications for ADL. 3=Patient will improve strength/tolerance for activity to enable patient to perform ADL's. OT Education/Plan Problem List/Assessment Assessment: Decreased Activ Tolerance, Decreased UE Strength, Impaired I ADL's Pt would benefit from skilled OT to increase her independence in basic self care to allow her to safely return home Discharge Recommendations Plan/Recommendations: Continue POC Treatment Plan/Plan of Care Patient would benefit from OT for education, treatment and training to promote independence in ADL's, mobility, safety and/or upper extremity function for ADL's. Plan of Care: ADL Retraining, Functional Mobility, Group Exercise/Act as Ind, UE Funct Exercise/Act, UE Neuromus Re-Ed/Coord, OTHER (energy conservation education) Treatment Duration: Jan 19, 2023 Frequency: Modified Program (IRF) (14/04) Estimated Hrs Per Day: 1.5 hours per day Agreement: Yes Rehab Potential: Fair Time Start Time: 10:30 Stop Time: 10:50 DATE: Jan 08, 2023 Total Time Billed (hr/min): 20 Billed Treatment Time 1SEMAJ ADDISON OT Jan 08, 2023 11:10
[2023-01-08 14:20] VITALS: BP 110/57
--- NOTE | 2023-01-08 14:22 | Physical Therapy Daily Note ---
PT Daily Note-Current Subjective No c/o this pm. Enjoyed a good lunch. Pain Section J - Health Conditions 1. Rarely or not at all 2. Occasionally 3. Frequently 4. Almost constantly 8. Unable to answer Pain Effect on Sleep: 1 Pain Interference with Therapy: 1 Pain Interference w/Day-to-Day: 1 Transfers SCALE: Activities may be completed with or without assistive devices. 0-Dmsxpnckuh-giqriso completes the activity by him/herself with no assistance from a helper. 5-Set-up or Clean-up Assistance-helper sets up or cleans up; patient completes activity. [place] assists only prior to or following the activity. 4-Supervision or Touching Assistance-helper provides verbal cues and/or touching/steadying and/or contact guard assistance as patient completes activity. Assistance may be provided throughout the activity or intermittently. 3-Partial/Moderate Assistance-helper does LESS THAN HALF the effort. [place] lifts, holds or supports trunk or limbs, but provides less than half the effort. 2-Substantial/Maximal Assistance-helper does MORE THAN HALF the effort. [place] lifts or holds trunk or limbs and provides more than half the effort. 5-Gsstgdrxz-fschqk does ALL the effort. Patient does none of the effort to complete the activity. Or, the assistance of 2 or more helpers is required for the patient to complete the activity. If activity was not attempted, code reason: 7-Patient Refused. 9-Not Applicable-not attempted and the patient did not perform the activity before the current illness, exacerbation or injury. 10-Not Attempted due to Environmental Limitations-(lack of equipment, weather restraints, etc.). 88-Not Attempted due to Medical Conditions or Safety Concerns. Sit to Lying (QC): 5 (using gait belt as leg rubber mill operator) Lying to Sitting/Side of Bed(Q: 6 (using bed rail) Sit to Stand (QC): 6 (to FWW from bed/wc/toilet) Chair/Pap-hi-Mtdet Xfer(QC): 6 (with FWW) Toilet Transfer (QC): 6 (with grab bar and FWW. Patient managed own toilet hygiene and clothing management.) discussed leg rubber mill operator or gait belt to help (L) leg into bed at home. States she has a rope that she used for a hip surgery that will work well. Looped gait-b elt placed around patient's foot, then patient able to lift the (L) leg into bed independently. Weight Bearing Right Lower Extremity: Right Weight Bearing/Tolerated Left Lower Extremity: Left Weight Bearing/Tolerated Gait Training Does the Patient Walk?: Yes Distance: Pt amb 130', 200', 100' with FWW SBA-(I). No standing rest breaks during recorded gait distances. O2 sats 99-100% during gait activities. Treatments Gait training, toileting/toilet transfers, and leg-rubber mill operator for sit>supine Assessment Current Status: Excellent Progress Excellent gains in gait endurance noted today. PT Short Term Goals Short Term Goals Time Frame: Jan 03, 2023 PT Jail Goals Jail Goals PT Jail Goals Time Frame: Jan 26, 2023 Roll Left & Right (QC): 6 Sit to Lying (QC): 5 (possible use of left leg rubber mill operator) Lying-Sitting on Side/Bed(QC): 5 (possible use of left leg rubber mill operator) Sit to Stand (QC): 6 (with FWW) Chair/Xkq-np-Oicnf Xfer(QC): 6 (with FWW) Toilet Transfer (QC): 6 (with FWW) Car Transfer (QC): 5 (with FWW) Does the Patient Walk: Yes Walk 10 feet (QC): 6 (with FWW and prn O2 assist with sats 90% or greater) Walk 50ft with 2 Turns (QC): 6 (with FWW and prn O2 assist with sats 90% or better) Walk 150 ft (QC): 5 (with FWW and prn O2 assist with sats 90% or greater) Walking 10ft on Uneven Surface: 5 (with FWW and O2 assist prn) 1 Step (curb) (QC): 5 4 Steps (QC): 4 (with (B) rails) 12 Steps (QC): 88 Picking up an Object (QC): 6 (with nickel operator) Does the Pt use WC or Scooter?: No Wheel 50 feet with 2 turns (QC: 6 Type: Manual Wheel 150 feet: 6 Type: Manual PT Plan Treatment/Plan Treatment Plan: Continue Plan of Care Treatment Plan: Bed Mobility, Education, Functional Activity [place], Functional Strength, Group Therapy, Gait, Safety, Therapeutic Exercise, Transfers, Other (Stair training) Treatment Duration: Jan 26, 2023 Frequency: At least 5 of 7 days/Wk (IRF) Estimated Hrs Per Day: Other (Graduate) Patient and/or Family Agrees t: Yes Discharge Recommendations Therapy Discharge Recommendati: Other, See Comments (Has rope at home that she has used in the past as leg rubber mill operator.) Time Time In: 1330 Time Out: 1400 DATE: Jan 08, 2023 Total Billed Treatment Time: 30 Total Billed Treatment 30' -- gait 20, functional activity 10 Nena Alvarez PT Jan 08, 2023 14:22
[2023-01-08 14:45] VITALS: BP 119/58
[2023-01-08 16:49] VITALS: BP 116/72
[2023-01-08 20:30] VITALS: BP 134/61
[2023-01-08] MEDS: MONTELUKAST 10 MG (SINGULAIR) TAB PO SCH (21:00)
[2023-01-08] MEDS: ENOXAPARIN INJECTION 30 MG/0.3 ML SYR SC SCH (21:01)
--- NOTE | 2023-01-09 04:44 | PM&R Progress Note ---
Subjective HPI/CC On Admission Date Seen by Provider: Jan 09, 2023 Time Seen by Provider: 08:30 Subjective/Events-last exam 01/09/2023: Much improved Left leg healing nicely Prednisone still 40mg PO BID 01/08/2023: Improved overall Hgb 7.2 so will give 1 unit of blood Left leg improved 01/07/2023: Much improved left leg movement Prednisone is really helping her Skin biopsy pending 01/06/2023: Much improved status Prednisone tolerated No pain reported 01/05/2023: Patient doing well Doing well Monitor closely Dr Orr consult for left leg biopsy 01/04/2023: Feels really good Improved dramatically No pain reported Left leg wound improved 01/03/2023: Improved status Increasing strength No falls Labs improved No falls 01/02/2023: Much improved Overall doing well No pain reported Left leg wound improved 01/01/2023: Improved overall Midline will be placed and IV iron infusion ordered Creat stable Monitoring closely Increase potassium 12/31/2022: Much improved Walked a bit Showered today No pain 12/30/2022: Much improved Labs reviewed Creat 2.0 and that is her baseline BUN still elevated Monitor closely Review of Systems General: Fatigue, Malaise Musculoskeletal: leg pain Objective Exam Vital Signs Vital Signs Date Time Temp Pulse Resp B/P (MAP) Pulse Ox O2 Delivery O2 Flow Rate FiO2 01/09/23 21:45 98 Room Air 01/09/23 20:30 36.7 80 18 120/75 (90) Capillary Refill : General Appearance: No Apparent Distress, WD/WN, Chronically ill, Obese HEENT: PERRL/EOMI, Normal ENT Inspection, Pharynx Normal Neck: Full Range of Motion, Normal Inspection, Non Tender, Supple, Carotid Bruit Respiratory: Chest Non Tender, Lungs Clear, No Accessory Muscle Use, No Respiratory Distress, Decreased Breath Sounds Cardiovascular: Regular Rate, Rhythm, No Edema, No Gallop, No JVD, No Murmur, Normal Peripheral Pulses Gastrointestinal: Normal Bowel Sounds, No Organomegaly, No Pulsatile Mass, Non Tender, Soft Back: Normal Inspection, No CVA Tenderness, No Vertebral Tenderness Extremity: Normal Capillary Refill, Normal Inspection, Normal Range of Motion, Non Tender, No Calf Tenderness, No Pedal Edema Neurologic/Psychiatric: Alert, Oriented x3, No Motor/Sensory Deficits, respiratory care technician II- XII Norm as Tested, Abnormal Gait, Disoriented (subtle), Motor Weakness (generalized) Skin: Normal Color, Warm/Dry Lymphatic: No Adenopathy Results/Procedures Lab Laboratory Tests 01/09/23 05:36 Patient resulted labs reviewed. FIM Transfers Therapy Code Descriptions/Definitions Functional [place] Measure: 0=Not Assessed/NA 4=Minimal Assistance 1=Total Assistance 5=Supervision or Setup 2=Maximal Assistance 6=Modified [place] 3=Moderate Assistance 7=Complete IndependenceSCALE: Activities may be completed with or without assistive devices. 1-Odhukbwnkc-amftvuz completes the activity by him/herself with no assistance from a helper. 5-Set-up or Clean-up Assistance-helper sets up or cleans up; patient completes activity. [place] assists only prior to or following the activity. 4-Supervision or Touching Assistance-helper provides verbal cues and/or touching/steadying and/or contact guard assistance as patient completes activity. Assistance may be provided throughout the activity or intermittently. 3-Partial/Moderate Assistance-helper does LESS THAN HALF the effort. [place] lifts, holds or supports trunk or limbs, but provides less than half the effort. 2-Substantial/Maximal Assistance-helper does MORE THAN HALF the effort. [place] lifts or holds trunk or limbs and provides more than half the effort. 2-Zkysbuwnq-nmrkgj does ALL the effort. Patient does none of the effort to complete the activity. Or, the assistance of 2 or more helpers is required for the patient to complete the activity. If activity was not attempted, code reason: 7-Patient Refused. 9-Not Applicable-not attempted and the patient did not perform the activity before the current illness, exacerbation or injury. 10-Not Attempted due to Environmental Limitations-(lack of equipment, weather restraints, etc.). 88-Not Attempted due to Medical Conditions or Safety Concerns. Roll Left to Right (QC): 6 Sit to Lying (QC): 5 (using gait belt as leg aircraft design engineer) Sit to Stand (QC): 6 (to FWW from bed/wc/toilet) Chair/Zsw-ra-Gqtne Xfer(QC): 6 (with FWW) Car Transfer (QC): 88 Gait Training Does the Patient Walk?: Yes Distance: Pt amb 130', 200', 100' with FWW SBA-(I). Walk 10 feet (QC): 4 Walk 50 ft with 2 Turns(QC): 4 Walk 150 ft (QC): 5 Walking 10ft/uneven surface-QC: 88 (too debilitated to attempt safely and desaturation to 82% sitting EOB) Gait Persons Needed: 1 Gait Assistive Device: FWW Wheelchair Training Does the Pt Use a Wheelchair?: Yes Wheel 50 ft with 2 turns (QC): 88 (too debilitated to attempt safely and desaturation to 82% sitting EOB) Wheel 150 ft (QC): 88 (too debilitated to attempt safely and desaturation to 82% sitting EOB) Type of Wheelchair: Manual Stair Training 1 Step (curb) (QC): 4 ((B) rails x 3 in // bars CGA) 4 Steps (QC): 3 (CGA-min (A) with (B) rails up two 6" steps, 180* turn then down two 6" steps (using curb off last step). Seated rest.Min (A) using both hands on (R) rail stepping up 2 steps min (A). Min (A) using both hands on (L) rail to step down 1 step, then walker to descend to floor. Discussed using FWW as "railing" on (L) since her steps are too far apart to use (B) rails at home. ) 12 Steps (QC): 88 (too debilitated to attempt safely and desaturation to 82% sitting EOB) Balance Picking up an Object (QC): 88 (too debilitated to attempt safely and desaturation to 82% sitting EOB) ADL-Treatment Eating (QC): 6 Oral Hygiene (QC): 6 Shower/Bathe Self (QC): 5 Upper Body Dressing (QC): 3 (Min A with managing shirt down back after shower.) Lower Body Dressing (QC): 5 On/Off Footwear (QC): 3 (Mod A overall. 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 Plan: PT OT Monitor O2 Montior creat 12/30/2022: Iron and B12 check Monitor closely 12/31/2022: Monitor closely Midline tomorrow Venofer 01/01/2023: Midline Iron 01/02/2023: Monitor closely Potassium 01/03/2023: Improved kidney function Potassium to increase to TID from BID 01/04/2023: Improved overall 01/05/2023: Monitor closely 01/06/2023: Monitor closely Prednisone 01/07/2023: Improved status Continue steroids and steroid cream 01/08/2023: Transfuse 1 unit 01/09/2023: Decrease Prednisone to 30mg daily start tomorrow (1) Acute on chronic renal failure Status: Acute (2) Pneumonia due to COVID-19 virus Status: Acute (3) Metabolic acidosis Status: Acute (4) SURAJ (acute kidney injury) SKY MARTE DO Jan 09, 2023 04:44
[2023-01-09 05:57] LABS: BASOPHILS % (AUTO) 1 % (0-10); EOSINOPHILS % (AUTO) 0 % (0-10); HEMATOCRIT 26 % (35-52); HEMOGLOBIN 8.1 g/dL (11.5-16.0); LYMPHOCYTES # (AUTO) 1.8 10^3/uL (1.0-4.0); LYMPHOCYTES % (AUTO) 20 % (12-44); MEAN CORPUSCULAR HEMOGLOBIN 29 pg (25-34); MEAN CORPUSCULAR HGB CONC 31 g/dL (32-36); MEAN CORPUSCULAR VOLUME 95 fL (80-99); MEAN PLATELET VOLUME 10.6 fL (9.0-12.2); MONOCYTES # (AUTO) 0.5 10^3/uL (0.0-1.0); MONOCYTES % (AUTO) 6 % (0-12); NEUTROPHILS # (AUTO) 5.8 10^3/uL (1.8-7.8); NEUTROPHILS % (AUTO) 65 % (42-75); PLATELET COUNT 384 10^3/uL (130-400); WHITE BLOOD COUNT 8.9 10^3/uL (4.3-11.0)
[2023-01-09 06:04] LABS: SMEAR SCAN COMMENT YES
[2023-01-09 06:15] LABS: ALBUMIN 2.5 GM/DL (3.2-4.5); BILIRUBIN,TOTAL 0.2 MG/DL (0.1-1.0); CALCIUM 8.6 MG/DL (8.5-10.1); CREATININE SERUM 2.41 MG/DL (0.60-1.30); POTASSIUM 4.2 MMOL/L (3.6-5.0); TOTAL PROTEIN 5.3 GM/DL (6.4-8.2)
--- NOTE | 2023-01-09 07:48 | Occupational Ther Daily Note ---
OT Current Status-Daily Note Subjective Pt up in recliner, agreeable to OT Tx. Pt states wound care is planning on coming in to look at her wounds this AM around 9 Mental Status/Objective Patient Orientation: Normal For Age ADL-Treatment Therapy Code Descriptions/Definitions Functional [place] Measure: 0=Not Assessed/NA 4=Minimal Assistance 1=Total Assistance 5=Supervision or Setup 2=Maximal Assistance 6=Modified [place] 3=Moderate Assistance 7=Complete IndependenceSCALE: Activities may be completed with or without assistive devices. 8-Roudouduen-kbuwetj completes the activity by him/herself with no assistance from a helper. 5-Set-up or Clean-up Assistance-helper sets up or cleans up; patient completes activity. [place] assists only prior to or following the activity. 4-Supervision or Touching Assistance-helper provides verbal cues and/or touching/steadying and/or contact guard assistance as patient completes activity. Assistance may be provided throughout the activity or intermittently. 3-Partial/Moderate Assistance-helper does LESS THAN HALF the effort. [place] lifts, holds or supports trunk or limbs, but provides less than half the effort. 2-Substantial/Maximal Assistance-helper does MORE THAN HALF the effort. [place] lifts or holds trunk or limbs and provides more than half the effort. 6-Lowssfunq-ywssrt does ALL the effort. Patient does none of the effort to complete the activity. Or, the assistance of 2 or more helpers is required for the patient to complete the activity. If activity was not attempted, code reason: 7-Patient Refused. 9-Not Applicable-not attempted and the patient did not perform the activity before the current illness, exacerbation or injury. 10-Not Attempted due to Environmental Limitations-(lack of equipment, weather restraints, etc.). 88-Not Attempted due to Medical Conditions or Safety Concerns. Oral Hygiene (QC): 6 Other Treatment Pt in recliner, used FWW to transfer into bathroom, stood at sink for grooming tasks, IND, then used FWW to perform functional mobility to therapy gym, IND. OT tx focused on increasing BUE Strength and activity tolerance. Pt completed UE reaching task, completing pipe tree, x5 patterns, 1lb wrist weights BUEs. Pt then completed UE reaching task, of dominos, completing x5 rounds, 1lb wrist weight BUEs. Pt completed arm bike, x10 mins, 15-20 Watt resistance, 1 rest break. Pt then completed peg sarah reaching task, placing/removing small clothe spins from board, completing 2 rounds of task. Pt returned to her room using FWW, IND. Pt transferred sit to supine using gait belt as leg crusher loader equipment operator IND. Post tx, pt in bed, call light in reach and all needs met. Education OT Patient Education: Correct positioning, Energy conservation, Modified ADL techniques, Progress toward Goal/Update tx plan, Purpose of tx/functional activities, Rehab process Teaching Recipient: Patient Teaching Methods: Discussion Response to Teaching: Verbalize Understanding OT Short Term Goals Short Term Goals Time Frame: Jan 05, 2023 Eatin Oral hygiene: 5 Toileting hygiene: 3 Shower/bathe self: 4 Upper body dressin Lower body dressin Putting on/taking off footwear: 3 OT [facility] Goals Airport Tower Controller Goals Time Frame: Jan 19, 2023 Acute change in mental status: 1 Inattention: 0 Disorganized thinkin Altered level of consciousness: 0 Eating (QC): 6 Oral Hygiene (QC): 6 Toileting Hygiene (QC): 6 Shower/Bathe Self (QC): 6 Upper Body Dressing (QC): 6 Lower Body Dressing (QC): 6 On/Off Footwear (QC): 6 Additional Goals: 1-Demonstrate ADL Tasks, 2-Verbalize Understanding, 3- ImproveStrength/[place] 1=Demonstrate adherence to instructed precautions during ADL tasks. 2=Patient will verbalize/demonstrate understanding of assistive devices/modifications for ADL. 3=Patient will improve strength/tolerance for activity to enable patient to perform ADL's. OT Education/Plan Problem List/Assessment Assessment: Decreased Activ Tolerance, Decreased UE Strength, Impaired I ADL's Pt would benefit from skilled OT to increase her independence in basic self care to allow her to safely return home Discharge Recommendations Plan/Recommendations: Continue POC Treatment Plan/Plan of Care Patient would benefit from OT for education, treatment and training to promote independence in ADL's, mobility, safety and/or upper extremity function for ADL's. Plan of Care: ADL Retraining, Functional Mobility, Group Exercise/Act as Ind, UE Funct Exercise/Act, UE Neuromus Re-Ed/Coord, OTHER (energy conservation education) Treatment Duration: Jan 19, 2023 Frequency: Modified Program (IRF) (14/04) Estimated Hrs Per Day: 1.5 hours per day Agreement: Yes Rehab Potential: Fair Time Start Time: 07:30 Stop Time: 09:00 DATE: Jan 09, 2023 Total Time Billed (hr/min): 90 Billed Treatment Time 1, ADL (15'), EX (15'), FA 4 (60') KITA DOBSON OT Jan 09, 2023 07:48
[2023-01-09 07:53] VITALS: BP 136/63
[2023-01-09] MEDS: polyethylene glycoL POWDER 17 GM (MIRALAX) PACK PO SCH ×2 (08:40→20:05)
[2023-01-09] MEDS: SENNA W/DOCUSATE (SENOKOT S) TABLET PO SCH ×2 (08:40→20:05)
[2023-01-09] MEDS: DOCUSATE SODIUM 100 MG (COLACE) CAP PO SCH ×2 (08:40→20:04)
[2023-01-09] MEDS: fluCOnazole (DIFLUCAN) 100 MG TAB PO SCH (08:43)
[2023-01-09] MEDS: predniSONE 20 MG TAB PO SCH ×2 (08:43→21:44)
[2023-01-09] MEDS: IRON SUCROSE 200 MG/10 ML (VENOFER) VIAL IV SCH (08:43)
[2023-01-09] MEDS: meTOprolol TARTRATE 25 MG (LOPRESSOR) TABLET PO SCH ×2 (08:43→21:44)
[2023-01-09] MEDS: amLODIPine 5 MG (NORVASC) TAB PO SCH (08:43)
[2023-01-09] MEDS: ASPIRIN E.C. 81 MG (ECOTRIN) TAB PO SCH (08:43)
[2023-01-09] MEDS: ALLOPURINOL 300 MG (ZYLOPRIM) TAB PO SCH (08:43)
[2023-01-09] MEDS: KCL 10 MEQ TAB (MICRO K) PO SCH ×3 (08:43→17:44)
[2023-01-09] MEDS: LACTOBACILLUS ACIDOPHILUS (PROBIOTIC) CAPSULE PO SCH ×3 (08:43→17:44)
[2023-01-09] MEDS: PANTOPRAZOLE 20 MG TABLET (PROTONIX) PO SCH (08:43)
[2023-01-09] MEDS: VENlafaxine 75 MG (EFFEXOR) TAB PO SCH (08:43)
[2023-01-09] MEDS: diphenhydrAMINE 25 MG TAB (BENADRYL) PO SCH ×2 (08:43→21:43)
[2023-01-09] MEDS: HYPOCHLOROUS ACID/NaCl (VASHE) 250 ML IR SCH (08:45)
[2023-01-09] MEDS: COLLAGENASE 30 GM (SANTYL) TUBE TP SCH (08:45)
[2023-01-09] MEDS: TRIAMCINOLONE 0.5% CR (KENALOG) 15 GM TUBE TOP SCH ×2 (08:45→21:44)
[2023-01-09] MEDS: MICONAZOLE 2% POWDER (DESENEX AF) 90 GM TOP SCH ×2 (08:46→21:44)
--- NOTE | 2023-01-09 12:32 | Physical Therapy Daily Note ---
PT Daily Note-Current Subjective No new complaints - is ready to try stair training with walker like we discussed yesterday. Pain Section J - Health Conditions 1. Rarely or not at all 2. Occasionally 3. Frequently 4. Almost constantly 8. Unable to answer Pain Effect on Sleep: 1 Pain Interference with Therapy: 1 Pain Interference w/Day-to-Day: 1 Transfers SCALE: Activities may be completed with or without assistive devices. 8-Nhjuqmuzxw-lougjka completes the activity by him/herself with no assistance from a helper. 5-Set-up or Clean-up Assistance-helper sets up or cleans up; patient completes activity. [place] assists only prior to or following the activity. 4-Supervision or Touching Assistance-helper provides verbal cues and/or touching/steadying and/or contact guard assistance as patient completes activity. Assistance may be provided throughout the activity or intermittently. 3-Partial/Moderate Assistance-helper does LESS THAN HALF the effort. [place] lifts, holds or supports trunk or limbs, but provides less than half the effort. 2-Substantial/Maximal Assistance-helper does MORE THAN HALF the effort. [place] lifts or holds trunk or limbs and provides more than half the effort. 0-Aeusiuwkj-oiqnor does ALL the effort. Patient does none of the effort to complete the activity. Or, the assistance of 2 or more helpers is required for the patient to complete the activity. If activity was not attempted, code reason: 7-Patient Refused. 9-Not Applicable-not attempted and the patient did not perform the activity before the current illness, exacerbation or injury. 10-Not Attempted due to Environmental Limitations-(lack of equipment, weather restraints, etc.). 88-Not Attempted due to Medical Conditions or Safety Concerns. Sit to Lying (QC): 5 (with set-up assist of leg business solutions architect) Lying to Sitting/Side of Bed(Q: 6 Sit to Stand (QC): 6 Chair/Yvy-ql-Wyfsk Xfer(QC): 6 Weight Bearing Right Lower Extremity: Right Weight Bearing/Tolerated Left Lower Extremity: Left Weight Bearing/Tolerated Gait Training Does the Patient Walk?: Yes Distance: 250' without rest break Walk 10 feet (QC): 6 (with FWW) Walk 50 ft with 2 Turns(QC): 5 (SBA-(I) with FWW) Walk 150 ft (QC): 5 (SBA-(I) with FWW) Patient also ambulated 3' with SPC per her request to w/c CGA-SBA - patient states this is something she will work on more at home with HH PT Stair Training Stair Training: Handrails/: 1 handrail, uses walker #of Steps: 4 1 Step (curb) (QC): 4 (CGA with FWW) 4 Steps (QC): 3 (min-CGA using 1 rail and walker turned sideways. min -CGA with 1 rail and cane - patient felt more comfortable using cane as she was doing this at [facility]. ) Stairs: Pattern: Step to Assessment Current Status: Excellent Progress Much improved activity tolerance. Patient felt confident in her ability to go up/down steps at her home following this session. PT Short Term Goals Short Term Goals Time Frame: Jan 03, 2023 PT [facility] Goals Diesel Locomotive Firer Goals PT [facility] Goals Time Frame: Jan 26, 2023 Roll Left & Right (QC): 6 Sit to Lying (QC): 5 (possible use of left leg business solutions architect) Lying-Sitting on Side/Bed(QC): 5 (possible use of left leg business solutions architect) Sit to Stand (QC): 6 (with FWW) Chair/Ont-zr-Gjqje Xfer(QC): 6 (with FWW) Toilet Transfer (QC): 6 (with FWW) Car Transfer (QC): 5 (with FWW) Does the Patient Walk: Yes Walk 10 feet (QC): 6 (with FWW and prn O2 assist with sats 90% or greater) Walk 50ft with 2 Turns (QC): 6 (with FWW and prn O2 assist with sats 90% or better) Walk 150 ft (QC): 5 (with FWW and prn O2 assist with sats 90% or greater) Walking 10ft on Uneven Surface: 5 (with FWW and O2 assist prn) 1 Step (curb) (QC): 5 4 Steps (QC): 4 (with (B) rails) 12 Steps (QC): 88 Picking up an Object (QC): 6 (with interactive marketing strategist) Does the Pt use WC or Scooter?: No Wheel 50 feet with 2 turns (QC: 6 Type: Manual Wheel 150 feet: 6 Type: Manual PT Plan Problem List Problem List: Activity Tolerance, Functional Strength, Safety, Balance, Gait, Transfer, Bed Mobility, Other (Stair training) Treatment/Plan Treatment Plan: Continue Plan of Care Treatment Plan: Bed Mobility, Education, Functional Activity [place]ina, Functional Strength, Group Therapy, Gait, Safety, Therapeutic Exercise, Transfers, Other (Stair training) Treatment Duration: Jan 26, 2023 Frequency: At least 5 of 7 days/Wk (IRF) Estimated Hrs Per Day: Other (Graduate) Patient and/or Family Agrees t: Yes Safety Risks/Education Patient Education: Gait Training, Steps, Issued Written HEP Teaching Recipient: Patient Teaching Methods: Demonstration, Handout, Discussion Response to Teaching: Verbalize Understanding, Return Demonstration, Reinf orcement Needed Discharge Recommendations Plan Given LE written HEP this p.m. Time Time In: 1030 Time Out: 1100 DATE: Jan 09, 2023 Total Billed Treatment Time: 30 Total Billed Treatment 30' gait Nena Alvarez PT Jan 09, 2023 12:32
--- NOTE | 2023-01-09 14:13 | Physical Therapy Daily Note ---
PT Daily Note-Current Subjective No new c/o this pm. Laying in bed following lunch. Pain Section J - Health Conditions 1. Rarely or not at all 2. Occasionally 3. Frequently 4. Almost constantly 8. Unable to answer Pain Effect on Sleep: 1 Pain Interference with Therapy: 1 Pain Interference w/Day-to-Day: 1 Transfers SCALE: Activities may be completed with or without assistive devices. 2-Cuiakwagdj-jztmjgt completes the activity by him/herself with no assistance from a helper. 5-Set-up or Clean-up Assistance-helper sets up or cleans up; patient completes activity. [place] assists only prior to or following the activity. 4-Supervision or Touching Assistance-helper provides verbal cues and/or touching/steadying and/or contact guard assistance as patient completes activity. Assistance may be provided throughout the activity or intermittently. 3-Partial/Moderate Assistance-helper does LESS THAN HALF the effort. [place] lifts, holds or supports trunk or limbs, but provides less than half the effort. 2-Substantial/Maximal Assistance-helper does MORE THAN HALF the effort. [place] lifts or holds trunk or limbs and provides more than half the effort. 8-Jtfbdjxfk-lfjfsq does ALL the effort. Patient does none of the effort to complete the activity. Or, the assistance of 2 or more helpers is required for the patient to complete the activity. If activity was not attempted, code reason: 7-Patient Refused. 9-Not Applicable-not attempted and the patient did not perform the activity befo re the current illness, exacerbation or injury. 10-Not Attempted due to Environmental Limitations-(lack of equipment, weather re straints, etc.). 88-Not Attempted due to Medical Conditions or Safety Concerns. Sit to Lying (QC): 6 (put leg program director scouting on (L) foot (I) and was able to lay down (I) and kick leg program director scouting off with (R) toes) Lying to Sitting/Side of Bed(Q: 6 Sit to Stand (QC): 6 Chair/Gfs-cx-Lzjsy Xfer(QC): 6 Weight Bearing Right Lower Extremity: Right Weight Bearing/Tolerated Left Lower Extremity: Left Weight Bearing/Tolerated Gait Training Distance: 300' without rest Walk 10 feet (QC): 6 Walk 50 ft with 2 Turns(QC): 6 Walk 150 ft (QC): 6 (with FWW without rest break.) Gait Assistive Device: FWW Exercises HEP created for seated and standing exercises and provided to patient: Completed 15 reps of the following in supine (from previous HEP): ankle pumps (B), ankle circles (B), hip ER/IR with legs extended (B), quad sets (B), SAQ over PT's knee (B). 1 x 10 reps of (R) heel slides and (L) knee to chest with assist on (L) to avoid rubbing (L) heel on bed 1 x 10 SLR (B) Seated ex: LAQ 15(B), hip flexion x 10 (B), isometric hip adduction/pillow squeeze x 10, quad set/hamstring stretch 5 x :10 (B). Standing ex: (at sink in room). Heel toe raises x 15, march in place x 10 (B) Assessment Much improved activity tolerance noted with gait distance and standing exercise tolerance. HEP issued for standing ex. PT Short Term Goals Short Term Goals Time Frame: Jan 03, 2023 PT Medical Laboratory Technical Officer Goals Alf Goals PT Medical Laboratory Technical Officer Goals Time Frame: Jan 26, 2023 Roll Left & Right (QC): 6 Sit to Lying (QC): 5 (possible use of left leg program director scouting) Lying-Sitting on Side/Bed(QC): 5 (possible use of left leg program director scouting) Sit to Stand (QC): 6 (with FWW) Chair/Xjx-jr-Vsuuk Xfer(QC): 6 (with FWW) Toilet Transfer (QC): 6 (with FWW) Car Transfer (QC): 5 (with FWW) Does the Patient Walk: Yes Walk 10 feet (QC): 6 (with FWW and prn O2 assist with sats 90% or greater) Walk 50ft with 2 Turns (QC): 6 (with FWW and prn O2 assist with sats 90% or better) Walk 150 ft (QC): 5 (with FWW and prn O2 assist with sats 90% or greater) Walking 10ft on Uneven Surface: 5 (with FWW and O2 assist prn) 1 Step (curb) (QC): 5 4 Steps (QC): 4 (with (B) rails) 12 Steps (QC): 88 Picking up an Object (QC): 6 (with automotive parts person) Does the Pt use WC or Scooter?: No Wheel 50 feet with 2 turns (QC: 6 Type: Manual Wheel 150 feet: 6 Type: Manual PT Plan Treatment/Plan Treatment Plan: Continue Plan of Care Treatment Plan: Bed Mobility, Education, Functional Activity [place]ina, Functional Strength, Group Therapy, Gait, Safety, Therapeutic Exercise, Transfers, Other (Stair training) Treatment Duration: Jan 26, 2023 Frequency: At least 5 of 7 days/Wk (IRF) Estimated Hrs Per Day: Other (Graduate) Patient and/or Family Agrees t: Yes Time Time In: 1300 Time Out: 1400 DATE: Jan 09, 2023 Total Billed Treatment Time: 60 Total Billed Treatment Ex 40', Gait 20' = 60' Nena Alvarez PT Jan 09, 2023 14:13
[2023-01-09 20:30] VITALS: BP 120/75
[2023-01-09] MEDS: ENOXAPARIN INJECTION 30 MG/0.3 ML SYR SC SCH (21:43)
[2023-01-09] MEDS: MONTELUKAST 10 MG (SINGULAIR) TAB PO SCH (21:44)
--- NOTE | 2023-01-10 05:15 | PM&R Progress Note ---
Subjective HPI/CC On Admission Date Seen by Provider: Jan 10, 2023 Time Seen by Provider: 11:00 Subjective/Events-last exam 01/10/2023: Much improved status No pain Left leg improved DC 01/09/2023: Much improved Left leg healing nicely Prednisone still 40mg PO BID 01/08/2023: Improved overall Hgb 7.2 so will give 1 unit of blood Left leg improved 01/07/2023: Much improved left leg movement Prednisone is really helping her Skin biopsy pending 01/06/2023: Much improved status Prednisone tolerated No pain reported 01/05/2023: Patient doing well Doing well Monitor closely Dr Orr consult for left leg biopsy 01/04/2023: Feels really good Improved dramatically No pain reported Left leg wound improved 01/03/2023: Improved status Increasing strength No falls Labs improved No falls 01/02/2023: Much improved Overall doing well No pain reported Left leg wound improved 01/01/2023: Improved overall Midline will be placed and IV iron infusion ordered Creat stable Monitoring closely Increase potassium 12/31/2022: Much improved Walked a bit Showered today No pain 12/30/2022: Much improved Labs reviewed Creat 2.0 and that is her baseline BUN still elevated Monitor closely Review of Systems General: Fatigue, Malaise Objective Exam Vital Signs Vital Signs Date Time Temp Pulse Resp B/P (MAP) Pulse Ox O2 Delivery O2 Flow Rate FiO2 01/10/23 21:15 100 Room Air 01/10/23 20:50 36.2 77 20 131/62 (85) Capillary Refill : General Appearance: No Apparent Distress, WD/WN, Chronically ill, Obese HEENT: PERRL/EOMI, Normal ENT Inspection, Pharynx Normal Neck: Full Range of Motion, Normal Inspection, Non Tender, Supple, Carotid Bruit Respiratory: Chest Non Tender, Lungs Clear, No Accessory Muscle Use, No Respiratory Distress, Decreased Breath Sounds Cardiovascular: Regular Rate, Rhythm, No Edema, No Gallop, No JVD, No Murmur, Normal Peripheral Pulses Gastrointestinal: Normal Bowel Sounds, No Organomegaly, No Pulsatile Mass, Non Tender, Soft Back: Normal Inspection, No CVA Tenderness, No Vertebral Tenderness Extremity: Normal Capillary Refill, Normal Inspection, Normal Range of Motion, Non Tender, No Calf Tenderness, No Pedal Edema Neurologic/Psychiatric: Alert, Oriented x3, No Motor/Sensory Deficits, plater barrel II- XII Norm as Tested, Abnormal Gait, Disoriented (subtle), Motor Weakness (generalized) Skin: Normal Color, Warm/Dry Lymphatic: No Adenopathy Results/Procedures Lab Patient resulted labs reviewed. FIM Transfers Therapy Code Descriptions/Definitions Functional [place] Measure: 0=Not Assessed/NA 4=Minimal Assistance 1=Total Assistance 5=Supervision or Setup 2=Maximal Assistance 6=Modified [place] 3=Moderate Assistance 7=Complete IndependenceSCALE: Activities may be completed with or without assistive devices. 9-Hqleaflfdf-eexdpab completes the activity by him/herself with no assistance from a helper. 5-Set-up or Clean-up Assistance-helper sets up or cleans up; patient completes activity. [place] assists only prior to or following the activity. 4-Supervision or Touching Assistance-helper provides verbal cues and/or touching/steadying and/or contact guard assistance as patient completes activity. Assistance may be provided throughout the activity or intermittently. 3-Partial/Moderate Assistance-helper does LESS THAN HALF the effort. [place] lifts, holds or supports trunk or limbs, but provides less than half the effort. 2-Substantial/Maximal Assistance-helper does MORE THAN HALF the effort. [place] lifts or holds trunk or limbs and provides more than half the effort. 3-Dyvfolpkm-uhayku does ALL the effort. Patient does none of the effort to complete the activity. Or, the assistance of 2 or more helpers is required for the patient to complete the activity. If activity was not attempted, code reason: 7-Patient Refused. 9-Not Applicable-not attempted and the patient did not perform the activity before the current illness, exacerbation or injury. 10-Not Attempted due to Environmental Limitations-(lack of equipment, weather restraints, etc.). 88-Not Attempted due to Medical Conditions or Safety Concerns. Roll Left to Right (QC): 6 Sit to Lying (QC): 5 (with set-up assist of leg helper driver) Sit to Stand (QC): 6 Chair/Kmz-pg-Wdoyu Xfer(QC): 6 Car Transfer (QC): 88 Gait Training Does the Patient Walk?: Yes Distance: 250' without rest break Walk 10 feet (QC): 6 (with FWW) Walk 50 ft with 2 Turns(QC): 5 (SBA-(I) with FWW) Walk 150 ft (QC): 5 (SBA-(I) with FWW) Walking 10ft/uneven surface-QC: 88 (too debilitated to attempt safely and desaturation to 82% sitting EOB) Gait Persons Needed: 1 Gait Assistive Device: FWW Wheelchair Training Does the Pt Use a Wheelchair?: Yes Wheel 50 ft with 2 turns (QC): 88 (too debilitated to attempt safely and desaturation to 82% sitting EOB) Wheel 150 ft (QC): 88 (too debilitated to attempt safely and desaturation to 82% sitting EOB) Type of Wheelchair: Manual Stair Training Stair Training: Handrails/: 1 handrail, uses walker #of Steps: 4 1 Step (curb) (QC): 4 (CGA with FWW) 4 Steps (QC): 3 (min-CGA using 1 rail and walker turned sideways. min -CGA with 1 rail and cane - patient felt more comfortable using cane as she was doing this at [facility]. ) 12 Steps (QC): 88 (too debilitated to attempt safely and desaturation to 82% sitting EOB) Stairs: Pattern: Step to Balance Picking up an Object (QC): 88 (too debilitated to attempt safely and balbina aturation to 82% sitting EOB) ADL-Treatment Eating (QC): 6 Oral Hygiene (QC): 6 Shower/Bathe Self (QC): 5 Upper Body Dressing (QC): 3 (Min A with managing shirt down back after shower.) Lower Body Dressing (QC): 5 On/Off Footwear (QC): 3 (Mod A overall. 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 Plan: PT OT Monitor O2 Montior creat 12/30/2022: Iron and B12 check Monitor closely 12/31/2022: Monitor closely Midline tomorrow Venofer 01/01/2023: Midline Iron 01/02/2023: Monitor closely Potassium 01/03/2023: Improved kidney function Potassium to increase to TID from BID 01/04/2023: Improved overall 01/05/2023: Monitor closely 01/06/2023: Monitor closely Prednisone 01/07/2023: Improved status Continue steroids and steroid cream 01/08/2023: Transfuse 1 unit 01/09/2023: Decrease Prednisone to 30mg daily start tomorrow 01/10/2023: DC home tomorrow (1) Acute on chronic renal failure Status: Acute (2) Pneumonia due to COVID-19 virus Status: Acute (3) Metabolic acidosis Status: Acute (4) SURAJ (acute kidney injury) SKY MARTE DO Jan 10, 2023 05:15
--- NOTE | 2023-01-10 07:54 | Occupational Ther Daily Note ---
OT Current Status-Daily Note Subjective Pt in bed, agreeable to OT Tx. Pt states she feels ready to discharge home tomorrow. Mental Status/Objective Patient Orientation: Normal For Age ADL-Treatment Therapy Code Descriptions/Definitions Functional [place] Measure: 0=Not Assessed/NA 4=Minimal Assistance 1=Total Assistance 5=Supervision or Setup 2=Maximal Assistance 6=Modified [place] 3=Moderate Assistance 7=Complete IndependenceSCALE: Activities may be completed with or without assistive devices. 5-Tpehqmuool-nrmrmlu completes the activity by him/herself with no assistance from a helper. 5-Set-up or Clean-up Assistance-helper sets up or cleans up; patient completes activity. [place] assists only prior to or following the activity. 4-Supervision or Touching Assistance-helper provides verbal cues and/or touching/steadying and/or contact guard assistance as patient completes activity. Assistance may be provided throughout the activity or intermittently. 3-Partial/Moderate Assistance-helper does LESS THAN HALF the effort. [place] lifts, holds or supports trunk or limbs, but provides less than half the effort. 2-Substantial/Maximal Assistance-helper does MORE THAN HALF the effort. [place] lifts or holds trunk or limbs and provides more than half the effort. 5-Dvyphdquw-qhxbcz does ALL the effort. Patient does none of the effort to complete the activity. Or, the assistance of 2 or more helpers is required for the patient to complete the activity. If activity was not attempted, code reason: 7-Patient Refused. 9-Not Applicable-not attempted and the patient did not perform the activity before the current illness, exacerbation or injury. 10-Not Attempted due to Environmental Limitations-(lack of equipment, weather restraints, etc.). 88-Not Attempted due to Medical Conditions or Safety Concerns. Eating (QC): 6 Oral Hygiene (QC): 6 Shower/Bathe Self (QC): 6 Upper Body Dressing (QC): 6 Lower Body Dressing (QC): 6 Toileting Hygiene (QC): 6 Toilet Transfer (QC): 6 Other Treatment Pt in bed, transferred supine to sit EOB, independently, then used FWW to transfer into bathroom. Pt completed toileting, showering, dressing and grooming tasks. Pt returned to bed, transferring supine. Pt's RN present for dressing change. Footwear not attempted this session due to time constraint, but plan to attempt next tx. Pt transferred supine to sit EOB, IND, then to recliner. Post tx, pt in recliner, call light in reach and all needs met, RN present. Education OT Patient Education: Correct positioning, Energy conservation, Modified ADL techniques, Progress toward Goal/Update tx plan, Purpose of tx/functional activities, Rehab process Teaching Recipient: Patient Teaching Methods: Discussion Response to Teaching: Verbalize Understanding BIMS CAM BIMS Expression of Ideas and Wants: Without Difficulty Understanding Verbal Content: Understands Brief Interview/Mental Status: Yes IRF MARIANA BIMS: IRF MARIANA BIMS Response (Comments) Value Repitition of Three Words Three 3 Recalls Socks Yes, No Cue Required 2 Recalls Blue Yes, No Cue Required 2 Recalls Bed Yes, No Cue Required 2 Year Correct 3 Month Accurate Within 5 Days 2 Day Correct 1 Total 15 Should Staff Asses. Mental St[address] No CAM Mental Status Change/Baseline: 0 Inattention: 0 Disorganized thinkin Altered level of consciousness: 0 OT Short Term Goals Short Term Goals Time Frame: Jan 05, 2023 Eatin Oral hygiene: 5 Toileting hygiene: 3 Shower/bathe self: 4 Upper body dressin Lower body dressin Putting on/taking off footwear: 3 OT Hydro Plant Operator Goals Skilled Nursing Goals Time Frame: Jan 19, 2023 Acute change in mental status: 0 Inattention: 0 Disorganized thinkin Altered level of consciousness: 0 Eating (QC): 6 (met) Oral Hygiene (QC): 6 (met) Toileting Hygiene (QC): 6 (met) Shower/Bathe Self (QC): 6 (met) Upper Body Dressing (QC): 6 (met) Lower Body Dressing (QC): 6 (met) On/Off Footwear (QC): 6 Additional Goals: 1-Demonstrate ADL Tasks, 2-Verbalize Understanding, 3- ImproveStrength/[place] 1=Demonstrate adherence to instructed precautions during ADL tasks. 2=Patient will verbalize/demonstrate understanding of assistive devices/modifications for ADL. 3=Patient will improve strength/tolerance for activity to enable patient to perform ADL's. OT Education/Plan Problem List/Assessment Assessment: Decreased Activ Tolerance, Decreased UE Strength, Impaired I ADL's Pt would benefit from skilled OT to increase her independence in basic self care to allow her to safely return home Discharge Recommendations Plan/Recommendations: Continue POC Treatment Plan/Plan of Care Patient would benefit from OT for education, treatment and training to promote independence in ADL's, mobility, safety and/or upper extremity function for ADL's. Plan of Care: ADL Retraining, Functional Mobility, Group Exercise/Act as Ind, UE Funct Exercise/Act, UE Neuromus Re-Ed/Coord, OTHER (energy conservation education) Treatment Duration: Jan 19, 2023 Frequency: Modified Program (IRF) (14/04) Estimated Hrs Per Day: 1.5 hours per day Agreement: Yes Rehab Potential: Fair Time Start Time: 07:30 Stop Time: 08:45 DATE: Jan 10, 2023 Total Time Billed (hr/min): 75 Billed Treatment Time 1, ADL 5 KITA DOBSON OT Jan 10, 2023 07:54
[2023-01-10 08:20] VITALS: BP 141/75
[2023-01-10] MEDS: diphenhydrAMINE 25 MG TAB (BENADRYL) PO SCH ×2 (08:24→21:23)
[2023-01-10] MEDS: ASPIRIN E.C. 81 MG (ECOTRIN) TAB PO SCH (08:24)
[2023-01-10] MEDS: PANTOPRAZOLE 20 MG TABLET (PROTONIX) PO SCH (08:25)
[2023-01-10] MEDS: meTOprolol TARTRATE 25 MG (LOPRESSOR) TABLET PO SCH ×2 (08:25→21:23)
[2023-01-10] MEDS: ALLOPURINOL 300 MG (ZYLOPRIM) TAB PO SCH (08:25)
[2023-01-10] MEDS: amLODIPine 5 MG (NORVASC) TAB PO SCH (08:25)
[2023-01-10] MEDS: VENlafaxine 75 MG (EFFEXOR) TAB PO SCH (08:25)
[2023-01-10] MEDS: TRIAMCINOLONE 0.5% CR (KENALOG) 15 GM TUBE TOP SCH ×2 (08:41→21:26)
[2023-01-10] MEDS: predniSONE 20 MG TAB PO SCH (08:42)
[2023-01-10] MEDS: LACTOBACILLUS ACIDOPHILUS (PROBIOTIC) CAPSULE PO SCH ×3 (08:45→18:03)
[2023-01-10] MEDS: KCL 10 MEQ TAB (MICRO K) PO SCH ×3 (08:45→18:03)
[2023-01-10] MEDS: HYPOCHLOROUS ACID/NaCl (VASHE) 250 ML IR SCH (08:53)
[2023-01-10] MEDS: DOCUSATE SODIUM 100 MG (COLACE) CAP PO SCH ×2 (08:54→21:25)
[2023-01-10] MEDS: polyethylene glycoL POWDER 17 GM (MIRALAX) PACK PO SCH ×2 (08:54→21:25)
[2023-01-10] MEDS: MICONAZOLE 2% POWDER (DESENEX AF) 90 GM TOP SCH ×2 (08:55→21:26)
[2023-01-10] MEDS: SENNA W/DOCUSATE (SENOKOT S) TABLET PO SCH ×2 (08:55→21:25)
[2023-01-10 09:02] VITALS: BP 141/75
--- NOTE | 2023-01-10 09:49 | Physical Therapy Daily Note ---
PT Daily Note-Current Subjective pt in recliner upon arrival and willing to preform therapy. pt stated her swelling has gone down today. pt left in recliner after therapy session with all needs met. Pain Section J - Health Conditions 1. Rarely or not at all 2. Occasionally 3. Frequently 4. Almost constantly 8. Unable to answer Pain Effect on Sleep: 1 Pain Interference with Therapy: 1 Pain Interference w/Day-to-Day: 1 Mental Status Patient Orientation: Person, Place, Time, Situation Transfers SCALE: Activities may be completed with or without assistive devices. 7-Uzpublxmwf-zxmrsat completes the activity by him/herself with no assistance from a helper. 5-Set-up or Clean-up Assistance-helper sets up or cleans up; patient completes activity. [place] assists only prior to or following the activity. 4-Supervision or Touching Assistance-helper provides verbal cues and/or touching/steadying and/or contact guard assistance as patient completes activit y. Assistance may be provided throughout the activity or intermittently. 3-Partial/Moderate Assistance-helper does LESS THAN HALF the effort. [place] lifts, holds or supports trunk or limbs, but provides less than half the effort. 2-Substantial/Maximal Assistance-helper does MORE THAN HALF the effort. [place] lifts or holds trunk or limbs and provides more than half the effort. 2-Gnbkfuyme-ixoarc does ALL the effort. Patient does none of the effort to complete the activity. Or, the assistance of 2 or more helpers is required for the patient to complete the activity. If activity was not attempted, code reason: 7-Patient Refused. 9-Not Applicable-not attempted and the patient did not perform the activity before the current illness, exacerbation or injury. 10-Not Attempted due to Environmental Limitations-(lack of equipment, weather restraints, etc.). 88-Not Attempted due to Medical Conditions or Safety Concerns. Roll Left & Right (QC): 6 Sit to Lying (QC): 6 Lying to Sitting/Side of Bed(Q: 6 Sit to Stand (QC): 6 Chair/Sgl-vz-Wpniu Xfer(QC): 6 Toilet Transfer (QC): 6 Car Transfer (QC): 6 Weight Bearing Right Lower Extremity: Right Weight Bearing/Tolerated Left Lower Extremity: Left Weight Bearing/Tolerated Gait Training Walk 10 feet (QC): 6 Walk 50 ft with 2 Turns(QC): 6 Walk 150 ft (QC): 6 Walking 10ft/uneven surface-QC: 6 Gait Persons Needed: 1 Gait Assistive Device: FWW Stair Training 1 Step (curb) (QC): 6 4 Steps (QC): 6 12 Steps (QC): 09 Stairs: Pattern: Step to Exercises Seated Therapy Exercises: Ankle pumps, Long arc quads, Hip flexion, Kicking activity, Glut set Treatments pt preformed ambulation with independence and no LOB this day. pt preformed FA as toileting and ADL to simulate activity at home to ensure safety with balance and endurance. pt preformed BLE strength exercises in sitting in all planes of motion for 3 sets of 15 reps with 60-90 sec rest in between showing increased endurance and mm stamina. Assessment Current Status: Good Progress PT Short Term Goals Short Term Goals Time Frame: Jan 03, 2023 PT Skilled Nursing Goals Web Ui Software Engineer Goals PT Web Ui Software Engineer Goals Time Frame: Jan 26, 2023 Roll Left & Right (QC): 6 Sit to Lying (QC): 5 (possible use of left leg phys therapist) Lying-Sitting on Side/Bed(QC): 5 (possible use of left leg phys therapist) Sit to Stand (QC): 6 (with FWW) Chair/Imi-st-Gievb Xfer(QC): 6 (with FWW) Toilet Transfer (QC): 6 (with FWW) Car Transfer (QC): 5 (with FWW) Does the Patient Walk: Yes Walk 10 feet (QC): 6 (with FWW and prn O2 assist with sats 90% or greater) Walk 50ft with 2 Turns (QC): 6 (with FWW and prn O2 assist with sats 90% or better) Walk 150 ft (QC): 5 (with FWW and prn O2 assist with sats 90% or greater) Walking 10ft on Uneven Surface: 5 (with FWW and O2 assist prn) 1 Step (curb) (QC): 5 4 Steps (QC): 4 (with (B) rails) 12 Steps (QC): 88 Picking up an Object (QC): 6 (with demurrage man) Does the Pt use WC or Scooter?: No Wheel 50 feet with 2 turns (QC: 6 Type: Manual Wheel 150 feet: 6 Type: Manual PT Plan Treatment/Plan Treatment Plan: Continue Plan of Care Treatment Plan: Bed Mobility, Education, Functional Activity [place], Functional Strength, Group Therapy, Gait, Safety, Therapeutic Exercise, Transfers, Other (Stair training) Treatment Duration: Jan 26, 2023 Frequency: At least 5 of 7 days/Wk (IRF) Estimated Hrs Per Day: Other (Graduate) Patient and/or Family Agrees t: Yes Time Time In: 0900 Time Out: 1000 DATE: Jan 10, 2023 Total Billed Treatment Time: 60 Total Billed Treatment 1 FA x 2, GT, ADL Mackenzie Denson EQUAL OPPORTUNITY ASSISTANT Jan 10, 2023 09:49
--- NOTE | 2023-01-10 11:14 | Physical Therapy Daily Note ---
PT Daily Note-Current Subjective pt in room upon arrival. pt willing for therapy. pt stated her left leg could tell she did EX this morning secondary to her wounds. Pain Section J - Health Conditions 1. Rarely or not at all 2. Occasionally 3. Frequently 4. Almost constantly 8. Unable to answer Pain Effect on Sleep: 1 Pain Interference with Therapy: 1 Pain Interference w/Day-to-Day: 1 Mental Status Patient Orientation: Person, Place, Time, Situation Transfers SCALE: Activities may be completed with or without assistive devices. 1-Twbzvjvbax-lnvzvjj completes the activity by him/herself with no assistance from a helper. 5-Set-up or Clean-up Assistance-helper sets up or cleans up; patient completes activity. [place] assists only prior to or following the activity. 4-Supervision or Touching Assistance-helper provides verbal cues and/or touching/steadying and/or contact guard assistance as patient completes activity. Assistance may be provided throughout the activity or intermittently. 3-Partial/Moderate Assistance-helper does LESS THAN HALF the effort. [place] lifts, holds or supports trunk or limbs, but provides less than half the effort. 2-Substantial/Maximal Assistance-helper does MORE THAN HALF the effort. [place] lifts or holds trunk or limbs and provides more than half the effort. 5-Nnuwzzgay-ufgnfx does ALL the effort. Patient does none of the effort to complete the activity. Or, the assistance of 2 or more helpers is required for the patient to complete the activity. If activity was not attempted, code reason: 7-Patient Refused. 9-Not Applicable-not attempted and the patient did not perform the activity before the current illness, exacerbation or injury. 10-Not Attempted due to Environmental Limitations-(lack of equipment, weather restraints, etc.). 88-Not Attempted due to Medical Conditions or Safety Concerns. Weight Bearing Right Lower Extremity: Right Weight Bearing/Tolerated Left Lower Extremity: Left Weight Bearing/Tolerated Exercises Seated Therapy Exercises: Ankle pumps, Sit to stand, Long arc quads, Hip flexion, Kicking activity, Hamstring Curls, Hip abd/add, Glut set Standing: Floor clock, Marching, Step-ups Treatments pt was able to ambulate and preform dynamic ambulation activity simulating daily ADL. pt has no LOB this day. pt preformed ther-ex sitting and standing 2 sets x 20 reps this day with rest after for fatigue. Assessment Current Status: Good Progress PT Short Term Goals Short Term Goals Time Frame: Jan 03, 2023 PT Assisted Goals Cinetechnician Goals PT Cinetechnician Goals Time Frame: Jan 26, 2023 Roll Left & Right (QC): 6 Sit to Lying (QC): 5 (possible use of left leg child care attendant) Lying-Sitting on Side/Bed(QC): 5 (possible use of left leg child care attendant) Sit to Stand (QC): 6 (with FWW) Chair/Pfd-rp-Uqeul Xfer(QC): 6 (with FWW) Toilet Transfer (QC): 6 (with FWW) Car Transfer (QC): 5 (with FWW) Does the Patient Walk: Yes Walk 10 feet (QC): 6 (with FWW and prn O2 assist with sats 90% or greater) Walk 50ft with 2 Turns (QC): 6 (with FWW and prn O2 assist with sats 90% or be tter) Walk 150 ft (QC): 5 (with FWW and prn O2 assist with sats 90% or greater) Walking 10ft on Uneven Surface: 5 (with FWW and O2 assist prn) 1 Step (curb) (QC): 5 4 Steps (QC): 4 (with (B) rails) 12 Steps (QC): 88 Picking up an Object (QC): 6 (with nut sorter) Does the Pt use WC or Scooter?: No Wheel 50 feet with 2 turns (QC: 6 Type: Manual Wheel 150 feet: 6 Type: Manual PT Plan Treatment/Plan Treatment Plan: Continue Plan of Care Treatment Plan: Bed Mobility, Education, Functional Activity [place], Functional Strength, Group Therapy, Gait, Safety, Therapeutic Exercise, Transfers, Other (Stair training) Treatment Duration: Jan 26, 2023 Frequency: At least 5 of 7 days/Wk (IRF) Estimated Hrs Per Day: Other (Graduate) Patient and/or Family Agrees t: Yes Time Time In: 1045 Time Out: 1115 DATE: Jan 10, 2023 Total Billed Treatment Time: 30 Total Billed Treatment 1, GT, Mackenzie Melgar BURGLAR ALARM INSPECTOR Jan 10, 2023 11:14
--- NOTE | 2023-01-10 13:48 | Occupational Ther Daily Note ---
OT Current Status-Daily Note Subjective Pt in recliner, agreeable to OT Tx. ADL-Treatment Therapy Code Descriptions/Definitions Functional [place] Measure: 0=Not Assessed/NA 4=Minimal Assistance 1=Total Assistance 5=Supervision or Setup 2=Maximal Assistance 6=Modified [place] 3=Moderate Assistance 7=Complete IndependenceSCALE: Activities may be completed with or without assistive devices. 8-Dmuosrcikr-wexzcdy completes the activity by him/herself with no assistance from a helper. 5-Set-up or Clean-up Assistance-helper sets up or cleans up; patient completes activity. [place] assists only prior to or following the activity. 4-Supervision or Touching Assistance-helper provides verbal cues and/or touching/steadying and/or contact guard assistance as patient completes activity. Assistance may be provided throughout the activity or intermittently. 3-Partial/Moderate Assistance-helper does LESS THAN HALF the effort. [place] lifts, holds or supports trunk or limbs, but provides less than half the effort. 2-Substantial/Maximal Assistance-helper does MORE THAN HALF the effort. [place] lifts or holds trunk or limbs and provides more than half the effort. 0-Lqygnbknb-jothhi does ALL the effort. Patient does none of the effort to compl ete the activity. Or, the assistance of 2 or more helpers is required for the patient to complete the activity. If activity was not attempted, code reason: 7-Patient Refused. 9-Not Applicable-not attempted and the patient did not perform the activity before the current illness, exacerbation or injury. 10-Not Attempted due to Environmental Limitations-(lack of equipment, weather restraints, etc.). 88-Not Attempted due to Medical Conditions or Safety Concerns. On/Off Footwear: 6 Other Treatment Pt seated in recliner, agreeable to OT Tx. Pt demonstrated ability to doff gripper socks, don/doff slip on shoes, and don gripper socks, IND with all. Pt states she feels good about discharging home and has no concerns with ADLS. Post tx, pt in recliner, call light in reach and all needs met. OT Short Term Goals Short Term Goals Time Frame: Jan 05, 2023 Eatin Oral hygiene: 5 Toileting hygiene: 3 Shower/bathe self: 4 Upper body dressin Lower body dressin Putting on/taking off footwear: 3 OT Branding Machine Operator Goals Branding Machine Operator Goals Time Frame: Jan 19, 2023 Acute change in mental status: 0 Inattention: 0 Disorganized thinkin Altered level of consciousness: 0 Eating (QC): 6 (met) Oral Hygiene (QC): 6 (met) Toileting Hygiene (QC): 6 (met) Shower/Bathe Self (QC): 6 (met) Upper Body Dressing (QC): 6 (met) Lower Body Dressing (QC): 6 (met) On/Off Footwear (QC): 6 (met) Additional Goals: 1-Demonstrate ADL Tasks, 2-Verbalize Understanding, 3- ImproveStrength/[place] 1=Demonstrate adherence to instructed precautions during ADL tasks. 2=Patient will verbalize/demonstrate understanding of assistive devices/shakira fications for ADL. 3=Patient will improve strength/tolerance for activity to enable patient to perform ADL's. OT Education/Plan Problem List/Assessment Assessment: Decreased Activ Tolerance, Decreased UE Strength, Impaired I ADL's Pt would benefit from skilled OT to increase her independence in basic self care to allow her to safely return home Discharge Recommendations Plan/Recommendations: Continue POC Treatment Plan/Plan of Care Patient would benefit from OT for education, treatment and training to promote independence in ADL's, mobility, safety and/or upper extremity function for ADL's. Plan of Care: ADL Retraining, Functional Mobility, Group Exercise/Act as Ind, UE Funct Exercise/Act, UE Neuromus Re-Ed/Coord, OTHER (energy conservation education) Treatment Duration: Jan 19, 2023 Frequency: Modified Program (IRF) (14/04) Estimated Hrs Per Day: 1.5 hours per day Agreement: Yes Rehab Potential: Fair Time Start Time: 11:45 Stop Time: 12:00 DATE: Jan 10, 2023 Total Time Billed (hr/min): 15 Billed Treatment Time 1, ADL KITA DOBSON OT Jan 10, 2023 13:48
[2023-01-10 20:50] VITALS: BP 131/62
[2023-01-10] MEDS: ENOXAPARIN INJECTION 30 MG/0.3 ML SYR SC SCH (21:23)
[2023-01-10] MEDS: ACETAMINOPHEN ER 650 MG (TYLENOL ARTHRITIS) PO PRN (21:23)
[2023-01-10] MEDS: MONTELUKAST 10 MG (SINGULAIR) TAB PO SCH (21:23)
[2023-01-11] MEDS ORDERED: AMLO-250 PO (05:27)
[2023-01-11] MEDS ORDERED: METO-333 PO (05:27)
[2023-01-11] MEDS ORDERED: TRIA15CR TOP (05:27)
[2023-01-11] MEDS ORDERED: MICO90PO TOP (05:27)
[2023-01-11] MEDS ORDERED: PRD10T PO (05:27)
--- NOTE | 2023-01-11 05:28 | D/C HH Face to Face Order ---
D/C Face to Face Orders Reconcile Patient Problems Problems Reviewed?: Yes Instructions for Patient Via [employer], Patient Instructions/FollowUp: pcp 1 week Physician to follow Patient: Lucero Discharge Diet for Home: No Restrictions Patient Problems: Post COVID Left leg vasculitis SURAJ Patient Data-Allergies,Ht & Wt Patient Allergies: Coded Allergies: iodine (Verified Allergy, Mild, 05/22/22) Uncoded Allergies: TAPE (Allergy, Mild, 08/25/09) Height (Feet): 5 Height (Inches): 6.00 Weight (Pounds): 280 Weight (Ounces): 0.0 Home Health Need/Face to Face Date of Face to Face: Jan 11, 2023 Clinical Findings: Generalized weakness and fatigue I have seen Pt [id number]-hw-[id number]: Yes Discharged To: Home Diagnosis/Conditions: Post COVID Left leg vasculitis SURAJ Patient is Homebound due to: Muscle weakness Homebound Status Due to the above stated illness, injury or surgical procedure (medical condition or diagnosis) and associated clinical findings, the patient is homebound because of his/her inability to leave home except with aid of a supportive device and/or person AND leaving the home requires a considerable and taxing effort or is medically contraindicated. Pt req the following assistanc: [facility] Nursing Orders Home Health Services Order: Nursing Services, [place] Worker-Evaluate & Treat, Physical Therapy-Evaluate & Treat, Wound Care-Eval/Treat Home Health Infusion Therapy Line Start Date: Jan 01, 2023 Certify Stmt I certify that this patient is under my care and that I, a nurse practitioner or a physician; a assistant grocery working with me, had a face to face encounter that - meets the physician face to face encounter requirements with this patient as dated. SKY MARTE DO Jan 11, 2023 05:28
--- NOTE | 2023-01-11 05:29 | Discharge Summary ---
Diagnosis/Chief Complaint Date of Admission Dec 29, 2022 at 12:30 Date of Discharge Discharge Date: Jan 11, 2023 Discharge Diagnosis Assessment: Severe debility from COVID PNA Acute hypoxic respiratory failure Acute on chronic kidney failure initially 6.9 now back to baseline 2.0 IVÁN on CPAP Obesity s/p septic shock Anemia requiring 1 unit of blood for hgb 7.2 on 01/08/23 Protein malnutrition Hypokalemia HTN GERD Depression Iron def Left leg wound present before admit s/p biopsy by Dr Orr 01/05/23 then started on steroids for vasculitis Plan: PT OT Monitor O2 Montior creat 12/30/2022: Iron and B12 check Monitor closely 12/31/2022: Monitor closely Midline tomorrow Venofer 01/01/2023: Midline Iron 01/02/2023: Monitor closely Potassium 01/03/2023: Improved kidney function Potassium to increase to TID from BID 01/04/2023: Improved overall 01/05/2023: Monitor closely 01/06/2023: Monitor closely Prednisone 01/07/2023: Improved status Continue steroids and steroid cream 01/08/2023: Transfuse 1 unit 01/09/2023: Decrease Prednisone to 30mg daily start tomorrow 01/10/2023: DC home tomorrow (1) Acute on chronic renal failure Status: Acute (2) Pneumonia due to COVID-19 virus Status: Acute (3) Metabolic acidosis Status: Acute (4) SURAJ (acute kidney injury) Discharge Summary Discharge Physical Examination Allergies: Coded Allergies: iodine (Verified Allergy, Mild, 05/22/22) Uncoded Allergies: TAPE (Allergy, Mild, 08/25/09) Vitals & I&Os Vital Signs Date Time Temp Pulse Resp B/P (MAP) Pulse Ox O2 Delivery O2 Flow Rate FiO2 01/11/23 11:45 36.1 74 20 131/61 99 Room Air Hospital Course Was the Problem List Reviewed?: Yes Rehab Course This patient is a 72 year old female who was admitted at [facility] from 12/29/22 - 01/11/23 for debility following an acute on chronic renal failure and COVID Pneumonia. On arrival pt. was significantly fluid overloaded with fluid blisters along left leg. As these healed she developed a left leg wound that was treated with combination of prednisone for vasculitis and wound care. She had a skin biopsy of wound by Dr. Orr 01/05/23 with results pending. Overall it appears to be healing as expected. She was anemic suring the majority of her stay and did have 1 unit pRBC given on 01/08 for Hgb 7.2. It improved as expected to 8.1 by 01/08. During her stay she had significant improvement working with PT/OT and by time of discharge was independent in all ADL's, all aspects of transfers, stair training, and gait training using FWW. She should follow the instructions set in place by Dr. Marte and therapy team upon discharge. BRENDA QUILES Labs (last 24 hrs) Laboratory Tests 12/30/22 06:04: White Blood Count 6.9, Red Blood Count 3.02L, Hemoglobin 9.1L, Hematocrit 28L, Mean Corpuscular Volume 92, Mean Corpuscular Hemoglobin 30, Mean Corpuscular Hemoglobin Concent 33, Red Cell Distribution Width 15.1H, Platelet Count 131, Mean Platelet Volume 12.4H, Immature Granulocyte % (Auto) 5, Neutrophils (%) (Auto) 54, Lymphocytes (%) (Auto) 32, Monocytes (%) (Auto) 6, Eosinophils (%) (Auto) 3, Basophils (%) (Auto) 0, Neutrophils # (Auto) 3.7, Lymphocytes # (Auto) 2.2, Monocytes # (Auto) 0.4, Eosinophils # (Auto) 0.2, Basophils # (Auto) 0.0, Immature Granulocyte # (Auto) 0.4H, Percent Immature Platelet Fraction 7.2, Sodium Level 137, Potassium Level 2.8L, Chloride Level 101, Carbon Dioxide Level 19L, Anion Gap 17H, Blood Urea Nitrogen 91H, Creatinine 2.03H, Estimat Glomerular Filtration Rate 26, BUN/Creatinine Ratio 45, Glucose Level 101, Calcium Level 8.7, Corrected Calcium 9.7, Total Bilirubin 0.7, Aspartate Amino Transf (AST/SGOT) 18, Alanine Aminotransferase (ALT/SGPT) 31, Alkaline Phosphatase 71, Total Protein 5.8L, Albumin 2.8L, Smear Scan YES 12/30/22 11:05: Iron Level 31L, Vitamin B12 Level >2000H 01/01/23 05:36: Sodium Level 137, Potassium Level 2.9L, Chloride Level 104, Carbon Dioxide Level 17L, Anion Gap 16H, Blood Urea Nitrogen 93H, Creatinine 2.36H, Estimat Glomerular Filtration Rate 22, BUN/Creatinine Ratio 39, Glucose Level 96, Calcium Level 8.0L, Corrected Calcium 9.1, Total Bilirubin 0.6, Aspartate Amino Transf (AST/SGOT) 19, Alanine Aminotransferase (ALT/SGPT) 27, Alkaline Phosphatase 65, Total Protein 5.2L, Albumin 2.6L, Magnesium Level 1.5L 01/01/23 06:05: White Blood Count 7.7, Red Blood Count 2.73L, Hemoglobin 8.2L, Hematocrit 25L, Mean Corpuscular Volume 91, Mean Corpuscular Hemoglobin 30, Mean Corpuscular Hemoglobin Concent 33, Red Cell Distribution Width 15.2H, Platelet Count 186, Mean Platelet Volume 12.5H, Immature Granulocyte % (Auto) 2, Neutrophils (%) (Auto) 64, Lymphocytes (%) (Auto) 22, Monocytes (%) (Auto) 10, Eosinophils (%) (Auto) 2, Basophils (%) (Auto) 0, Neutrophils # (Auto) 5.0, Lymphocytes # (Auto) 1.7, Monocytes # (Auto) 0.7, Eosinophils # (Auto) 0.2, Basophils # (Auto) 0.0, Immature Granulocyte # (Auto) 0.1 01/03/23 09:40: Sodium Level 138, Potassium Level 3.4L, Chloride Level 107, Carbon Dioxide Level 19L, Anion Gap 12, Blood Urea Nitrogen 61H, Creatinine 2.04H, Estimat Glomerular Filtration Rate 26, BUN/Creatinine Ratio 30, Glucose Level 130H, Calcium Level 8.3L, Corrected Calcium 9.3, Total Bilirubin 0.5, Aspartate Amino Transf (AST/SGOT) 20, Alanine Aminotransferase (ALT/SGPT) 24, Alkaline Phosphatase 73, Total Protein 5.2L, Albumin 2.7L 01/03/23 11:08: White Blood Count 7.2, Red Blood Count 2.68L, Hemoglobin 8.0L, Hematocrit 25L, Mean Corpuscular Volume 94, Mean Corpuscular Hemoglobin 30, Mean Corpuscular Hemoglobin Concent 32, Red Cell Distribution Width 15.0H, Platelet Count 355, Mean Platelet Volume 10.9, Immature Granulocyte % (Auto) 1, Neutrophils (%) (Aut o) 72, Lymphocytes (%) (Auto) 15, Monocytes (%) (Auto) 10, Eosinophils (%) (Auto) 1, Basophils (%) (Auto) 1, Neutrophils # (Auto) 5.2, Lymphocytes # (Auto) 1.1, Monocytes # (Auto) 0.7, Eosinophils # (Auto) 0.1, Basophils # (Auto) 0.1, Immature Granulocyte # (Auto) 0.1 01/08/23 06:05: Sodium Level 138, Potassium Level 3.9, Chloride Level 110H, Carbon Dioxide Level 18L, Anion Gap 10, Blood Urea Nitrogen 54H, Creatinine 2.29H, Estimat Glomerular Filtration Rate 22, BUN/Creatinine Ratio 24, Glucose Level 139H, Calcium Level 8.5, Corrected Calcium 9.7, Total Bilirubin 0.2, Aspartate Amino Transf (AST/SGOT) 49H, Alanine Aminotransferase (ALT/SGPT) 57H, Alkaline Phosphatase 77, Total Protein 5.2L, Albumin 2.5L, White Blood Count 7.6, Red Blood Count 2.43L, Hemoglobin 7.2L, Hematocrit 23L, Mean Corpuscular Volume 93, Mean Corpuscular Hemoglobin 30, Mean Corpuscular Hemoglobin Concent 32, Red Cell Distribution Width 14.9H, Platelet Count 449H, Mean Platelet Volume 10.3, Immature Granulocyte % (Auto) 4, Neutrophils (%) (Auto) 68, Lymphocytes (%) (Auto) 21, Monocytes (%) (Auto) 7, Eosinophils (%) (Auto) 0, Basophils (%) (Auto) 0, Neutrophils # (Auto) 5.2, Lymphocytes # (Auto) 1.6, Monocytes # (Auto) 0.5, Eosinophils # (Auto) 0.0, Basophils # (Auto) 0.0, Immature Granulocyte # (Auto) 0.3H 01/09/23 05:36: Sodium Level 137, Potassium Level 4.2, Chloride Level 110H, Carbon Dioxide Level 15L, Anion Gap 12, Blood Urea Nitrogen 59H, Creatinine 2.41H, Estimat Glomerular Filtration Rate 21, BUN/Creatinine Ratio 24, Glucose Level 169H, Calcium Level 8.6, Corrected Calcium 9.8, Total Bilirubin 0.2, Aspartate Amino Transf (AST/SGOT) 54H, Alanine Aminotransferase (ALT/SGPT) 72H, Alkaline Phosphatase 75, Total Protein 5.3L, Albumin 2.5L, White Blood Count 8.9, Red Blood Count 2.76L, Hemoglobin 8.1L, Hematocrit 26L, Mean Corpuscular Volume 95, Mean Corpuscular Hemoglobin 29, Mean Corpuscular Hemoglobin Concent 31L, Red Cell Distribution Width 15.4H, Platelet Count 384, Mean Platelet Volume 10.6, Immature Granulocyte % (Auto) 8, Neutrophils (%) (Auto) 65, Lymphocytes (%) (Auto) 20, Monocytes (%) (Auto) 6, Eosinophils (%) (Auto) 0, Basophils (%) (Auto) 1, Neutrophils # (Auto) 5.8, Lymphocytes # (Auto) 1.8, Monocytes # (Auto) 0.5, Eosinophils # (Auto) 0.0, Basophils # (Auto) 0.0, Immature Granulocyte # (Auto) 0.7H, Smear Scan YES Microbiology 01/02/23 C. difficile GDH Antigen & Toxins - Final, Complete Pending Labs Microbiology Date/Time Source Procedure Growth Status 01/02/23 10:10 Stool C. difficile GDH Antigen & Toxins - Final Complete Laboratory Tests 12/30/22 06:04: White Blood Count 6.9, Red Blood Count 3.02, Hemoglobin 9.1, Hematocrit 28, Mean Corpuscular Volume 92, Mean Corpuscular Hemoglobin 30, Mean Corpuscular Hemoglobin Concent 33, Red Cell Distribution Width 15.1, Platelet Count 131, Mean Platelet Volume 12.4, Immature Granulocyte % (Auto) 5, Neutrophils (%) (Auto) 54, Lymphocytes (%) (Auto) 32, Monocytes (%) (Auto) 6, Eosinophils (%) (Auto) 3, Basophils (%) (Auto) 0, Neutrophils # (Auto) 3.7, Lymphocytes # (Auto) 2.2, Monocytes # (Auto) 0.4, Eosinophils # (Auto) 0.2, Basophils # (Auto) 0.0, Immature Granulocyte # (Auto) 0.4, Percent Immature Platelet Fraction 7.2, Sodium Level 137, Potassium Level 2.8, Chloride Level 101, Carbon Dioxide Level 19, Anion Gap 17, Blood Urea Nitrogen 91, Creatinine 2.03, Estimat Glomerular Filtration Rate 26, BUN/Creatinine Ratio 45, Glucose Level 101, Calcium Level 8.7, Corrected Calcium 9.7, Total Bilirubin 0.7, Aspartate Amino Transf (AST/SGOT) 18, Alanine Aminotransferase (ALT/SGPT) 31, Alkaline Phosphatase 71, Total Protein 5.8, Albumin 2.8, Smear Scan YES 12/30/22 11:05: Iron Level 31, Vitamin B12 Level >2000 01/01/23 05:36: Sodium Level 137, Potassium Level 2.9, Chloride Level 104, Carbon Dioxide Level 17, Anion Gap 16, Blood Urea Nitrogen 93, Creatinine 2.36, Estimat Glomerular Filtration Rate 22, BUN/Creatinine Ratio 39, Glucose Level 96, Calcium Level 8.0, Corrected Calcium 9.1, Total Bilirubin 0.6, Aspartate Amino Transf (AST/SGOT) 19, Alanine Aminotransferase (ALT/SGPT) 27, Alkaline Phosphatase 65, Total Protein 5.2, Albumin 2.6, Magnesium Level 1.5 01/01/23 06:05: White Blood Count 7.7, Red Blood Count 2.73, Hemoglobin 8.2, Hematocrit 25, Mean Corpuscular Volume 91, Mean Corpuscular Hemoglobin 30, Mean Corpuscular Hemoglobin Concent 33, Red Cell Distribution Width 15.2, Platelet Count 186, Mean Platelet Volume 12.5, Immature Granulocyte % (Auto) 2, Neutrophils (%) (Auto) 64, Lymphocytes (%) (Auto) 22, Monocytes (%) (Auto) 10, Eosinophils (%) (Auto) 2, Basophils (%) (Auto) 0, Neutrophils # (Auto) 5.0, Lymphocytes # (Auto) 1.7, Monocytes # (Auto) 0.7, Eosinophils # (Auto) 0.2, Basophils # (Auto) 0.0, Immature Granulocyte # (Auto) 0.1 01/03/23 09:40: Sodium Level 138, Potassium Level 3.4, Chloride Level 107, Carbon Dioxide Level 19, Anion Gap 12, Blood Urea Nitrogen 61, Creatinine 2.04, Estimat Glomerular Filtration Rate 26, BUN/Creatinine Ratio 30, Glucose Level 130, Calcium Level 8.3, Corrected Calcium 9.3, Total Bilirubin 0.5, Aspartate Amino Transf (AST/SGOT) 20, Alanine Aminotransferase (ALT/SGPT) 24, Alkaline Phosphatase 73, Total Protein 5.2, Albumin 2.7 01/03/23 11:08: White Blood Count 7.2, Red Blood Count 2.68, Hemoglobin 8.0, Hematocrit 25, Mean Corpuscular Volume 94, Mean Corpuscular Hemoglobin 30, Mean Corpuscular Hemoglobin Concent 32, Red Cell Distribution Width 15.0, Platelet Count 355, Mean Platelet Volume 10.9, Immature Granulocyte % (Auto) 1, Neutrophils (%) (Auto) 72, Lymphocytes (%) (Auto) 15, Monocytes (%) (Auto) 10, Eosinophils (%) (Auto) 1, Basophils (%) (Auto) 1, Neutrophils # (Auto) 5.2, Lymphocytes # (Auto) 1.1, Monocytes # (Auto) 0.7, Eosinophils # (Auto) 0.1, Basophils # (Auto) 0.1, Immature Granulocyte # (Auto) 0.1 01/08/23 06:05: Sodium Level 138, Potassium Level 3.9, Chloride Level 110, Carbon Dioxide Level 18, Anion Gap 10, Blood Urea Nitrogen 54, Creatinine 2.29, Estimat Glomerular Filtration Rate 22, BUN/Creatinine Ratio 24, Glucose Level 139, Calcium Level 8.5, Corrected Calcium 9.7, Total Bilirubin 0.2, Aspartate Amino Transf (AST/SGOT) 49, Alanine Aminotransferase (ALT/SGPT) 57, Alkaline Phosphatase 77, Total Protein 5.2, Albumin 2.5, White Blood Count 7.6, Red Blood Count 2.43, Hemoglobin 7.2, Hematocrit 23, Mean Corpuscular Volume 93, Mean Corpuscular Hemoglobin 30, Mean Corpuscular Hemoglobin Concent 32, Red Cell Distribution Width 14.9, Platelet Count 449, Mean Platelet Volume 10.3, Immature Granulocyte % (Auto) 4, Neutrophils (%) (Auto) 68, Lymphocytes (%) (Auto) 21, Monocytes (%) (Auto) 7, Eosinophils (%) (Auto) 0, Basophils (%) (Auto) 0, Neutrophils # (Auto) 5.2, Lymphocytes # (Auto) 1.6, Monocytes # (Auto) 0.5, Eosinophils # (Auto) 0.0, Basophils # (Auto) 0.0, Immature Granulocyte # (Auto) 0.3 01/09/23 05:36: Sodium Level 137, Potassium Level 4.2, Chloride Level 110, Carbon Dioxide Level 15, Anion Gap 12, Blood Urea Nitrogen 59, Creatinine 2.41, Estimat Glomerular Filtration Rate 21, BUN/Creatinine Ratio 24, Glucose Level 169, Calcium Level 8.6, Corrected Calcium 9.8, Total Bilirubin 0.2, Aspartate Amino Transf (AST/SGOT) 54, Alanine Aminotransferase (ALT/SGPT) 72, Alkaline Phosphatase 75, Total Protein 5.3, Albumin 2.5, White Blood Count 8.9, Red Blood Count 2.76, Hemoglobin 8.1, Hematocrit 26, Mean Corpuscular Volume 95, Mean Corpuscular Hemoglobin 29, Mean Corpuscular Hemoglobin Concent 31, Red Cell Distribution W idth 15.4, Platelet Count 384, Mean Platelet Volume 10.6, Immature Granulocyte % (Auto) 8, Neutrophils (%) (Auto) 65, Lymphocytes (%) (Auto) 20, Monocytes (%) (Auto) 6, Eosinophils (%) (Auto) 0, Basophils (%) (Auto) 1, Neutrophils # (Auto) 5.8, Lymphocytes # (Auto) 1.8, Monocytes # (Auto) 0.5, Eosinophils # (Auto) 0.0, Basophils # (Auto) 0.0, Immature Granulocyte # (Auto) 0.7, Smear Scan YES Discharge Home Medications: Active Scripts Active Bactrim 400-80 mg Tablet (Sulfamethoxazole/Trimethoprim) 400 Mg-80 Mg Tablet 1 Each PO BID 14 Days Prednisone 10 Mg Tab 10 Mg PO DAILY 3 pills once daily for 3 days then 2 pills once daily for 5 days then 1 daily for until stopped by your doctor Triamcinolone Acetonide 0.5% Cream (Triamcinolone Acetonide) 0.5 % Cream..g. 0 Gm TOP BID twice daily Lotrimin AF (Miconazole Nitrate) 2 % Powder 0 Gm TOP BID twice daily Amlodipine Besylate 5 Mg Tablet 5 Mg PO DAILY Metoprolol Tartrate 25 Mg Tablet 25 Mg PO BID Reported Cetirizine HCl 10 Mg Tablet 10 Mg PO HS Vitamin B-12 (Cyanocobalamin (Vitamin B-12)) 1,000 Mcg Capsule 1,000 Mcg PO DAILY Vitamin D3 (Cholecalciferol (Vitamin D3)) 25 Mcg (1000 Unit) Tablet 25 Mcg PO DAILY Multi-Vitamin Daily (Multivitamin) 1 Each Tablet 1 Each PO DAILY Zyrtec-D Tablet (Cetirizine HCl/Pseudoephedrine) 5 Mg-120 Mg Tab.er.12h 1 Each PO DAILY PRN Glucosamine & Chondroitin Cap (Glucosa Hammer 2Kcl/Chondroitin Hammer) 500 Mg-400 Mg Capsule 1 Each PO BID Esomeprazole Magnesium 20 Mg Capsule.dr 20 Mg PO DAILY BEFORE BREAKFAST Aspirin EC (Aspirin) 81 Mg Tablet.dr 81 Mg PO DAILY Diphenhydramine HCl 25 Mg Capsule 25 Mg PO Q12H Allopurinol 300 Mg Tablet 300 Mg PO HS Atorvastatin Calcium 80 Mg Tablet 80 Mg PO HS Tylenol Arthritis (Acetaminophen) 650 Mg Tablet.er 1,300 Mg PO BID PRN TAKES 2 (650MG) TABS Venlafaxine HCl 75 Mg Tab 75 Mg PO HS Montelukast Sodium 10 Mg Tablet 10 Mg PO HS Instructions to patient/family Please see electronic discharge instructions given to patient. Diagnosis/Problems Diagnosis/Problems (1) Acute on chronic renal failure Status: Acute (2) Pneumonia due to COVID-19 virus Status: Acute (3) Metabolic acidosis Status: Acute (4) SURAJ (acute kidney injury) SKY MARTE DO Jan 11, 2023 05:28
[2023-01-11 07:55] VITALS: BP 131/61
[2023-01-11] MEDS: VENlafaxine 75 MG (EFFEXOR) TAB PO SCH (08:19)
[2023-01-11] MEDS: amLODIPine 5 MG (NORVASC) TAB PO SCH (08:19)
[2023-01-11] MEDS: diphenhydrAMINE 25 MG TAB (BENADRYL) PO SCH (08:19)
[2023-01-11] MEDS: LACTOBACILLUS ACIDOPHILUS (PROBIOTIC) CAPSULE PO SCH (08:19)
[2023-01-11] MEDS: PANTOPRAZOLE 20 MG TABLET (PROTONIX) PO SCH (08:19)
[2023-01-11] MEDS: KCL 10 MEQ TAB (MICRO K) PO SCH (08:19)
[2023-01-11] MEDS: meTOprolol TARTRATE 25 MG (LOPRESSOR) TABLET PO SCH (08:19)
[2023-01-11] MEDS: ALLOPURINOL 300 MG (ZYLOPRIM) TAB PO SCH (08:19)
[2023-01-11] MEDS: ASPIRIN E.C. 81 MG (ECOTRIN) TAB PO SCH (08:19)
[2023-01-11] MEDS: predniSONE 20 MG TAB PO SCH (08:20)
[2023-01-11] MEDS: SENNA W/DOCUSATE (SENOKOT S) TABLET PO SCH (08:21)
[2023-01-11] MEDS: TRIAMCINOLONE 0.5% CR (KENALOG) 15 GM TUBE TOP SCH (08:21)
[2023-01-11] MEDS: HYPOCHLOROUS ACID/NaCl (VASHE) 250 ML IR SCH (08:21)
[2023-01-11] MEDS: DOCUSATE SODIUM 100 MG (COLACE) CAP PO SCH (08:22)
[2023-01-11] MEDS: polyethylene glycoL POWDER 17 GM (MIRALAX) PACK PO SCH (08:22)
[2023-01-11] MEDS: IRON SUCROSE 200 MG/10 ML (VENOFER) VIAL IV SCH (08:56)
[2023-01-11] MEDS ORDERED: SULF1TAB34 PO (10:08)
--- NOTE | 2023-01-11 10:08 | Therapy Team Discharge Summary ---
Therapy Discharge Summary Discharge Recommendations Date of Discharge Physical Therapy Roll Left to Right (QC): 6 Sit to Lying (QC): 6 Lying to Sitting/Side of Bed(Q: 6 Sit to Stand (QC): 6 Chair/Cyl-qe-Bjeiq Xfer(QC): 6 Toilet Transfer (QC): 5 Car Transfer (QC): 6 Does the Patient Walk: Yes Mode of Locomotion: Both Anticipated Mode of Locomotion: Both Walk 10 feet (QC): 6 Walk 50 ft with 2 Turns(QC): 6 Walk 150 ft (QC): 6 Walking 10ft on uneven surface: 6 Gait Assistive Device: FWW Does the Pt Use a Wheelchair: Yes Wheel 50 ft with 2 turns (QC): 88 (too debilitated to attempt safely and desaturation to 82% sitting EOB) Wheel 150 ft (QC): 88 (too debilitated to attempt safely and desaturation to 82% sitting EOB) Type of Wheelchair: Manual #of Steps: 4 1 Step (curb) (QC): 6 4 Steps (QC): 6 12 Steps (QC): 09 Balance Sitting Static: Good Balance Sitting Dynamic: Poor Balance-Standing Static: Fair Picking up an Object (QC): 88 (too debilitated to attempt safely and desaturation to 82% sitting EOB) Occupational Therapy Pt admitted to ARU with acute on chronic renal failure. At [facility], pt was IND with I/ADLs and functional mobility. Upon initial evaluation, pt required supervision with eating, min A oral care,max A showering, mod A UE dressing and total assist with LE dressing, footwear and toileting. OT tx focused on increasing BUE Strength and activity tolerance, and increasing independence with ADLs and functional mobility. Pt made good progress towards goals, attaining IND level with all ADLs. Pt discharging home today, d/c from OT. Decreased Activ Tolerance, Decreased UE Strength, Impaired I ADL's Eating (QC): 6 Oral Hygiene (QC): 6 Shower/Bathe Self (QC): 6 Upper Body Dressing (QC): 6 Lower Body Dressing (QC): 6 On/Off Footwear (QC): 6 Toileting Hygiene (QC): 6 PT Jail Goals Computer Scientist Goals PT Computer Scientist Goals Time Frame: Jan 26, 2023 Roll Left to Right (QC): 6 Sit to Lying (QC): 5 (possible use of left leg professional nurse) Lying-Sitting on Side/Bed(QC): 5 (possible use of left leg professional nurse) Sit to Stand (QC): 6 (with FWW) Chair/Rxn-as-Idwvy Xfer(QC): 6 (with FWW) Toilet/Commode Transfer (QC): 6 (with FWW) Car Transfer (QC): 5 (with FWW) Does the Patient Walk: Yes Walk 10 feet (QC): 6 (with FWW and prn O2 assist with sats 90% or greater) Walk 10ft-Uneven Surface(QC): 5 (with FWW and O2 assist prn) Walk 50ft with 2 Turns (QC): 6 (with FWW and prn O2 assist with sats 90% or better) Walk 150 ft (QC): 5 (with FWW and prn O2 assist with sats 90% or greater) Does the Pt use WC or Scooter?: No Wheel 50 feet with 2 turns (QC: 6 Type: Manual Wheel 150 feet: 6 Type: Manual 1 Step (curb) (QC): 5 4 Steps (QC): 4 (with (B) rails) 12 Steps (QC): 88 Picking up an Object (QC): 6 (with acquisition advisor) OT Jail Goals Jail Goals Time Frame: Jan 19, 2023 Acute change in mental status: 0 Inattention: 0 Disorganized thinkin Altered level of consciousness: 0 Eating (QC): 6 (met) Oral Hygiene (QC): 6 (met) Toileting Hygiene (QC): 6 (met) Shower/Bathe Self (QC): 6 (met) Upper Body Dressing (QC): 6 (met) Lower Body Dressing (QC): 6 (met) On/Off Footwear (QC): 6 (met) Additional Goals: 1-Demonstrate ADL Tasks, 2-Verbalize Understanding, 3- ImproveStrength/Catalina 1=Demonstrate adherence to instructed precautions during ADL tasks. 2=Patient will verbalize/demonstrate understanding of assistive devices/modifications for ADL. 3=Patient will improve strength/tolerance for activity to enable patient to perform ADL's. KITA DOBSON OT Jan 11, 2023 10:08
--- NOTE | 2023-01-11 10:25 | Progress Note ---
BRENDA QUILES 01/11/23 1025: Progress Note Rehab Course This patient is a 72 year old female who was admitted at [facility] from 12/29/22 - 01/11/23 for debility following an acute on chronic renal failure and COVID Pneumonia. On arrival pt. was significantly fluid overloaded with fluid blisters along left leg. As these healed she developed a left leg wound that was treated with combination of prednisone for vasculitis and wound care. She had a skin biopsy of wound by Dr. Orr 01/05/23 with results pending. Overall it appears to be healing as expected. She was anemic suring the majority of her stay and did have 1 unit pRBC given on 01/08 for Hgb 7.2. It improved as expected to 8.1 by 01/08. During her stay she had significant improvement working with PT/OT and by time of discharge was independent in all ADL's, all aspects of transfers, stair training, and gait training using FWW. She should follow the instructions set in place by Dr. Brandt and therapy team upon discharge. ALISIA BRANDT DO 01/12/23 0454: Supervisory-Addendum Brief Verification & Attestation Participated in pt care: history, MDM, physical Personally performed: exam, history, MDM, supervision of care Care discussed with: Medical Student Procedures: n/a Results interpretation: Verified all documentation Verification and Attestation of Medical Student E/M Service A medical student performed and documented this service in my presence. I reviewed and verified all information documented by the medical student and made modifications to such information, when appropriate. I personally performed the physical exam and medical decision making. Alisia Brandt Jan 12, 2023,04:54 BRENDA QUILES Jan 11, 2023 10:25 ALISIA BRANDT DO Jan 12, 2023 04:54
[2023-01-11] MEDS: MICONAZOLE 2% POWDER (DESENEX AF) 90 GM TOP SCH (11:33)
[2023-01-11 11:45] VITALS: BP 131/61
--- NOTE | 2023-01-11 15:38 | Therapy Team Discharge Summary ---
Therapy Discharge Summary Discharge Recommendations Date of Discharge Jan 11, 2023 at 11:58 Physical Therapy Patient see on ARU for hepatic encephalopathy. She made excellent gains with mobility and was (I) with bed mobility, transfers and gait using a FWW up to 300' and was able to ascend/descend a curb (I) with FWW and 4 step (I) with railings. Roll Left to Right (QC): 6 Sit to Lying (QC): 6 Lying to Sitting/Side of Bed(Q: 6 Sit to Stand (QC): 6 Chair/Qbc-nt-Sqicu Xfer(QC): 6 Toilet Transfer (QC): 6 Car Transfer (QC): 6 Does the Patient Walk: Yes Mode of Locomotion: Both Anticipated Mode of Locomotion: Both Walk 10 feet (QC): 6 Walk 50 ft with 2 Turns(QC): 6 Walk 150 ft (QC): 6 Walking 10ft on uneven surface: 6 Gait Assistive Device: FWW Does the Pt Use a Wheelchair: Yes Wheel 50 ft with 2 turns (QC): 6 ((I), but able to amb 300' (I) at D/C with FWW.) Wheel 150 ft (QC): 6 ((I), but able to amb 300' (I) at D/C with FWW.) Type of Wheelchair: Manual #of Steps: 4 1 Step (curb) (QC): 6 4 Steps (QC): 6 12 Steps (QC): 09 Balance Sitting Static: Good Balance Sitting Dynamic: Poor Balance-Standing Static: Fair Picking up an Object (QC): 6 (with or without jack frame tender) Occupational Therapy Decreased Activ Tolerance, Decreased UE Strength, Impaired I ADL's Eating (QC): 6 Oral Hygiene (QC): 6 Shower/Bathe Self (QC): 6 Upper Body Dressing (QC): 6 Lower Body Dressing (QC): 6 On/Off Footwear (QC): 6 Toileting Hygiene (QC): 6 PT Prison Goals Prison Goals PT Senior Hr Business Partner Goals Time Frame: Jan 26, 2023 Roll Left to Right (QC): 6 Sit to Lying (QC): 5 (possible use of left leg holistic pulser) Lying-Sitting on Side/Bed(QC): 5 (possible use of left leg holistic pulser) Sit to Stand (QC): 6 (with FWW) Chair/Ilw-or-Gnnfk Xfer(QC): 6 (with FWW) Toilet/Commode Transfer (QC): 6 (with FWW) Car Transfer (QC): 5 (with FWW) Does the Patient Walk: Yes Walk 10 feet (QC): 6 (with FWW and prn O2 assist with sats 90% or greater) Walk 10ft-Uneven Surface(QC): 5 (with FWW and O2 assist prn) Walk 50ft with 2 Turns (QC): 6 (with FWW and prn O2 assist with sats 90% or better) Walk 150 ft (QC): 5 (with FWW and prn O2 assist with sats 90% or greater) Does the Pt use WC or Scooter?: No Wheel 50 feet with 2 turns (QC: 6 Type: Manual Wheel 150 feet: 6 Type: Manual 1 Step (curb) (QC): 5 4 Steps (QC): 4 (with (B) rails) 12 Steps (QC): 88 Picking up an Object (QC): 6 (with jack frame tender) OT Senior Hr Business Partner Goals Senior Hr Business Partner Goals Time Frame: Jan 19, 2023 Acute change in mental status: 0 Inattention: 0 Disorganized thinkin Altered level of consciousness: 0 Eating (QC): 6 (met) Oral Hygiene (QC): 6 (met) Toileting Hygiene (QC): 6 (met) Shower/Bathe Self (QC): 6 (met) Upper Body Dressing (QC): 6 (met) Lower Body Dressing (QC): 6 (met) On/Off Footwear (QC): 6 (met) Additional Goals: 1-Demonstrate ADL Tasks, 2-Verbalize Understanding, 3-ImproveStrength/Catalina 1=Demonstrate adherence to instructed precautions during ADL tasks. 2=Patient will verbalize/demonstrate understanding of assistive devices/modifications for ADL. 3=Patient will improve strength/tolerance for activity to enable patient to perform ADL's. Nena Alvarez PT Jan 11, 2023 15:38
== END 2023-01-11 11:58 | disposition home health service (06) | DRG 947 ==
PROVIDERS: ADMIT Internal Medicine; ATTEND Internal Medicine
DX: R53.81 Other malaise (principal); J96.01 Acute respiratory failure with hypoxia; N17.9 Acute kidney failure, unspecified; G93.40 Encephalopathy, unspecified; E46 Unspecified protein-calorie malnutrition; Z68.41 Body mass index [BMI] 40.0-44.9, adult; E87.20 Acidosis, unspecified; Z86.16 Personal history of COVID-19; I12.9 Hypertensive chronic kidney disease with stage 1 through stage 4 chronic kidney disease, or unspecified chronic kidney disease; N18.30 Chronic kidney disease, stage 3 unspecified; I77.6 Arteritis, unspecified; D64.9 Anemia, unspecified; E87.70 Fluid overload, unspecified; E87.6 Hypokalemia; E78.00 Pure hypercholesterolemia, unspecified; E61.1 Iron deficiency; G47.33 Obstructive sleep apnea (adult) (pediatric); K21.9 Gastro-esophageal reflux disease without esophagitis; E66.9 Obesity, unspecified; F32.A Depression, unspecified; M19.90 Unspecified osteoarthritis, unspecified site; Z79.82 Long term (current) use of aspirin; Z79.899 Other long term (current) drug therapy; Z88.8 Allergy status to other drugs, medicaments and biological substances
CPT/HCPCS: 36410; 36415; 76937; 80053; 82607; 83540; 83735; 85025; 86850; 86900; 86901; 86920; 87324; 87449; 94664

== ENCOUNTER → 2023-01-31 | Outpatient (CLI) | payer MEDICARE, OTHER ==
[~2023-01-31] MED LIST changes: +AMLO-250 PO; +ASPI-1238 PO; +CHOL-34 PO; +CYAN-23 PO; +ESOM20CA37 PO; +GLUC1CAP37 PO; +METO-333 PO; +MICO90PO TOP; +MULT-974 PO; +PRD10T PO; +SULF1TAB34 PO; +TRIA15CR TOP
== END ==
LOC: WOUNDCARE 13:00
PROVIDERS: ATTEND Family Medicine
DX: L95.8 Other vasculitis limited to the skin (principal); U09.9 Post COVID-19 condition, unspecified; N18.4 Chronic kidney disease, stage 4 (severe); D46.4 Refractory anemia, unspecified; D51.9 Vitamin B12 deficiency anemia, unspecified; D50.9 Iron deficiency anemia, unspecified; A49.9 Bacterial infection, unspecified; M62.81 Muscle weakness (generalized); I89.0 Lymphedema, not elsewhere classified; E66.01 Morbid (severe) obesity due to excess calories; Z68.41 Body mass index [BMI] 40.0-44.9, adult; E44.0 Moderate protein-calorie malnutrition
CPT/HCPCS: 87070; 87077; 87205; G0463; 87186; 99215

== ENCOUNTER 2023-02-07 15:30 | Outpatient (CLI) | payer MEDICARE, OTHER ==
[~2023-02-07] VITALS: Ht 167.6 cm; Wt 115.3 kg
[2023-02-07] MEDS ORDERED: DOXY100T2 PO (16:16)
[2023-02-07] MEDS ORDERED: LEVO750T PO (16:16)
[2023-02-07] MEDS ORDERED: CLOB15CR3 TP (16:16)
[2023-02-07] MEDS ORDERED: PRD20T PO (16:16)
[2023-02-07] MEDS ORDERED: ceFAZolin INJECTION 2,000 MG in NS (IVPB) 50 ML IV ONE (16:30)
[2023-02-08] MEDS ORDERED: ACHD5005 PO (11:43)
== END 2023-02-07 16:31 | disposition home or self-care (01) ==
LOC: PREOP 15:30
PROVIDERS: ATTEND Surgery
DX: Z01.818 Encounter for other preprocedural examination (principal)

== ENCOUNTER 2023-02-08 08:26 | Day surgery (SDC) | payer MEDICARE, OTHER ==
[2023-02-08] VITALS (11 sets, daily range): BP systolic 124–176; BP diastolic 74–94
[~2023-02-08] VITALS: Ht 167.6 cm; Wt 115.3 kg
[~2023-02-08 08:26] MED LIST changes: +CLOB15CR3 TP; +DOXY100T2 PO; +LEVO750T PO; +PRD20T PO
[2023-02-08] MEDS ORDERED: ceFAZolin INJECTION 2,000 MG in NS (IVPB) 50 ML IV ONE (08:45)
[2023-02-08] MEDS ORDERED: LACTATED RINGERS 1,000 ML IV PRN (08:45)
[2023-02-08] MEDS ORDERED: NS IV 1000 ML 1,000 ML ONE (09:02)
[2023-02-08] MEDS ORDERED: NS IV 1000 ML 1,000 ML IV SCH (09:15)
[2023-02-08] MEDS ORDERED: proPOfol 200 MG/20 ML (DIPRIVAN) VIAL IV ONE (09:39)
[2023-02-08] MEDS ORDERED: ONDANSETRON 4 MG/2 ML (SDV) Z0FRAN ONE (09:39)
[2023-02-08] MEDS ORDERED: fentaNYL INJ 100 MCG/2 ML AMP ONE (09:39)
[2023-02-08] MEDS ORDERED: LIDOCAINE PF 2% 5 ML (XYLOCAINE) VIAL ONE (09:39)
[2023-02-08] MEDS ORDERED: MIDAZOLAM 2 MG/2 ML (VERSED) VIAL ONE (09:39)
[2023-02-08] MEDS ORDERED: DAKIN'S 1/4 STRENGTH (0.125%) 237 ML BTL TOP PRN ×2 (10:45→11:15)
[2023-02-08] MEDS ORDERED: ACHD5005 PO (11:43)
--- NOTE | 2023-02-08 11:46 | Discharge Inst-Simple/Standard ---
Discharge Inst-Standard Discharge Medications New, Converted or Re-Newed RX: Transmitted to Pharmacy Patient Instructions/Follow Up Plan of Care/Instructions/FU: Reed tomorrow for wound change, bring 1/4 percent dakins solution with you. Activity as Tolerated: No Discharge Diet: Regular Diet Other Inst to Patient Follow up Appt: Make appointment for tomorrow with Dr. Mcbride for wound care change. Instructions: No strenuous activity. May shower in 24 hours, no tub bath or soaking. Use incentive spirometer at home as directed. No Smoking Skin/Wound Care: Irrigate and pack wound daily with 1/4% Dakins solution. Reed office tomorrow. Symptoms to Report: Appetite Changes, Extremity Discoloration, Numbness/Tingling, Swelling Increased, Bleeding Excessive, Eyesight Changes, Pain Increased, Urine Color Change, Constipation(Persistent), Fever over 101 degree F, Pain/Pressure in chest, Urinating Difficulty, Cough Up/Vomit Blood, Heart Beat Irreg/Pounding, Pain/Pressure in jaw, Vaginal Bleeding Increase, Cramps in feet or legs, Lightheadedness, Pain/Pressure in shoulder, Diarrhea(Persistent), Memory Changes Suddenly, Questions/Concerns, Weight gain consecutive days, Dizziness/Fainting, Nausea/Vomiting, Shortness of Breath, Weight gain over 2 pounds If questions or concerns contact your physician Or seek help at emergency department. JOE MCBRIDE DO February 08, 2023 11:46
--- NOTE | 2023-02-08 11:49 | Progress Note-Post Operative ---
Post-Operative Progess Note Surgeon (s)/Manager Statistical (s) Surgeon JOE OSULLIVAN DO Manager Statistical: na Pre-Operative Diagnosis LEFT LEG WOUND, VASCULITIS Post-Operative Diagnosis necrotic wound left leg Procedure & Operative Findings Date of Procedure 02/08/23 Procedure Performed/Findings sharp and cautery debridement of skin and subcutaneous tissue, muscle and fascia Anesthesia Type general Estimated Blood Loss Estimated blood loss (mL): minimal Specimens/Packing Specimens Removed necrotic tissue, culture Packin/4% dakins and kerlex JOE OSULLIVAN DO February 08, 2023 11:48
--- NOTE | 2023-02-08 11:50 | Progress Note-Pre Operative ---
Pre-Operative Progress Note Date H&P Reviewed: February 08, 2023 Time H&P Reviewed: 10:11 History & Physical: H&P Reviewed, Patient Examed, No changes noted Pre-Operative Diagnosis: necrotic left lower extremity wound, vasculitis JOE OSULLIVAN DO February 08, 2023 11:50
[2023-02-08] MEDS ORDERED: HYDROmorphone 2 MG/ML VIAL (DILAUDID) IV ONE (12:00)
[2023-02-08] MEDS ORDERED: PROMETHAZINE INJ 25 MG/ML (PHENERGAN) AMP IVP ONE (12:00)
[2023-02-08] MEDS ORDERED: ONDANSETRON 4 MG/2 ML (SDV) Z0FRAN IVP PRN (12:00)
[2023-02-08] MEDS ORDERED: morphine INJ 10 MG/ML 1ML (SYR OR VIAL) IVP ONE (12:00)
--- NOTE | 2023-02-08 12:46 | Anesthesia-General Post-Op ---
General Patient Condition Mental Status/LOC: Same as Preop Cardiovascular: Satisfactory Nausea/Vomiting: Absent Respiratory: Satisfactory Pain: Controlled Complications: Absent Post Op Complications Complications None Follow Up Care/Instructions Patient Instructions None needed. Anesthesia/Patient Condition Patient Condition Patient is doing well, no complaints, stable vital signs, no apparent adverse anesthesia problems. No complications reported per nursing. TAYLOR LOBO CRNA February 08, 2023 12:46
--- NOTE | 2023-02-08 23:52 | OPERATIVE REPORT ---
DATE OF SERVICE: 02/08/2023 PREOPERATIVE DIAGNOSIS: Left leg wound vasculitis. POSTOPERATIVE DIAGNOSIS: Necrotic wound, left leg. PROCEDURE: Sharp and cautery debridement of skin and subcutaneous tissue, muscle and fascia, with left thigh measuring 13 x 11 x 1 cm, medial knee 8 x 5.5 x 1 cm and lower leg 15 x 33 x 3.5 cm. SURGEON: Joe Mcbride DO ANESTHESIA: General. ESTIMATED BLOOD LOSS: Minimal. COMPLICATIONS: None. INDICATIONS: The patient is a 72-year-old female who had COVID and developed vasculitis and a left leg wound. The patient discussed risks and benefits of procedure and wished to proceed. Consent was signed in chart. DESCRIPTION OF PROCEDURE: The patient was taken to the operating suite. She was prepped and draped in sterile fashion. Timeout was performed. The patient had a chronic wound present, which both sharp and cautery dissection was performed removing the necrotic tissue. Skin, subcutaneous tissues, muscle and fascia had to be excised. The necrotic-appearing tissues were all removed and down to healthy appearing tissue. The overall dimensions of the wounds after debridement, the left thigh was 13 x 11 x 1 cm, the medial knee was 8 x 5.5 x 1 cm, the lower leg, which was the medial aspect, measurement was 15 x 33 x 3.5 cm. Once the debridement was done, the wounds were then irrigated with 6 liters of irrigation. Again, hemostasis had been achieved. The wounds were then packed with 0.25% Dakin solution and Kerlix and sterile bandages were applied. The patient tolerated the procedure well without any complications, taken to recovery room in stable condition. RECOMMENDATIONS: The patient will return to the office tomorrow for wound dressing change. She will continue with wound care and continue daily dressing changes. Job ID: [id number] DocumentID: [id number] Dictated Date: 02/08/2023 15:57:20 Medical Reception Date: 02/08/2023 23:50:00 Dictated By: JOE MCBRIDE DO [facility]ILITY[facility]ai
== END 2023-02-08 13:50 | disposition home or self-care (01) ==
LOC: SDC 08:26
PROVIDERS: ATTEND Surgery
DX: L95.9 Vasculitis limited to the skin, unspecified (principal); S81.802A Unspecified open wound, left lower leg, initial encounter; U09.9 Post COVID-19 condition, unspecified; G47.33 Obstructive sleep apnea (adult) (pediatric); Z99.81 Dependence on supplemental oxygen
CPT/HCPCS: 87070; 87075; 87077; 87081; 87185; 87186; 87205

== ENCOUNTER 2023-02-09 10:38 | Outpatient (CLI) | payer MEDICARE, OTHER ==
[~2023-02-09] VITALS: Ht 167.6 cm; Wt 115.3 kg
[~2023-02-09 10:38] MED LIST changes: +ACHD5005 PO
== END 2023-02-09 12:04 | disposition home or self-care (01) ==
LOC: PREOP 10:38
PROVIDERS: ATTEND Surgery
DX: Z01.818 Encounter for other preprocedural examination (principal); S81.802A Unspecified open wound, left lower leg, initial encounter; X58.XXXA Exposure to other specified factors, initial encounter

== ENCOUNTER 2023-02-12 11:04 | Day surgery (SDC) | payer MEDICARE, OTHER ==
[2023-02-12] VITALS (9 sets, daily range): BP systolic 113–163; BP diastolic 52–85
[~2023-02-12] VITALS: Ht 167 cm; Wt 115.3 kg
--- NOTE | 2023-02-12 11:23 | Progress Note-Pre Operative ---
Pre-Operative Progress Note Date H&P Reviewed: February 12, 2023 Time H&P Reviewed: 11:23 History & Physical: H&P Reviewed, Patient Examed, No changes noted Pre-Operative Diagnosis: open wound left leg JOE OSULLIVAN DO February 12, 2023 11:23
[2023-02-12] MEDS ORDERED: LACTATED RINGERS 1,000 ML IV PRN (11:30)
[2023-02-12] MEDS ORDERED: DAKIN'S 1/4 STRENGTH (0.125%) 237 ML BTL TOP PRN (11:30)
[2023-02-12] MEDS ORDERED: ceFAZolin INJECTION 2,000 MG in NS (IVPB) 50 ML IV ONE (11:30)
[2023-02-12] MEDS ORDERED: fentaNYL INJ 100 MCG/2 ML AMP ONE (11:41)
[2023-02-12] MEDS ORDERED: MIDAZOLAM 2 MG/2 ML (VERSED) VIAL ONE (11:42)
[2023-02-12] MEDS ORDERED: NS IV 500 ML 500 ML ONE (11:45)
[2023-02-12] MEDS ORDERED: ONDANSETRON 4 MG/2 ML (SDV) Z0FRAN ONE (12:50)
[2023-02-12] MEDS ORDERED: proPOfol 200 MG/20 ML (DIPRIVAN) VIAL IV ONE (12:50)
[2023-02-12] MEDS ORDERED: LIDOCAINE PF 2% 5 ML (XYLOCAINE) VIAL ONE (12:50)
[2023-02-12] MEDS ORDERED: SEVOFLURANE (ULTANE) 15 ML INHAL SOLN ONE (13:40)
[2023-02-12] MEDS ORDERED: MEPERIDINE (DEMEROL) INJ 50 MG/ML IVP ONE (14:00)
[2023-02-12] MEDS ORDERED: PROMETHAZINE INJ 25 MG/ML (PHENERGAN) AMP IVP ONE (14:00)
[2023-02-12] MEDS ORDERED: morphine INJ 10 MG/ML 1ML (SYR OR VIAL) IVP ONE (14:00)
[2023-02-12] MEDS ORDERED: ONDANSETRON 4 MG/2 ML (SDV) Z0FRAN IVP PRN (14:00)
[2023-02-12] MEDS ORDERED: HYDROmorphone 2 MG/ML VIAL (DILAUDID) IV ONE (14:00)
[2023-02-12] MEDS ORDERED: NS IV 500 ML 500 ML IV ONE (14:15)
--- NOTE | 2023-02-12 14:21 | Anesthesia-General Post-Op ---
General Patient Condition Mental Status/LOC: Same as Preop Cardiovascular: Satisfactory Nausea/Vomiting: Absent Respiratory: Satisfactory Pain: Controlled Complications: Absent Post Op Complications Complications None Follow Up Care/Instructions Patient Instructions None needed. Anesthesia/Patient Condition Patient Condition Patient is doing well, no complaints, stable vital signs, no apparent adverse anesthesia problems. No complications reported per nursing. TAYLOR LOBO CRNA February 12, 2023 14:21
--- NOTE | 2023-02-12 14:40 | Discharge Inst-Simple/Standard ---
Discharge Inst-Standard Patient Instructions/Follow Up Plan of Care/Instructions/FU: Wound care Sunday. Reed 1 week. Activity as Tolerated: No Discharge Diet: Regular Diet Other Inst to Patient Follow up Appt: Make appointment for 2 week. Instructions: No lifting greater than 10 pounds. No strenuous activity. May shower in 24 hours, no tub bath or soaking. Use incentive spirometer at home as directed. No Smoking Skin/Wound Care: Twice a day wound care of irigate and pack wound with 1/4% Dakins and Kerlex. Symptoms to Report: Appetite Changes, Extremity Discoloration, Numbness/Tingling, Swelling Increased, Bleeding Excessive, Eyesight Changes, Pain Increased, Urine Color Change, Constipation(Persistent), Fever over 101 degree F, Pain/Pressure in chest, Urinating Difficulty, Cough Up/Vomit Blood, Heart Beat Irreg/Pounding, Pain/Pressure in jaw, Vaginal Bleeding Increase, Cramps in feet or legs, Lightheadedness, Pain/Pressure in shoulder, Diarrhea(Persistent), Memory Changes Suddenly, Questions/Concerns, Weight gain consecutive days, Dizziness/Fainting, Nausea/Vomiting, Shortness of Breath, Weight gain over 2 pounds If questions or concerns contact your physician Or seek help at emergency department. JOE OSULLIVAN DO February 12, 2023 14:40
--- NOTE | 2023-02-13 02:53 | OPERATIVE REPORT ---
DATE OF SERVICE: 02/12/2023 PREOPERATIVE DIAGNOSIS: Open wound, left leg. POSTOPERATIVE DIAGNOSIS: Open wound, left leg. PROCEDURE: Cautery debridement of skin, subcutaneous tissue, muscle and fascia. Overall, dimensions, equaling 10 x 10 cm and washout. SURGEON: Joe Mcbride DO ANESTHESIA: General. ESTIMATED BLOOD LOSS: Minimal. COMPLICATIONS: None. INDICATIONS: The patient is a 72-year-old female with history of COVID and developed vasculitis, has a large infected wound to the left leg. She previously underwent debridement and washout. She is here for further debridement and washout again. She understands risks and benefits of procedure and wished to proceed. Consent was signed in chart. DESCRIPTION OF PROCEDURE: The patient was taken to the operating suite. She was prepped and draped in sterile fashion. Timeout was performed. Cautery was used to begin removing areas of necrotic tissue, which included skin, subcutaneous tissue, muscle and fascia. The most significant area was proximal portion of the long posteromedial wound. This had increased necrotic tissue, which cautery was used to remove this. She has 2 superficial wounds as well, one in the knee and one on the proximal medial thigh, which necrotic subcutaneous tissue was removed. Overall dimensions of the actual wound debrided was approximately 10 x 10 cm. After this was performed, a power city alderman was used to irrigate the wounds with 3 liters of saline. The wounds were then packed with 0.25% Dakin's soaked Kerlix and sterile bandages were applied. The patient tolerated the procedure well without complications, taken to recovery room in stable condition. RECOMMENDATIONS: The patient will continue with daily wound care. The patient may need further debridement and washout. She will see wound care on Sunday at her scheduled appointment. She will follow up with me in 1-2 weeks or if any issues at that time. Job ID: [id number] DocumentID: [id number] Dictated Date: 02/12/2023 21:08:09 Investigations Consultant Date: 02/13/2023 02:51:00 Dictated By: JOE MCBRIDE DO
== END 2023-02-12 15:15 | disposition home or self-care (01) ==
LOC: SDC 11:04
PROVIDERS: ATTEND Surgery
DX: S81.802A Unspecified open wound, left lower leg, initial encounter (principal); L95.9 Vasculitis limited to the skin, unspecified; U09.9 Post COVID-19 condition, unspecified; E66.9 Obesity, unspecified; Z68.41 Body mass index [BMI] 40.0-44.9, adult; Z99.81 Dependence on supplemental oxygen; Z79.899 Other long term (current) drug therapy
CPT/HCPCS: 87081

== ENCOUNTER → 2023-02-13 | Outpatient (CLI) | payer MEDICARE, OTHER | LOC: WOUNDCARE 12:24 | PROVIDERS: ATTEND Family Medicine | DX: L95.9 Vasculitis limited to the skin, unspecified (principal); U09.9 Post COVID-19 condition, unspecified; N18.4 Chronic kidney disease, stage 4 (severe); D46.4 Refractory anemia, unspecified; D51.9 Vitamin B12 deficiency anemia, unspecified; D50.9 Iron deficiency anemia, unspecified; A49.9 Bacterial infection, unspecified; M62.81 Muscle weakness (generalized); I89.0 Lymphedema, not elsewhere classified; E66.01 Morbid (severe) obesity due to excess calories; Z68.41 Body mass index [BMI] 40.0-44.9, adult; E44.0 Moderate protein-calorie malnutrition; L97.123 Non-pressure chronic ulcer of left thigh with necrosis of muscle; L97.223 Non-pressure chronic ulcer of left calf with necrosis of muscle; B96.5 Pseudomonas (aeruginosa) (mallei) (pseudomallei) as the cause of diseases classified elsewhere; B95.62 Methicillin resistant Staphylococcus aureus infection as the cause of diseases classified elsewhere; B95.2 Enterococcus as the cause of diseases classified elsewhere; I96 Gangrene, not elsewhere classified | CPT/HCPCS: 99214 ==

== ENCOUNTER → 2023-02-23 | Outpatient (CLI) | payer MEDICARE, OTHER | LOC: WOUNDCARE 08:58 | PROVIDERS: ATTEND Family Medicine | DX: L95.8 Other vasculitis limited to the skin (principal); U09.9 Post COVID-19 condition, unspecified; N18.4 Chronic kidney disease, stage 4 (severe); D46.4 Refractory anemia, unspecified; D51.9 Vitamin B12 deficiency anemia, unspecified; D50.9 Iron deficiency anemia, unspecified; M62.81 Muscle weakness (generalized); I89.0 Lymphedema, not elsewhere classified; E66.01 Morbid (severe) obesity due to excess calories; E44.1 Mild protein-calorie malnutrition; L97.123 Non-pressure chronic ulcer of left thigh with necrosis of muscle; L97.223 Non-pressure chronic ulcer of left calf with necrosis of muscle; B96.5 Pseudomonas (aeruginosa) (mallei) (pseudomallei) as the cause of diseases classified elsewhere; B95.62 Methicillin resistant Staphylococcus aureus infection as the cause of diseases classified elsewhere; I96 Gangrene, not elsewhere classified; B95.2 Enterococcus as the cause of diseases classified elsewhere; Z68.41 Body mass index [BMI] 40.0-44.9, adult | CPT/HCPCS: 11042; 11045; 97606; G0463 ==

== ENCOUNTER → 2023-03-02 | Outpatient (CLI) | payer MEDICARE, OTHER ==
[2023-03-02 12:46] LABS: BASOPHILS # (AUTO) 0.1 10^3/uL (0.0-0.1); BASOPHILS % (AUTO) 1 % (0-10); EOSINOPHILS % (AUTO) 0 % (0-10); HEMATOCRIT 33 % (35-52); HEMOGLOBIN 10.5 g/dL (11.5-16.0); LYMPHOCYTES # (AUTO) 2.2 10^3/uL (1.0-4.0); LYMPHOCYTES % (AUTO) 14 % (12-44); MEAN CORPUSCULAR HEMOGLOBIN 30 pg (25-34); MEAN CORPUSCULAR HGB CONC 31 g/dL (32-36); MEAN CORPUSCULAR VOLUME 95 fL (80-99); MEAN PLATELET VOLUME 9.2 fL (9.0-12.2); MONOCYTES # (AUTO) 0.9 10^3/uL (0.0-1.0); MONOCYTES % (AUTO) 6 % (0-12); NEUTROPHILS # (AUTO) 12.7 10^3/uL (1.8-7.8); NEUTROPHILS % (AUTO) 78 % (42-75); PLATELET COUNT 277 10^3/uL (130-400); WHITE BLOOD COUNT 16.4 10^3/uL (4.3-11.0)
[2023-03-02 13:05] LABS: ANISOCYTOSIS SLIGHT; LYMPHOCYTES % (MANUAL) 19 %; METAMYELOCYTES % 1 %; MONOCYTES % (MANUAL) 6 %; MYELOCYTES % 2 %; NEUTROPHILS % (MANUAL) 71 %; POLYCHROMASIA SLIGHT; REACTIVE LYMPHOCYTES 1 %
[2023-03-02 13:07] LABS: ALBUMIN 2.9 GM/DL (3.2-4.5); POTASSIUM 4.3 MMOL/L (3.6-5.0)
[2023-03-02 13:08] LABS: CALCIUM 9.4 MG/DL (8.5-10.1)
[2023-03-02 13:09] LABS: TOTAL PROTEIN 5.5 GM/DL (6.4-8.2)
[2023-03-02 13:11] LABS: BILIRUBIN,TOTAL 0.3 MG/DL (0.1-1.0)
[2023-03-02 13:13] LABS: CREATININE SERUM 1.98 MG/DL (0.60-1.30)
== END ==
LOC: WOUNDCARE 10:27
PROVIDERS: ATTEND Family Medicine
DX: L97.123 Non-pressure chronic ulcer of left thigh with necrosis of muscle (principal); L95.9 Vasculitis limited to the skin, unspecified; U09.9 Post COVID-19 condition, unspecified; N18.4 Chronic kidney disease, stage 4 (severe); D46.4 Refractory anemia, unspecified; D51.9 Vitamin B12 deficiency anemia, unspecified; R53.1 Weakness; I89.0 Lymphedema, not elsewhere classified; E66.01 Morbid (severe) obesity due to excess calories; Z68.41 Body mass index [BMI] 40.0-44.9, adult; E44.0 Moderate protein-calorie malnutrition; L97.223 Non-pressure chronic ulcer of left calf with necrosis of muscle; B96.5 Pseudomonas (aeruginosa) (mallei) (pseudomallei) as the cause of diseases classified elsewhere; Z22.322 Carrier or suspected carrier of Methicillin resistant Staphylococcus aureus; B37.2 Candidiasis of skin and nail; I96 Gangrene, not elsewhere classified
CPT/HCPCS: 11042; 11045; 80053; 84134; 85007; 85027; 97606; G0463; 36415

== ENCOUNTER 2023-03-07 16:43 | Inpatient (IN) | payer MEDICARE, OTHER ==
[~2023-03-07] VITALS: Ht 165.1 cm; Wt 115.0 kg
--- NOTE | 2023-03-07 17:05 | ED General ---
General Chief Complaint: General Problems/Pain Stated Complaint: WEAKNESS Nursing Triage Note: PATIENT TO ER VIA [facility] W C/O WEAKNESS GETTING WORSE FOR THE PAST WEEK. PATIENT FELL IN SHOWER LAST NIGHT. WOUND VAC ON LEFT LEG. (MARITZA BANSAL MD) History of Present Illness Date Seen by Provider: Mar 07, 2023 Time Seen by Provider: 17:02 Initial Comments Patient is a 72-year-old female who presents to the emergency room with a chief complaint of generalized weakness over the course of the last 1 week. She has been a little dizzy with getting up and around over the last several days to the point she did have a fall last evening. She denies any injury. Patient relates that she had COVID at the end of November. She developed skin wounds to her left lower extremity that became necrotic and required extensive debridement. She had a prolonged hospital stay and currently has wound vacs in place on the left lower extremity that is followed by Dr. Beba Wetzel and wound care. She did have about 2 weeks in rehab. She has been at home and was initially independently ambulatory but now struggles to use a walker. She denies excessive shortness of breath or significant productive cough. No fever. No chest pain. No abdominal pain. She does have decreased appetite. She states she has urinated 3 or 4 times today. No diarrhea. She is on doxycycline daily. No sick contacts at home. Timing/Duration: 1 Week Severity: Moderate Associated Systoms: Loss of Appetite, Malaise, Weakness (MARITZA BANSAL MD) Allergies and Home Medications Allergies Coded Allergies: povidone-iodine (Verified Allergy, Unknown, BLISTERS/RASH, 02/09/23) Uncoded Allergies: TAPE (Allergy, Mild, BLISTERS/RASH, 02/07/23) Patient Home Medication List Home Medication List Reviewed: Yes (MARITZA BANSAL MD) Acetaminophen (Tylenol Arthritis) 650 Mg Tablet.er, 1,300 MG PO BID PRN for PAIN-MILD (1-4), (Reported) Entered as Reported by: KAILEY MCKENZIE on 03/08/23 1148 Last Action: Reviewed Allopurinol (Allopurinol) 300 Mg Tablet, 300 MG PO HS, (Reported) Entered as Reported by: KAILEY MCKENZIE on 05/23/22 5771 Last Action: Reviewed Aspirin (Aspirin EC) 81 Mg Tablet.dr, 81 MG PO DAILY, (Reported) Entered as Reported by: KAILEY MCKENZIE on 12/29/22 114 Last Action: Reviewed Atorvastatin Calcium (Atorvastatin Calcium) 80 Mg Tablet, 80 MG PO HS, (Reported) Entered as Reported by: KAILEY MCKENZEI on 05/23/22 0924 Last Action: Reviewed Cetirizine HCl (Cetirizine HCl) 10 Mg Tablet, 10 MG PO HS, (Reported) Entered as Reported by: KAILEY MCKENZIE on 03/08/231147 Last Action: Reviewed Cetirizine HCl/Pseudoephedrine (Zyrtec-D Tablet) 5 Mg-120 Mg Tab.er.12h, 1 EACH PO DAILY, (Reported) Entered as Reported by: LLOYD BARGER on 01/01/23 1308 Last Action: Reviewed Cholecalciferol (Vitamin D3) (Vitamin D3) 25 Mcg (1000 Unit) Tablet, 25 MCG PO DAILY, (Reported) Entered as Reported by: LLOYD BARGER on 01/01/23 131 Last Action: Reviewed Cyanocobalamin (Vitamin B-12) (Vitamin B-12) 1,000 Mcg Capsule, 1,000 MCG PO DAILY, (Reported) Entered as Reported by: LLOYD BARGER on 01/01/231312 Last Action: Reviewed Diazepam (Diazepam) 5 Mg Tablet, 5 MG PO DAILY PRN for DRESSING CHANGE, (Reported) Entered as Reported by: KAILEY MCKENZIE on 03/08/231147 Last Action: Reviewed Diphenhydramine HCl (Diphenhydramine HCl) 25 Mg Capsule, 25 MG PO DAILY, (Reported) Entered as Reported by: KAILEY MCKENZIE on 05/23/22 0949 Last Action: Reviewed Diphenhydramine HCl (Benadryl) 25 Mg Capsule, 50 MG PO HS, (Reported) Entered as Reported by: KAILEY MCKENZIE on 03/08/231147 Last Action: Reviewed Doxycycline Hyclate (Doxycycline Hyclate) 100 Mg Capsule, 100 MG PO BID, (Reported) Entered as Reported by: KAILEY MCKENZIE on 03/08/231147 Last Action: Reviewed Esomeprazole Magnesium (Esomeprazole Magnesium) 20 Mg Capsule.dr, 20 MG PO DAILY, (Reported) Entered as Reported by: KAILEY MCKENZIE on 12/29/22 114 Last Action: Reviewed Famotidine (Famotidine) 20 Mg Tablet, 20 MG PO HS, (Reported) Entered as Reported by: KAILEY MCKENZIE on 03/08/23 114 Last Action: Reviewed Fluconazole (Fluconazole) 100 Mg Tablet, 100 MG PO DAILY, (Reported) Entered as Reported by: KAILEY MCKENZIE on 03/08/23 114 Last Action: Reviewed Glucosa Hammer 2Kcl/Chondroitin Hammer (Glucosamine & Chondroitin Cap) 500 Mg-400 Mg Capsule, 1 EACH PO BID, (Reported) Entered as Reported by: KAILEY MCKENZIE on 12/29/22 114 Last Action: Reviewed Hydrocodone/Acetaminophen (Hydrocodone-Acetamin 5-325 mg) 5 Mg-325 Mg Tablet, 1 TAB PO Q4H PRN for PAIN-MODERATE (5-7), (Reported) Entered as Reported by: KAILEY MCKENZIE on 03/08/231147 Last Action: Reviewed Lactobacillus Acidophilus (Probiotic) 10 Billion Cell Capsule, 1 EACH PO DAILY, (Reported) Entered as Reported by: KAILEY MCKENZIE on 03/08/23 114 Last Action: Reviewed Levofloxacin (Levofloxacin) 750 Mg Tablet, 750 MG PO Q48H, (Reported) Entered as Reported by: ETHEL HO on 02/07/23 1616 Last Action: Reviewed Metoprolol Tartrate (Metoprolol Tartrate) 25 Mg Tablet, 25 MG PO BID, (Reported) Entered as Reported by: KAILEY MCKENZIE on 03/08/23 114 Last Action: Reviewed Montelukast Sodium (Montelukast Sodium) 10 Mg Tablet, 10 MG PO HS, (Reported) Entered as Reported by: EYAL MITCHELL on 09/30/18 1356 Last Action: Reviewed Multivitamin (Multi-Vitamin Daily) 1 Each Tablet, 1 EACH PO DAILY, (Reported) Entered as Reported by: LLOYD BARGER on 01/01/23 1312 Last Action: Reviewed Ondansetron (Ondansetron Odt) 8 Mg Tab.rapdis, 8 MG PO Q8H PRN for NAUSEA/VOMITING-1ST LINE, (Reported) Entered as Reported by: KAILEY MCKENZIE on 03/08/23 114 Last Action: Reviewed Oxycodone HCl (Oxycodone HCl) 5 Mg Tablet, 5-10 MG PO BID PRN for PAIN-SEVERE (8-10), (Reported) Entered as Reported by: KAILEY MCKENZIE on 03/08/231147 Last Action: Reviewed Tizanidine HCl (Tizanidine HCl) 2 Mg Tablet, 2-4 MG PO BID PRN for MUSCLE SPASMS, (Reported) Entered as Reported by: KAILEY MCKENZIE on 03/08/231147 Last Action: Reviewed Venlafaxine HCl (Venlafaxine HCl) 75 Mg Tab, 75 MG PO HS, (Reported) Entered as Reported by: EYAL MITCHELL on 09/30/18 1356 Last Action: Reviewed Vitamin E Mixed (Vitamin E) 1,000 Unit Capsule, 1,000 UNIT PO DAILY, (Reported) Entered as Reported by: KAILEY MCKENZIE on 03/08/231147 Last Action: Reviewed [Magic Mouthwash] SUSP, 15 ML QID PRN for MOUTH PAIN, (Reported) Entered as Reported by: KAILEY MCKENZIE on 03/08/231147 Last Action: Reviewed Discontinued Medications Amlodipine Besylate (Amlodipine Besylate) 5 Mg Tablet, 5 MG PO DAILY Discontinued Reason: No Longer Taking Prescribed by: SKY MARTE on 01/11/23526 Last Action: Discontinued Clobetasol Propionate/Emoll (Clobetasol Emollient 0.05% Crm) 0.05 % Cream..g., 15 GM TP BID, (Reported) Discontinued Reason: No Longer Taking Entered as Reported by: ETHEL HO on 02/07/23 161 Last Action: Discontinued Doxycycline Hyclate (Doxycycline Hyclate) 100 Mg Tablet, 100 MG PO BID, (Reported) Discontinued Reason: Duplicate Order Entered as Reported by: ETHEL HO on 02/07/231615 Last Action: Discontinued Hydrocodone/Acetaminophen (Hydrocodone-Acetamin 5-325 mg) 5 Mg-325 Mg Tablet, 1 EACH PO Q4H PRN for PAIN-MODERATE (5-7) Discontinued Reason: Duplicate Order Prescribed by: JOE OSULLIVAN on 02/08/23 114 Last Action: Discontinued Metoprolol Tartrate (Metoprolol Tartrate) 25 Mg Tablet, 25 MG PO BID Discontinued Reason: Duplicate Order Prescribed by: SKY MARTE on 01/11/23526 Last Action: Discontinued Prednisone (Prednisone) 20 Mg Tab, 20 MG PO DAILY, (Reported) Discontinued Reason: No Longer Taking Entered as Reported by: ETHEL HO on 02/07/23 161 Last Action: Discontinued Triamcinolone Acetonide (Triamcinolone Acetonide 0.5% Cream) 0.5 % Cream..g., 0 GM TOP BID Discontinued Reason: No Longer Taking Prescribed by: SKY MARTE on 01/11/23526 Last Action: Discontinued Review of Systems Review of Systems Constitutional: see HPI, malaise, weakness EENTM: no symptoms reported Respiratory: no symptoms reported Cardiovascular: no symptoms reported Gastrointestinal: loss of appetite Genitourinary: no symptoms reported : No Musculoskeletal: other (left leg pain) Skin: other (chronic wounds) (MARITZA BANSAL MD) Past [id number]-Tgnwxc-Bygwhm Hx Immunizations Up To Date First/Initial COVID19 Vaccinat: 11/2020 Second COVID19 Vaccination Rick: 12/2020 Third COVID19 Vaccination Date: 2020 (MARITZA BANSAL MD) Seasonal Allergies Seasonal Allergies: Yes (MARITZA BANSAL MD) Past Medical History Surgery/Hospitalization HX: HYSTERECTOMY, RAHEL TKR GOUT, HLD, ASTHMA, HTN, GERD, CKD STAGE 3, T&A, Surgeries: Yes (COLONOSCOPY X2, BILAT KNEES SCOPES, CS X2, BILAT TKR, LITHOTRIPSY, CAT) Adenoidectomy, Hysterectomy, Tonsillectomy Respiratory: Yes Asthma, Sleep Apnea Currently Using CPAP: No Currently Using BIPAP: No Cardiac: Yes (OCCASIONAL PVC'S) High Cholesterol, Hypertension Neurological: No Reproductive Disorders: No [employer] History: Hysterectomy Sexually Transmitted Disease: No HIV/AIDS: No Genitourinary: Yes (STAGE 3 RENAL DX) Kidney Stones, Renal Failure Gastrointestinal: Yes Gastroesophageal Reflux, Chronic Diarrhea, Polyps Musculoskeletal: Yes Arthritis, Gout Endocrine: No HEENT: Yes (GLASSES) Cataract Cancer: No Psychosocial: No Integumentary: Yes (LEFT LEG) Recent Skin Changes Blood Disorders: Yes (LOW HBG) Adverse Reaction/Blood Tranf: No (HAS HAD BLOOD WITH NO REACTION) (MARITZA BANSAL MD) Family Medical History Colon cancer requiring screening colonoscopy Physical Exam Vital Signs Vital Signs - First Documented 03/07/23 16:45 Temp 35.1 Pulse 92 Resp 18 B/P (MAP) 116/86 (96) Pulse Ox 99 O2 Delivery Room Air (DANYELLE CHRISTINA DO) Vital Signs Capillary Refill : Less Than 3 Seconds (MARITZA BANSAL MD) Height, Weight, BMI Height: 5'6.00" Weight: 280lbs. 0.0oz. 127.120199ds; 42.00 BMI Method: General Appearance: No Apparent Distress, WD/WN, Obese Eyes: Bilateral Eye Normal Inspection, Bilateral Eye PERRL, Bilateral Eye EOMI HEENT: PERRL/EOMI Respiratory: Lungs Clear, Normal Breath Sounds, No Accessory Muscle Use, No Respiratory Distress Cardiovascular: Regular Rate, Rhythm, Normal Peripheral Pulses Gastrointestinal: Non Tender, Soft Extremity: Other (Left LE edema; multiple wounds with a wound vac attached to the LLE with surrounding erythema; TTP) Neurologic/Psychiatric: Alert, Oriented x3, No Motor/Sensory Deficits, Normal Mood/Affect Skin: Warm/Dry, Other (as above "extremity exam") (MARITZA BANSAL MD) Focused Exam Lactate Level 03/07/23 17:30: Lactic Acid Level 2.88*H 03/07/23 19:42: (DANYELLE CHRISTINA DO) Lactic Acid Level Laboratory Tests Test 03/07/23 17:30 03/07/23 19:42 Lactic Acid Level 2.88 MMOL/L (0.50-2.00) *H (DANYELLE CHRISTINA DO) Progress/Results/Core Measures Suspected Sepsis SIRS Temperature: Pulse: 92 Respiratory Rate: 18 Laboratory Tests 03/07/23 17:30: White Blood Count 17.2H Blood Pressure 116 /86 Mean: 96 03/07/23 17:30: Lactic Acid Level 2.88*H 03/07/23 19:42: Lactic Acid Level 1.99 Laboratory Tests 03/07/23 17:30: Creatinine 2.33H, INR Comment 1.0, Platelet Count 443H, Total Bilirubin 0.2 (MARITZA BANSAL MD) Results/Orders Lab Results Laboratory Tests Test 03/07/23 17:30 03/07/23 19:42 Range/Units White Blood Count 17.2 H 4.3-11.0 10^3/uL Red Blood Count 3.55 L 3.80-5.11 10^6/uL Hemoglobin 10.5 L 11.5-16.0 g/dL Hematocrit 34 L 35-52 % Mean Corpuscular Volume 95 80-99 fL Mean Corpuscular Hemoglobin 30 25-34 pg Mean Corpuscular Hemoglobin Concent 31 L 32-36 g/dL Red Cell Distribution Width 17.7 H 10.0-14.5 % Platelet Count 443 H 130-400 10^3/uL Mean Platelet Volume 9.0 9.0-12.2 fL Immature Granulocyte % (Auto) 3 % Neutrophils (%) (Auto) 77 H 42-75 % Lymphocytes (%) (Auto) 13 12-44 % Monocytes (%) (Auto) 7 0-12 % Eosinophils (%) (Auto) 0 0-10 % Basophils (%) (Auto) 1 0-10 % Neutrophils # (Auto) 13.2 H 1.8-7.8 10^3/uL Lymphocytes # (Auto) 2.2 1.0-4.0 10^3/uL Monocytes # (Auto) 1.1 H 0.0-1.0 10^3/uL Eosinophils # (Auto) 0.1 0.0-0.3 10^3/uL Basophils # (Auto) 0.1 0.0-0.1 10^3/uL Immature Granulocyte # (Auto) 0.5 H 0.0-0.1 10^3/uL Prothrombin Time 13.4 12.2-14.7 SEC INR Comment 1.0 0.8-1.4 Activated Partial Thromboplast Time 33 24-35 SEC Urine Color YELLOW Urine Clarity TURBID Urine pH 5.5 5-9 Urine Specific Bond >=1.030 1.016-1.022 Urine Protein 1+ H NEGATIVE Urine Glucose (UA) NEGATIVE NEGATIVE Urine Ketones NEGATIVE NEGATIVE Urine Nitrite NEGATIVE NEGATIVE Urine Bilirubin 1+ H NEGATIVE Urine Urobilinogen 0.2 < = 1.0 MG/DL Urine Leukocyte Esterase TRACE H NEGATIVE Urine RBC (Auto) NEGATIVE NEGATIVE Urine RBC 0-2 /HPF Urine WBC 2-5 /HPF Urine Squamous Epithelial Cells 25-50 H /HPF Urine Crystals PRESENT H /LPF Urine Calcium Oxalate Crystals MODERATE H /LPF Urine Amorphous Sediment MOD YAZAN URATES H /LPF Urine Bacteria FEW H /HPF Urine Casts PRESENT /LPF Urine Hyaline Casts 2-5 H /LPF Urine Mucus SMALL H /LPF Urine Culture Indicated CULTURE PENDING Sodium Level 135 135-145 MMOL/L Potassium Level 4.6 3.6-5.0 MMOL/L Chloride Level 106 98-107 MMOL/L Carbon Dioxide Level 14 L 21-32 MMOL/L Anion Gap 15 H 5-14 MMOL/L Blood Urea Nitrogen 43 H 7-18 MG/DL Creatinine 2.33 H 0.60-1.30 MG/DL Estimat Glomerular Filtration Rate 22 BUN/Creatinine Ratio 18 Glucose Level 182 H 70-105 MG/DL Lactic Acid Level 2.88 *H 0.50-2.00 MMOL/L Calcium Level 10.0 8.5-10.1 MG/DL Corrected Calcium 10.7 H 8.5-10.1 MG/DL Total Bilirubin 0.2 0.1-1.0 MG/DL Aspartate Amino Transf (AST/SGOT) 19 5-34 U/L Alanine Aminotransferase (ALT/SGPT) 19 0-55 U/L Alkaline Phosphatase 86 40-136 U/L Total Protein 5.7 L 6.4-8.2 GM/DL Albumin 3.1 L 3.2-4.5 GM/DL (DANYELLE CHRISTINA DO) My Orders Orders - DANYELLE CHRISTINA DO Meropenem (Merrem 1000 Mg) (03/07/23 18:30) Vancomycin Injection (Vancomycin Injecti (03/07/23 18:30) Ed Admission (Communication) (03/07/23 18:26) Wound Culture (03/07/23 18:45) (DANYELLE CHRISTINA DO) Medications Given in ED Current Medications Medications Dose Ordered Sig/Abhi Route Start Time Stop Time Status Last Admin Dose Admin Meropenem 1000 mg/ Sodium Chloride 100 ml @ 200 mls/hr ONCE ONCE IV 03/07/23 18:30 03/07/23 18:59 DC 03/07/23 18:40 200 MLS/HR Vancomycin HCl 1000 mg/Sodium Chloride 250 ml @ 250 mls/hr ONCE ONCE IV 03/07/23 18:30 03/07/23 19:29 DC 03/07/23 19:20 250 MLS/HR (DANYELLE CHRISTINA DO) Vital Signs/I&O 03/07/23 16:45 Temp 35.1 Pulse 92 Resp 18 B/P (MAP) 116/86 (96) Pulse Ox 99 O2 Delivery Room Air (DANYELLE CHRISTINA DO) Vital Signs/I&O Capillary Refill : Less Than 3 Seconds (MARITZA BANSAL MD) Blood Pressure Mean: 96 Progress Note : Time: 05:50 Progress Note Care passed to Dr Christina at shift change with results pending (MARITZA BANSAL MD) Progress Note : Progress Note 1800--ASSUMED CARE OF PT AT SHIFT CHANGE, LABS PENDING. SEPSIS PROTOCOL HAS BEEN INITIATED. GIVEN: -IV FLUIDS -ANTIBIOTICS NO DETERIORATION IN PT'S CONDITION DURING ER STAY VITALS STABLE, AFEBRILE. ABNORMAL LABS: CBC --WBC 17.2, HGB 10.5, PLT 443,000 CMP--BUN 43, CR 2.33, GLU 182, LACTIC ACID 2.8, ALB 3.1 UA--TRACE LEUKOCYTES, FEW BACTERIA WOUND CULTURES ORDERED, BLOOD CULTURES PENDING. PT HAS HAD OUTPATIENT WOUND DEBRIDEMENTS BY DR. WASHINGTON ON 02/08 AND 02/12/23 DISCUSSED TEST RESULTS AND NEED FOR ADMIT, WITH PT AND DAUGHTER. DAUGHTER REPORTS THAT PT HAS AN APPOINTMENT AT TOMORROW FOR THESE WOUNDS--WAS REFERRED BY DR. WETZEL. PT IS CURRENTLY ON LEVAQUIN AND DOXYCYCLINE. REVIEWED PRIOR RECORDS, INCLUDING ER VISITS, ADMITS/H&P'S/CONSULTS/DISCHARGE SUMMARIES, TESTS/PROCEDURES (DANYELLE CHRISTINA DO) Diagnostic Imaging Comments CXR--PER RADIOLOGIST REPORT AT 1812 FINDINGS: Heart size and mediastinal contours are unchanged. There is no identified pneumothorax. There is no large pleural effusion. There is no identified focal airspace consolidation. IMPRESSION: No identified acute cardiopulmonary abnormality. Reviewed: Reviewed by Me (DANYELLE CHRISTINA DO) Departure Communication (Admissions) 1816--SPOKE WITH DR. PATEL, HOSPITALIST. ACCEPTS PT FOR ADMIT. HE WILL DO ADMIT ORDERS 1823--SPOKE WITH DR. DELUNA FOR SURGICAL CONSULT ( DR. OSULLIVAN IS OUT OF TOWN ) (DANYELLE CHRISTINA DO) Impression Primary Impression: Severe sepsis Additional Impressions: Cellulitis of left leg CHRONIC LEFT LEG WOUNDS Acute on chronic renal failure Generalized weakness Disposition: ADMITTED INPATIENT Condition: Stable Admissions Decision to Admit Reason: Admit from ER (General) Decision to Admit/Date: Mar 07, 2023 Time/Decision to Admit Time: 18:17 (DANYELLE CHRISTINA DO) Departure-Patient Inst. Referrals: RAÚL CASE MD (PCP/Family) Primary Care Physician MARITZA BANSAL MD Mar 07, 2023 17:05 DANYELLE CHRISTINA DO Mar 07, 2023 18:17
[2023-03-07 17:35] LABS: BILIRUBIN,URINE 1+ (NEGATIVE); CLARITY,URINE TURBID; COLOR,URINE YELLOW; GLUCOSE, URINE (UA) NEGATIVE (NEGATIVE); KETONES,URINE NEGATIVE (NEGATIVE); LEUKOCYTE ESTERASE ,URINE TRACE (NEGATIVE); NITRITE,URINE NEGATIVE (NEGATIVE); PH,URINE 5.5 (5-9); PROTEIN,URINE 1+ (NEGATIVE)
[2023-03-07 17:42] LABS: BASOPHILS # (AUTO) 0.1 10^3/uL (0.0-0.1); BASOPHILS % (AUTO) 1 % (0-10); EOSINOPHILS # (AUTO) 0.1 10^3/uL (0.0-0.3); EOSINOPHILS % (AUTO) 0 % (0-10); HEMATOCRIT 34 % (35-52); HEMOGLOBIN 10.5 g/dL (11.5-16.0); LYMPHOCYTES # (AUTO) 2.2 10^3/uL (1.0-4.0); LYMPHOCYTES % (AUTO) 13 % (12-44); MEAN CORPUSCULAR HEMOGLOBIN 30 pg (25-34); MEAN CORPUSCULAR HGB CONC 31 g/dL (32-36); MEAN CORPUSCULAR VOLUME 95 fL (80-99); MONOCYTES # (AUTO) 1.1 10^3/uL (0.0-1.0); MONOCYTES % (AUTO) 7 % (0-12); NEUTROPHILS # (AUTO) 13.2 10^3/uL (1.8-7.8); NEUTROPHILS % (AUTO) 77 % (42-75); PLATELET COUNT 443 10^3/uL (130-400); WHITE BLOOD COUNT 17.2 10^3/uL (4.3-11.0)
[2023-03-07 17:54] LABS: ALBUMIN 3.1 GM/DL (3.2-4.5); POTASSIUM 4.6 MMOL/L (3.6-5.0)
[2023-03-07 17:56] LABS: TOTAL PROTEIN 5.7 GM/DL (6.4-8.2)
[2023-03-07 17:57] LABS: AMORPHOUS SEDIMENT,UR MOD AMOR URATES /LPF; BACTERIA,URINE FEW /HPF; CALCIUM OXALATE CRYSTALS,UR MODERATE /LPF; PROTHROMBIN TIME PATIENT 13.4 SEC (12.2-14.7); RBC,URINE 0-2 /HPF; SQUAMOUS EPITHELIAL CELL,UR 25-50 /HPF
[2023-03-07 17:58] LABS: BILIRUBIN,TOTAL 0.2 MG/DL (0.1-1.0)
[2023-03-07 18:00] LABS: CREATININE SERUM 2.33 MG/DL (0.60-1.30)
--- NOTE | 2023-03-07 18:09 | Diagnostic Imaging Report ---
EXAMINATION: Chest radiograph, portable AP view. DATE: 03/07/2023 5:53 PM INDICATION: 72-year-old female, malaise. Chest pain. COMPARISON: December 22, 2022. FINDINGS: Heart size and mediastinal contours are unchanged. There is no identified pneumothorax. There is no large pleural effusion. There is no identified focal airspace consolidation. IMPRESSION: No identified acute cardiopulmonary abnormality. Dictated by: Dictated on workstation # [id number]
[2023-03-07] MEDS ORDERED: MEROPENEM 1,000 MG in NS (IVPB) 100 ML IV ONE (18:30)
[2023-03-07] MEDS ORDERED: VANCOMYCIN INJECTION 1,000 MG in NS (IVPB) 250 ML IV ONE (18:30)
[2023-03-07 20:35] VITALS: BP 138/59
[2023-03-07] MEDS ORDERED: NS IV 500 ML 500 ML IV PRN (20:45)
[2023-03-07] MEDS ORDERED: polyethylene glycoL POWDER 17 GM (MIRALAX) PACK PO PRN (20:45)
[2023-03-07] MEDS ORDERED: ACETAMINOPHEN 325 MG TABLET PO PRN (20:45)
[2023-03-07] MEDS ORDERED: MELATONIN 3 MG TABLET PO PRN (20:45)
[2023-03-07] MEDS ORDERED: VANCOMYCIN INJECTION 0.1 MG in NS (IVPB) 250 ML IV SCH (20:45)
[2023-03-07] MEDS ORDERED: ANTACID SUSP 30 ML UDC (MYLANTA) PO PRN (20:45)
[2023-03-07] MEDS ORDERED: MILK OF MAGNESIA 400 MG/5 ML 30 ML UDC PO PRN (20:45)
[2023-03-07] MEDS ORDERED: ONDANSETRON 4 MG (ZOFRAN) ORAL DISSOLVE TAB PO PRN (20:45)
[2023-03-07] MEDS ORDERED: diphenhydrAMINE 25 MG TAB (BENADRYL) PO PRN (20:45)
[2023-03-07] MEDS ORDERED: CALCIUM CARBONATE 500 MG (TUMS) TAB.CHEW PO PRN (20:45)
[2023-03-07] MEDS ORDERED: ONDANSETRON 4 MG/2 ML (SDV) Z0FRAN IV PRN (20:45)
[2023-03-07] MEDS ORDERED: BISACODYL 10 MG SUPP (DULCOLAX) PR PRN (20:45)
[2023-03-07] MEDS ORDERED: diphenhydrAMINE 50 MG/ML INJ (BENADRYL) IVP PRN (20:45)
[2023-03-07] MEDS ORDERED: LACTULOSE SYRUP 10GM/15ML (ENULOSE) 30ML UDC PO PRN (20:45)
[2023-03-07 20:58] VITALS: BP 138/59
[2023-03-07 20:59] VITALS: BP 138/59
[2023-03-07] MEDS ORDERED: LACTATED RINGERS 1,000 ML IV ONE (21:51)
[2023-03-07] MEDS ORDERED: VANCOMYCIN 1500MG/300ML PREMIX IV ONE (22:45)
[2023-03-07] MEDS: LACTATED RINGERS 1,000 ML IV SCH (23:03)
[2023-03-07] MEDS: MONTELUKAST 10 MG (SINGULAIR) TAB PO SCH (23:03)
[2023-03-07] MEDS: DOCUSATE SODIUM 100 MG (COLACE) CAP PO SCH (23:03)
[2023-03-07] MEDS: meTOprolol TARTRATE 25 MG (LOPRESSOR) TABLET PO SCH (23:04)
[2023-03-07] MEDS: SENNOSIDES 8.6 MG (SENOKOT) TAB PO SCH (23:12)
[2023-03-07 23:42] VITALS: BP 104/67
[2023-03-08] MEDS: MEROPENEM 500 MG in NS (IVPB) 100 ML IV SCH ×3 (03:12→20:04)
[2023-03-08 03:19] VITALS: BP 106/53
[2023-03-08] MEDS: VENlafaxine XR 75 MG (EFFEXOR XR) CAP PO SCH (06:10)
[2023-03-08] MEDS: LACTATED RINGERS 1,000 ML IV SCH ×3 (06:10→20:05)
[2023-03-08 07:11] VITALS: BP 99/50
[2023-03-08] MEDS: SENNOSIDES 8.6 MG (SENOKOT) TAB PO SCH ×2 (08:25→20:11)
[2023-03-08] MEDS: DOCUSATE SODIUM 100 MG (COLACE) CAP PO SCH ×2 (08:25→20:11)
[2023-03-08] MEDS: ALLOPURINOL 300 MG (ZYLOPRIM) TAB PO SCH (08:25)
[2023-03-08] MEDS: HydroCHLOROthiazide CAP/TABLET 12.5 MG TAB PO SCH (08:25)
[2023-03-08] MEDS: amLODIPine 5 MG (NORVASC) TAB PO SCH (08:25)
[2023-03-08] MEDS: meTOprolol TARTRATE 25 MG (LOPRESSOR) TABLET PO SCH ×2 (08:25→20:11)
[2023-03-08] MEDS: ENOXAPARIN INJECTION 30 MG/0.3 ML SYR SC SCH (08:25)
[2023-03-08] MEDS ORDERED: HYPOCHLOROUS ACID/NaCl (VASHE) 250 ML IR SCH (08:30)
[2023-03-08 08:55] LABS: BASOPHILS # (AUTO) 0.1 10^3/uL (0.0-0.1); BASOPHILS % (AUTO) 1 % (0-10); EOSINOPHILS # (AUTO) 0.1 10^3/uL (0.0-0.3); EOSINOPHILS % (AUTO) 1 % (0-10); HEMATOCRIT 28 % (35-52); HEMOGLOBIN 8.8 g/dL (11.5-16.0); LYMPHOCYTES % (AUTO) 19 % (12-44); MEAN CORPUSCULAR HEMOGLOBIN 30 pg (25-34); MEAN CORPUSCULAR HGB CONC 32 g/dL (32-36); MEAN CORPUSCULAR VOLUME 95 fL (80-99); MONOCYTES # (AUTO) 0.9 10^3/uL (0.0-1.0); MONOCYTES % (AUTO) 8 % (0-12); NEUTROPHILS # (AUTO) 7.5 10^3/uL (1.8-7.8); NEUTROPHILS % (AUTO) 70 % (42-75); PLATELET COUNT 290 10^3/uL (130-400); WHITE BLOOD COUNT 10.7 10^3/uL (4.3-11.0)
[2023-03-08 09:07] LABS: ALBUMIN 2.3 GM/DL (3.2-4.5); POTASSIUM 4.3 MMOL/L (3.6-5.0)
[2023-03-08 09:08] LABS: CALCIUM 8.7 MG/DL (8.5-10.1)
[2023-03-08] MEDS: KCL 20 MEQ TAB (K-DUR) PO SCH (09:09)
[2023-03-08] MEDS: POTASSIUM CL 10MEQ/50ML IVPB 50 ML IV SCH (09:09)
[2023-03-08] MEDS: POTASSIUM BICARB 20 MEQ (EFFER-K) TABLET PO SCH (09:09)
[2023-03-08 09:10] LABS: TOTAL PROTEIN 4.6 GM/DL (6.4-8.2)
[2023-03-08 09:11] LABS: BILIRUBIN,TOTAL 0.3 MG/DL (0.1-1.0)
[2023-03-08 09:13] LABS: CREATININE SERUM 2.03 MG/DL (0.60-1.30)
[2023-03-08 09:16] LABS: MAGNESIUM 1.2 MG/DL (1.6-2.4)
--- NOTE | 2023-03-08 09:16 | Wound Care Assessment ---
Wound Care Assessment Date Seen by Provider: Mar 08, 2023 Time Seen by Provider: 09:01 Chief Complaint COVID vasculitis with associated sepsis HPI This pleasant 72 year old patient is well known to my practice. She presents with significant generalized weakness with a resulting fall as outpatient. Concern for severe sepsis. She was admitted to our inpatient rehab for post- COVID strengthening in December. While admitted I was consulted for a blistering/sloughing rash to LLE and palms/soles. 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 Soothing dressings were ordered and patient was started on systemic steroids and followed up with dermatology upon d/c home (01/11/23). She did develop severe subsequent infection and presented back to my outpatient office in consultation. She completed her taper of prednisone on 02/28/23. Her initial wound culture was loaded with pseudomonas, MRSA, and enterococcus faecalis and faecium. She was treated with renally dosed levaquin and doxycycline (remained on that until her admit last night). She is now on Vancomycin and meropenem. Her labs had been steadily improving (GFR last week was 31, Albumin was 3.5 , Hgb 10.6). Her WBC was 16 last week (immediately off prednisone). We did refer at her initial outpatient visit for plastics consultation at and she was due to see them today (Dr. Armijo is aware of her case). However, debridement was necessary emergently and Dr. Mcbride did take her to the OR twice in mid-January for removal of necrotic material. We did initiate double wound vac as an outpatient approximately 1.5 weeks ago and she has had tremendous improvements in viability since. Her wound today remains massive in size. She continues to drain 2-3 canisters of drainage from her vac daily. (11 cannisters over the weekend). We are changing her dressings twice weekly. Her weakness and worsening kidney function could very well be related to dehydration as a result. However, her lactic acid was elevated and she is certainly high r isk for sepsis which cannot be ruled out with her current symptoms, labs and wound. Her wound is massive (see below measurements). Her case is extremely complex. She is in need of Plastic surgery input and possibly ID, vascular surgery, immunology and dermatology. We cannot continue Liz's wound vac at our facility due to staffing. We will plan for Lesly WTD bid dressings while she is admitted. I plan to discuss her case with Dr. Torres. My advice will be for transfer to for higher level of care. IVÁN, obesity, chronic anemia, HTN, CKD stage 3, osteoarthritis Smoking Status: Never a Smoker Recreational Drug Use: No Alcohol Use: Denies Use Review of Systems General: Other (falls) Neurological: Weakness Exam Vital Signs Date Time Temp Pulse Resp B/P (MAP) Pulse Ox O2 Delivery O2 Flow Rate FiO2 03/08/23 07:35 82 03/08/23 07:11 36.3 18 99/50 (66) 100 Room Air Capillary Refill : Less Than 3 Seconds General Appearance: no apparent distress, obese HEENT: other (hearing wnl) Cardiovascular: regular rate, rhythm Respiratory: no respiratory distress, no accessory muscle use Extremities: normal range of motion, pedal edema (LLE 3+ edema) Neurologic/Psychiatric: alert, normal mood/affect, oriented x 3 Skin Problem Location: lower extremities Skin Character: drainage (eaton (massive amounts)), erythema (In periwound), swelling, tenderness, warm Wound assessments: 1. L. upper [id number]. The epithelialization is minimal. Drainage is large and serosanguinous. Granulation is large and pink. Necrotic is small and slough. The margins show epibole. 2. L. Medial knee: 5.5x7.8x1cm. The epithelialization is minimal. Drainage is large and serosanguinous. Granulation is large and pink. Necrotic is small and slough. The margins show epibole. 3. L. medial calf: 34.5x15x3.5cm. The epithelialization is none. Drainage is large and serosanguinous. Granulation is medium and pink. Necrotic is small and slough. The margins show epibole. Muscle and fascia remain exposed with improved viability from initial visit. There is erythema and induration in the periwound of all wounds. Results Laboratory Tests 03/07/23 17:30: White Blood Count 17.2H, Red Blood Count 3.55L, Hemoglobin 10.5L, Hematocrit 34L , Mean Corpuscular Volume 95, Mean Corpuscular Hemoglobin 30, Mean Corpuscular Hemoglobin Concent 31L, Red Cell Distribution Width 17.7H, Platelet Count 443H, Mean Platelet Volume 9.0, Immature Granulocyte % (Auto) 3, Neutrophils (%) (Auto) 77H, Lymphocytes (%) (Auto) 13, Monocytes (%) (Auto) 7, Eosinophils (%) (Auto) 0, Basophils (%) (Auto) 1, Neutrophils # (Auto) 13.2H, Lymphocytes # (Auto) 2.2, Monocytes # (Auto) 1.1H, Eosinophils # (Auto) 0.1, Basophils # (Auto) 0.1, Immature Granulocyte # (Auto) 0.5H, Prothrombin Time 13.4, INR Comment 1.0, Activated Partial Thromboplast Time 33, Urine Color YELLOW, Urine Clarity TURBID, Urine pH 5.5, Urine Specific Kirwin >=1.030, Urine Protein 1+H, Urine Glucose (UA) NEGATIVE, Urine Ketones NEGATIVE, Urine Nitrite NEGATIVE, Urine Bilirubin 1+H, Urine Urobilinogen 0.2, Urine Leukocyte Esterase TRACEH, Urine RBC (Auto) NEGATIVE, Urine RBC 0-2, Urine WBC 2-5, Urine Squamous Epithelial Cells 25-50H, Urine Crystals PRESENTH, Urine Calcium Oxalate Crystals MODERATEH, Urine Amorphous Sediment MOD YAZAN URATESH, Urine Bacteria FEWH, Urine Casts PRESENT, Urine Hyaline Casts 2-5H, Urine Mucus SMALLH, Urine Culture Indicated CULTURE PENDING, Sodium Level 135, Potassium Level 4.6, Chloride Level 106, Carbon Dioxide Level 14L, Anion Gap 15H, Blood Urea Nitrogen 43H, Creatinine 2.33H, Estimat Glomerular Filtration Rate 22, BUN/Creatinine Ratio 18, Glucose Level 182H, Lactic Acid Level 2.88*H, Calcium Level 10.0, Corrected Calcium 10.7H, Total Bilirubin 0.2, Aspartate Amino Transf (AST/SGOT) 19, Alanine Aminotransferase (ALT/SGPT) 19, Alkaline Phosphatase 86, Total Protein 5.7L, Albumin 3.1L 03/07/23 19:42: Lactic Acid Level 1.99 03/08/23 08:45: White Blood Count 10.7, Red Blood Count 2.94L, Hemoglobin 8.8L, Hematocrit 28L, Mean Corpuscular Volume 95, Mean Corpuscular Hemoglobin 30, Mean Corpuscular Hemoglobin Concent 32, Red Cell Distribution Width 17.5H, Platelet Count 290, Mean Platelet Volume 9.0, Immature Granulocyte % (Auto) 2, Neutrophils (%) (Auto) 70, Lymphocytes (%) (Auto) 19, Monocytes (%) (Auto) 8, Eosinophils (%) (Auto) 1, Basophils (%) (Auto) 1, Neutrophils # (Auto) 7.5, Lymphocytes # (Auto) 2.0, Monocytes # (Auto) 0.9, Eosinophils # (Auto) 0.1, Basophils # (Auto) 0.1, Immature Granulocyte # (Auto) 0.2H Assessment/Plan/Dx Assessment: 1. Post-COVID leukocytoclastic vasculitis of LLE 2. Non-pressure ulcer LLE with necrosis of muscle/fascia 3. 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 Refractory anemia 5. Obesity 6. Dehydration due to wound related fluid shifts 7. Presumed severe sepsis with weakness and falls 8. Moderate PEM 9. Recent infection: Pseudomonas, MRSA, E. faecalis/faecium Plan: 1. Agree with broad spectrum antibiotics and fluid resuscitation 2. Agree with sepsis protocols 3. Removal of wound vac and transition to vashe wet to dry packing bed while admitted 4. Defer all other issues to primary team 5. This patient is extremely complex. She is in need of Plastic surgery input (for possible surgical intervention/grafting). She is also in need of possibly infectious disease, immunology, vascular surgery and dermatology input. It is my opinion that a hospital transfer to for higher level of care would be appropriate. I am happy to make myself available to discuss as needed with . I have discussed with Dr. Torres. BUDDY PACHECO MD Mar 08, 2023 09:16
[2023-03-08] MEDS: MAGNESIUM 1 GM/100 ML IVPB 100 ML IV SCH ×7 (09:24→21:46)
[2023-03-08] MEDS ORDERED: MAGIC MOUTHWASH (11:48)
[2023-03-08] MEDS ORDERED: METO-333 PO (11:48)
[2023-03-08] MEDS ORDERED: VITA100033 PO (11:48)
[2023-03-08] MEDS ORDERED: FLUC100T10 PO (11:48)
[2023-03-08] MEDS ORDERED: DIAZ5TAB49 PO (11:48)
[2023-03-08] MEDS ORDERED: ACET-2650 PO (11:48)
[2023-03-08] MEDS ORDERED: CETI10TA17 PO (11:48)
[2023-03-08] MEDS ORDERED: ONDA8TAB13 PO (11:48)
[2023-03-08] MEDS ORDERED: TIZA-169 PO (11:48)
[2023-03-08] MEDS ORDERED: DOXY100C5 PO (11:48)
[2023-03-08] MEDS ORDERED: OXYC5TAB PO (11:48)
[2023-03-08] MEDS ORDERED: LACT1CAP62 PO (11:48)
[2023-03-08] MEDS ORDERED: ACHD5005 PO (11:48)
[2023-03-08] MEDS ORDERED: DIPH25CA79 PO (11:48)
[2023-03-08] MEDS ORDERED: FAMO20TA5 PO (11:48)
[2023-03-08 12:19] VITALS: BP 105/62
--- NOTE | 2023-03-08 12:47 | History & Physical-Hospitalist ---
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 She had COVID a couple months ago. She subsequently developed lower extremity wounds which worsened. She was also debilitated at that time and required inpatient rehabilitation. Her wounds worsened and she required surgical debridement. Her wound cultures showed polymicrobial infection including MRSA, Prevotella, Pseudomonas, and Enterococcus. She has been on oral Levaquin and Doxycycline as an outpatient. She had wound vacs placed about a w redding and a half ago. They have been putting out liters of fluid per day. They reportedly drained 11 cannisters over the weekend. She has not had much of an appetite and has not been eating and drinking much. She denies fevers. She gets short of breath with activity. She denies nausea and vomiting. She has not noticed any new swelling or skin changes on her legs. Source: patient, family Exam Limitations: no limitations Date Seen 03/08/23 Time Seen by a Provider: 09:45 Attending Physician Ian Barker MD PCP Admitting Physician: Benjamín Patel MD Attending Physician: Benjamín Patel MD Referring Physician Date of Admission Mar 07, 2023 at 20:37 Home Medications & Allergies Home Medications Reviewed patient Home Medication Reconciliation performed by pharmacy medication reconciliations hospital pharmacy technician and/or nursing. Patients Allergies have been reviewed. Allergies Allergies Coded Allergies povidone-iodine (Verified Allergy, Unknown, BLISTERS/RASH, 02/09/23) Uncoded Allergies TAPE ( Allergy, Mild, BLISTERS/RASH, 02/07/23) Past [id number]-[id number] Hx Patient Social History Tobacco Use?: No Smoking Status: Never a Smoker Smokeless Tobacco Frequency: Never a User Use of E-Cig and/or Vaping Luis Armando: Never a User Substance use?: No Alcohol Use?: No Pt feels they are or have been: No Immunizations Up To Date Date of Influenza Vaccine: Jun 10, 2023 First/Initial COVID19 Vaccinat: unk Second COVID19 Vaccination Rick: 12/2020 Tetanus Booster (TDap): More Than 5 Years Seasonal Allergies Seasonal Allergies: Yes Current Status status: No status: No Advance Directives: No Communicates: Verbally Primary Language: Burkinan Preferred Spoken Language: Burkinan Is interpretation needed?: No Implanted or Applied Medical D: Orthopedic hardware Past Medical History Surgeries: Adenoidectomy, Hysterectomy, Tonsillectomy Asthma, Sleep Apnea Currently Using CPAP: No Currently Using BIPAP: No High Cholesterol, Hypertension TRUCKER History: Hysterectomy Sexually Transmitted Disease: No HIV/AIDS: No Kidney Stones, Renal Failure Gastroesophageal Reflux, Chronic Diarrhea, Polyps Arthritis, Gout Cataract Recent Skin Changes Blood Disorders: Yes (LOW HBG) Adverse Reaction/Blood Tranf: No (HAS HAD BLOOD WITH NO REACTION) Family Medical History Colon cancer requiring screening colonoscopy No Pertinent Family Hx Review of Systems Constitutional: weakness Respiratory: no symptoms reported Cardiovascular: no symptoms reported Gastrointestinal: loss of appetite Physical Exam Physical Exam Vital Signs Vital Signs - First Documented 03/07/23 16:45 Temp 35.1 Pulse 92 Resp 18 B/P (MAP) 116/86 (96) Pulse Ox 99 O2 Delivery Room Air Capillary Refill : Less Than 3 Seconds Height, Weight, BMI Height: 5'6.00" Weight: 280lbs. 0.0oz. 127.823059bp; 42.18 BMI Method: General Appearance: No Apparent Distress, Obese HEENT: PERRL/EOMI, Pharynx Normal Neck: Normal Inspection, Supple Respiratory: Lungs Clear, Normal Breath Sounds, No Respiratory Distress Cardiovascular: Regular Rate, Rhythm, No Murmur, Normal Peripheral Pulses Gastrointestinal: Normal Bowel Sounds, Non Tender, Soft Extremity: Normal Capillary Refill; No Inflammation; Swelling, Other (chronic leg wounds with dressing in place) Neurologic/Psychiatric: Alert, Normal Mood/Affect Results Results/Procedures Labs Laboratory Tests 03/07/23 17:30 03/08/23 08:45 Patient resulted labs reviewed. Assessment/Plan Admission Diagnosis Severe sepsis Admission Status: Inpatient Order (span 2 midnights) Reason for Inpatient Admission: IV antibiotics and fluids Assessment and Plan Severe sepsis Skin and soft tissue infection Chronic leg wounds COVID associated vasculitis Lactic acidosis SURAJ on CKD IV antibiotics IV fluids Wound culture pending, probably Pseudomonas Wound care consulted Surgery consulted Attempted transfer to for plastic surgery evaluation, denied due to bed availability, attempt again tomorrow HTN GERD Gout Morbid obesity Continue home meds DVT prophylaxis: Lovenox Diagnosis/Problems Diagnosis/Problems (1) Severe sepsis Status: Acute (2) Leg wound, left Status: Chronic Qualifiers: Encounter type: subsequent encounter Qualified Codes: S81.802D - Unspecified open wound, left lower leg, subsequent encounter (3) [id number] condition Status: Acute (4) Post-acute sequelae of SARS-CoV-2 infection Status: Acute (5) Lactic acidosis Status: Acute (6) Acute kidney injury superimposed on chronic kidney disease Status: Acute (7) Generalized weakness Status: Acute BENJAMÍN PATEL MD Mar 08, 2023 12:47
--- NOTE | 2023-03-08 14:04 | CONSULTATION REPORT ---
DATE OF SERVICE: 03/08/2023 ATTENDING PRIMARY CARE PHYSICIAN: Dr. Ian Barker. ADMITTING PHYSICIAN: Dr. Metz. The patient is a 72-year-old female who presented to the emergency room with a chief complaint of generalized weakness. She has a complicated history and developed COVID with respiratory symptoms at the end of 11/2022. This was followed by significant weakness and she also developed blisters on the left lower extremity along the medial side, which eventually became necrotic. She underwent two debridements in the operating room on 02/08/2023 and then on 02/12/2023. The inflammation and tissue necrosis was isolated on the medial aspect of the left lower extremity from the groin all the way to the ankle. Since that time, she has had wound VACs on that region. The wound VACs were removed and there does appear to be no new areas of redness, erythema or fluctuance to indicate any further tissue necrosis. The wound beds are red and beefy with good granulation tissue. We feel our working diagnosis is that this is a long COVID symptom causing isolated vasculitis of the medium and small vessels along the medial aspect of the unilateral left lower extremity causing this necrosis. Due to the size of the necrosis and her other medical comorbidities and inability to ambulate; recommendation per surgery as well as with internal medicine and wound care is to transfer her to a tertiary center where they have all the necessary specialists including possible Rheumatology, Infectious Disease, Dermatology, General Surgery as well as Plastic Surgery to plan for continued wound care, possible debridement as well as possible skin grafting. Again, her chief complaint is weakness and she is unable to ambulate. When she has helped up on her feet with assistance, she is extremely weak and can only stand for a few seconds. She will likely also need continued physical therapy, occupational therapy as well as likely acut inpatient rehabilitation. 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 PAST SURGICAL HISTORY: Debridement of the left medial lower extremity x2, total hysterectomy, tonsillectomy, adenoidectomy, bilateral total knee arthroplasty. ALLERGIES: NO KNOWN DRUG ALLERGIES. MEDICATIONS: Allopurinol 300 mg daily, amlodipine 5 mg daily, aspirin 81 mg daily, atorvastatin 80 mg daily, cetirizine/pseudoephedrine 5/120 mg daily, clobetasol cream 0.05% cream b.i.d., doxycycline 100 mg b.i.d., Nexium 20 mg daily, hydrocodone p.r.n., levofloxacin 750 mg every other day, metoprolol 25 mg b.i.d., montelukast 10 mg daily, prednisone 20 mg daily, venlafaxine 75 mg daily. SOCIAL HISTORY: Negative smoke, negative alcohol. FAMILY HISTORY: A family member with colon cancer. VITAL SIGNS: Temperature 36.4, blood pressure 105/62, pulse 80, respirations 18, pulse ox 98% on room air. REVIEW OF SYSTEMS: Well-nourished female, currently in no acute distress. 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 Multiple pictures of the medial aspect of the left lower extremity were shown after the wound VAC was removed today and there are no new areas of necrosis, redness or erythema and good granulation bed. She has palpable dorsalis and posterior tibial pulses bilaterally indicating good large vessel perfusion. Working diagnosis is small and medium size isolated vasculitis of the left lower extremity causing the tissue necrosis. No nausea, vomiting. No diarrhea or constipation. She does have some intermittent chills, no fevers, no recent inadvertent weight loss. All other review of systems negative. PHYSICAL EXAMINATION: CHEST: Clear. Good breath sounds bilaterally. HEART: Regular. No murmurs. EXTREMITIES: Plus 1/3 bilateral lower extremity edema with the left worse than the right. Negative Homans sign. HEENT: No scleral icterus. No cervical lymphadenopathy. ABDOMEN: Soft, nontender, nondistended. SKIN: There are large open wounds encompassing skin and subcutaneous tissue with exposed muscles along the medial aspect of the left thigh, knee, and traylor region. There does not appear to be any new areas of necrosis with good granulation bed. LABORATORY DATA: WBC 10.7, hemoglobin 8.8, hematocrit 28, platelets 290, BUN 38, creatinine 2.03. ASSESSMENT AND PLAN: A 72-year-old female with COVID-19 mediated isolated vasculitis of the medial aspect of the left lower extremity with significant tissue necrosis, status post debridement and wound VAC placement with profound weakness. Due to the size of the lesion, we will recommend a tertiary center with the necessary specialists including Infectious Disease, Rheumatology, Dermatology and Plastic Surgery as well as General Surgery for further debridement as necessary. Again, another secondary long-term side effect of the SARS-CoV-2 encompasses significant weakness and inability to ambulate and she will likely need inpatient rehabilitation as well. For now, she does not appear septic and we will continue with IV hydration for her chronic kidney disease and adequate tissue perfusion as well as broad-spectrum IV antibiotics. Job ID: [id number] DocumentID: [id number] Dictated Date: 03/08/2023 12:59:27 Piece Worker Date: 03/08/2023 14:02:00 Dictated By: JESSIE DELUNA MD [facility]
[2023-03-08 16:14] VITALS: BP 149/65
[2023-03-08] MEDS ORDERED: TROUGH ORDER-PHARMACY XX ONE (17:00)
[2023-03-08] MEDS ORDERED: VANCOMYCIN 1,750 MG/NS 500 ML IVPB IV SCH ×2 (18:00)
[2023-03-08 19:09] VITALS: BP 142/65
[2023-03-08] MEDS: MONTELUKAST 10 MG (SINGULAIR) TAB PO SCH (20:10)
[2023-03-08 23:29] VITALS: BP 116/66
[2023-03-09] MEDS: MEROPENEM 500 MG in NS (IVPB) 100 ML IV SCH ×2 (02:52→10:59)
[2023-03-09 03:38] VITALS: BP 138/73
[2023-03-09 04:38] LABS: BASOPHILS # (AUTO) 0.1 10^3/uL (0.0-0.1); BASOPHILS % (AUTO) 1 % (0-10); EOSINOPHILS # (AUTO) 0.1 10^3/uL (0.0-0.3); EOSINOPHILS % (AUTO) 2 % (0-10); HEMATOCRIT 26 % (35-52); HEMOGLOBIN 8.2 g/dL (11.5-16.0); LYMPHOCYTES # (AUTO) 1.7 10^3/uL (1.0-4.0); LYMPHOCYTES % (AUTO) 26 % (12-44); MEAN CORPUSCULAR HEMOGLOBIN 30 pg (25-34); MEAN CORPUSCULAR HGB CONC 32 g/dL (32-36); MEAN CORPUSCULAR VOLUME 93 fL (80-99); MEAN PLATELET VOLUME 8.8 fL (9.0-12.2); MONOCYTES # (AUTO) 0.7 10^3/uL (0.0-1.0); MONOCYTES % (AUTO) 11 % (0-12); NEUTROPHILS # (AUTO) 3.6 10^3/uL (1.8-7.8); NEUTROPHILS % (AUTO) 58 % (42-75); PLATELET COUNT 302 10^3/uL (130-400); WHITE BLOOD COUNT 6.2 10^3/uL (4.3-11.0)
[2023-03-09 04:55] LABS: ALBUMIN 2.2 GM/DL (3.2-4.5); BILIRUBIN,TOTAL 0.1 MG/DL (0.1-1.0); CALCIUM 8.5 MG/DL (8.5-10.1); CREATININE SERUM 2.17 MG/DL (0.60-1.30); MAGNESIUM 2.4 MG/DL (1.6-2.4); POTASSIUM 3.2 MMOL/L (3.6-5.0)
[2023-03-09] MEDS: MAGNESIUM 1 GM/100 ML IVPB 100 ML IV SCH (05:16)
[2023-03-09] MEDS: POTASSIUM BICARB 20 MEQ (EFFER-K) TABLET PO SCH (05:16)
[2023-03-09] MEDS: KCL 20 MEQ TAB (K-DUR) PO SCH (05:55)
[2023-03-09] MEDS: POTASSIUM CL 10MEQ/50ML IVPB 50 ML IV SCH (05:55)
[2023-03-09] MEDS ORDERED: KCL 20 MEQ TAB (K-DUR) PO ONE ×2 (06:00→10:00)
[2023-03-09] MEDS: VENlafaxine XR 75 MG (EFFEXOR XR) CAP PO SCH (06:24)
[2023-03-09 07:49] VITALS: BP 132/60
[2023-03-09] MEDS ORDERED: TROUGH ORDER-PHARMACY XX NR (09:00)
[2023-03-09] MEDS: amLODIPine 5 MG (NORVASC) TAB PO SCH (09:13)
[2023-03-09] MEDS: ALLOPURINOL 300 MG (ZYLOPRIM) TAB PO SCH (09:13)
[2023-03-09] MEDS: ENOXAPARIN INJECTION 30 MG/0.3 ML SYR SC SCH (09:14)
[2023-03-09] MEDS: DOCUSATE SODIUM 100 MG (COLACE) CAP PO SCH (09:14)
[2023-03-09] MEDS: meTOprolol TARTRATE 25 MG (LOPRESSOR) TABLET PO SCH (09:14)
[2023-03-09] MEDS: HydroCHLOROthiazide CAP/TABLET 12.5 MG TAB PO SCH (09:14)
[2023-03-09] MEDS: SENNOSIDES 8.6 MG (SENOKOT) TAB PO SCH (09:14)
--- NOTE | 2023-03-09 10:27 | Wound Care Assessment ---
Wound Care Assessment Date Seen by Provider: Mar 09, 2023 Time Seen by Provider: 10:21 Chief Complaint COVID vasculitis with associated sepsis HPI This pleasant 72 year old patient is well known to my practice. She presents with significant generalized weakness with a resulting fall as outpatient. Concern for severe sepsis. She was admitted to our inpatient rehab for post- COVID strengthening in December. While admitted I was consulted for a blistering/sloughing rash to LLE and palms/soles. 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 Patient was started on systemic steroids and followed up with dermatology upon d/c home (01/11/23). She did develop severe subsequent infection and presented back to my outpatient office in consultation. She completed her taper of prednisone on 02/28/23. Her initial wound culture was loaded with pseudomonas, MRSA, and enterococcus faecalis and faecium. She was treated with renally dosed levaquin and doxycycline (remained on that until her admit last night). She is now on Vancomycin and meropenem. Her labs had been steadily improving as outpatient (GFR last week was 31, Albumin was 3.5 , Hgb 10.6). Her WBC was 16 last week (immediately off prednisone). We did refer at her initial outpatient visit for plastics consultation at and she did see Dr. Armijo in telehealth consultation yesterday. He does feel like admission at their facility is warrented with her complex case and that grafting is a possibility in the next several weeks. However, debridement was necessary emergently and Dr. Mcbride did take her to the OR twice in mid-January for removal of necrotic material. We did initiate double wound vac as an outpatient approximately 1.5 weeks ago and she has had tremendous improvements in viability since onset of wound vac and debridements. This is encouraging in light of her underlying inflammatory etiology. Her wound today remains massive in size. As an outpatient she was draining 2-3 canisters from her vac daily. (11 cannisters over the last weekend). We were changing her dressings twice weekly. Her weakness and worsening kidney function are very possibly related to fluid shifts. However, her lactic acid was elevated and she is certainly high risk for sepsis which cannot be ruled out with her current symptoms, labs and wound. Her wound is massive (see below measurements). Her case is extremely complex. She is in need of Plastic surgery input and possibly ID, vascular surgery, immunology and dermatology. We cannot continue Liz's wound vac at our facility due to staffing (requires 2 inpatient vacs with different settings, skilled wound vac nurses, and assistance with positioning that make it an impossibility in our small hospital). We will continue Vashe WTD bid dressings while she is admitted here. Surgical staff and medical staff in agreement with need for transfer. She has transfer orders for burn unit at in place but no bed is available. I do plan to reach out to Dr. Armijo's office to see if a med-surgical transfer would be possible in light of lack of beds on burn unit. We have kept her on our general med-surg floor while admitted and she is doing well currently. Her nurse is aware of the situation and in communication with admissions as well. Smoking Status: Never a Smoker Recreational Drug Use: No Alcohol Use: Denies Use Exam Vital Signs Date Time Temp Pulse Resp B/P (MAP) Pulse Ox O2 Delivery O2 Flow Rate FiO2 03/09/23 08:00 Room Air 03/09/23 07:49 36.1 72 18 132/60 (84) 97 Capillary Refill : Less Than 3 Seconds Results Laboratory Tests 03/08/23 17:28: Vancomycin Level Trough 23.0H 03/09/23 04:15: White Blood Count 6.2, Red Blood Count 2.74L, Hemoglobin 8.2L, Hematocrit 26L, Mean Corpuscular Volume 93, Mean Corpuscular Hemoglobin 30, Mean Corpuscular Hemoglobin Concent 32, Red Cell Distribution Width 17.5H, Platelet Count 302, Mean Platelet Volume 8.8L, Immature Granulocyte % (Auto) 2, Neutrophils (%) ( Auto) 58, Lymphocytes (%) (Auto) 26, Monocytes (%) (Auto) 11, Eosinophils (%) (Auto) 2, Basophils (%) (Auto) 1, Neutrophils # (Auto) 3.6, Lymphocytes # (Auto) 1.7, Monocytes # (Auto) 0.7, Eosinophils # (Auto) 0.1, Basophils # (Auto) 0.1, Immature Granulocyte # (Auto) 0.2H, Sodium Level 136, Potassium Level 3.2L, Chloride Level 109H, Carbon Dioxide Level 17L, Anion Gap 10, Blood Urea Nitrogen 35H, Creatinine 2.17H, Estimat Glomerular Filtration Rate 24, BUN/Creatinine Ratio 16, Glucose Level 129H, Calcium Level 8.5, Corrected Calcium 9.9, Magnesium Level 2.4, Total Bilirubin 0.1, Aspartate Amino Transf (AST/SGOT) 12, Alanine Aminotransferase (ALT/SGPT) 12, Alkaline Phosphatase 62, Total Protein 4.0L, Albumin 2.2L 03/09/23 09:35: Vancomycin Level Trough 17.0 Microbiology 03/07/23 Gram Stain - Final, Resulted 03/07/23 Wound Culture - Preliminary, Resulted Pseudomonas aeruginosa Susceptibility To Follow Probable Staph Aureus 03/07/23 Blood Culture - Preliminary, Resulted No growth 03/07/23 Urine Culture - Preliminary, Resulted Probable Enterococcus Species Gram Pos Mixed Bacterial Meghan Microbiology 03/07/23 Gram Stain - Final, Resulted 03/07/23 Wound Culture - Preliminary, Resulted Pseudomonas aeruginosa Susceptibility To Follow Probable Staph Aureus 03/07/23 Blood Culture - Preliminary, Resulted No growth 03/07/23 Urine Culture - Preliminary, Resulted Probable Enterococcus Species Gram Pos Mixed Bacterial Meghan 03/07/23 Blood Culture - Preliminary, Resulted No growth Assessment/Plan/Dx Assessment: 1. Post-COVID leukocytoclastic vasculitis of LLE 2. Non-pressure ulcer LLE with necrosis of muscle/fascia 3. 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 Refractory anemia 5. Obesity 6. Dehydration due to wound related fluid shifts 7. Presumed severe sepsis with weakness and falls 8. Moderate PEM 9. Recent infection: Pseudomonas, MRSA, E. faecalis/faecium Plan: 1. Agree with broad spectrum antibiotics and fluid resuscitation 2. Agree with sepsis protocols 3. Removal of wound vac and transition to vashe wet to dry packing bed while admitted 4. Defer all other issues to primary team 5. This patient is extremely complex. She is in need of Plastic surgery input (for possible surgical intervention/grafting). She is also in need of possibly infectious disease, immunology, vascular surgery and dermatology input. It is my opinion that a hospital transfer to for higher level of care would be appropriate. I am happy to make myself available to discuss as needed with . I have discussed with Dr. Torres. 6. Disp.: Our nursing staff and office staff will attempt to communication with [facility] and see if a med-surg transfer might be available while awaiting an open bed in the burn unit. BUDDY PACHECO MD Mar 09, 2023 10:27
[2023-03-09] MEDS: LACTATED RINGERS 1,000 ML IV SCH (11:01)
--- NOTE | 2023-03-09 11:03 | Progress Note - Hospitalist ---
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 She had COVID a couple months ago. She subsequently developed lower extremity wounds which worsened. She was also debilitated at that time and required inpatient rehabilitation. Her wounds worsened and she required surgical debridement. Her wound cultures showed polymicrobial infection including MRSA, Prevotella, Pseudomonas, and Enterococcus. She has been on oral Levaquin and Doxycycline as an outpatient. She had wound vacs placed about a week and a half ago. They have been putting out liters of fluid per day. They reportedly drained 11 cannisters over the weekend. She has not had much of an appetite and has not been eating and drinking much. She denies fevers. She gets short of breath with activity. She denies nausea and vomiting. She has not noticed any new swelling or skin changes on her legs. Subjective/Events-last exam She has no new complaints. She has been up walking to the bathroom. She did not like the Ensure. Focused Exam Lactate Level 03/07/23 17:30: Lactic Acid Level 2.88*H 03/07/23 19:42: Lactic Acid Level 1.99 Objective Exam Vital Signs Vital Signs Date Time Temp Pulse Resp B/P (MAP) Pulse Ox O2 Delivery O2 Flow Rate FiO2 03/09/23 08:00 Room Air 03/09/23 07:49 36.1 72 18 132/60 (84) 97 Capillary Refill : Less Than 3 Seconds General Appearance: No Apparent Distress, Obese Respiratory: Lungs Clear Cardiovascular: Regular Rate, Rhythm, No Murmur Gastrointestinal: Normal Bowel Sounds, Soft Extremity: Other (left leg wound with dressing in place) Neurologic/Psychiatric: Alert, Depressed Affect Results/Procedures Lab Laboratory Tests 03/09/23 04:15 Patient resulted labs reviewed. Assessment/Plan Assessment and Plan Assess & Plan/Chief Complaint Severe sepsis, resolved Skin and soft tissue infection Chronic leg wounds COVID associated vasculitis Lactic acidosis, resolved SURAJ on CKD IV antibiotics IV fluids Wound culture with Pseudomonas and Staph aureus, final susceptibilities pending Wound care following Attempt transfer to for plastic surgery evaluation, awaiting response regarding bed availability today HTN GERD Gout Morbid obesity Continue home meds DVT prophylaxis: Lovenox Diagnosis/Problems Diagnosis/Problems (1) Severe sepsis Status: Resolved Resolution Date/Time: 03/09/23 @ 11:03 (2) Leg wound, left Status: Chronic Qualifiers: Encounter type: subsequent encounter Qualified Codes: S81.802D - Unspecified open wound, left lower leg, subsequent encounter (3) [id number] condition Status: Acute (4) Post-acute sequelae of SARS-CoV-2 infection Status: Acute (5) Lactic acidosis Status: Resolved Resolution Date/Time: 03/09/23 @ 11:03 (6) Acute kidney injury superimposed on chronic kidney disease Status: Acute (7) Generalized weakness Status: Acute BENJAMÍN PATEL MD Mar 09, 2023 11:03
[2023-03-09] MEDS ORDERED: VANCOMYCIN 1 GM/NS 250 ML IVPB IV SCH ×2 (12:00)
[2023-03-09 12:26] VITALS: BP 133/61
--- NOTE | 2023-03-09 12:32 | Progress Note ---
Subjective Date Seen by a Provider: Mar 09, 2023 Time Seen by a Provider: 11:00 Subjective/Events-last exam doing well. ambulating better today. no fever/chills. Focused Exam Lactate Level 03/07/23 17:30: Lactic Acid Level 2.88*H 03/07/23 19:42: Lactic Acid Level 1.99 Objective Exam Vital Signs Date Time Temp Pulse Resp B/P (MAP) Pulse Ox O2 Delivery O2 Flow Rate FiO2 03/09/23 12:26 36.3 58 18 133/61 (85) Room Air 03/09/23 08:00 Room Air 03/09/23 07:49 36.1 72 18 132/60 (84) 97 Room Air 03/09/23 07:00 74 03/09/23 03:38 36.0 79 18 138/73 (94) 97 Room Air 03/09/23 01:00 83 03/08/23 23:29 36.3 86 18 116/66 (83) 97 Room Air 03/08/23 20:10 Room Air 03/08/23 19:09 36.9 76 20 142/65 (90) 99 Room Air 03/08/23 19:00 100 03/08/23 16:14 36.2 76 18 149/65 (93) 93 Room Air 03/08/23 12:38 82 I & O 03/09/23 07:00 Intake Total 2280 ml Output Total 500 ml Balance 1780 ml Capillary Refill : Less Than 3 Seconds General Appearance: No Apparent Distress HEENT: PERRL/EOMI Neck: Full Range of Motion Respiratory: Chest Non Tender, Lungs Clear, Normal Breath Sounds Cardiovascular: Regular Rate, Rhythm Gastrointestinal: normal bowel sounds, non tender, soft Extremity: Normal Capillary Refill Neurologic/Psychiatric: Alert, Oriented x3 Skin: Other (large soft tissue deficits medial left leg with no new areas of necrosis/erythema/redness) Lymphatic: No Adenopathy Results Lab Laboratory Tests 03/08/23 17:28: Vancomycin Level Trough 23.0H 03/09/23 04:15: White Blood Count 6.2, Red Blood Count 2.74L, Hemoglobin 8.2L, Hematocrit 26L, Mean Corpuscular Volume 93, Mean Corpuscular Hemoglobin 30, Mean Corpuscular Hemoglobin Concent 32, Red Cell Distribution Width 17.5H, Platelet Count 302, Mean Platelet Volume 8.8L, Immature Granulocyte % (Auto) 2, Neutrophils (%) (Auto) 58, Lymphocytes (%) (Auto) 26, Monocytes (%) (Auto) 11, Eosinophils (%) (Auto) 2, Basophils (%) (Auto) 1, Neutrophils # (Auto) 3.6, Lymphocytes # (Auto) 1.7, Monocytes # (Auto) 0.7, Eosinophils # (Auto) 0.1, Basophils # (Auto) 0.1, Immature Granulocyte # (Auto) 0.2H, Sodium Level 136, Potassium Level 3.2L, Chloride Level 109H, Carbon Dioxide Level 17L, Anion Gap 10, Blood Urea Nitrogen 35H, Creatinine 2.17H, Estimat Glomerular Filtration Rate 24, BUN/Creatinine Ratio 16, Glucose Level 129H, Calcium Level 8.5, Corrected Calcium 9.9, Magnesium Level 2.4, Total Bilirubin 0.1, Aspartate Amino Transf (AST/SGOT) 12, Alanine Aminotransferase (ALT/SGPT) 12, Alkaline Phosphatase 62, Total Protein 4.0L, Albumin 2.2L 03/09/23 09:35: Vancomycin Level Trough 17.0 Microbiology 03/07/23 Gram Stain - Final, Resulted 03/07/23 Wound Culture - Preliminary, Resulted Pseudomonas aeruginosa Susceptibility To Follow Probable Staph Aureus 03/07/23 Blood Culture - Preliminary, Resulted No growth 03/07/23 Urine Culture - Preliminary, Resulted Probable Enterococcus Species Gram Pos Mixed Bacterial Meghan Assessment/Plan Assessment/Plan Assess & Plan/Chief Complaint Covid 19 induced isolated left medial lower extremity vasculitis s/p wide debridement. wound bed looks good with good granulation tissue and no new areas of necrosis/erythma/redness. cont wet to dry for now. patient will be transferred to for temporary skin graft placement. JESSIE DELUNA MD Mar 09, 2023 12:32
--- NOTE | 2023-03-09 12:46 | Physical Therapy Evaluation ---
PT Evaluation-General Medical Diagnosis Admission Date Mar 07, 2023 at 20:37 Medical Diagnosis: severe sepsis Onset Date: Mar 07, 2023 Therapy Diagnosis Therapy Diagnosis: debility/weakness Height/Weight Height (Feet): 5 Height (Inches): 6.00 Weight (Pounds): 280 Weight (Ounces): 0.0 Precautions Precautions/Isolations: Fall Prevention, Standard Precautions Referral Physician: Isaías Reason for Referral: Evaluation/Treatment Medical History Pertinent Medical History: Arthritis, GERD, HTN, Renal Insufficiency Additional Medical History Covid Current History EMS secondary to progressive weakness Reviewed History: Yes Social History Home: Single Level Current Living Status: Alone Prior Prior Level of Function SCALE: Activities may be completed with or without assistive devices. 6-Gkwqgnxgbr-wcjxtsu completes the activity by him/herself with no assistance from a helper. 5-Set-up or Clean-up Assistance-helper sets up or cleans up; patient completes activity. [place] assists only prior to or following the activity. 4-Supervision or Touching Assistance-helper provides verbal cues and/or touching/steadying and/or contact guard assistance as patient completes activity. Assistance may be provided throughout the activity or intermittently. 3-Partial/Moderate Assistance-helper does LESS THAN HALF the effort. [place] lifts, holds or supports trunk or limbs, but provides less than half the effort. 2-Substantial/Maximal Assistance-helper does MORE THAN HALF the effort. [place] lifts or holds trunk or limbs and provides more than half the effort. 9-Gfaohhinx-eodgat does ALL the effort. Patient does none of the effort to complete the activity. Or, the assistance of 2 or more helpers is required for the patient to complete the activity. If activity was not attempted, code reason: 7-Patient Refused. 9-Not Applicable-not attempted and the patient did not perform the activity before the current illness, exacerbation or injury. 10-Not Attempted due to Environmental Limitations-(lack of equipment, weather restraints, etc.). 88-Not Attempted due to Medical Conditions or Safety Concerns. Bed Mobility: 6 Transfers (B,C,W/C): 6 Gait: 6 Indoor Mobility (Ambulation): Independent Prior Devices Use: Walker PT Evaluation-Current Subjective Patient agrees to PT. Objective Patient Orientation: Normal For Age ROM/Strength ROM Lower Extremities bilateral LE limited due to edema/obesity Strength Lower Extremities 3/5 grossly bilateral LE all planes Integumentary/Posture Integumentary multiple left LE wounds (refer to wound care) Bowel Incontinence: No Bladder Incontinence: No Posture WFL Neuromuscular (Tone, Coordination, Reflexes) grossly intact Sensory Vision: Functional Hearing: Functional Transfers Lying to Sitting/Side of Bed(Q: 2 Sit to Stand (QC): 4 Toilet Transfer (QC): 4 Gait Mode of Locomotion: Walk Anticipated Mode of Locomotion: Walk Walk 10 feet (QC): 4 Walk 50 ft with 2 Turns(QC): 88 Walk 150 ft (QC): 88 Distance: 10' Gait Assistive Device: FWW Comments/Gait Description SBA for safety Balance Sitting Static: Normal Sitting Dynamic: Normal Standing Static: Normal Standing Dynamic: Normal Assessment/Needs Patient will benefit from skilled PT to address functional mobility and strength to improve current LOF. Patient is waiting to transferred to for wound care. Rehab Potential: Guarded PT Snf Goals Snf Goals PT Snf Goals Time Frame: Mar 24, 2023 Roll Left & Right (QC): 4 Sit to Lying (QC): 4 Lying-Sitting on Side/Bed(QC): 4 Sit to Stand (QC): 4 Chair/Nyf-tq-Qetvz Xfer(QC): 4 Toilet Transfer (QC): 4 Walk 10 feet (QC): 4 Walk 50ft with 2 Turns (QC): 4 PT Plan Problem List Problem List: Activity Tolerance, Functional Strength, Balance, Gait, Transfer, Bed Mobility Treatment/Plan Treatment Plan: Continue Plan of Care Treatment Plan: Bed Mobility, Education, Functional Activity [place], Functional Strength, Gait, Safety, Therapeutic Exercise, Transfers Treatment Duration: Mar 24, 2023 Frequency: 6 times per week Estimated Hrs Per Day: .25 hour per day Time Time In: 1131 Time Out: 1142 DATE: Mar 09, 2023 Total Billed Treatment Time: 11 Total Billed Treatment 1 visit EVMod 11 min DEVORA AUGUST PT Mar 09, 2023 12:46
--- NOTE | 2023-03-09 13:07 | Occupational Therapy Eval ---
OT Evaluation-General/PLF Medical Diagnosis Admission Date Mar 07, 2023 at 20:37 Medical Diagnosis: severe sepsis Onset Date: Mar 07, 2023 Therapy Diagnosis Therapy Diagnosis: weakness Height/Weight Height (Feet): 5 Height (Inches): 6.00 Weight (Pounds): 280 Weight (Ounces): 0.0 Precautions Precautions/Isolations: Fall Prevention, Standard Precautions Weight Bear Status Weight Bearing Restriction: Weight Bearing/Tolerated Location Restriction: L MARIA ELENA Referral Physician: Isaías Referral Reason: Self Care, Evaluation/Treatment Medical History Pertinent Medical History: Arthritis, GERD, HTN, Renal Insufficiency Social History Home: Single Level Current Living Status: Alone ADL-Prior Level of Function SCALE: Activities may be completed with or without assistive devices. 3-Fparwnzcvd-uhsbveh completes the activity by him/herself with no assistance from a helper. 5-Set-up or Clean-up Assistance-helper sets up or cleans up; patient completes activity. [place] assists only prior to or following the activity. 4-Supervision or Touching Assistance-helper provides verbal cues and/or touching/steadying and/or contact guard assistance as patient completes activity. Assistance may be provided throughout the activity or intermittently. 3-Partial/Moderate Assistance-helper does LESS THAN HALF the effort. [place] lifts, holds or supports trunk or limbs, but provides less than half the effort. 2-Substantial/Maximal Assistance-helper does MORE THAN HALF the effort. [place] lifts or holds trunk or limbs and provides more than half the effort. 1-Qwjooswze-nbcqxl does ALL the effort. Patient does none of the effort to complete the activity. Or, the assistance of 2 or more helpers is required for the patient to complete the activity. If activity was not attempted, code reason: 7-Patient Refused. 9-Not Applicable-not attempted and the patient did not perform the activity before the current illness, exacerbation or injury. 10-Not Attempted due to Environmental Limitations-(lack of equipment, weather restraints, etc.). 88-Not Attempted due to Medical Conditions or Safety Concerns. Self Care: Independent Functional Cognition: Independent OT Current Status Subjective On OT arrival patient ambulating out of shower room Mental Status/Objective Patient Orientation: Person, Place, Time, Situation Attachments: Other-See Comments (wound vac recently removed, mm atrophy and detrioration) Current Upper Extremity ROM joint approximation limited d/t excessive tissue. UE ROM functional Upper Extremity Strength BUE WFLs ADL-Treatment Eating (QC): 6 Oral Hygiene (QC): 6 Shower/Bathe Self (QC): 4 Upper Body Dressing (QC): 6 Lower Body Dressing (QC): 5 On/Off Footwear (QC): 5 Toileting Hygiene (QC): 5 Education OT Patient Education: Modified ADL techniques, Progress toward Goal/Update tx plan, Purpose of tx/functional activities, Reviewed precautions, Rehab process, Safety issues, Transfer techniques Teaching Recipient: Patient Teaching Methods: Demonstration Response to Teaching: Verbalize Understanding OT Fdc Goals Supply And Distribution Manager Goals Eating (QC): 6 Oral Hygiene (QC): 6 Toileting Hygiene (QC): 6 Shower/Bathe Self (QC): 6 Upper Body Dressing (QC): 6 Lower Body Dressing (QC): 6 On/Off Footwear (QC): 6 1=Demonstrate adherence to instructed precautions during ADL tasks. 2=Patient will verbalize/demonstrate understanding of assistive devices/modifications for ADL. 3=Patient will improve strength/tolerance for activity to enable patient to perform ADL's. OT Education/Plan Problem List/Assessment Assessment: Decreased Activ Tolerance, Decreased Safety Aware Discharge Recommendations Plan/Recommendations: Continue POC Treatment Plan/Plan of Care Treatment,Training & Education: Yes Patient would benefit from OT for education, treatment and training to promote independence in ADL's, mobility, safety and/or upper extremity function for ADL's. Plan of Care: ADL Retraining, Functional Mobility, Group Exercise/Act as Ind, UE Funct Exercise/Act Treatment Duration: Mar 17, 2023 Frequency: 3 times per week Estimated Hrs Per Day: .25 hour per day Agreement: Yes Rehab Potential: Guarded Time Start Time: 11:40 Stop Time: 12:00 DATE: Mar 09, 2023 Total Time Billed (hr/min): 20 Billed Treatment Time EVL 20 PETRA RAYGOZA OT Mar 09, 2023 13:07
--- NOTE | 2023-03-09 15:16 | Discharge Summary ---
Discharge Summary Hospital Course Problems/Dx: (1) Severe sepsis Status: Resolved (2) Leg wound, left Status: Chronic Qualifiers: Qualified Codes: S81.802D - Unspecified open wound, left lower leg, subsequent encounter (3) [id number] condition Status: Acute (4) Post-acute sequelae of SARS-CoV-2 infection Status: Acute (5) Lactic acidosis Status: Resolved (6) Acute kidney injury superimposed on chronic kidney disease Status: Acute (7) Generalized weakness Status: Acute Hospital Course Date of Admission: Mar 07, 2023 at 20:37 Admission Diagnosis: Severe sepsis due to skin/soft tissue infection Family Physician/Provider: Raúl Barker MD Date of Discharge: 03/09/23 Discharge Diagnosis: Severe sepsis due to skin/soft tissue infection with Pseudomonas and MRSA Hospital Course: Liz Henriquez is a 72 year old female who was admitted with severe sepsis due to skin/soft tissue infection of her left lower extremity. She has had chronic wounds on her left leg for the past couple months. She developed a COVID-assoc iated vasculitis. She has been following with wound care. Surgery debrided her wounds 02/08. The cultures were polymicrobial with Prevotella, Pseudomonas, MRSA, and Enterococcus. She had worsening weakness at home and came into the ER. She was started on Vancomycin and Meropenem. Repeat cultures were growing Pseudomonas and MRSA with final identification and susceptibilities pending at the time of transfer. She was transferred to [facility] for plastic surgery evaluation. She would also likely benefit from ID and rheumatology evaluation. She was transferred to [facility] in stable condition. Labs and Pending Lab Test: Laboratory Tests 03/08/23 17:28: Vancomycin Level Trough 23.0H 03/09/23 04:15: White Blood Count 6.2, Red Blood Count 2.74L, Hemoglobin 8.2L, Hematocrit 26L, Mean Corpuscular Volume 93, Mean Corpuscular Hemoglobin 30, Mean Corpuscular Hemoglobin Concent 32, Red Cell Distribution Width 17.5H, Platelet Count 302, Mean Platelet Volume 8.8L, Immature Granulocyte % (Auto) 2, Neutrophils (%) (Auto) 58, Lymphocytes (%) (Auto) 26, Monocytes (%) (Auto) 11, Eosinophils (%) (Auto) 2, Basophils (%) (Auto) 1, Neutrophils # (Auto) 3.6, Lymphocytes # (Auto) 1.7, Monocytes # (Auto) 0.7, Eosinophils # (Auto) 0.1, Basophils # (Auto) 0.1, Immature Granulocyte # (Auto) 0.2H, Sodium Level 136, Potassium Level 3.2L, Chloride Level 109H, Carbon Dioxide Level 17L, Anion Gap 10, Blood Urea Nitrogen 35H, Creatinine 2.17H, Estimat Glomerular Filtration Rate 24, BUN/Creatinine Ratio 16, Glucose Level 129H, Calcium Level 8.5, Corrected Calcium 9.9, Magnesium Level 2.4, Total Bilirubin 0.1, Aspartate Amino Transf (AST/SGOT) 12, Alanine Aminotransferase (ALT/SGPT) 12, Alkaline Phosphatase 62, Total Protein 4.0L, Albumin 2.2L 03/09/23 09:35: Vancomycin Level Trough 17.0 Microbiology 03/07/23 Gram Stain - Final, Resulted 03/07/23 Wound Culture - Preliminary, Resulted Pseudomonas aeruginosa Susceptibility To Follow Probable Staph Aureus 03/07/23 Blood Culture - Preliminary, Resulted No growth 03/07/23 Urine Culture - Preliminary, Resulted Enterococcus faecium Gram Pos Mixed Bacterial Meghan Home Meds Active Reported Tylenol Arthritis (Acetaminophen) 650 Mg Tablet.er 1,300 Mg PO BID PRN Probiotic (Lactobacillus Acidophilus) 10 Billion Cell Capsule 1 Each PO DAILY [Magic Mouthwash] Susp 15 Ml QID PRN SWISH AND SPIT BENADYL,LIDOCAINE,MYLANT 1:1:1 Famotidine 20 Mg Tablet 20 Mg PO HS Vitamin E (Vitamin E Mixed) 1,000 Unit Capsule 1,000 Unit PO DAILY Benadryl (Diphenhydramine HCl) 25 Mg Capsule 50 Mg PO HS TAKE 2 (25MG) CAPS Cetirizine HCl 10 Mg Tablet 10 Mg PO HS Metoprolol Tartrate 25 Mg Tablet 25 Mg PO BID Hydrocodone-Acetamin 5-325 mg (Hydrocodone/Acetaminophen) 5 Mg-325 Mg Tablet 1 Tab PO Q4H PRN Doxycycline Hyclate 100 Mg Capsule 100 Mg PO BID FILLED 02-23-2023 #28/14 DAY SUPPLY Ondansetron Odt (Ondansetron) 8 Mg Tab.rapdis 8 Mg PO Q8H PRN Tizanidine HCl 2 Mg Tablet 2-4 Mg PO BID PRN Fluconazole 100 Mg Tablet 100 Mg PO DAILY FILLED 03-02-2023 #10 DAY SUPPLY Oxycodone HCl 5 Mg Tablet 5-10 Mg PO BID PRN Diazepam 5 Mg Tablet 5 Mg PO DAILY PRN TAKES 1 HOUR PRIOR TO DRESSING CHANGE Levofloxacin 750 Mg Tablet 750 Mg PO Q48H FILLED 02-23-2023 #7 DAY SUPPLY Vitamin B-12 (Cyanocobalamin (Vitamin B-12)) 1,000 Mcg Capsule 1,000 Mcg PO DAILY Vitamin D3 (Cholecalciferol (Vitamin D3)) 25 Mcg (1000 Unit) Tablet 25 Mcg PO DAILY Multi-Vitamin Daily (Multivitamin) 1 Each Tablet 1 Each PO DAILY Zyrtec-D Tablet (Cetirizine HCl/Pseudoephedrine) 5 Mg-120 Mg Tab.er.12h 1 Each PO DAILY Glucosamine & Chondroitin Cap (Glucosa Hammer 2Kcl/Chondroitin Hammer) 500 Mg-400 Mg Capsule 1 Each PO BID Esomeprazole Magnesium 20 Mg Capsule.dr 20 Mg PO DAILY Aspirin EC (Aspirin) 81 Mg Tablet.dr 81 Mg PO DAILY Diphenhydramine HCl 25 Mg Capsule 25 Mg PO DAILY Allopurinol 300 Mg Tablet 300 Mg PO HS Atorvastatin Calcium 80 Mg Tablet 80 Mg PO HS Venlafaxine HCl 75 Mg Tab 75 Mg PO HS Montelukast Sodium 10 Mg Tablet 10 Mg PO HS Assessment/Pt Instructions Transferred to [facility] for plastic surgery evaluation Discharge Planning: >30 minutes discharge planning Discharge Instructions Discharge Diet: No Restrictions Activity as Tolerated: Yes Consultations Wound care, surgery Discharge Physical Examination Vital Signs Vital Signs Date Time Temp Pulse Resp B/P (MAP) Pulse Ox O2 Delivery O2 Flow Rate FiO2 03/09/23 13:01 75 03/09/23 12:26 36.3 18 133/61 (85) Room Air 03/09/23 07:49 97 Allergies: Coded Allergies: povidone-iodine (Verified Allergy, Unknown, BLISTERS/RASH, 02/09/23) Uncoded Allergies: TAPE (Allergy, Mild, BLISTERS/RASH, 02/07/23) Copy Copies To 1: BUDDY PACHECO MD Copies To 2: RAÚL BARKER MD Discharge Summary Date of Admission Mar 07, 2023 at 20:37 Date of Discharge Discharge Date: Mar 09, 2023 Discharge Time: 15:15 Admission Diagnosis Severe sepsis Discharge Diagnosis Severe sepsis, resolved Skin and soft tissue infection Polymicrobial wound infection Chronic leg wounds COVID associated vasculitis Lactic acidosis, resolved SURAJ on CKD HTN GERD Gout Morbid obesity (1) Severe sepsis Status: Resolved (2) Leg wound, left Status: Chronic Qualifiers: Qualified Codes: S81.802D - Unspecified open wound, left lower leg, subs equent encounter (3) [id number] condition Status: Acute (4) Post-acute sequelae of SARS-CoV-2 infection Status: Acute (5) Lactic acidosis Status: Resolved (6) Acute kidney injury superimposed on chronic kidney disease Status: Acute (7) Generalized weakness Status: Acute BENJAMÍN PATEL MD Mar 09, 2023 15:15
[2023-03-10] MEDS ORDERED: TROUGH ORDER-PHARMACY XX ONE (11:00)
== END 2023-03-09 15:41 | disposition short-term general hospital (02) | DRG 872 ==
LOC: EDUNIT# 16:43 → ER 16:44 → 4TH 20:37
PROVIDERS: ADMIT Internal Medicine; ATTEND Internal Medicine
DX: A41.02 Sepsis due to Methicillin resistant Staphylococcus aureus (principal); L03.116 Cellulitis of left lower limb; N17.9 Acute kidney failure, unspecified; N18.4 Chronic kidney disease, stage 4 (severe); L97.923 Non-pressure chronic ulcer of unspecified part of left lower leg with necrosis of muscle; E44.0 Moderate protein-calorie malnutrition; M31.8 Other specified necrotizing vasculopathies; E87.20 Acidosis, unspecified; Z68.41 Body mass index [BMI] 40.0-44.9, adult; R65.20 Severe sepsis without septic shock; A41.52 Sepsis due to Pseudomonas; U09.9 Post COVID-19 condition, unspecified; Z79.82 Long term (current) use of aspirin; Z79.01 Long term (current) use of anticoagulants; Z79.899 Other long term (current) drug therapy; Z96.651 Presence of right artificial knee joint; E78.00 Pure hypercholesterolemia, unspecified; G47.30 Sleep apnea, unspecified; K21.9 Gastro-esophageal reflux disease without esophagitis; M19.90 Unspecified osteoarthritis, unspecified site; M10.9 Gout, unspecified; I12.9 Hypertensive chronic kidney disease with stage 1 through stage 4 chronic kidney disease, or unspecified chronic kidney disease; E11.622 Type 2 diabetes mellitus with other skin ulcer; D63.1 Anemia in chronic kidney disease; E86.0 Dehydration; E66.01 Morbid (severe) obesity due to excess calories
CPT/HCPCS: 36410; 36415; 71045; 76937; 80053; 80202; 81000; 83605; 83735; 85025; 85610; 85652; 85730; 86141; 87040; 87070; 87077; 87088; 87186; 87205

== ENCOUNTER → 2023-04-13 | Outpatient (CLI) | payer MEDICARE, OTHER ==
[~2023-04-13] MED LIST changes: +AMOX500T2 PO; +APIX5TAB PO; +CEFE2FRO IV; +DIAZ5TAB49 PO; +DIPH25CA79 PO; +DOXY100C5 PO; +FAMO20TA5 PO; +FLUC100T10 PO; +GENT30OI2 TOP; +GLUC-235 PO; +HYDR2TAB6 PO; +LACT-228 PO; +LACT1CAP62 PO; +MAGIC MOUTHWASH; +MAGIC MOUTHWASH PO; +MAGN400T39 PO; +ONDA8TAB13 PO; +ONDA8TAB13 SL; +OXYC5TAB PO; +SULF-221 PO; +TIZA-169 PO; +VITA100033 PO
== END ==
LOC: WOUNDCARE 10:17
PROVIDERS: ATTEND Family Medicine
DX: L97.123 Non-pressure chronic ulcer of left thigh with necrosis of muscle (principal); L97.223 Non-pressure chronic ulcer of left calf with necrosis of muscle; B96.5 Pseudomonas (aeruginosa) (mallei) (pseudomallei) as the cause of diseases classified elsewhere; T86.822 Skin graft (allograft) (autograft) infection; L95.8 Other vasculitis limited to the skin; U09.9 Post COVID-19 condition, unspecified; I89.0 Lymphedema, not elsewhere classified; E66.01 Morbid (severe) obesity due to excess calories; D46.4 Refractory anemia, unspecified; N18.4 Chronic kidney disease, stage 4 (severe); D63.1 Anemia in chronic kidney disease; E44.0 Moderate protein-calorie malnutrition
CPT/HCPCS: 87070; 87205; 97597; G0463

== ENCOUNTER 2023-04-14 11:35 | Emergency (ER) | payer MEDICARE, OTHER ==
[~2023-04-14] VITALS: Ht 165 cm; Wt 115.0 kg
--- NOTE | 2023-04-14 12:01 | ED Head Injury ---
General Chief Complaint: Head/Cervical Problems Stated Complaint: HEAD INJ Nursing Triage Note: PT PRESENTS TO ED AFTER HAVING A FALL YESTERDAY MORNING AND HAS SINCE HAD A KNOT ON BACK OF HEAD AND CONFUSION. PT ON THINNERS: ELIQUIS AND ASPIRIN. PT C/O HEADACHE, DIZZY, AND MILD CONFUSION. Source: patient Exam Limitations: no limitations History of Present Illness Date Seen by Provider: Apr 14, 2023 Time Seen by Provider: 11:58 Initial Comments Patient is a 73-year-old female presents ED for evaluation after a head injury. Patient fell yesterday morning around 9:30 AM. She was attempting to get her wheelchair into the car fell back hit the back of her head. No loss of consciousness. She states she heard a thump. She reported a contusion to the occipital head. Increasing sign. Does take Eliquis. She did have some headache and dizziness yesterday with improvement today. She reports nausea without vomiting. She denies of any neck pain, chest pain, shortness of breath. Patient states she has a history of diarrhea since November. She does take IV cefepime. History of vasculitis with skin graft performed at [facility] of the left leg. Daughter states patient had a GFR 19. History of chronic kidney disease. She reports daily diarrhea which is chronic. Daughter is requesting lab work of her kidney function as she has a history of chronic kidney disease that she may be dehydrated. Patient denies chest pain, shortness of breath, Barron pain, vomiting, visual changes, unilateral muscle weakness or sensory changes Allergies and Home Medications Allergies Coded Allergies: povidone-iodine (Verified Allergy, Unknown, BLISTERS/RASH, 02/09/23) Uncoded Allergies: TAPE (Allergy, Mild, BLISTERS/RASH, 02/07/23) Patient Home Medication List Home Medication List Reviewed: Yes Acetaminophen (Tylenol Arthritis) 650 Mg Tablet.er, 1,300 MG PO BID, (Reported) Entered as Reported by: KAILEY MCKENZIE on 03/08/23 1148 Allopurinol (Allopurinol) 300 Mg Tablet, 300 MG PO HS, (Reported) Entered as Reported by: KAILEY MCKENZIE on 05/23/22 0924 Apixaban (Eliquis) 5 Mg Tablet, 5 MG PO BID Prescribed by: SKY MARTE on 03/30/23 1021 Aspirin (Aspirin EC) 81 Mg Tablet.dr, 81 MG PO HS, (Reported) Entered as Reported by: KAILEY MCKENZIE on 12/29/22 1140 Atorvastatin Calcium (Atorvastatin Calcium) 80 Mg Tablet, 80 MG PO HS, (Reported) Entered as Reported by: KAILEY MCKENZIE on 05/23/22 0924 Cefepime HCl/Dextrose, Iso-Osm (Cefepime 2 gm Injection) 2 Gram/100 Ml Froz.piggy, 2 GM IV Q12H Prescribed by: SKY MARTE on 03/30/23 1021 Cetirizine HCl (Cetirizine HCl) 10 Mg Tablet, 10 MG PO HS, (Reported) Entered as Reported by: KAILEY MCKENZIE on 03/08/23 1148 Cetirizine HCl/Pseudoephedrine (Cetirizine-Pse ER 5-120 mg Tab) 5 Mg-120 Mg Tab.er.12h, 1 EACH PO DAILY, (Reported) Entered as Reported by: KAILEY MCKENZIE on 03/29/23 1253 Cholecalciferol (Vitamin D3) (Vitamin D3) 25 Mcg (1000 Unit) Tablet, 25 MCG PO DAILY, (Reported) Entered as Reported by: LLOYD BARGER on 01/01/23 1313 Cyanocobalamin (Vitamin B-12) (Vitamin B-12) 1,000 Mcg Capsule, 1,000 MCG PO DAILY, (Reported) Entered as Reported by: LLOYD BARGER on 01/01/23 1313 Diazepam (Diazepam) 5 Mg Tablet, 5 MG PO DAILY PRN for DRESSING CHANGE, (Reported) Entered as Reported by: KAILEY MCKENZIE on 03/29/23 1253 Diphenhydramine HCl (Diphenhydramine HCl) 25 Mg Capsule, 25 MG PO DAILY, (Reported) Entered as Reported by: KAILEY MCKENZIE on 05/23/22 0949 Diphenhydramine HCl (Benadryl) 25 Mg Capsule, 50 MG PO HS, (Reported) Entered as Reported by: KAILEY MCKENZIE on 03/08/23 1148 Esomeprazole Magnesium (Esomeprazole Magnesium) 20 Mg Capsule.dr, 20 MG PO DAILY, (Reported) Entered as Reported by: KAILEY MCKENZIE on 12/29/22 1140 Famotidine (Famotidine) 20 Mg Tablet, 20 MG PO HS, (Reported) Entered as Reported by: KAILEY MCKENZIE on 03/08/23 1148 Gentamicin Sulfate (Gentamicin Sulfate) 0.1 % Oint...g., 0 GM TOP Q48H Prescribed by: SKY MARTE on 03/30/23 1056 Glucos Sul 2Kcl/MSM/Chond/C/Mn (Glucosamine Chondroitin Cap) 550 Mg-30 Mg-1 Mg Capsule, 1 EACH PO BID, (Reported) Entered as Reported by: KAILEY MCKENZIE on 03/29/23 1253 Hydrocodone/Acetaminophen (Hydrocodone-Acetamin 5-325 mg) 5 Mg-325 Mg Tablet, 1 TAB PO Q4H PRN for PAIN-MODERATE (5-7), (Reported) Entered as Reported by: KAILEY MCKENZIE on 03/29/23 1253 Lactobacillus Acidophilus (Probiotic) 10 Billion Cell Capsule, 1 EACH PO DAILY, (Reported) Entered as Reported by: KAILEY MCKENZIE on 03/29/23 1253 Metoprolol Tartrate (Metoprolol Tartrate) 25 Mg Tablet, 25 MG PO BID, (Reported) Entered as Reported by: KAILEY MCKENZIE on 03/08/23 1148 Montelukast Sodium (Montelukast Sodium) 10 Mg Tablet, 10 MG PO HS, (Reported) Entered as Reported by: KAILEY MCKENZIE on 03/29/23 1322 Multivitamin (Multi-Vitamin Daily) 1 Each Tablet, 1 EACH PO DAILY, (Reported) Entered as Reported by: LLOYD BARGER on 01/01/23 1312 Ondansetron (Ondansetron Odt) 8 Mg Tab.rapdis, 8 MG SL Q8H PRN for NAUSEA/VOMITING-1ST LINE, (Reported) Entered as Reported by: KAILEY MCKENZIE on 03/29/23 1253 Oxycodone HCl (Oxycodone HCl) 5 Mg Tablet, 5-10 MG PO BID PRN for PAIN-SEVERE (8-10), (Reported) Entered as Reported by: KAILEY MCKENZIE on 03/29/23 1253 Tizanidine HCl (Tizanidine HCl) 2 Mg Tablet, 2-4 MG PO BID PRN for MUSCLE SPASMS, (Reported) Entered as Reported by: KAILEY MCKENZIE on 03/08/23 1148 Venlafaxine HCl (Venlafaxine HCl) 75 Mg Tab, 75 MG PO HS, (Reported) Entered as Reported by: EYAL MITCHELL on 09/30/18 1356 [Magic Mouthwash] , 15 ML PO QID PRN for MOUTH PAIN, (Reported) Entered as Reported by: KAILEY MCKENZIE on 03/29/23 1253 Review of Systems Review of Systems Constitutional: No chills, No diaphoresis; dizziness; No malaise Eyes: Denies Blurred Vision, Denies Decreased Acuity Ears, Nose, Mouth, Throat: denies ear pain, denies ear discharge Respiratory: No cough, No dyspnea on exertion Cardiovascular: No chest pain, No edema Gastrointestinal: No abdominal pain, No diarrhea; nausea; No vomiting Genitourinary: No decreased output, No discharge Musculoskeletal: No back pain, No joint pain, No joint swelling, No muscle pain Skin: No change in color; other (contusion) Psychiatric/Neurological: Headache All Other Systems Reviewed Negative Unless Noted: Yes Past Vrniuyy-Cvbthk-Vaeweb Hx Patient Social History Tobacco Use?: No Substance use?: No Alcohol Use?: No Pt feels they are or have been: No Immunizations Up To Date First/Initial COVID19 Vaccinat: unk Second COVID19 Vaccination Rick: 12/2020 Third COVID19 Vaccination Date: 2020 Seasonal Allergies Seasonal Allergies: Yes Past Medical History Surgery/Hospitalization HX: COVID 3-23, CKD 3, HLD, HTN, GERD, SLEEP APNEA AND CPAP, LEFT ARM DVT, LEFT LEG GRAFT 03-23 Surgeries: Yes (COLONOSCOPY X2, BILAT KNEES SCOPES, CS X2, BILAT TKR, LITHOTRIPSY, CAT) Adenoidectomy, Hysterectomy, Tonsillectomy Respiratory: Yes Asthma, Sleep Apnea Currently Using CPAP: No Currently Using BIPAP: No Cardiac: Yes (OCCASIONAL PVC'S) High Cholesterol, Hypertension Neurological: No Reproductive Disorders: No 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 Sexually Transmitted Disease: No HIV/AIDS: No Genitourinary: Yes (STAGE 3 RENAL DX) Kidney Stones, Renal Failure Gastrointestinal: Yes Gastroesophageal Reflux, Chronic Diarrhea, Polyps Musculoskeletal: Yes Arthritis, Gout Endocrine: No HEENT: Yes (GLASSES) Cataract Cancer: No Psychosocial: No Integumentary: Yes (LEFT LEG) Recent Skin Changes Blood Disorders: Yes (LOW HBG) Adverse Reaction/Blood Tranf: No (HAS HAD BLOOD WITH NO REACTION) Family Medical History Colon cancer requiring screening colonoscopy No Pertinent Family Hx Physical Exam Vital Signs Vital Signs - First Documented 04/14/23 11:45 Temp 37.0 Pulse 82 Resp 18 B/P (MAP) 154/86 (108) Pulse Ox 98 O2 Delivery Room Air Capillary Refill : Less Than 3 Seconds Height, Weight, BMI Height: 5'6.00" Weight: 280lbs. 0.0oz. [id number]; 42.00 BMI Method: General Appearance: WD/WN, no apparent distress HEENT: PERRL/EOMI, normal ENT inspection, TMs normal, pharynx normal, other (Contusion left occipital head. No crepitus or step-off.) Neck: non-tender, full range of motion, supple, normal inspection Cardiovascular: regular rate, rhythm, no edema, no gallop, no JVD Respiratory: chest non-tender, lungs clear, normal breath sounds, no respiratory distress, no accessory muscle use Gastrointestinal: normal bowel sounds, non tender, soft, no organomegaly Back: normal inspection, no CVA tenderness, no vertebral tenderness Extremities: other (Healing wounds to the left lower leg. No other erythema, warmth or exudate) Crainal Nerves: normal hearing, normal speech, PERRL Coordination/Gait: normal finger to nose, normal gait Motor/Sensory: no motor deficit, no sensory deficit, no pronator drift Skin: other (golf size contusion to occipital head) Progress/Results/Core Measures Results/Orders Lab Results Laboratory Tests Test 04/14/23 12:06 Range/Units White Blood Count 6.3 4.3-11.0 10^3/uL Red Blood Count 3.23 L 3.80-5.11 10^6/uL Hemoglobin 10.0 L 11.5-16.0 g/dL Hematocrit 32 L 35-52 % Mean Corpuscular Volume 100 H 80-99 fL Mean Corpuscular Hemoglobin 31 25-34 pg Mean Corpuscular Hemoglobin Concent 31 L 32-36 g/dL Red Cell Distribution Width 18.4 H 10.0-14.5 % Platelet Count 340 130-400 10^3/uL Mean Platelet Volume 9.7 9.0-12.2 fL Immature Granulocyte % (Auto) 1 % Neutrophils (%) (Auto) 48 42-75 % Lymphocytes (%) (Auto) 35 12-44 % Monocytes (%) (Auto) 9 0-12 % Eosinophils (%) (Auto) 6 0-10 % Basophils (%) (Auto) 2 0-10 % Neutrophils # (Auto) 3.0 1.8-7.8 10^3/uL Lymphocytes # (Auto) 2.2 1.0-4.0 10^3/uL Monocytes # (Auto) 0.6 0.0-1.0 10^3/uL Eosinophils # (Auto) 0.4 H 0.0-0.3 10^3/uL Basophils # (Auto) 0.1 0.0-0.1 10^3/uL Immature Granulocyte # (Auto) 0.0 0.0-0.1 10^3/uL Sodium Level 140 135-145 MMOL/L Potassium Level 3.5 L 3.6-5.0 MMOL/L Chloride Level 108 H 98-107 MMOL/L Carbon Dioxide Level 20 L 21-32 MMOL/L Anion Gap 12 5-14 MMOL/L Blood Urea Nitrogen 36 H 7-18 MG/DL Creatinine 2.56 H 0.60-1.30 MG/DL Estimat Glomerular Filtration Rate 19 BUN/Creatinine Ratio 14 Glucose Level 122 H 70-105 MG/DL Calcium Level 10.6 H 8.5-10.1 MG/DL Corrected Calcium 11.2 H 8.5-10.1 MG/DL Magnesium Level 2.1 1.6-2.4 MG/DL Total Bilirubin 0.2 0.1-1.0 MG/DL Aspartate Amino Transf (AST/SGOT) 18 5-34 U/L Alanine Aminotransferase (ALT/SGPT) 14 0-55 U/L Alkaline Phosphatase 73 40-136 U/L Total Protein 5.6 L 6.4-8.2 GM/DL Albumin 3.3 3.2-4.5 GM/DL My Orders Orders - KRISTINA PERERA Ct Head/Cervical Spine Wo (04/14/23 11:57) Cbc With Automated Diff (04/14/23 11:57) Comprehensive Metabolic Panel (04/14/23 11:57) Ns Iv 1000 Ml (Sodium Chloride 0.9%) (04/14/23 12:52) Potassium Chloride (Tablet) (K Dur Table (04/14/23 13:30) Magnesium (04/14/23 13:27) Ns Iv 1000 Ml (Sodium Chloride 0.9%) (04/14/23 14:14) Medications Given in ED Current Medications Medications Dose Ordered Sig/Abhi Route Start Time Stop Time Status Last Admin Dose Admin Potassium Chloride 20 meq ONCE ONCE PO 04/14/23 13:30 04/14/23 13:31 DC 04/14/23 14:24 20 MEQ Vital Signs/I&O 04/14/23 04/14/23 11:45 15:06 Temp 37.0 Pulse 82 73 Resp 18 18 B/P (MAP) 154/86 (108) 144/74 Pulse Ox 98 98 O2 Delivery Room Air Room Air Blood Pressure Mean: 108 Departure Communication (PCP) Reviewed previous ER visits, H&P, lab testing. Patient is 73-year-old female who presents to ED after evaluation after mechanical fall yesterday. Hit the back part of her head. No loss of consciousness but is on blood thinners. She does have contusion. Mild concussion-like symptoms. Due to mechanism of injury and symptomatic CT scan of the head and cervical neck was ordered. She had no cervical midline tenderness suggesting c-collar. CT scan head and cervical neck was unremarkable. No bleeding in the ears suggesting basilar skull fracture. She was requesting a recheck of her lab work. Had Chem panel that was drawn last . She states her GFR last was 19. She has a history of chronic kidney disease. Follows Dr. Martin nephrology. Scheduled follow-up in May. Denies history of dialysis. Chronic diarrhea which could be contributing to her kidney disease. She is currently in wound care for her left lower leg. Skin graft this past month at [facility]. She has a history of debridement by Dr. Menjivar in January. She denies of any leg pain. CBC CMP was ordered. Hemoglobin stable at 10. Normal white blood count. Creatinine 2.56, GFR 19, potassium 3.5. She received 20 mEq of oral potassium. She was started on a liter of fluid. Slight change from her creatinine last month 1.71. Her creatinine has been as high as 5. Average creatinine in the mid to lower 2. Patient was discussed with her primary care physician Dr. Barker regarding her results and change in kidney function. Recommended adding a second liter of fluid. Did not necessarily recommend admission at this time. Patient's kidney function has been fluctuating throughout the past 3 to 4 months. Her vital signs are stable. She does not appear toxic.. She is currently on cefepime for chronic infection of the left lower leg. She denies any dark tarry stool. Denies any odor of her stool. She denies being checked for C. difficile. She was not able to provide a stool sample at this time. Soft abdomen. She denies feeling weak fatigue, abdominal pain, chest pain short of breath. No urinary symptoms. Will discharge with follow-up with Dr. Barker next Sunday or Sunday. She agreed with this plan of action. Discussed potential concussion- like symptoms. Recommend rest at home. Tylenol for pain. Ice to the contusion. if any worsening symptoms return back to ED such as severe head pain, falling, change in mental status. Impression Primary Impression: Hematoma of occipital region of scalp Additional Impression: Acute on chronic renal failure Disposition: HOME, SELF-CARE Condition: Stable Departure-Patient Inst. Decision time for Depature: 14:18 Referrals: RAÚL BARKER MD (PCP/Family) Primary Care Physician Patient Instructions: Acute Kidney Injury (DC) Add. Discharge Instructions: Recommend staying hydrated. Follow-up with Dr. Barker early next week. If any worsening symptoms return back to ED. All discharge instructions reviewed with patient and/or family. Voiced understanding. KRISTINA PERERA Apr 14, 2023 12:01
[2023-04-14 12:14] LABS: BASOPHILS # (AUTO) 0.1 10^3/uL (0.0-0.1); BASOPHILS % (AUTO) 2 % (0-10); EOSINOPHILS # (AUTO) 0.4 10^3/uL (0.0-0.3); EOSINOPHILS % (AUTO) 6 % (0-10); HEMATOCRIT 32 % (35-52); LYMPHOCYTES # (AUTO) 2.2 10^3/uL (1.0-4.0); LYMPHOCYTES % (AUTO) 35 % (12-44); MEAN CORPUSCULAR HEMOGLOBIN 31 pg (25-34); MEAN CORPUSCULAR HGB CONC 31 g/dL (32-36); MEAN CORPUSCULAR VOLUME 100 fL (80-99); MEAN PLATELET VOLUME 9.7 fL (9.0-12.2); MONOCYTES # (AUTO) 0.6 10^3/uL (0.0-1.0); MONOCYTES % (AUTO) 9 % (0-12); NEUTROPHILS % (AUTO) 48 % (42-75); PLATELET COUNT 340 10^3/uL (130-400); WHITE BLOOD COUNT 6.3 10^3/uL (4.3-11.0)
[2023-04-14 12:33] LABS: ALBUMIN 3.3 GM/DL (3.2-4.5); POTASSIUM 3.5 MMOL/L (3.6-5.0)
[2023-04-14 12:35] LABS: CALCIUM 10.6 MG/DL (8.5-10.1)
[2023-04-14 12:36] LABS: TOTAL PROTEIN 5.6 GM/DL (6.4-8.2)
[2023-04-14 12:38] LABS: BILIRUBIN,TOTAL 0.2 MG/DL (0.1-1.0)
[2023-04-14 12:40] LABS: CREATININE SERUM 2.56 MG/DL (0.60-1.30)
[2023-04-14] MEDS ORDERED: NS IV 1000 ML 1,000 ML IV STA ×2 (12:52→14:14)
[2023-04-14] MEDS ORDERED: KCL 20 MEQ TAB (K-DUR) PO ONE (13:30)
--- NOTE | 2023-04-14 13:41 | Diagnostic Imaging Report ---
PROCEDURE: CT head and CT cervical spine without contrast. TECHNIQUE: Multiple contiguous axial images were obtained through the brain and cervical spine without the use of intravenous contrast. Sagittal and coronal reformations through the cervical spine were then performed. Auto Exposure Controls were utilized during the CT exam to meet ALARA standards for radiation dose reduction. INDICATION: 73-year-old female, status post fall yesterday morning. Trauma to head with knot and confusion. On anticoagulation. Headache and dizziness. CORRELATION STUDY: None FINDINGS: CT HEAD: Rather sizable, 2.4 cm hypodense hematoma left posterior scalp. Additional edema/hematoma extends along the left posterior scalp as well. Bony calvarium intact. Intracranially, generalized atrophic changes with prominence of the ventricles and sulci. No midline shift or mass effect. No intracranial hemorrhage. Small choroid plexus cyst left greater than right. Mild intracranial vascular calcification without hyperdense intracranial vascular sign. Paranasal sinuses demonstrate mild to moderate mucosal thickening sphenoid sinus. No air-fluid level. CT CERVICAL SPINE: Straightening with reversal normal cervical lordosis. There is no acute fracture or traumatic subluxation. Hypertrophic facet arthropathy with the fusion across the facet joints on the right C3-C4 level. More focal disc space narrowing C6-C7 level. Mild osteophyte formation without high degree canal narrowing. There does appear to be at least mild foraminal narrowing right greater than left. Paraspinal soft tissues and lung apices unremarkable. There is a right IJ catheter IMPRESSION: CT HEAD: 1. Rather sizable left posterior scalp hematoma. Negative for calvarial fracture. No acute traumatic abnormality. CT CERVICAL SPINE: 1. Negative for acute fracture or traumatic subluxation. Mild cervical spondylosis. Dictated by: Dictated on workstation # [id number]
[2023-04-14 15:06] VITALS: BP 144/74
== END 2023-04-14 15:23 | disposition home or self-care (01) ==
LOC: EDUNIT# 11:35 → ER 11:37
DX: S00.03XA Contusion of scalp, initial encounter (principal); N17.9 Acute kidney failure, unspecified; I12.9 Hypertensive chronic kidney disease with stage 1 through stage 4 chronic kidney disease, or unspecified chronic kidney disease; N18.30 Chronic kidney disease, stage 3 unspecified; L08.9 Local infection of the skin and subcutaneous tissue, unspecified; Z86.16 Personal history of COVID-19; Z79.01 Long term (current) use of anticoagulants; Z79.82 Long term (current) use of aspirin; W18.39XA Other fall on same level, initial encounter
CPT/HCPCS: 36415; 70450; 72125; 80053; 83735; 85025; 99283

== ENCOUNTER → 2023-04-27 | Outpatient (CLI) | payer MEDICARE, OTHER ==
[~2023-04-27] VITALS: Ht 165.1 cm; Wt 109.0 kg
[2023-04-27 11:45] VITALS: BP 144/74
== END ==
LOC: SDC 11:30
PROVIDERS: ATTEND Family Medicine
DX: L97.123 Non-pressure chronic ulcer of left thigh with necrosis of muscle (principal); L97.223 Non-pressure chronic ulcer of left calf with necrosis of muscle; L95.8 Other vasculitis limited to the skin; U09.9 Post COVID-19 condition, unspecified; I89.0 Lymphedema, not elsewhere classified; E66.01 Morbid (severe) obesity due to excess calories; D46.4 Refractory anemia, unspecified; E44.0 Moderate protein-calorie malnutrition; N18.4 Chronic kidney disease, stage 4 (severe)

== ENCOUNTER → 2023-04-27 | Outpatient (CLI) | payer MEDICARE, OTHER | LOC: WOUNDCARE 10:15 | PROVIDERS: ATTEND Family Medicine | DX: L97.123 Non-pressure chronic ulcer of left thigh with necrosis of muscle (principal); L97.223 Non-pressure chronic ulcer of left calf with necrosis of muscle; L95.8 Other vasculitis limited to the skin; U09.9 Post COVID-19 condition, unspecified; I89.0 Lymphedema, not elsewhere classified; E66.01 Morbid (severe) obesity due to excess calories; D46.4 Refractory anemia, unspecified; N18.4 Chronic kidney disease, stage 4 (severe); E44.0 Moderate protein-calorie malnutrition; I96 Gangrene, not elsewhere classified | CPT/HCPCS: 97597; G0463 ==

== ENCOUNTER → 2023-04-27 | Outpatient (CLI) | payer MEDICARE, OTHER ==
[2023-04-27 12:17] LABS: BASOPHILS # (AUTO) 0.1 10^3/uL (0.0-0.1); BASOPHILS % (AUTO) 2 % (0-10); EOSINOPHILS # (AUTO) 0.4 10^3/uL (0.0-0.3); EOSINOPHILS % (AUTO) 8 % (0-10); HEMATOCRIT 32 % (35-52); LYMPHOCYTES # (AUTO) 1.7 10^3/uL (1.0-4.0); LYMPHOCYTES % (AUTO) 36 % (12-44); MEAN CORPUSCULAR HEMOGLOBIN 30 pg (25-34); MEAN CORPUSCULAR HGB CONC 31 g/dL (32-36); MEAN CORPUSCULAR VOLUME 98 fL (80-99); MEAN PLATELET VOLUME 9.7 fL (9.0-12.2); MONOCYTES # (AUTO) 0.4 10^3/uL (0.0-1.0); MONOCYTES % (AUTO) 9 % (0-12); NEUTROPHILS # (AUTO) 2.1 10^3/uL (1.8-7.8); NEUTROPHILS % (AUTO) 45 % (42-75); PLATELET COUNT 305 10^3/uL (130-400); WHITE BLOOD COUNT 4.6 10^3/uL (4.3-11.0)
[2023-04-27 12:33] LABS: CREATININE SERUM 1.77 MG/DL (0.60-1.30)
[2023-04-27 12:35] LABS: MAGNESIUM 1.5 MG/DL (1.6-2.4)
== END ==
LOC: SDC 11:33
PROVIDERS: ATTEND Internal Medicine
DX: I70.218 Atherosclerosis of native arteries of extremities with intermittent claudication, other extremity (principal)
CPT/HCPCS: 36415; 80048; 83735; 85025

== ENCOUNTER → 2023-05-11 | Outpatient (CLI) | payer MEDICARE, OTHER | LOC: WOUNDCARE 10:14 | PROVIDERS: ATTEND Family Medicine | DX: I96 Gangrene, not elsewhere classified (principal); L97.123 Non-pressure chronic ulcer of left thigh with necrosis of muscle; L97.223 Non-pressure chronic ulcer of left calf with necrosis of muscle; L95.8 Other vasculitis limited to the skin; U09.9 Post COVID-19 condition, unspecified; I89.0 Lymphedema, not elsewhere classified; E66.01 Morbid (severe) obesity due to excess calories; D46.4 Refractory anemia, unspecified; N18.4 Chronic kidney disease, stage 4 (severe); E44.0 Moderate protein-calorie malnutrition | CPT/HCPCS: 11042; 11045; 97597; G0463 ==

== ENCOUNTER → 2023-05-25 | Outpatient (CLI) | payer MEDICARE, OTHER | LOC: WOUNDCARE 10:16 | PROVIDERS: ATTEND Family Medicine | DX: L97.123 Non-pressure chronic ulcer of left thigh with necrosis of muscle (principal); L97.223 Non-pressure chronic ulcer of left calf with necrosis of muscle; L95.9 Vasculitis limited to the skin, unspecified; U09.9 Post COVID-19 condition, unspecified; I89.0 Lymphedema, not elsewhere classified; E66.01 Morbid (severe) obesity due to excess calories; D46.4 Refractory anemia, unspecified; N18.4 Chronic kidney disease, stage 4 (severe); E44.0 Moderate protein-calorie malnutrition; I96 Gangrene, not elsewhere classified | CPT/HCPCS: 11042; G0463 ==

== ENCOUNTER → 2023-06-08 | Outpatient (CLI) | payer MEDICARE, OTHER | LOC: WOUNDCARE 10:17 | PROVIDERS: ATTEND Family Medicine | DX: I96 Gangrene, not elsewhere classified (principal); L97.123 Non-pressure chronic ulcer of left thigh with necrosis of muscle; L97.222 Non-pressure chronic ulcer of left calf with fat layer exposed; L95.8 Other vasculitis limited to the skin; U09.9 Post COVID-19 condition, unspecified; I89.0 Lymphedema, not elsewhere classified; E66.01 Morbid (severe) obesity due to excess calories; D46.4 Refractory anemia, unspecified; N18.4 Chronic kidney disease, stage 4 (severe); E44.0 Moderate protein-calorie malnutrition | CPT/HCPCS: 11042; G0463 ==

== ENCOUNTER → 2023-08-07 | Outpatient (CLI) | payer MEDICARE, OTHER ==
--- NOTE | 2023-08-07 17:14 | Diagnostic Imaging Report ---
Indication: Routine screening. Comparison is made with prior mammograms 07/27/2022 and 05/26/2021. 2-D and 3-D bilateral screening mammography was performed with CAD. Both breasts are heterogeneously dense, limiting the sensitivity of mammography. There are scattered benign calcifications in both breasts. There is significant motion artifact identified on the right MLO view which should be repeated. A biopsy marker clip in the right breast is noted. No mass or malignant-appearing microcalcifications are identified. IMPRESSION: BI-RADS 0 Motion artifact right MLO view. This should be repeated. ACR BI-RADS Category 0: Incomplete. (Needs additional imaging evaluation). Result letter will be mailed to the patient. Note: At least 10% of breast cancer is not imaged by mammography. Dictated by: Dictated on workstation # [id number]
== END ==
LOC: RAD 09:00
PROVIDERS: ATTEND Internal Medicine
DX: Z12.31 Encounter for screening mammogram for malignant neoplasm of breast (principal)
CPT/HCPCS: 77063; 77067

== ENCOUNTER → 2023-08-08 | Outpatient (CLI) | payer MEDICARE, OTHER ==
--- NOTE | 2023-08-08 22:21 | Diagnostic Imaging Report ---
INDICATION: Motion artifact right breast. Repeat images were performed. A repeat right MLO 2-D and 3-D bilateral mammography was performed. Scattered benign calcifications are again noted. There is a biopsy marker clip present. No mass or malignant-appearing microcalcifications are seen. Axilla is unremarkable. IMPRESSION: No mammographic features suspicious for malignancy are identified. ACR BI-RADS Category 2: Benign findings. Result letter will be mailed to the patient. Note: At least 10% of breast cancer is not imaged by mammography. BI-RADS Category 2 Dictated on workstation # [id number]
== END ==
LOC: RAD 13:17
PROVIDERS: ATTEND Internal Medicine
DX: Z12.31 Encounter for screening mammogram for malignant neoplasm of breast (principal)
CPT/HCPCS: 77063